=== PATIENT | female | born 1960 | race Caucasian/White ===

== ENCOUNTER 2017-01-16 19:38 | Inpatient (IN) ==
[2017-01-16] MEDS ORDERED: Ondansetron 4 MG/2 ML VIAL IV ONE (20:18)
[2017-01-16] MEDS ORDERED: 0.9 % Sodium Chloride 1,000 ML IV SCH ×2 (20:30→21:45)
[2017-01-16 21:01] LABS: Hematocrit 40.3 % (35.3-44.9); Hemoglobin 13.7 g/dL (11.5-15.4); Immature Granulocytes % 26.1 % (0-4); Lymphocytes % 4.2 %; Mean Corpuscular Hemoglobin 29.9 pg (28.0-33.3); Mean Platelet Volume 10.9 fL (9.4-12.4); Monocytes % 5.6 %; Platelet Count 245 K/mcL (140-400); Red Blood Count 4.58 M/mcL (3.82-4.97); Red Cell Distribution Width 13.6 % (11.5-14.5); Segmented Neutrophils % 63.9 %
[2017-01-16 21:02] LABS: Basophils % 0.2 %; Lymphocytes # 0.2 K/mcL (0.6-4.6); Monocytes # 0.3 K/mcL (0.0-1.3); Neutrophils # 3.6 K/mcL (1.6-8.9)
[2017-01-16 21:06] LABS: INR 1.6; Prothrombin Time 17.4 Seconds (9.4-12.1)
[2017-01-16 21:16] LABS: Alanine Aminotransferase 58 Units/L (0-55); Albumin 2.4 g/dL (3.5-5.0); Albumin/Globulin Ratio 0.6 (1.1-2.2); Alkaline Phosphatase 208 Units/L (38-126); Aspartate Amino Transferase 136 Units/L (5-34); BUN/Creatinine Ratio 19 (6-26); Bilirubin,Direct 1.5 mg/dL (0.0-0.5); Bilirubin,Indirect 0.5 mg/dL (0.0-1.2); Blood Urea Nitrogen 20 mg/dL (7-20); Calcium 8.8 mg/dL (8.6-10.8); Carbon Dioxide 17 mEq/L (19-29); Chloride 99 mEq/L (98-109); Globulin 4.2 g/dL (2.4-3.5); Glucose 235 mg/dL (70-99); Osmolality,Calculated 288 (280-300); Sodium 134 mEq/L (136-145); Total Protein 6.6 g/dL (6.0-8.3); eGFR For African Americans > 60 (> 60); eGFR For Non-African Americans 53 (> 60)
[2017-01-16 21:18] LABS: Potassium 2.5 mEq/L (3.5-4.5)
[2017-01-16] MEDS ORDERED: Piperacillin/Tazobactam 3.375 GM in D5% in Water (Mini-Bag+) 100 ML IVPB ONE (21:24)
--- NOTE | 2017-01-16 21:27 | Emergency Department Note ---
Disposition Clinical Impression: Diverticulitis of colon with perforation Disposition: Admitted As Inpatient Condition: Good Referrals: NO,PCP [Non-Partnered Physician] - Forms: Work/School Release, ED Satisfaction Letter Time of Disposition: 21:26 Abdominal Pain HPI - General Chief Complaint: ED Abdominal Pain Stated Complaint: ABD Cramps Time Seen by Provider: 01/16/17 19:48 Source: patient Mode of arrival: ambulatory Limitations: no limitations Nursing Notes Reviewed: Yes Vital Signs Reviewed: Yes - History of Present Illness HPI Narrative: Progressive abdominal found diarrhea for one week. Worse today so her mother at the bedside convinced her to come in. No such symptoms prior. No prior abdominal surgeries. No clear exacerbating or alleviating factors Pt Subjective Complaint: abdominal pain Onset (ago): day(s) Consistency: Worsening Location: diffuse Pain Severity: moderate Pain Scale: 4 Quality: cramping, aching Radiation: none Migration to: no migration Improves with: nothing Worsens with: nothing Associated symptoms: Reports: nausea, vomiting, diarrhea. Denies: fever, chills - Related Data Home Medications Medication Instructions Recorded Confirmed Diazepam [Valium] 5 mg PO TID PRN 04/28/16 04/28/16 FLUoxetine HCl [PROzac] 20 mg PO BID 04/28/16 04/28/16 Isosorbide DInitrate [Isosorbide 1 tab PO BID 04/28/16 04/28/16 Dinitrate] Lurasidone [Latuda] 1 tab PO DAILY 04/28/16 04/28/16 Meloxicam [Mobic] 1 tab PO DAILY PRN 04/28/16 04/28/16 Previous Rx's Medication Instructions Recorded Amoxicillin [Amoxil] 500 mg PO Q8HR 14 Days 04/28/16 Fluconazole [Diflucan] 150 mg PO DAILY #2 tab 04/28/16 Allergies Allergy/AdvReac Type Severity Reaction Status Date / Time No Known Allergies Allergy Verified 04/28/16 19:57 Constitutional: Denies: fever, chills, weakness, weight change Eyes: Denies: eye pain, eye discharge, vision change ENT ED: Denies: ear pain, throat pain, dental pain, hearing loss, epistaxis, congestion, dysphagia Cardiovascular: Denies: chest pain, palpitations, dyspnea on exertion, edema, syncope Respiratory: Denies: cough, dyspnea, wheezes, hemoptysis, stridor Gastrointestinal: Reports: abdominal pain, nausea, vomiting, diarrhea Genitourinary: Denies: dysuria, frequency, hematuria, discharge Musculoskeletal: Denies: back pain, neck pain, arthralgia, myalgia Integumentary: Denies: rash, abrasion, lesions Neurological: Denies: headache, weakness, numbness, paresthesias, confusion, abnormal gait, vertigo Psychiatric: Denies: anxiety, depression, suicidal thoughts, homicidal thoughts , auditory hallucinations, visual hallucinations Endocrine: Denies: fatigue Hematological/Lymphatic: Denies: easy bleeding, easy bruising Allergic/Immunologic: Denies: facial swelling, urticaria Abdominal Pain PMH - Past Medical History Medical history: Reports: hyperlipidemia, hypertension, other Female Surgical History: Reports: Tonsillectomy, other [employer] history: Reports: no [employer] history Psychiatric history: Reports: anxiety, depression - Social History Smoking status: Current every day smoker Alcohol use: Reports: none Drug use: Reports: none Physical Exam - General Limitations: no limitations General appearance: alert, in no apparent distress - Head Head exam: atraumatic, normocephalic, normal inspection - Eye Eye exam: Present: normal appearance, PERRL, EOMI - Expanded Eye Exam Pupils: Left: reactive - ENT ENT exam: normal exam, normal oropharynx, mucous membranes moist - Expanded ENT Exam External ear exam: Present: normal external inspection Mouth exam: Present: normal external inspection Teeth exam: Present: normal inspection Throat exam: Present: normal inspection - Neck Neck exam: Present: normal inspection, full ROM, trachea midline - Chest Chest inspection: Present: normal inspection, symmetric chest wall rise - Respiratory Respiratory exam: Present: normal lung sounds bilaterally - Cardiovascular Cardiovascular exam: Present: regular rate, normal rhythm, normal heart sounds - Abdominal Exam Abdominal exam: Present: tenderness, distention Abdominal tenderness: Present: diffuse, severe - Extremities Exam Extremities exam: Present: normal inspection, full ROM. Absent: tenderness, pedal edema - Expanded Upper Extremity Exam Shoulder exam: Present: normal inspection, full ROM Arm exam: Present: normal inspection, full ROM Elbow exam: Present: normal inspection, full ROM Forearm/Wrist exam: Present: normal inspection, full ROM Hand exam: Present: normal inspection, full ROM Vascular exam: Normal: capillary refill, radial pulse - Expanded Lower Extremity Exam Hip/Pelvis exam: Present: normal inspection, full ROM Upper leg exam: Present: normal inspection, full ROM Knee exam: Present: normal inspection, full ROM Lower leg exam: Present: normal inspection, full ROM Ankle exam: Present: normal inspection, full ROM Foot/toe exam: Present: normal inspection, full ROM Neurovascular/Tendon exam: Absent: motor deficit, sensory deficit, tendon deficit - Back Exam Back exam: Present: normal inspection, full ROM. Absent: tenderness - Neurological Exam Neurological exam: Present: alert, oriented X3 - Expanded Neurological Exam Patient oriented to: Present: person, place, time Coma Scale Eye Opening: Spontaneous Coma Scale Motor Response: Obeys Commands Coma Scale Verbal Response: Oriented Coma Scale Total: 15 - Psychiatric Psychiatric exam: Present: normal affect, normal mood - Skin Skin exam: Present: warm, dry, intact, normal color Course Course Narrative: Case was discussed with the surgeon Dr. Catherine at 9:50 PM. I also discussed the case with the admitting physician Dr. Burrows at 10 PM. All details were [address] Catherine also reviewed the CT scan himself and decided to admit the patient to medicine and he would request antibiotics and medical management and he would be to consult in position. With improved heart rate and stable vital signs. Antibiotics have been ordered. Vital Signs Temperature 99.4 F 01/16/17 19:39 Pulse Rate 143 01/16/17 19:39 Respiratory Rate 16 01/16/17 19:39 Blood Pressure 160/88 01/16/17 19:39 O2 Sat by Pulse Oximetry 93 L 01/16/17 19:39 Temperature 99.4 F 01/16/17 19:39 Pulse Rate 134 01/16/17 21:15 Respiratory Rate 18 01/16/17 21:15 Blood Pressure 112/66 01/16/17 21:15 O2 Sat by Pulse Oximetry 96 01/16/17 21:15 Oxygen Delivery Oxygen Delivery Room Air Abdominal Pain - Lab Data Result diagrams: 01/16/17 20:52 01/16/17 20:52 Lab Results 01/16/17 01/16/17 01/16/17 Range/Units 20:52 20:52 20:52 WBC 5.7 (4.3-11.1) K/mcL RBC 4.58 (3.82-4.97) M/mcL Hgb 13.7 (11.5-15.4) g/dL Hct 40.3 (35.3-44.9) % MCV 88.0 (83.0-100.0) fL MCH 29.9 (28.0-33.3) pg MCHC 34.0 (31.6-35.5) g/dL RDW 13.6 (11.5-14.5) % Plt Count 245 (140-400) K/mcL MPV 10.9 (9.4-12.4) fL Immature Gran % 26.1 H (0-4) % Seg Neutrophils % 63.9 % Lymphocytes % 4.2 % Monocytes % 5.6 % Eosinophils % 0.0 % Basophils % 0.2 % Neutrophils # 3.6 (1.6-8.9) K/mcL Lymphocytes # 0.2 L (0.6-4.6) K/mcL Monocytes # 0.3 (0.0-1.3) K/mcL Eosinophils # 0.0 (0.0-0.6) K/mcL Basophils # 0.0 (0.0-0.2) K/mcL PT 17.4 H (9.4-12.1) Seconds INR 1.6 Sodium 134 L (136-145) mEq/L Potassium 2.5 L* (3.5-4.5) mEq/L Chloride 99 (98-109) mEq/L Carbon Dioxide 17 L (19-29) mEq/L BUN 20 (7-20) mg/dL Creatinine 1.07 (0.57-1.11) mg/dL Est GFR ( Amer) > 60 (> 60) Est GFR (Non-Af Amer) 53 L (> 60) BUN/Creatinine Ratio 19 (6-26) Glucose 235 H (70-99) mg/dL Calculated Osmolality 288 (280-300) Calcium 8.8 (8.6-10.8) mg/dL Total Bilirubin 2.0 H (0.2-1.2) mg/dL Direct Bilirubin 1.5 H (0.0-0.5) mg/dL Indirect Bilirubin 0.5 (0.0-1.2) mg/dL AST 136 H (5-34) Units/L ALT 58 H (0-55) Units/L Alkaline Phosphatase 208 H (38-126) Units/L Troponin I (0-0.03) ng/mL Serum Total Protein 6.6 (6.0-8.3) g/dL Albumin 2.4 L (3.5-5.0) g/dL Globulin 4.2 H (2.4-3.5) g/dL Albumin/Globulin Ratio 0.6 L (1.1-2.2) 01/16/17 Range/Units 20:52 WBC (4.3-11.1) K/mcL RBC (3.82-4.97) M/mcL Hgb (11.5-15.4) g/dL Hct (35.3-44.9) % MCV (83.0-100.0) fL MCH (28.0-33.3) pg MCHC (31.6-35.5) g/dL RDW (11.5-14.5) % Plt Count (140-400) K/mcL MPV (9.4-12.4) fL Immature Gran % (0-4) % Seg Neutrophils % % Lymphocytes % % Monocytes % % Eosinophils % % Basophils % % Neutrophils # (1.6-8.9) K/mcL Lymphocytes # (0.6-4.6) K/mcL Monocytes # (0.0-1.3) K/mcL Eosinophils # (0.0-0.6) K/mcL Basophils # (0.0-0.2) K/mcL PT (9.4-12.1) Seconds INR Sodium (136-145) mEq/L Potassium (3.5-4.5) mEq/L Chloride (98-109) mEq/L Carbon Dioxide (19-29) mEq/L BUN (7-20) mg/dL Creatinine (0.57-1.11) mg/dL Est GFR ( Amer) (> 60) Est GFR (Non-Af Amer) (> 60) BUN/Creatinine Ratio (6-26) Glucose (70-99) mg/dL Calculated Osmolality (280-300) Calcium (8.6-10.8) mg/dL Total Bilirubin (0.2-1.2) mg/dL Direct Bilirubin (0.0-0.5) mg/dL Indirect Bilirubin (0.0-1.2) mg/dL AST (5-34) Units/L ALT (0-55) Units/L Alkaline Phosphatase (38-126) Units/L Troponin I 0.01 (0-0.03) ng/mL Serum Total Protein (6.0-8.3) g/dL Albumin (3.5-5.0) g/dL Globulin (2.4-3.5) g/dL Albumin/Globulin Ratio (1.1-2.2) - EKG Data EKG attestation: Yes I reviewed and interpreted this EKG. EKG results narrative: Sinus tachycardia. No acute injury pattern. Intervals unremarkable
[2017-01-16] MEDS ORDERED: MetroNIDAZOLE 500 MG/100 ML 500 MG/100 ML BAG IVPB ONE (21:45)
[2017-01-16] MEDS ORDERED: *HR* HYDROmorphone (PF) 1 MG/ML SYRINGE IV ONE (21:45)
[2017-01-16 22:58] LABS: Bilirubin,Urine Moderate (Negative); Blood,Urine Negative (Negative); Clarity,Urine Turbid (Clear); Color,Urine Orange (Yellow); Glucose,Urine (UA) Normal (Normal); Ketones,Urine 15 mg/dL (Negative); Leukocyte Esterase,Urine Moderate (Negative); Nitrite,Urine Positive (Negative); Protein,Urine 30 mg/dL (Neg-Trace); Specific Gravity,Urine 1.024 (1.010-1.025)
[2017-01-16 23:02] LABS: RBC,Urine 0-3 per hpf (0-3); Squamous Epithelial Cell,Urine Moderate per lpf (None-Few); WBC,Urine 50-100 per hpf (0-3)
[2017-01-16 23:03] LABS: Amphetamine Screen,Urine Negative ng/mL (Cutoff=1000); Barbiturate Screen,Urine Negative ng/mL (Cutoff=200); Benzodiazepines Screen,Urine Positive ng/mL (Cutoff=200); Cannabinoid Screen,Urine Negative ng/mL (Cutoff = 50); Cocaine Screen,Urine Negative ng/mL (Cutoff= 300); Opiate Screen,Urine Positive ng/mL (Cutoff=300); Phencyclidine Screen,Urine Negative ng/mL (Cutoff=25)
[2017-01-16 23:22] LABS: Bacteria,Urine Moderate per hpf (None-Few); Hyaline Casts,Urine None Seen per lpf (None-Few); Mucus,Urine Many (Few)
[2017-01-16] MEDS ORDERED: Ketorolac 30 MG/ML VIAL IVP PRN (23:38)
[2017-01-16] MEDS ORDERED: Naloxone 0.4 MG/ML INJ IVP PRN (23:38)
[2017-01-16] MEDS ORDERED: *HR* Morphine 2 MG/ML SYRINGE IVP PRN (23:38)
[2017-01-16] MEDS ORDERED: Ondansetron 4 MG/2 ML VIAL IVP PRN (23:38)
[2017-01-16] MEDS ORDERED: *HR* Dextrose 50 % in Water (Syg) 50 ML SYRINGE IVP PRN (23:50)
[2017-01-16] MEDS ORDERED: Dextrose Gel 15 GM PO PRN ×2 (23:50)
[2017-01-16] MEDS ORDERED: D5% in Water 1,000 ML IV PRN (23:50)
[2017-01-17] MEDS ORDERED: Insulin LISPRO 300 UNITS/3 ML VIAL SQ SCH
[2017-01-17] MEDS ORDERED: Potassium Chloride 40 MEQ, Lidocaine 1% 2 ML in D5% in Water 500 ML IVPB ONE (00:15)
[2017-01-17] MEDS ORDERED: *HR* HYDROmorphone (PF) 1 MG/ML SYRINGE IVP PRN ×2 (00:15→07:25)
--- NOTE | 2017-01-17 00:21 | Internal Med History&Physical ---
Date of Encounter: 01/17/17 Time of Encounter: 00:18 Assessment and Plan (1) Diverticulitis of colon with perforation Current visit: Yes Status: Acute Patient presented with abdominal pain. CT showed ignored diverticulitis with free air in the pelvis interest of a perforation. Patient taken to the OR by Dr. Catherine at this time. Majority of plan pending results of operation. Will continue IV antibiotics and supportive care. 1. IV metronidazole 500 mg Q8 hours 2. IV vancomycin dosed by pharmacy 3. IV meropenum 1g Q8 hours 4. Appreciate surgery consult and recommendations 5. NPO (2) Sepsis Current visit: Yes Status: Acute Patients with sepsis secondary to perforated diverticulitis. Will continue to with IV antibiotics. Will continue to provide IV fluids. Blood cultures and urine cultures pending. 1. Continue IV antibiotics 2. IV fluids 3. Follow blood cultures 4. Follow urine cultures. Qualifiers: Sepsis type: sepsis due to unspecified organism Qualified Code(s): A41.9 - Sepsis, unspecified organism (3) Hypokalemia Current visit: Yes Status: Acute Patient with potassium of 2.5. Given 30 mg IV potassium chloride prior to surgery. Will recheck potassium and replete as needed. Will also check magnesium and phosphorus. 1. Check potassium 2. Labs: magnesium and phosphorus (4) Sepsis associated hypotension Current visit: Yes Status: Acute Patient with hypotension in the 80s systolic secondary to sepsis. Blood pressures did not improve despite 4 L IV fluids. started on levophed. Will continue IV fluids and procedures as needed while treating underlying sepsis. (5) Diabetes Current visit: Yes Status: Acute Patient history of diabetes. She reports that she takes no medications at home. As patient as NPO, will check blood sugars every 6 hours and correct with low-dose sliding scale insulin 1. Accuchecks every 6 hours 2. Low intensity sliding scale Qualifiers: Diabetes mellitus type: type 2 Diabetes mellitus complication status: with unspecified complications Diabetes mellitus fast food shift lead insulin use: unspecified fast food shift lead insulin use status Qualified Code(s): E11.8 - Type 2 diabetes mellitus with unspecified complications (6) ERI (obstructive sleep apnea) Current visit: Yes Status: Acute Patient with history of obstructive sleep apnea. She reports that she uses CPAP regularly at home. When patient is successfully extubated, will restart CPAP at night. Internal Medicine - H&P: HPI Chief complaint: Abdominal pain Admitted From: Emergency Dept History of present illness: Ms. Pierce is a 56 year old female with past medical history including hypertension, type II diabetes not on insulin, COPD not on home oxygen, hyperlipidemia, GERD, depression, and obstructive sleep apnea on CPAP at night. Patient present to to the emergency department with her mother with chief complaint of abdominal pain. She describes the pain as a constant, cramping feeling in her lower abdomen for the last week. Pain is 9 out of 10 in severity on admission and improved with pain medication. She reports pain is worse with movement. Patient also reports 3 days of diarrhea within the pain started. She took some Imodium and the diarrhea decreased. Patient reports her last bowel movement was a loose stool earlier this evening. She denies any blood in her stool. Patient reports associated fever/chills, lightheadedness, dizziness, decreased PO intake, and abdominal distention. She denies headache, vision changes, dysphagia, chest pain or pressure, shortness of breath, change in urinary function. Mother reports that the reason they came to the ED today is because patient appeared glassy eyed and unable to function. She reports that she did fall in the shower earlier this evening. On arrival to the ED, patient had a temperature of 99.4. Blood pressure initially elevated at 160/88. Respiratory rate 16-18. Patient tachycardic with heart rate 130-140 bpm. Oxygenation saturation of 96% on room air. Labs initially showed a normal white blood cell count of 5.7 however increased percentage of immature granulocytes. Potassium of 2.5. Elevated bilirubin at 2.0 with elevated AST and ALT. UA positive for nitrates, bilirubin, euro billion, and leukocyte Estrace. CT scan showed sigmoid diverticulitis with inflammatory changes in free air and the pelvis suggested of a perforation. Dr. Catherine (general surgery) consulted it from the ED. He reviewed patient CT scan and with patient normal vital signs elected for medical management. In the ED, patient was given IV Flagyl, IV Zosyn and 2 L normal saline. On exam in emergency department, patient was awake alert and oriented, and no acute distress. At that time heart rate was in the 120s and blood pressure was in the 110s systolic. Patient reported that her pain had much improved after pain medication. She reported her pain was 0/10. Patient did appear dry on exam. Lungs were clear to auscultation bilaterally, no wheezes or crackles. Abdomen was soft, diffusely tender to palpation, with involuntary guarding. And this time patient had no rebound tenderness or rigidity. No pedal edema. Patient was initially transferred to the floor. On arrival to the floor, blood pressure had decrease into the 90s systolic. A Sexton was placed and patient was given a 3rd liter bolus. Patient was also started on IV vancomycin and IV meropenem. Potassium replacement initiated. Patient's blood pressure continued to decline into the 80s systolic with decreased urine output. Dr. Catherine was called to evaluate the patient again. Due to patients decreasing blood pressure, continued tachycardia, and increasing abdominal pain, Dr. Catherine elected to take the patient to the OR at this time. Patient transferred to the ICU due to patients continued low blood pressure. After a 4th bolus of fluids, patient's blood pressure continued to remain in the 80s systolic and patient was started levophed. Past Med Surg Social Fam HX - Past Medical History Medical history: hyperlipidemia, hypertension, other Psychiatric history: anxiety, depression - Social History Smoking Status: Current every day smoker Smokeless Tobacco Status: No Alcohol use: none Drug use: none - Family History Father Living Status: Hx Family Cardiac Disorders: Yes Internal Medicine - H&P: Meds Meloxicam [Mobic] 15 mg PO DAILY PRN 04/28/16 [History] Albuterol Sulfate [Albuterol Inhaler] 2 puff IH Q4H PRN 01/16/17 [History] Biotin 1 mg PO DAILY 01/16/17 [History] Cholecalciferol (D-3) [Vitamin D] 1,000 unit PO DAILY 01/16/17 [History] Diazepam [Valium] 5 mg PO TID PRN 01/16/17 [History] Esomeprazole Magnesium [Nexium] 40 mg PO DAILY 01/16/17 [History] FLUoxetine HCl [Fluoxetine HCl] 40 mg PO BID 01/16/17 [History] Isosorbide DInitrate [Isosorbide Dinitrate] 10 mg PO BID 01/16/17 [History] Lisinopril [Zestril] 10 mg PO DAILY 01/16/17 [History] Lovastatin [Lovastatin] 80 mg PO HS 01/16/17 [History] Lurasidone [Latuda] 40 mg PO HS 01/16/17 [History] Metoprolol XL (24 HR) Succ [Toprol XL] 50 mg PO DAILY 01/16/17 [History] Vitamin B Complex 1 each PO DAILY 01/16/17 [History] Allergies No Known Allergies Allergy (Verified 04/28/16 19:57) All Systems PM: A 10-system review of systems was performed and is negative for pertinent findings except as documented above in the HPI. - Constitutional Constitutional: chills, fatigue, fever(s), lethargy, weakness, weight loss - EENT Eyes: no blurry vision, no change in vision Nose, mouth and throat: dry mouth - Cardiovascular Cardiovascular ROS IM: no chest pain, no claudication, no diaphoresis, no dyspnea, no dyspnea on exertion, no edema, no irregular heart rhythm, no palpitations - Respiratory Respiratory: no cough, no dyspnea, no dyspnea on exertion, no wheezing - Gastrointestinal Gastrointestinal: abdominal pain, bloating, cramping, diarrhea, excessive flatus , loose stools, no constipation, no dysphagia, no hematemesis, no hematochezia, no melena, no nausea, no vomiting - Genitourinary Genitourinary: no change in urinary stream, no dysuria - Neurological Neurological ROS: dizziness, weakness, no confusion, no headache(s) - Constitutional Vitals: Temp Pulse Resp BP Pulse Ox 98.3 F 123 15 95/68 93 L 01/16/17 23:58 01/16/17 23:58 01/16/17 23:58 01/16/17 23:58 01/16/17 23:58 General appearance: Present: A&O X 3, pleasant, answers questions appropriately - Head Head exam: Present: atraumatic, normal inspection, normocephalic - Eye Eye exam: Present: EOMI, normal appearance, PERRL - ENT ENT exam: Present: mucous membranes dry - Respiratory Respiratory exam: Present: CTAB - Cardiovascular Cardiovascular exam: Present: tachycardia - GI/Abdominal GI/Abdominal exam: Present: distended, guarding, soft, tenderness. Absent: rebound, rigid - Extremities Exam Extremities exam: Present: normal inspection. Absent: pedal edema - Neurological Exam Neurological exam: Present: alert, CN II-XII intact, oriented X3, no focal deficits - Skin Skin exam: Present: dry Internal Med - H&P Results - Labs CBC & Chem 7: 01/17/17 01:29 01/17/17 01:29 - Impressions ITS Impressions Abdomen/Pelvis CT 01/16/17 20:18 IMPRESSION: Sigmoid diverticulitis with inflammatory change and small amount of free fluid in the pelvis. No defined fluid collection. Small amount of free air in the mid and upper abdomen likely related to perforation. 1.5 cm rounded structure within the gallbladder which may represent a noncalcified stone. This can be better evaluated with ultrasound Layering high attenuation also on the gallbladder. This may represent sludge or tiny calcified stones. No findings otherwise to suggest acute cholecystitis. Findings discussed with Dr. Sebastian at 01/16/2017 at 9:37 p.m. D/ / Ioana Shepard MD / Ioana Shepard MD Interpreting Provider: Ioana Shepard MD
[2017-01-17] MEDS ORDERED: 0.9 % Sodium Chloride 1,000 ML IVC ONE (00:42)
[2017-01-17] MEDS ORDERED: Vancomycin 1,250 MG in D5% in Water 250 ML IVPB SCH ×2 (01:00→13:00)
[2017-01-17] MEDS ORDERED: Potassium Chloride 30 MEQ, Lidocaine 1% 2 ML in D5% in Water 500 ML IVPB ONE (01:29)
[2017-01-17 01:38] LABS: Hematocrit 33.8 % (35.3-44.9); Mean Corpuscular HGB Conc 33.4 g/dL (31.6-35.5); Mean Corpuscular Volume 89.7 fL (83.0-100.0); Mean Platelet Volume 10.7 fL (9.4-12.4); Platelet Count 197 K/mcL (140-400); Red Blood Count 3.77 M/mcL (3.82-4.97); Red Cell Distribution Width 13.8 % (11.5-14.5)
[2017-01-17] MEDS ORDERED: 0.9 % Sodium Chloride 1,000 ML IVC SCH ×3 (01:45→12:57)
[2017-01-17 01:49] LABS: INR 1.6; Prothrombin Time 17.7 Seconds (9.4-12.1)
[2017-01-17 01:52] LABS: Activated Partial Thrombo Time 28.6 Seconds (26.0-36.0)
[2017-01-17 01:53] LABS: Alanine Aminotransferase 44 Units/L (0-55); Albumin/Globulin Ratio 0.6 (1.1-2.2); Alkaline Phosphatase 112 Units/L (38-126); Aspartate Amino Transferase 106 Units/L (5-34); BUN/Creatinine Ratio 21 (6-26); Bilirubin,Total 1.7 mg/dL (0.2-1.2); Blood Urea Nitrogen 22 mg/dL (7-20); Carbon Dioxide 18 mEq/L (19-29); Chloride 107 mEq/L (98-109); Chol/HDL Ratio 5.9 (0-4.9); Glucose 201 mg/dL (70-99); HDL Cholesterol 9 mg/dL (40-59); LDL Cholesterol,Calculated 26 mg/dL (0-99); Osmolality,Calculated 291 (280-300); Phosphorous 1.6 mg/dL (2.3-4.7); Sodium 136 mEq/L (136-145); Triglycerides 89 mg/dL (< 150); eGFR For African Americans > 60 (> 60); eGFR For Non-African Americans 54 (> 60)
[2017-01-17 01:55] LABS: Albumin 1.8 g/dL (3.5-5.0); Calcium 7.3 mg/dL (8.6-10.8); Cholesterol 53 mg/dL (< 200); Total Protein 4.8 g/dL (6.0-8.3)
[2017-01-17 01:59] LABS: Potassium 2.5 mEq/L (3.5-4.5)
--- NOTE | 2017-01-17 02:05 | General Surgery Consult Note ---
Date of Encounter: 01/17/17 Time of Encounter: 02:04 Assessment and Plan (1) Diverticulitis of colon with perforation Current Visit: Yes Status: Acute I explained the patient that I personally reviewed the CT scan images. Although her CT scan does not show drainable abscess collection and shows signs of perforation, her physical exam is consistent with peritonitis and she is exhibiting signs of sepsis. I am concerned that she will not be able to continue with this conservative management and we will need to perform an exploration and possible resection of the involved colon segment with a colostomy. Risks and benefits have been discussed at length with the patient and she agrees to the above plan. (2) Sepsis associated hypotension Current Visit: Yes Status: Acute Noted patient's hypotension and with tachycardia. She has had over 2 L ( approximately 3 L) of normal saline fluid. Transported to the ICU. Because of her decompensating nature with the abnormal CT scan findings will perform an exploration. (3) Hypokalemia Current Visit: Yes Status: Acute Noted hypokalemia. Will verify that she has had replacement and will need to repeat. Likely may require replacement of her potassium intraoperatively. History of Present Illness Consult date: 01/17/17 Reason for consult: abdominal pain Requesting physician: Joanie Cardenas History of present illness: The patient is a 56-year-old female with a past medical history significant for COPD, GERD, Asthma, HTN, and Bipolar Disorder presents to [facility] with a one-week history of lower abdominal pain symptoms. She states that she denies normally any diarrhea or constipation but she may have had smears earlier today and does not recall when she last had a bowel movement. She denies any history of rectal bleeding and states that her pain is been getting progressively worse over the past week. She denies any nausea or vomiting symptoms but because of her progressively worsening pain symptoms she presented to [facility] further evaluation. Past Med Surg Social Fam HX - Past Medical History Medical history: hyperlipidemia, hypertension, other Psychiatric history: anxiety, depression - Past Surgical History Surgical History: other (, T&A, Back surgery, EGD/colonoscopy) - Social History Smoking Status: Current every day smoker Smokeless Tobacco Status: No Alcohol use: none Drug use: none - Family History Father Living Status: Hx Family Cardiac Disorders: Yes Medications and Allergies Meloxicam [Mobic] 15 mg PO DAILY PRN 04/28/16 [History] Albuterol Sulfate [Albuterol Inhaler] 2 puff IH Q4H PRN 01/16/17 [History] Biotin 1 mg PO DAILY 01/16/17 [History] Cholecalciferol (D-3) [Vitamin D] 1,000 unit PO DAILY 01/16/17 [History] Diazepam [Valium] 5 mg PO TID PRN 01/16/17 [History] Esomeprazole Magnesium [Nexium] 40 mg PO DAILY 01/16/17 [History] FLUoxetine HCl [Fluoxetine HCl] 40 mg PO BID 01/16/17 [History] Isosorbide DInitrate [Isosorbide Dinitrate] 10 mg PO BID 01/16/17 [History] Lisinopril [Zestril] 10 mg PO DAILY 01/16/17 [History] Lovastatin [Lovastatin] 80 mg PO HS 01/16/17 [History] Lurasidone [Latuda] 40 mg PO HS 01/16/17 [History] Metoprolol XL (24 HR) Succ [Toprol XL] 50 mg PO DAILY 01/16/17 [History] Vitamin B Complex 1 each PO DAILY 01/16/17 [History] Allergies No Known Allergies Allergy (Verified 04/28/16 19:57) Review of Systems All systems PM: reviewed and no additional remarkable complaints except as stated All systems PM: A 10-system review of systems was performed and is negative for pertinent findings except as documented above in the HPI. General Surgery Exam Initial Vital Signs Temp Pulse Resp BP Pulse Ox 99.4 F 143 16 160/88 93 L 01/16/17 19:39 01/16/17 19:39 01/16/17 19:39 01/16/17 19:39 01/16/17 19:39 - General physical appearance well nourished, moderate distress, moderate pain - Eyes PERRL, normal ocular movement - Neck no masses, trachea midline, no lymphadectomy - Respiratory normal expansion, clear to auscultation, other (Patient takes slightly shallow breaths) - Cardiovascular Cardiovascular exam: Present: tachycardia, no murmurs/rubs/gallops - Abdomen Abdomen general surgery: Present: bowel sounds present (Obese), soft, tender, surgical scars (Positive pain to palpation in the lower abdomen and also in the right upper quadrant. No masses palpated.) - Integumentary Integumentary general surgery: Present: warm and dry - Neurologic Present: CN 2-12 grossly intact - Musculoskeletal Present: other (No clubbing, cyanosis, or edema) - Psychiatric Psychiatric general surgery: Present: A&Ox3 Exam Initial Vital Signs Temp Pulse Resp BP Pulse Ox 99.4 F 143 16 160/88 93 L 01/16/17 19:39 01/16/17 19:39 01/16/17 19:39 01/16/17 19:39 01/16/17 19:39 Results - Labs 01/17/17 01:29 01/17/17 01:29 Abnormal lab results Immature Gran % 26.1 % (0-4) H 01/16/17 20:52 Lymphocytes # 0.2 K/mcL (0.6-4.6) L 01/16/17 20:52 PT 17.7 Seconds (9.4-12.1) H 01/17/17 01:29 Potassium 2.5 mEq/L (3.5-4.5) L* 01/17/17 01:29 Carbon Dioxide 18 mEq/L (19-29) L 01/17/17 01:29 BUN 22 mg/dL (7-20) H 01/17/17 01:29 Est GFR (Non-Af Amer) 54 (> 60) L 01/17/17 01:29 Glucose 201 mg/dL (70-99) H 01/17/17 01:29 Lactic Acid 4.0 mmol/L (0.5-2.2) H* 01/17/17 01:29 Calcium 7.3 mg/dL (8.6-10.8) L D 01/17/17 01:29 Phosphorus 1.6 mg/dL (2.3-4.7) L 01/17/17 01:29 Magnesium 1.0 mg/dL (1.6-2.6) L 01/17/17 01:29 Total Bilirubin 1.7 mg/dL (0.2-1.2) H 01/17/17 01:29 Direct Bilirubin 1.5 mg/dL (0.0-0.5) H 01/16/17 20:52 AST 106 Units/L (5-34) H 01/17/17 01:29 C-Reactive Protein 149 mg/L (Less than 5) H 01/17/17 01:29 Serum Total Protein 4.8 g/dL (6.0-8.3) L D 01/17/17 01:29 Albumin 1.8 g/dL (3.5-5.0) L D 01/17/17 01:29 Albumin/Globulin Ratio 0.6 (1.1-2.2) L 01/17/17 01:29 HDL Cholesterol 9 mg/dL (40-59) L 01/17/17 01: Cholesterol/HDL Ratio 5.9 (0-4.9) H 01/17/17 01:29 Urine Color Crystal (Yellow) A 01/16/17 22:49 Urine Clarity Turbid (Clear) A 01/16/17 22:49 Urine Protein 30 mg/dL (Neg-Trace) H 01/16/17 22:49 Urine Ketones 15 mg/dL (Negative) H 01/16/17 22:49 Urine Nitrite Positive (Negative) A 01/16/17 22:49 Urine Bilirubin Moderate (Negative) H 01/16/17 22:49 Urine Urobilinogen 2.0 mg/dL (Normal) H 01/16/17 22:49 Ur Leukocyte Esterase Moderate (Negative) H 01/16/17 22:49 Urine Microscopic WBC 50-100 per hpf (0-3) H 01/16/17 22:49 Ur Squamous Epith Cells Moderate per lpf (None-Few) H 01/16/17 22:49 Urine Bacteria Moderate per hpf (None-Few) H 01/16/17 22:49 Urine Mucus Many (Few) H 01/16/17 22:49 Urine Opiates Screen Positive ng/mL (Dpzhbh=293) H 01/16/17 22:49 U Benzodiazepines Scrn Positive ng/mL (Rewbfz=080) H 01/16/17 22:49 Diabetes panel 01/17/17 Range/Units 01:29 Sodium 136 (136-145) mEq/L Potassium 2.5 L* (3.5-4.5) mEq/L Chloride 107 (98-109) mEq/L Carbon Dioxide 18 L (19-29) mEq/L BUN 22 H (7-20) mg/dL Creatinine 1.05 (0.57-1.11) mg/dL Glucose 201 H (70-99) mg/dL Calcium 7.3 L D (8.6-10.8) mg/dL AST 106 H (5-34) Units/L ALT 44 (0-55) Units/L Alkaline Phosphatase 112 (38-126) Units/L Albumin 1.8 L D (3.5-5.0) g/dL Triglycerides 89 (< 150) mg/dL HDL Cholesterol 9 L (40-59) mg/dL Calcium panel 01/17/17 Range/Units 01:29 Calcium 7.3 L D (8.6-10.8) mg/dL Phosphorus 1.6 L (2.3-4.7) mg/dL Albumin 1.8 L D (3.5-5.0) g/dL Pituitary panel 01/17/17 Range/Units 01:29 Sodium 136 (136-145) mEq/L Potassium 2.5 L* (3.5-4.5) mEq/L Chloride 107 (98-109) mEq/L Carbon Dioxide 18 L (19-29) mEq/L BUN 22 H (7-20) mg/dL Creatinine 1.05 (0.57-1.11) mg/dL Glucose 201 H (70-99) mg/dL Calcium 7.3 L D (8.6-10.8) mg/dL Adrenal panel 01/17/17 Range/Units 01:29 Sodium 136 (136-145) mEq/L Potassium 2.5 L* (3.5-4.5) mEq/L Chloride 107 (98-109) mEq/L Carbon Dioxide 18 L (19-29) mEq/L BUN 22 H (7-20) mg/dL Creatinine 1.05 (0.57-1.11) mg/dL Glucose 201 H (70-99) mg/dL Calcium 7.3 L D (8.6-10.8) mg/dL Total Bilirubin 1.7 H (0.2-1.2) mg/dL AST 106 H (5-34) Units/L ALT 44 (0-55) Units/L Alkaline Phosphatase 112 (38-126) Units/L Albumin 1.8 L D (3.5-5.0) g/dL All other labs normal. - Imaging CT scan - abdomen: report reviewed, image reviewed (Evidence of free air with some stranding in the sigmoid colon and some minimal fluid in the pelvis. Consistent with a possible colonic perforation.) Consult Discharge Plan - Plan Referrals: Afshin Salazar MD [Primary Care Provider] -
[2017-01-17 02:08] LABS: Hemoglobin 11.3 g/dL (11.5-15.4)
[2017-01-17 02:14] LABS: Lymphocytes # 0.2 K/mcL (0.6-4.6); Monocytes # 1.6 K/mcL (0.0-1.3); Neutrophils # 9.4 K/mcL (1.6-8.9)
[2017-01-17 02:15] LABS: Platelet Estimate Normal (Normal)
[2017-01-17] MEDS ORDERED: Albumin Human 5% 25.0 GM/500 ML VIAL ONE (02:26)
[2017-01-17] MEDS ORDERED: *HR* Vasopressin 20 UNIT/ML VIAL ONE (02:26)
[2017-01-17] MEDS ORDERED: Sodium Bicarbonate 50 MEQ/50 ML VIAL ONE (02:26)
[2017-01-17] MEDS ORDERED: Heparin 1,000 UNITS/500 mL NS 500 ML ONE (02:31)
[2017-01-17] MEDS ORDERED: Lidocaine -MPF 2% 2 ML VIAL ONE ×2 (02:31→03:24)
[2017-01-17] MEDS ORDERED: *HR* Succinylcholine 200 MG/10 ML VIAL IVP ONE (02:31)
[2017-01-17] MEDS ORDERED: *HR* Phenylephrine 10 MG/ML VIAL ONE ×2 (02:31→06:50)
[2017-01-17] MEDS ORDERED: *HR* Etomidate 40 MG/20 ML VIAL IVP ONE (02:31)
[2017-01-17] MEDS ORDERED: *HR* EPINEPHrine 1 MG/ML AMPUL ONE (02:39)
[2017-01-17] MEDS ORDERED: *HR* FentaNYL (PF) 100 MCG/2 ML VIAL ONE (02:41)
[2017-01-17] MEDS ORDERED: EPHEDrine 50 MG/ML VIAL ONE (02:42)
[2017-01-17] MEDS ORDERED: CefOXitin 1,000 MG VIAL ONE ×2 (02:59→05:38)
[2017-01-17] MEDS ORDERED: Magnesium Sulfate 2 GM in D5% in Water 100 ML IVPB ONE (03:05)
--- NOTE | 2017-01-17 03:11 | Event Note ---
Date of Encounter: 01/17/17 Time of Encounter: 03:07 Patient is a 56-year-old female with history of hypertension dyslipidemia a lifelong smoker in addition to history of typical anginal symptoms for which she was advised to have a coronary angiogram presented to the emergency room today with a week of abdominal pain. Patient was found to have perforated diverticulitis in addition to free air. I have discussed the case with ER physician and asked him to speak with the surgeon and to make sure that the images get pushed to the surgeon for further evaluation because of free air. Patient was immediately started on vancomycin and meropenem. She was resuscitated with IV fluids boluses. electrolyte abnormalities are being replaced. Throughout the night patient started becoming hypotensive. After further fluid resuscitation, she continued to become hypotensive. Patient was to transfer to the intensive care unit and started only levofed. I discussed the case immediately with assertion music rehabilitation therapist kindly presented to the hospital and will take the patient to the OR for surgery. I would like to note that the patient is having typical anginal pains with exertion. We do not have any recent coronary evaluation for the patient. Therefore the patient will be considered high risk for surgery. Electrocardiogram shows dan waves and leads 3 and AVF. Prognosis guarded
[2017-01-17] MEDS ORDERED: Norepinephrine 4 MG in D5% in Water 250 ML IVC SCH (03:15)
--- NOTE | 2017-01-17 03:16 | Anesthesia Evaluation PreOp ---
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: Denies Any Significant HX Other Medical History: Renal (poor urine output), Diabetes Type II Anesthesia History: No Prior Anesthetic Complications Alcohol Use: none Drug use: none Medications and Allergies Meloxicam [Mobic] 15 mg PO DAILY PRN 04/28/16 [History] Albuterol Sulfate [Albuterol Inhaler] 2 puff IH Q4H PRN 01/16/17 [History] Biotin 1 mg PO DAILY 01/16/17 [History] Cholecalciferol (D-3) [Vitamin D] 1,000 unit PO DAILY 01/16/17 [History] Diazepam [Valium] 5 mg PO TID PRN 01/16/17 [History] Esomeprazole Magnesium [Nexium] 40 mg PO DAILY 01/16/17 [History] FLUoxetine HCl [Fluoxetine HCl] 40 mg PO BID 01/16/17 [History] Isosorbide DInitrate [Isosorbide Dinitrate] 10 mg PO BID 01/16/17 [History] Lisinopril [Zestril] 10 mg PO DAILY 01/16/17 [History] Lovastatin [Lovastatin] 80 mg PO HS 01/16/17 [History] Lurasidone [Latuda] 40 mg PO HS 01/16/17 [History] Metoprolol XL (24 HR) Succ [Toprol XL] 50 mg PO DAILY 01/16/17 [History] Vitamin B Complex 1 each PO DAILY 01/16/17 [History] Allergies No Known Allergies Allergy (Verified 04/28/16 19:57) - Meds/Allergy Pre-op Review Medications Reviewed: Yes Allergies Reviewed: Yes Beta Blockers on Current Med List: Yes If Beta Blockers taken, Date/Time (Last Dose taken): hold today; patient hypotension/septic shock Anesthesia Results - Labs 01/17/17 01:29 01/17/17 01:29 - Imaging EKG: report reviewed, image reviewed (ST) Anesthesia Exam Last Vital Signs Temp 98.5 F 01/17/17 02:23 Pulse 105 01/17/17 03:00 Resp 26 01/17/17 03:00 BP 98/60 01/17/17 03:00 Pulse Ox 90 L 01/17/17 03:00 Weight: 92 kg NPO (# of Hours): >> 8 hrs - HEENT Pupil (Motor): Pupils equal, EOMI Mallampati: III Teeth: Normal Oral Opening: Greater than 3 - EXTRUDER OPERATOR HELPER LOC: Oriented - Cardiac Rhythm: Regular Murmur: None - Pulmonary Breath Sounds: bilateral Clear Respiratory Effort: Symmetrical Anesthesia Assess/Plan ASA Score: 4, E Modified [place] Scale for Level of Consciousness: Cooperative, oriented, and tranquil Anesthetic Plan: General Monitoring Plan: Standard Monitors, A-Line, CVC Recovery Plan: ICU
[2017-01-17] MEDS ORDERED: *HR* Magnesium Sulfate 1 GM/2 ML VIAL ONE (03:18)
[2017-01-17] MEDS ORDERED: *HR* Midazolam HCl 2 MG/2 ML VIAL ONE (03:24)
--- NOTE | 2017-01-17 04:39 | Anesthesia Procedures ---
Date of Encounter: 01/17/17 Time of Encounter: 03:40 Procedures: Anesthesia - Arterial Line Consent obtained: written consent Time out performed: Yes Sedation: Versed (mg): 2 Supplemental Oxygen via Nasal Cannula (L/min): 10 (ett) Size (Gauge): 20 Length (inches): 1 3/4 Technique Used: sterile prep, guide wire technique Post-Procedure: line taped into place, dry sterile dressing placed Patient tolerated procedure: well Complications: none Site: Radial R - Central Line Placement Right IJ Consent obtained: written consent Time out performed: Yes Patient placed on monitor/pulse ox: Yes Sedation: Versed (mg): 2 Supplemental Oxygen via Nasal Cannula (L/min): 10 (ett) MD prep: mask, gown, gloves Central line prep: Chlorhexidine scrub Ultrasound used for placement: Yes Technique: Seldinger Lumen Inserted: triple Post procedure: sutured in place, good blood return, all ports aspirated, flushed, capped, sterile dressing applied Patient tolerated procedure: well Complications: none
[2017-01-17] MEDS ORDERED: *HR* HYDROmorphone 2 MG/ML SYRINGE ONE (04:44)
[2017-01-17 05:15] LABS: ABG Base Excess -3.2 mEq/L (-2.0 to 3.0); ABG Glucose 237 mg/dL (60-95); ABG Hematocrit 33 % (35-51); ABG Ionized Calcium 1.34 mmol/L (1.15-1.35); ABG Oxygen Saturation 100 % (95-98); ABG PCO2 39 mmHg (35-45); ABG PH 7.36 pH Units (7.32-7.45); ABG PO2 193 mmHg (85-104); ABG TCO2 23.2 mEq/L (20-26)
[2017-01-17 05:22] LABS: Blood Gas FiO2 100 %
[2017-01-17] MEDS ORDERED: Vancomycin 1,000 MG in D5% in Water 250 ML IVPB SCH (06:00)
[2017-01-17] MEDS ORDERED: Ondansetron 4 MG/2 ML VIAL ONE (06:21)
[2017-01-17] MEDS ORDERED: Dexamethasone 4 MG/ML VIAL ONE (06:21)
[2017-01-17] MEDS ORDERED: Neostigmine Methylsulfate 3 MG/3 ML SYRINGE ONE (06:22)
[2017-01-17] MEDS ORDERED: MetroNIDAZOLE 500 MG/100 ML 500 MG/100 ML BAG IVPB SCH ×2 (07:00→15:00)
--- NOTE | 2017-01-17 07:08 | Operative Note ---
Date of procedure: 01/17/17 Pre-op diagnosis: Peritonitis, perforated sigmoid diverticulitis Post-op diagnosis: same Procedure: 1. Exploratory celiotomy. 2. Sigmoid resection, sigmoid colostomy. 3. Abdominal wash out. Complications: Kranthi drain 19FR x 1 Anesthesia: DARRIANA Surgeon: Christiano Catherine House Player: Ivonne Melo House Player Other: EVGENY OsborneII Specimen: sigmoid colon Condition: stable Disposition: PACU Procedure in Detail: Date of surgery: 01/17/17 After properly identifying the patient, the patient was brought to the operating room and placed in the supine position. After proper IV sedation was achieved followed by general endotracheal intubation, the patient's abdomen was prepped and draped in normal sterile fashion. A timeout was performed noting the patient's name and procedure to be performed. A 10 blade scalpel was used to make an incision from umbilicus extending inferiorly down to the pubic symphysis. Bovie cauterization was used to dissect through the subcutaneous tissue until the rectus fascia was encountered and incised on the course of the incision. DeLee succus material was noted which was cultured and suctioned from the abdomen. Visualization demonstrated that there was a firmness exudate noted along the serosal surface of the small bowel in this area consistent with walling off an abscess cavity. Because of the difficulty with visualization in the pelvis and the patient's body habitus the decision was made to extend the midline incision superiorly above the level of the umbilicus towards the epigastrium.. A Bookwalter was brought onto the surgical field and used to retract the abdominal wall fascia laterally. The bilateral lower and upper quadrants were irrigated and visualization demonstrated no evidence of an active perforation. Focus was then once again placed on the sigmoid colon due to the findings by CAT scan which suggested sigmoid diverticulitis and possible perforation. Although there are multiple diverticulum noted I could not locate the actual perforated diverticulum. The small bowel was run from the ligament of Treitz to the right colon which did not show any evidence of gross abnormality but did allow for suctioning of interloop fluid collections. The colon from the right colon to the transverse, descending, and sigmoid colon was then examined. Abnormal location are portion of the bowel was the sigmoid colon. After examining his stomach and wanted him for any evidence of perforation which was not present the decision was made to go ahead and perform a sigmoid colectomy by first dissecting the sigmoid colon away from the mesentery in this region with Bovie cauterization and utilization of a handheld LigaSure. The sigmoid colon was then transected at the level of the rectal sigmoid junction with a contour stapler. The proximal portion of the sigmoid colon near the descending colon was transected with a HYACINTH stapler. The left colonic sidewall attachments were dissected free with Bovie cauterization up towards the splenic flexure. The abdomen was copiously irrigated with normal saline solution containing Mefoxin. After re-irrigation and reexamination of the pelvis the decision was made to tag the colonic stump with a 2-0 Prolene suture. After revisualization of the left colonic stump and the rectal stump a decision was made to go ahead and concluded the surgical procedure. A right lower quadrant 19-Egyptian Kranthi drain was placed in the abdomen and secured in place with a 2-0 nylon suture. A left lower quadrant colostomy was created with extrusion of the left colonic stump through this area in the normal fashion. The abdominal wall fascia was reapproximated with 2 running #1 looped sutures after Sephrafilm was placed witin the abdomen. The subcutaneous tissue was reapproximated with interrupted 0 Vicryl sutures and a wound VAC was placed along the subcutaneous tissue/open incision. An ostomy appliance was placed over the left lower quadrant ostomy after the colonic stump was matured. Needle, sponge, and instrument counts were correct 2 and the patient was aroused from IV sedation, extubated in the operating room without complication, and transported to the ICU and guarded but stable condition.
--- NOTE | 2017-01-17 07:19 | Pulmonology Consult Note ---
<Fredy Slelers - Last Filed: 01/17/17 13:18> Date of Encounter: 01/17/17 Time of Encounter: 09:17 Assessment and Plan (1) Diverticulitis of colon with perforation Current Visit: Yes Status: Acute POD #0; s/p exploratory celiotomy, sigmoid resection was sigmoid colostomy, and abdominal washout by Dr. Catherine. 19French Kranthi drain and midline wound vac. Wound care/ostomy care. NPO diet Continue IV NS 100mls/hr Antibiotic [facility], appreciate their continued evaluation and recommendation. (2) Sepsis Current Visit: Yes Status: Acute WBC 5.7>11.2>21.8 Trending lactate: increased from 4>7 Currently hemodynamically stable. Originally on metroniazole, vancomycin, meropenem. De-escalated to Piperacillin/ Tazobactam. Qualifiers: Sepsis type: sepsis due to unspecified organism Qualified Code(s): A41.9 - Sepsis, unspecified organism (3) Sepsis associated hypotension Current Visit: Yes Status: Acute Hypotension overnight of 86/51. Status post surgical intervention patients more hemodynamically stable, with most recent blood pressure 112/71. Patient receiving 500 mL 5% albumin and normal saline at 100 mL per hour (4) Hypokalemia Current Visit: Yes Status: Acute Potassium at 2.5, improved reporting 3.7 after receiving 30 MEQ potassium chloride (5) Hypomagnesemia Current Visit: Yes Status: Acute Magnesium improved 1.0 >2.30, no record seen of Mg administered. (6) Diabetes Current Visit: Yes Status: Chronic Early reports state patient has a history of diabetes but that she reports no home medications for diabetes. Patient NPO Accuchecks every 6 hours Low intensity sliding scale Qualifiers: Diabetes mellitus type: type 2 Diabetes mellitus complication status: with unspecified complications Diabetes mellitus long term care administrator insulin use: unspecified alf insulin use status Qualified Code(s): E11.8 - Type 2 diabetes mellitus with unspecified complications (7) COPD (chronic obstructive pulmonary disease) Current Visit: Yes Status: Chronic Home medication albuterol. Patient currently oxygenating well on bilevel, plan to titrate supplement oxygen to maintain O2 saturation greater than 88% Qualifiers: COPD type: chronic bronchitis Chronic bronchitis type: unspecified Qualified Code(s): J42 - Unspecified chronic bronchitis (8) ERI (obstructive sleep apnea) Current Visit: Yes Status: Chronic Reported history of sleep apnea with regular use of CPAP at night. Patient currently on bilevel. History of Present Illness Consult date: 01/17/17 Requesting physician: Joanie Cardenas Reason for consult: other (Sepsis) Chief complaint: abdominal pain History of present illness: Stan is a 56-year-old female who presented to a [facility] with one-week history of lower normal pain. CT abdomen and pelvis showed sigmoid diverticulitis with small amount of free air in the abdomen. Upon admission patient was hemodynamically stable, with normal white count. Patient was admitted to the floor she became acutely hypotensive, with electrolyte abnormalities. Patient must taken to emergency surgery by Dr. Catherine; there he completed Mike exploratory's ileostomy, sigmoid resection with sigmoid colostomy, abdominal washout. Patient return to surgery with a right IJ, right arterial line, Kranthi drain 19 [place], and wound vac to midline incision. Past Med Surg Social Fam HX - Past Medical History Source: old records reviewed Medical history: hyperlipidemia, hypertension, other Psychiatric history: anxiety, depression - Past Surgical History Surgical History: other (, T&A, Back surgery, EGD/colonoscopy) - Social History Smoking Status: Current every day smoker Smokeless Tobacco Status: No Alcohol use: none Drug use: none - Family History Father Living Status: Hx Family Cardiac Disorders: Yes Medications and Allergies Meloxicam [Mobic] 15 mg PO DAILY PRN 04/28/16 [History] Albuterol Sulfate [Albuterol Inhaler] 2 puff IH Q4H PRN 01/16/17 [History] Biotin 1 mg PO DAILY 01/16/17 [History] Cholecalciferol (D-3) [Vitamin D] 1,000 unit PO DAILY 01/16/17 [History] Diazepam [Valium] 5 mg PO TID PRN 01/16/17 [History] Esomeprazole Magnesium [Nexium] 40 mg PO DAILY 01/16/17 [History] FLUoxetine HCl [Fluoxetine HCl] 40 mg PO BID 01/16/17 [History] Isosorbide DInitrate [Isosorbide Dinitrate] 10 mg PO BID 01/16/17 [History] Lisinopril [Zestril] 10 mg PO DAILY 01/16/17 [History] Lovastatin [Lovastatin] 80 mg PO HS 01/16/17 [History] Lurasidone [Latuda] 40 mg PO HS 01/16/17 [History] Metoprolol XL (24 HR) Succ [Toprol XL] 50 mg PO DAILY 01/16/17 [History] Vitamin B Complex 1 each PO DAILY 01/16/17 [History] Allergies No Known Allergies Allergy (Verified 04/28/16 19:57) ROS unobtainable: due to mental status (sedation) All Systems: A 10-system review of systems was performed and is negative for pertinent findings except as documented above in the HPI. Physical Examination General appearance: no acute distress, other (Opens eyes to voice and touch) Eyes: nonicteric ENT: oropharynx moist Neck: supple Effort: normal Inspection: normal Auscultation: bilateral: clear Cardiovascular: other (Tachycardia) Gastrointestinal: absent bowel sounds, soft, non-distended, other (Midline incision, maher foam packing in place with wound VAC) Integumentary: normal Extremities: no cyanosis, no edema, no clubbing, pink and warm, pulses normal Musculoskeletal: no deformities unable to assess due to mental status Results - Laboratory Findings CBC and BMP: 01/17/17 07:45 01/17/17 07:45 ABG ABG pH 7.36 pH Units (7.32-7.45) 01/17/17 05:02 ABG pCO2 39 mmHg (35-45) 01/17/17 05:02 ABG pO2 193 mmHg (85-104) H 01/17/17 05:02 ABG O2 Saturation 100 % (95-98) H 01/17/17 05:02 PT/INR, D-dimer PT 17.7 Seconds (9.4-12.1) H 01/17/17 01:29 Abnormal lab findings: Abnormal lab results WBC 11.2 K/mcL (4.3-11.1) H D 01/17/17 01:29 RBC 3.77 M/mcL (3.82-4.97) L 01/17/17 01:29 Hgb 11.3 g/dL (11.5-15.4) L D 01/17/17 01:29 Hct 33.8 % (35.3-44.9) L 01/17/17 01:29 Immature Gran % 26.1 % (0-4) H 01/16/17 20:52 Band Neutrophils % 10.0 % (0-4) H 01/17/17 01:29 Neutrophils # 9.4 K/mcL (1.6-8.9) H 01/17/17 01:29 Lymphocytes # 0.2 K/mcL (0.6-4.6) L 01/17/17 01:29 Monocytes # 1.6 K/mcL (0.0-1.3) H 01/17/17 01:29 PT 17.7 Seconds (9.4-12.1) H 01/17/17 01:29 ABG pO2 193 mmHg (85-104) H 01/17/17 05:02 ABG O2 Saturation 100 % (95-98) H 01/17/17 05:02 ABG Base Excess -3.2 mEq/L (-2.0 to 3.0) L 01/17/17 05:02 ABG Hematocrit 33 % (35-51) L 01/17/17 05:02 Potassium 2.9 mEq/L (3.5-5.3) L 01/17/17 05:02 Glucose 237 mg/dL (60-95) H 01/17/17 05:02 Potassium 2.5 mEq/L (3.5-4.5) L* 01/17/17 01:29 Carbon Dioxide 18 mEq/L (19-29) L 01/17/17 01:29 BUN 22 mg/dL (7-20) H 01/17/17 01:29 Est GFR (Non-Af Amer) 54 (> 60) L 01/17/17 01:29 Glucose 201 mg/dL (70-99) H 01/17/17 01:29 POC Glucose 214 (58-89) H 01/17/17 02:22 Lactic Acid 4.0 mmol/L (0.5-2.2) H* 01/17/17 01:29 Calcium 7.3 mg/dL (8.6-10.8) L D 01/17/17 01:29 Phosphorus 1.6 mg/dL (2.3-4.7) L 01/17/17 01:29 Magnesium 1.0 mg/dL (1.6-2.6) L 01/17/17 01:29 Total Bilirubin 1.7 mg/dL (0.2-1.2) H 01/17/17 01:29 Direct Bilirubin 1.5 mg/dL (0.0-0.5) H 01/16/17 20:52 AST 106 Units/L (5-34) H 01/17/17 01:29 C-Reactive Protein 149 mg/L (Less than 5) H 01/17/17 01:29 Serum Total Protein 4.8 g/dL (6.0-8.3) L D 01/17/17 01:29 Albumin 1.8 g/dL (3.5-5.0) L D 01/17/17 01:29 Albumin/Globulin Ratio 0.6 (1.1-2.2) L 01/17/17 01:29 HDL Cholesterol 9 mg/dL (40-59) L 01/17/17 01:29 Cholesterol/HDL Ratio 5.9 (0-4.9) H 01/17/17 01:29 Urine Color Bremer (Yellow) A 01/16/17 22:49 Urine Clarity Turbid (Clear) A 01/16/17 22:49 Urine Protein 30 mg/dL (Neg-Trace) H 01/16/17 22:49 Urine Ketones 15 mg/dL (Negative) H 01/16/17 22:49 Urine Nitrite Positive (Negative) A 01/16/17 22:49 Urine Bilirubin Moderate (Negative) H 01/16/17 22:49 Urine Urobilinogen 2.0 mg/dL (Normal) H 01/16/17 22:49 Ur Leukocyte Esterase Moderate (Negative) H 01/16/17 22:49 Urine Microscopic WBC 50-100 per hpf (0-3) H 01/16/17 22:49 Ur Squamous Epith Cells Moderate per lpf (None-Few) H 01/16/17 22:49 Urine Bacteria Moderate per hpf (None-Few) H 01/16/17 22:49 Urine Mucus Many (Few) H 01/16/17 22:49 Urine Opiates Screen Positive ng/mL (Dkycxc=351) H 01/16/17 22:49 U Benzodiazepines Scrn Positive ng/mL (Rhfddi=056) H 01/16/17 22:49 Consult Discharge Plan - Plan Referrals: Afshin Salazar MD [Primary Care Provider] - <Epi Haynes W - Last Filed: 01/17/17 15:12> All Systems: A 10-system review of systems was performed and is negative for pertinent findings except as documented above in the HPI. Physical Examination Vital Signs: Vital Signs, Last 4 Hours Temp Pulse Resp BP Pulse Ox 01/17/17 09:00 117 26 103/74 90 L 01/17/17 08:48 97.6 F 119 26 106/68 90 L 01/17/17 08:10 110 26 99/61 90 L 01/17/17 07:55 110 26 111/79 90 L 01/17/17 07:51 97.6 F 01/17/17 07:45 97.6 F 112 26 123/73 90 L Results - Laboratory Findings CBC and BMP: 01/17/17 07:45 01/17/17 07:45 ABG ABG pH 7.25 pH Units (7.32-7.45) L 01/17/17 09:09 ABG pCO2 42 mmHg (35-45) 01/17/17 09:09 ABG pO2 69 mmHg (85-104) L 01/17/17 09:09 ABG O2 Saturation 90 % (95-98) L 01/17/17 09:09 PT/INR, D-dimer PT 17.7 Seconds (9.4-12.1) H 01/17/17 01:29 Abnormal lab findings: Abnormal lab results WBC 21.8 K/mcL (4.3-11.1) H D 01/17/17 07:45 RBC 3.54 M/mcL (3.82-4.97) L 01/17/17 07:45 Hgb 10.8 g/dL (11.5-15.4) L 01/17/17 07:45 Hct 32.2 % (35.3-44.9) L 01/17/17 07:45 Band Neutrophils % 38.0 % (0-4) H 01/17/17 07:45 Myelocytes % 14.0 % (0) H 01/17/17 07:45 Neutrophils # 17.0 K/mcL (1.6-8.9) H 01/17/17 07:45 PT 17.7 Seconds (9.4-12.1) H 01/17/17 01:29 ABG pH 7.25 pH Units (7.32-7.45) L 01/17/17 09:09 ABG pO2 69 mmHg (85-104) L 01/17/17 09:09 ABG HCO3 18.4 mEQ/L (21-27) L 01/17/17 09:09 ABG Total CO2 19.7 mEq/L (20-26) L 01/17/17 09:09 ABG O2 Saturation 90 % (95-98) L 01/17/17 09:09 ABG Base Excess -8.4 mEq/L (-2.0 to 3.0) L 01/17/17 09:09 ABG Hematocrit 33 % (35-51) L 01/17/17 05:02 Potassium 2.9 mEq/L (3.5-5.3) L 01/17/17 05:02 Glucose 237 mg/dL (60-95) H 01/17/17 05:02 Carbon Dioxide 18 mEq/L (19-29) L 01/17/17 07:45 Est GFR (Non-Af Amer) 59 (> 60) L 01/17/17 07:45 Glucose 230 mg/dL (70-99) H 01/17/17 07:45 POC Glucose 213 (58-89) H 01/17/17 07:40 Lactic Acid 4.0 mmol/L (0.5-2.2) H* 01/17/17 01:29 Phosphorus 1.6 mg/dL (2.3-4.7) L 01/17/17 01:29 Total Bilirubin 1.9 mg/dL (0.2-1.2) H 01/17/17 07:45 Direct Bilirubin 1.5 mg/dL (0.0-0.5) H 01/16/17 20:52 AST 85 Units/L (5-34) H 01/17/17 07:45 C-Reactive Protein 149 mg/L (Less than 5) H 01/17/17 01:29 Serum Total Protein 4.2 g/dL (6.0-8.3) L 01/17/17 07:45 Albumin 1.8 g/dL (3.5-5.0) L 01/17/17 07:45 Albumin/Globulin Ratio 0.8 (1.1-2.2) L 01/17/17 07:45 HDL Cholesterol 9 mg/dL (40-59) L 01/17/17 01:29 Cholesterol/HDL Ratio 5.9 (0-4.9) H 01/17/17 01:29 Urine Color Bremer (Yellow) A 01/16/17 22:49 Urine Clarity Turbid (Clear) A 01/16/17 22:49 Urine Protein 30 mg/dL (Neg-Trace) H 01/16/17 22:49 Urine Ketones 15 mg/dL (Negative) H 01/16/17 22:49 Urine Nitrite Positive (Negative) A 01/16/17 22:49 Urine Bilirubin Moderate (Negative) H 01/16/17 22:49 Urine Urobilinogen 2.0 mg/dL (Normal) H 01/16/17 22:49 Ur Leukocyte Esterase Moderate (Negative) H 01/16/17 22:49 Urine Microscopic WBC 50-100 per hpf (0-3) H 01/16/17 22:49 Ur Squamous Epith Cells Moderate per lpf (None-Few) H 01/16/17 22:49 Urine Bacteria Moderate per hpf (None-Few) H 01/16/17 22:49 Urine Mucus Many (Few) H 01/16/17 22:49 Urine Opiates Screen Positive ng/mL (Auraln=228) H 01/16/17 22:49 U Benzodiazepines Scrn Positive ng/mL (Akeghf=096) H 01/16/17 22:49 - Clinical Findings Intake & Output: Intake & Output 01/16/17 01/17/17 01/17/17 23:59 07:59 15:59 Output Total 425 / 525 0 / 0 Balance -425 / 1325 0 / 0 - Attending Attestation I examined this patient and my medical decision-making was reviewed with the ELECTRONICS MAINTENANCE TECHNICIAN/PA/Advanced Practice Nurse/Resident Physician. I agree with the documented findings, disposition and treatment plan as described except to the extent set forth below. I spent 35min of Critical Care time with this patient. It involved decision making of high complexity to assess, manipulate, and support vital organ system failure and/or to prevent further life threatening deterioration of the patient' s condition. The time involved in the performance of separately reportable procedures was not counted toward critical care time. Patient seen and examined at bedside Labs, radiology, chart personally reviewed. All lines examined without evidence of infection. Neuropsych: Lethargic but following commands. Judicious use of narcs post op. Pulm: Acute hypoxic hypercapnic respiratory failure s/t sepsis with likely underlying cardiopulmonary (COPD/CAD) disease. Cont Bilevel support Cards Distributive shock s/t Sepsis. Fluid rescucitated intraoperatively. MAP Goal 60. Cont Levophed. (right IJ placed) trench UOP and Lactate FEN-GI: NPO for now. S/p Acute adominal from divertilulitis with rupertured viscous POD#0 s/p sigmoidectomy with colostomy placement with wound vac managed by surgery. 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 Endo: Glucose monitored Integ/MSK: skin care/ostomy care per DIRECTOR NON PROFIT protocol CODE: Full Code. Family updated at bedside
[2017-01-17] MEDS ORDERED: D5% in Water 1,000 ML IV PRN (07:25)
[2017-01-17] MEDS ORDERED: Dextrose Gel 15 GM PO PRN ×2 (07:25)
[2017-01-17] MEDS ORDERED: *HR* Dextrose 50 % in Water (Syg) 50 ML SYRINGE IVP PRN (07:25)
[2017-01-17] MEDS ORDERED: Naloxone 0.4 MG/ML INJ IVP PRN (07:25)
[2017-01-17] MEDS ORDERED: Ondansetron 4 MG/2 ML VIAL IVP PRN (07:25)
[2017-01-17] MEDS ORDERED: Meropenem 1,000 MG in 0.9 % Sodium Chloride Mini Bag 100 ML IVPB SCH ×2 (08:00)
[2017-01-17 08:19] LABS: Hematocrit 32.2 % (35.3-44.9); Hemoglobin 10.8 g/dL (11.5-15.4); Mean Corpuscular HGB Conc 33.5 g/dL (31.6-35.5); Mean Corpuscular Hemoglobin 30.5 pg (28.0-33.3); Mean Platelet Volume 10.7 fL (9.4-12.4); Platelet Count 253 K/mcL (140-400); Red Blood Count 3.54 M/mcL (3.82-4.97); Red Cell Distribution Width 14.1 % (11.5-14.5)
[2017-01-17 08:32] LABS: Alanine Aminotransferase 34 Units/L (0-55); Albumin/Globulin Ratio 0.8 (1.1-2.2); Alkaline Phosphatase 84 Units/L (38-126); Aspartate Amino Transferase 85 Units/L (5-34); BUN/Creatinine Ratio 21 (6-26); Bilirubin,Total 1.9 mg/dL (0.2-1.2); Blood Urea Nitrogen 20 mg/dL (7-20); Carbon Dioxide 18 mEq/L (19-29); Chloride 108 mEq/L (98-109); Glucose 230 mg/dL (70-99); Magnesium 2.3 mg/dL (1.6-2.6); Osmolality,Calculated 294 (280-300); Sodium 137 mEq/L (136-145); Total Protein 4.2 g/dL (6.0-8.3); eGFR For African Americans > 60 (> 60); eGFR For Non-African Americans 59 (> 60)
[2017-01-17 08:33] LABS: Albumin 1.8 g/dL (3.5-5.0); Calcium 8.6 mg/dL (8.6-10.8); Globulin 2.4 g/dL (2.4-3.5); Potassium 3.7 mEq/L (3.5-4.5)
[2017-01-17] MEDS ORDERED: Aminoglycoside Consult 1 EACH MC ONE (08:43)
[2017-01-17 09:04] LABS: Lymphocytes # 0.9 K/mcL (0.6-4.6); Monocytes # 0.9 K/mcL (0.0-1.3)
[2017-01-17 09:17] LABS: ABG Base Excess -8.4 mEq/L (-2.0 to 3.0); ABG HCO3 18.4 mEQ/L (21-27); ABG Oxygen Saturation 90 % (95-98); ABG PCO2 42 mmHg (35-45); ABG PH 7.25 pH Units (7.32-7.45); ABG PO2 69 mmHg (85-104); ABG TCO2 19.7 mEq/L (20-26)
[2017-01-17 09:19] LABS: Blood Gas FiO2 60 %
[2017-01-17] MEDS ORDERED: *HR* HYDROmorphone 20 MG/20 ML PCA IVC PRN (12:55)
[2017-01-17] MEDS: Piperacillin/Tazobactam 3.375 GM in D5% in Water (Mini-Bag+) 100 ML IVPB SCH ×2 (12:56→19:55)
[2017-01-17] MEDS: Pantoprazole 40 MG VIAL IVP SCH (12:57)
[2017-01-17] MEDS ORDERED: *HR* HYDROmorphone (PF) 1 MG/ML SYRINGE IV ONE (14:00)
[2017-01-17] MEDS: Insulin LISPRO 300 UNITS/3 ML VIAL SQ SCH ×2 (14:28→19:55)
[2017-01-17 15:14] LABS: Hemoglobin 10.7 g/dL (11.5-15.4); Mean Corpuscular HGB Conc 33.4 g/dL (31.6-35.5); Mean Corpuscular Volume 89.6 fL (83.0-100.0); Mean Platelet Volume 10.9 fL (9.4-12.4); Platelet Count 246 K/mcL (140-400); Red Blood Count 3.57 M/mcL (3.82-4.97); Red Cell Distribution Width 14.3 % (11.5-14.5)
[2017-01-17 15:29] LABS: Alanine Aminotransferase 37 Units/L (0-55); Albumin 2.1 g/dL (3.5-5.0); Albumin/Globulin Ratio 0.8 (1.1-2.2); Alkaline Phosphatase 75 Units/L (38-126); Aspartate Amino Transferase 84 Units/L (5-34); BUN/Creatinine Ratio 24 (6-26); Bilirubin,Total 1.5 mg/dL (0.2-1.2); Blood Urea Nitrogen 24 mg/dL (7-20); Calcium 8.5 mg/dL (8.6-10.8); Carbon Dioxide 20 mEq/L (19-29); Chloride 108 mEq/L (98-109); Globulin 2.6 g/dL (2.4-3.5); Glucose 237 mg/dL (70-99); Magnesium 2.2 mg/dL (1.6-2.6); Osmolality,Calculated 296 (280-300); Potassium 3.9 mEq/L (3.5-4.5); Sodium 137 mEq/L (136-145); Total Protein 4.7 g/dL (6.0-8.3); eGFR For African Americans > 60 (> 60); eGFR For Non-African Americans 58 (> 60)
[2017-01-17 15:30] LABS: Phosphorous 4.3 mg/dL (2.3-4.7)
[2017-01-17 16:08] LABS: ABG Base Excess -3.7 mEq/L (-2.0 to 3.0); ABG HCO3 22.2 mEQ/L (21-27); ABG Oxygen Saturation 93 % (95-98); ABG PCO2 43 mmHg (35-45); ABG PH 7.32 pH Units (7.32-7.45); ABG PO2 71 mmHg (85-104); ABG TCO2 23.5 mEq/L (20-26)
[2017-01-17 16:09] LABS: Blood Gas FiO2 60 %
[2017-01-17 16:56] LABS: Monocytes # 0.4 K/mcL (0.0-1.3); Platelet Estimate Normal (Normal)
--- NOTE | 2017-01-17 18:02 | Electrocardiograph Report ---
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
--- NOTE | 2017-01-17 18:05 | Electrocardiograph Report ---
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
[2017-01-17] MEDS: Norepinephrine 4 MG in D5% in Water 250 ML IVC SCH (19:34)
[2017-01-17] MEDS: *HR* Heparin 5,000 UNIT/ML VIAL SQ SCH (19:54)
[2017-01-18] MEDS: Insulin LISPRO 300 UNITS/3 ML VIAL SQ SCH ×5 (00:27→23:41)
[2017-01-18 01:15] LABS: ABG Base Excess -1.2 mEq/L (-2.0 to 3.0); ABG HCO3 25.2 mEQ/L (21-27); ABG Oxygen Saturation 86 % (95-98); ABG PCO2 50 mmHg (35-45); ABG PH 7.31 pH Units (7.32-7.45); ABG PO2 57 mmHg (85-104); ABG TCO2 26.7 mEq/L (20-26); Blood Gas FiO2 60 %
[2017-01-18] MEDS ORDERED: Furosemide 20 MG/2 ML VIAL IVP ONE (01:15)
[2017-01-18] MEDS: Piperacillin/Tazobactam 3.375 GM in D5% in Water (Mini-Bag+) 100 ML IVPB SCH ×3 (04:27→20:22)
[2017-01-18 04:43] LABS: Hematocrit 26.9 % (35.3-44.9); Immature Platelets 5.5 % (1.1-6.1); Lymphocytes # 0.8 K/mcL (0.6-4.6); Mean Corpuscular HGB Conc 32.7 g/dL (31.6-35.5); Mean Corpuscular Hemoglobin 29.4 pg (28.0-33.3); Platelet Count 237 K/mcL (140-400); Red Blood Count 2.99 M/mcL (3.82-4.97); Red Cell Distribution Width 14.4 % (11.5-14.5)
[2017-01-18 04:58] LABS: BUN/Creatinine Ratio 31 (6-26); Blood Urea Nitrogen 24 mg/dL (7-20); Carbon Dioxide 24 mEq/L (19-29); Chloride 108 mEq/L (98-109); Glucose 149 mg/dL (70-99); Magnesium 1.7 mg/dL (1.6-2.6); Osmolality,Calculated 297 (280-300); Phosphorous 2.2 mg/dL (2.3-4.7); Potassium 3.3 mEq/L (3.5-4.5); Sodium 140 mEq/L (136-145); eGFR For African Americans > 60 (> 60); eGFR For Non-African Americans > 60 (> 60)
[2017-01-18 05:06] LABS: Hemoglobin 8.8 g/dL (11.5-15.4)
[2017-01-18] MEDS ORDERED: 0.9 % Sodium Chloride 1,000 ML ONE (05:31)
[2017-01-18] MEDS: *HR* Heparin 5,000 UNIT/ML VIAL SQ SCH ×2 (05:43→17:17)
[2017-01-18 06:00] LABS: Monocytes # 0.8 K/mcL (0.0-1.3); Neutrophils # 14.3 K/mcL (1.6-8.9)
[2017-01-18 06:01] LABS: Platelet Estimate Normal (Normal)
[2017-01-18 06:04] LABS: Hypochromasia Present (Not Present); Large Platelets Present (Not Present); Macrocytosis Present (Not Present); Polychromasia 1+ (Not Present); Toxic Granulation Present (Not Present)
--- NOTE | 2017-01-18 07:21 | Pulmonology Progress Note ---
<Epi Haynes W - Last Filed: 01/18/17 10:35> Objective PUL Vital signs: Last Vital Signs Temp 99.6 F 01/18/17 08:10 Pulse 108 01/18/17 07:30 Resp 25 01/18/17 08:10 BP 102/57 01/18/17 06:00 Pulse Ox 96 01/18/17 08:10 Results - Laboratory Findings CBC and BMP: 01/18/17 04:30 01/18/17 04:30 ABG ABG pH 7.31 pH Units (7.32-7.45) L 01/18/17 01:05 ABG pCO2 50 mmHg (35-45) H 01/18/17 01:05 ABG pO2 57 mmHg (85-104) L 01/18/17 01:05 ABG O2 Saturation 86 % (95-98) L 01/18/17 01:05 PT/INR, D-dimer PT 17.7 Seconds (9.4-12.1) H 01/17/17 01:29 Abnormal lab findings: Abnormal lab results WBC 15.9 K/mcL (4.3-11.1) H 01/18/17 04:30 RBC 2.99 M/mcL (3.82-4.97) L 01/18/17 04:30 Hgb 8.8 g/dL (11.5-15.4) L D 01/18/17 04:30 Hct 26.9 % (35.3-44.9) L 01/18/17 04:30 Band Neutrophils % 14.0 % (0-4) H 01/18/17 04:30 Metamyelocytes % 5.0 % (0) H 01/17/17 15:00 Myelocytes % 14.0 % (0) H 01/17/17 07:45 Neutrophils # 14.3 K/mcL (1.6-8.9) H 01/18/17 04:30 Toxic Granulation Present (Not Present) A 01/18/17 04:30 Large Platelets Present (Not Present) A 01/18/17 04:30 Polychromasia 1+ (Not Present) A 01/18/17 04:30 Hypochromasia Present (Not Present) A 01/18/17 04:30 Macrocytosis Present (Not Present) A 01/18/17 04:30 PT 17.7 Seconds (9.4-12.1) H 01/17/17 01:29 ABG pH 7.31 pH Units (7.32-7.45) L 01/18/17 01:05 ABG pCO2 50 mmHg (35-45) H 01/18/17 01:05 ABG pO2 57 mmHg (85-104) L 01/18/17 01:05 ABG Total CO2 26.7 mEq/L (20-26) H 01/18/17 01:05 ABG O2 Saturation 86 % (95-98) L 01/18/17 01:05 ABG Hematocrit 33 % (35-51) L 01/17/17 05:02 Potassium 2.9 mEq/L (3.5-5.3) L 01/17/17 05:02 Glucose 237 mg/dL (60-95) H 01/17/17 05:02 Potassium 3.3 mEq/L (3.5-4.5) L 01/18/17 04:30 BUN 24 mg/dL (7-20) H 01/18/17 04:30 BUN/Creatinine Ratio 31 (6-26) H 01/18/17 04:30 Glucose 149 mg/dL (70-99) H 01/18/17 04:30 POC Glucose 182 (58-89) H 01/17/17 23:36 Calcium 8.0 mg/dL (8.6-10.8) L 01/18/17 04:30 Phosphorus 2.2 mg/dL (2.3-4.7) L 01/18/17 04:30 Total Bilirubin 1.5 mg/dL (0.2-1.2) H 01/17/17 15:05 Direct Bilirubin 1.5 mg/dL (0.0-0.5) H 01/16/17 20:52 AST 84 Units/L (5-34) H 01/17/17 15:05 C-Reactive Protein 149 mg/L (Less than 5) H 01/17/17 01:29 Serum Total Protein 4.7 g/dL (6.0-8.3) L 01/17/17 15:05 Albumin 2.1 g/dL (3.5-5.0) L 01/17/17 15:05 Albumin/Globulin Ratio 0.8 (1.1-2.2) L 01/17/17 15:05 HDL Cholesterol 9 mg/dL (40-59) L 01/17/17 01:29 Cholesterol/HDL Ratio 5.9 (0-4.9) H 01/17/17 01:29 Urine Color Heth (Yellow) A 01/16/17 22:49 Urine Clarity Turbid (Clear) A 01/16/17 22:49 Urine Protein 30 mg/dL (Neg-Trace) H 01/16/17 22:49 Urine Ketones 15 mg/dL (Negative) H 01/16/17 22:49 Urine Nitrite Positive (Negative) A 01/16/17 22:49 Urine Bilirubin Moderate (Negative) H 01/16/17 22:49 Urine Urobilinogen 2.0 mg/dL (Normal) H 01/16/17 22:49 Ur Leukocyte Esterase Moderate (Negative) H 01/16/17 22:49 Urine Microscopic WBC 50-100 per hpf (0-3) H 01/16/17 22:49 Ur Squamous Epith Cells Moderate per lpf (None-Few) H 01/16/17 22:49 Urine Bacteria Moderate per hpf (None-Few) H 01/16/17 22:49 Urine Mucus Many (Few) H 01/16/17 22:49 Urine Opiates Screen Positive ng/mL (Zbmibf=685) H 01/16/17 22:49 U Benzodiazepines Scrn Positive ng/mL (Gxctew=569) H 01/16/17 22:49 - Clinical Findings Intake & Output: Intake & Output 01/17/17 01/18/17 01/18/17 23:59 07:59 15:59 Intake Total 850 / 850 190 / 190 100 / 100 Output Total 280 / 280 1370 / 1370 250 / 250 Balance 570 / 570 -1180 / -1180 -150 / -150 Weight 95.118 kg Consult Discharge Plan - Plan Referrals: Afshin Salazar MD [Primary Care Provider] - - Attending Attestation I examined this patient and my medical decision-making was reviewed with the BLOOD DONOR UNIT ASSISTANT/PA/Advanced Practice Nurse/Resident Physician. I agree with the documented findings, disposition and treatment plan as described except to the extent set forth below. Patient seen and examined at bedside Labs, radiology, chart personally reviewed. All lines examined without evidence of infection. Neuropsych: Lethargic but following commands. Judicious use of narcs post op. Pulm: Acute hypoxic hypercapnic respiratory failure s/t sepsis with likely underlying cardiopulmonary (COPD/CAD) disease. Cont Bilevel support. Increased IPAP/EPAP to 18/6 with acceptable O2 sat%. Start diuresis when off pressors Cards Distributive shock s/t Sepsis improving off Vasopressors now. MAP Goal 60. Cont Levophed. (right IJ placed) Lactate has normalized FEN-GI: NPO for now. S/p Acute adominal from divertilulitis with rupertured viscous POD#1 s/p sigmoidectomy with colostomy placement with wound vac managed by surgery. Renal:: Stable renal function trend lytes BID replace per protocol. Acidosis is improving ID: Sepsis s/t intraabdominal source Cont Pip Tazo Heme/Onc: Cont DVT prophylaxis Endo: Glucose monitored Integ/MSK: skin care/ostomy care per STEAM DRIER TENDER protocol CODE: Full Code. <Emanuel Christensen - Last Filed: 01/18/17 11:42> Date of Encounter: 01/18/17 Time of Encounter: 07:20 Assessment and Plan (1) Diverticulitis of colon with perforation Current Visit: Yes Status: Acute POD #1; s/p exploratory celiotomy, sigmoid resection was sigmoid colostomy, and abdominal washout by Dr. Catherine. 19French Kranthi drain and midline wound vac. Wound care/ostomy care. NPO diet D/C IVF Antibiotic coverage de-escalated to Zosyn (day 2) CAUSE ANALYST hydromorphone for pain control General surgery following, appreciate their continued evaluation and recommendation. (2) Sepsis Current Visit: Yes Status: Acute WBC 5.7-->11.2-->21.8-->15.9 today Initial lactate of 4.0 with high of 7.0, down to 1.8 this am. Currently hemodynamically stable. Originally on metroniazole, vancomycin, meropenem. De-escalated to Piperacillin/Tazobactam. Qualifiers: Sepsis type: sepsis due to unspecified organism Qualified Code(s): A41.9 - Sepsis, unspecified organism (3) Sepsis associated hypotension Current Visit: Yes Status: Acute Status post surgical intervention patients more hemodynamically stable, with most recent blood pressure 112/71. She has received 5% albumin, NS fluid resuscitation, and briefly required vasopressor support with levaphed. She is currently 102/57 without vasopressor support. (4) Hypokalemia Current Visit: Yes Status: Acute Electrolyte protocol instituted (5) Hypomagnesemia Current Visit: Yes Status: Acute electrolye protocol instituted (6) COPD (chronic obstructive pulmonary disease) Current Visit: Yes Status: Chronic Home medication albuterol. Patient currently oxygenating well on bilevel, plan to titrate supplement oxygen to maintain O2 saturation greater than 88% Qualifiers: COPD type: chronic bronchitis Chronic bronchitis type: unspecified Qualified Code(s): J42 - Unspecified chronic bronchitis (7) ERI (obstructive sleep apnea) Current Visit: Yes Status: Chronic Reported history of sleep apnea with regular use of CPAP at night. Patient currently on bilevel. (8) Diabetes Current Visit: Yes Status: Chronic Early reports state patient has a history of diabetes but that she reports no home medications for diabetes. Patient NPO Accuchecks every 6 hours Low intensity sliding scale Qualifiers: Diabetes mellitus type: type 2 Diabetes mellitus complication status: with unspecified complications Diabetes mellitus materials supervisor insulin use: unspecified residential insulin use status Qualified Code(s): E11.8 - Type 2 diabetes mellitus with unspecified complications (9) DVT prophylaxis Current Visit: Yes Status: Acute sub q heparin 5000 BID EPCD Subjective Principal diagnosis: Colon perforation Interval history: Patient seen and examined at bedside. Currently satting in the mid 90's on bilevel with FIO2 of 60%. Denies any pain/sob/nausea at this time. Objective PUL Vital signs: Last Vital Signs Temp 98.8 F 01/18/17 04:44 Pulse 108 01/18/17 06:00 Resp 26 01/18/17 06:00 BP 102/57 01/18/17 06:00 Pulse Ox 91 L 01/18/17 06:00 General appearance: no acute distress, other (Opens eyes to voice and touch) Eyes: nonicteric ENT: oropharynx moist Neck: supple Effort: normal Inspection: normal Auscultation: bilateral: clear Cardiovascular: other (Tachycardia) Gastrointestinal: absent bowel sounds, soft, non-distended, other (Midline incision, maher foam packing in place with wound VAC) Integumentary: normal Extremities: no cyanosis, no edema, no clubbing, pink and warm, pulses normal Musculoskeletal: no deformities Results - Laboratory Findings CBC and BMP: 01/18/17 04:30 01/18/17 04:30 ABG ABG pH 7.31 pH Units (7.32-7.45) L 01/18/17 01:05 ABG pCO2 50 mmHg (35-45) H 01/18/17 01:05 ABG pO2 57 mmHg (85-104) L 01/18/17 01:05 ABG O2 Saturation 86 % (95-98) L 01/18/17 01:05 PT/INR, D-dimer PT 17.7 Seconds (9.4-12.1) H 01/17/17 01:29 Abnormal lab findings: Abnormal lab results WBC 15.9 K/mcL (4.3-11.1) H 01/18/17 04:30 RBC 2.99 M/mcL (3.82-4.97) L 01/18/17 04:30 Hgb 8.8 g/dL (11.5-15.4) L D 01/18/17 04:30 Hct 26.9 % (35.3-44.9) L 01/18/17 04:30 Band Neutrophils % 14.0 % (0-4) H 01/18/17 04:30 Metamyelocytes % 5.0 % (0) H 01/17/17 15:00 Myelocytes % 14.0 % (0) H 01/17/17 07:45 Neutrophils # 14.3 K/mcL (1.6-8.9) H 01/18/17 04:30 Toxic Granulation Present (Not Present) A 01/18/17 04:30 Large Platelets Present (Not Present) A 01/18/17 04:30 Polychromasia 1+ (Not Present) A 01/18/17 04:30 Hypochromasia Present (Not Present) A 01/18/17 04:30 Macrocytosis Present (Not Present) A 01/18/17 04:30 PT 17.7 Seconds (9.4-12.1) H 01/17/17 01:29 ABG pH 7.31 pH Units (7.32-7.45) L 01/18/17 01:05 ABG pCO2 50 mmHg (35-45) H 01/18/17 01:05 ABG pO2 57 mmHg (85-104) L 01/18/17 01:05 ABG Total CO2 26.7 mEq/L (20-26) H 01/18/17 01:05 ABG O2 Saturation 86 % (95-98) L 01/18/17 01:05 ABG Hematocrit 33 % (35-51) L 01/17/17 05:02 Potassium 2.9 mEq/L (3.5-5.3) L 01/17/17 05:02 Glucose 237 mg/dL (60-95) H 01/17/17 05:02 Potassium 3.3 mEq/L (3.5-4.5) L 01/18/17 04:30 BUN 24 mg/dL (7-20) H 01/18/17 04:30 BUN/Creatinine Ratio 31 (6-26) H 01/18/17 04:30 Glucose 149 mg/dL (70-99) H 01/18/17 04:30 POC Glucose 182 (58-89) H 01/17/17 23:36 Calcium 8.0 mg/dL (8.6-10.8) L 01/18/17 04:30 Phosphorus 2.2 mg/dL (2.3-4.7) L 01/18/17 04:30 Total Bilirubin 1.5 mg/dL (0.2-1.2) H 01/17/17 15:05 Direct Bilirubin 1.5 mg/dL (0.0-0.5) H 01/16/17 20:52 AST 84 Units/L (5-34) H 01/17/17 15:05 C-Reactive Protein 149 mg/L (Less than 5) H 01/17/17 01:29 Serum Total Protein 4.7 g/dL (6.0-8.3) L 01/17/17 15:05 Albumin 2.1 g/dL (3.5-5.0) L 01/17/17 15:05 Albumin/Globulin Ratio 0.8 (1.1-2.2) L 01/17/17 15:05 HDL Cholesterol 9 mg/dL (40-59) L 01/17/17 01:29 Cholesterol/HDL Ratio 5.9 (0-4.9) H 01/17/17 01:29 Urine Color Heth (Yellow) A 01/16/17 22:49 Urine Clarity Turbid (Clear) A 03/09/17 22:49 Urine Protein 30 mg/dL (Neg-Trace) H 01/16/17 22:49 Urine Ketones 15 mg/dL (Negative) H 01/16/17 22:49 Urine Nitrite Positive (Negative) A 01/16/17 22:49 Urine Bilirubin Moderate (Negative) H 01/16/17 22:49 Urine Urobilinogen 2.0 mg/dL (Normal) H 01/16/17 22:49 Ur Leukocyte Esterase Moderate (Negative) H 01/16/17 22:49 Urine Microscopic WBC 50-100 per hpf (0-3) H 01/16/17 22:49 Ur Squamous Epith Cells Moderate per lpf (None-Few) H 01/16/17 22:49 Urine Bacteria Moderate per hpf (None-Few) H 01/16/17 22:49 Urine Mucus Many (Few) H 01/16/17 22:49 Urine Opiates Screen Positive ng/mL (Iywddf=934) H 01/16/17 22:49 U Benzodiazepines Scrn Positive ng/mL (Hexojp=727) H 01/16/17 22:49 - Clinical Findings Intake & Output: Intake & Output 01/17/17 01/17/17 01/18/17 15:59 23:59 07:59 Intake Total 500 / 500 850 / 850 190 / 190 Output Total 330 / 330 280 / 280 1270 / 1270 Balance 170 / 170 570 / 570 -1080 / -1080 Weight 95.118 kg
[2017-01-18] MEDS ORDERED: Ipratropium/Albuterol Neb 3 ML ONE (08:07)
[2017-01-18] MEDS: Ipratropium/Albuterol Neb 3 ML IH SCH ×4 (08:10→19:59)
[2017-01-18] MEDS: Pantoprazole 40 MG VIAL IVP SCH (09:14)
[2017-01-18] MEDS ORDERED: Magnesium Sulfate 2 GM in D5% in Water 100 ML IVPB ONE (10:59)
--- NOTE | 2017-01-18 15:49 | General Surgery Progress Note ---
Date of Encounter: 01/18/17 Time of Encounter: 09:00 - Assessment and Plan (1) Diverticulitis of colon with perforation Current Visit: Yes Status: Acute POD #1 status post exploratory celiotomy, sigmoid resection with sigmoid colostomy, and abdominal washout by Dr. Catherine. Drain in place with serosanguinous drainage. Wound vac in place. NPO with ice chips. Continue NG tube. Continue wound care. Patient is on Zosyn IV Day #2. Continue pain control. (2) Hypokalemia Current Visit: Yes Status: Acute 3.3 today. Continue to monitor and replace as needed. Management per the medicine team. (3) Sepsis Current Visit: Yes Status: Acute WBCs beginning to trend down. 15.9 today. Lactate 1.8 today. On IV Zosyn. Continues to be tachycardic from 106-113 today. BPs stable with systolic greater than 100 today. Qualifiers: Sepsis type: sepsis due to unspecified organism Qualified Code(s): A41.9 - Sepsis, unspecified organism (4) Diabetes Current Visit: Yes Status: Chronic Low dose SSI Q6hr Patient is NPO Management per medicine team. Qualifiers: Diabetes mellitus type: type 2 Diabetes mellitus complication status: with unspecified complications Diabetes mellitus intermodal customer service insulin use: unspecified intermodal customer service insulin use status Qualified Code(s): E11.8 - Type 2 diabetes mellitus with unspecified complications (5) DVT prophylaxis Current Visit: Yes Status: Acute Heparin 5000 units SQ q12hr Subjective Patient reports: still having pain, flatus, no bowel movement, afebrile Narrative: The patient reports that she feels she has had some gas pass into her colostomy bag. She complains of some soreness and states that her mouth is dry. She currently remains on BiPAP. Objective Vital Signs - Last 8 Hours Temp Pulse Resp Pulse Ox 01/18/17 15:24 106 01/18/17 11:53 16 95 01/18/17 11:50 113 01/18/17 08:10 99.6 F 25 96 Intake and Output 01/17/17 01/18/17 01/18/17 23:59 07:59 15:59 Intake Total 850 / 850 190 / 190 304 / 304 Output Total 280 / 280 1370 / 1370 710 / 710 Balance 570 / 570 -1180 / -1180 -406 / -406 Intake: IV Fluids 850 / 850 190 / 190 304 / 304 ALBURX 5% 12.5 gm In 250 750 / 750 ml @ 60 mls/hr IVC . Q4H10M [facility] Rx#:[id number] Levophed 4 MG In Dextrose 90 / 90 0 / 0 5% 250 ML @ 5 MCG/MIN 19 .05 mls/hr IVC CONT [facility] Rx#:[id number] Magnesium Sulfate 2 GM In 104 / 104 Dextrose 5% 100 ML @ 100 mls/hr IVPB ONCE ONE Rx# :[id number] Zosyn 3.375 GM In 100 / 100 100 / 100 100 / 100 Dextrose 5% (Minibag+) 100 ML 100 ML @ 25 mls/hr IVPB Q8H [facility] Rx#: [id number] Potassium Chloride 20 mEq 100 / 100 /100 mL 20 meq In 100 ml @ 100 mls/hr IVPB ONCE ONE Rx#:[id number] Oral 0 / 0 Output: Catheter 150 / 150 1200 / 1200 550 / 550 Gastric Drainage 100 / 100 100 / 100 Wound Drainage 130 / 130 70 / 70 60 / 60 Abdomen 0 / 0 0 / 0 0 / 0 Right Lower Abdomen 130 / 130 70 / 70 60 / 60 Other: Weight 95.118 kg Blood Glucose* 203 152 Patient Weight 01/18/17 23:59 Weight 95.118 kg - General physical appearance well developed, well nourished, no distress - Eyes normal ocular movement - ENT dry mucosa, atraumatic, normocephalic - Neck Neck exam: trachea midline - Respiratory clear to auscultation, other (on BiPAP) - Cardiovascular Cardiovascular exam: Present: RRR, tachycardia - Abdomen Abdomen: Present: soft (bowel sounds absent), tender (tenderness to midline wound), wound (wound vac in place with adjacent colostomy) - Musculoskeletal normal posture - Labs 01/19/17 10:19 01/19/17 10:45 Diabetes panel 01/18/17 Range/Units 04:30 Sodium 140 (136-145) mEq/L Potassium 3.3 L (3.5-4.5) mEq/L Chloride 108 (98-109) mEq/L Carbon Dioxide 24 (19-29) mEq/L BUN 24 H (7-20) mg/dL Creatinine 0.77 (0.57-1.11) mg/dL Glucose 149 H (70-99) mg/dL Calcium 8.0 L (8.6-10.8) mg/dL Calcium panel 01/18/17 Range/Units 04:30 Calcium 8.0 L (8.6-10.8) mg/dL Phosphorus 2.2 L (2.3-4.7) mg/dL Pituitary panel 01/18/17 Range/Units 04:30 Sodium 140 (136-145) mEq/L Potassium 3.3 L (3.5-4.5) mEq/L Chloride 108 (98-109) mEq/L Carbon Dioxide 24 (19-29) mEq/L BUN 24 H (7-20) mg/dL Creatinine 0.77 (0.57-1.11) mg/dL Glucose 149 H (70-99) mg/dL Calcium 8.0 L (8.6-10.8) mg/dL Adrenal panel 01/18/17 Range/Units 04:30 Sodium 140 (136-145) mEq/L Potassium 3.3 L (3.5-4.5) mEq/L Chloride 108 (98-109) mEq/L Carbon Dioxide 24 (19-29) mEq/L BUN 24 H (7-20) mg/dL Creatinine 0.77 (0.57-1.11) mg/dL Glucose 149 H (70-99) mg/dL Calcium 8.0 L (8.6-10.8) mg/dL - VTE Documentation of Mechanical Device: Intermittent pneumatic compression device Consult Discharge Plan - Plan Referrals: Afshin Salazar MD [Primary Care Provider] - - Attending Attestation I examined this patient and my medical decision-making was reviewed with the CRANE ASSEMBLER/PA/Advanced Practice Nurse/Resident Physician. I agree with the documented findings, disposition and treatment plan as described except to the extent set forth below.
[2017-01-18 17:03] LABS: Hematocrit 25.8 % (35.3-44.9); Hemoglobin 8.6 g/dL (11.5-15.4); Mean Corpuscular HGB Conc 33.3 g/dL (31.6-35.5); Mean Corpuscular Hemoglobin 29.8 pg (28.0-33.3); Mean Corpuscular Volume 89.3 fL (83.0-100.0); Mean Platelet Volume 10.2 fL (9.4-12.4); Monocytes # 0.6 K/mcL (0.0-1.3); Nucleated Red Blood Cells 0.1 /100 WBC (0); Platelet Count 229 K/mcL (140-400); Red Blood Count 2.89 M/mcL (3.82-4.97); Red Cell Distribution Width 14.5 % (11.5-14.5)
[2017-01-18 17:19] LABS: Alanine Aminotransferase 31 Units/L (0-55); Albumin 2.3 g/dL (3.5-5.0); Albumin/Globulin Ratio 0.9 (1.1-2.2); Alkaline Phosphatase 83 Units/L (38-126); Aspartate Amino Transferase 101 Units/L (5-34); BUN/Creatinine Ratio 36 (6-26); Bilirubin,Total 1.1 mg/dL (0.2-1.2); Blood Urea Nitrogen 27 mg/dL (7-20); Calcium 8.4 mg/dL (8.6-10.8); Carbon Dioxide 26 mEq/L (19-29); Chloride 108 mEq/L (98-109); Globulin 2.6 g/dL (2.4-3.5); Glucose 154 mg/dL (70-99); Osmolality,Calculated 300 (280-300); Potassium 3.6 mEq/L (3.5-4.5); Sodium 141 mEq/L (136-145); Total Protein 4.9 g/dL (6.0-8.3); eGFR For African Americans > 60 (> 60); eGFR For Non-African Americans > 60 (> 60)
[2017-01-18] MEDS: *HR* Metoprolol 5 MG/5 ML VIAL IVP PRN (18:06)
[2017-01-18 18:19] LABS: Anisocytosis 1+ (Not Present); Neutrophils # 14.3 K/mcL (1.6-8.9); Platelet Estimate Normal (Normal)
[2017-01-18] MEDS: Norepinephrine 4 MG in D5% in Water 250 ML IVC SCH (20:22)
[2017-01-18 20:45] LABS: Magnesium 1.9 mg/dL (1.6-2.6); Potassium 3.5 mEq/L (3.5-4.5)
[2017-01-19] MEDS: Ipratropium/Albuterol Neb 3 ML IH SCH ×6 (00:15→20:18)
[2017-01-19] MEDS: Piperacillin/Tazobactam 3.375 GM in D5% in Water (Mini-Bag+) 100 ML IVPB SCH ×3 (04:17→19:34)
[2017-01-19 04:52] LABS: BUN/Creatinine Ratio 44 (6-26); Blood Urea Nitrogen 29 mg/dL (7-20); Carbon Dioxide 26 mEq/L (19-29); Chloride 109 mEq/L (98-109); Glucose 138 mg/dL (70-99); Osmolality,Calculated 304 (280-300); Potassium 3.6 mEq/L (3.5-4.5); Sodium 143 mEq/L (136-145); eGFR For African Americans > 60 (> 60); eGFR For Non-African Americans > 60 (> 60)
[2017-01-19] MEDS: *HR* Heparin 5,000 UNIT/ML VIAL SQ SCH ×2 (05:08→19:33)
[2017-01-19] MEDS: Insulin LISPRO 300 UNITS/3 ML VIAL SQ SCH ×4 (05:09→23:21)
--- NOTE | 2017-01-19 05:57 | Pulmonology Progress Note ---
<Fredy Sellers - Last Filed: 01/19/17 10:08> Date of Encounter: 01/19/17 Time of Encounter: 09:45 Assessment and Plan (1) Diverticulitis of colon with perforation Current Visit: Yes Status: Acute POD #2; s/p exploratory celiotomy, sigmoid resection was sigmoid colostomy, and abdominal washout by Dr. Catherine. 19French Kranthi drain and midline wound vac. Wound care/ostomy care. NPO diet Antibiotic coverage de-escalated to Zosyn (day 3) USER SUPPORT ANALYST SUPERVISOR hydromorphone for pain control General surgery following, appreciate their continued evaluation and recommendation. (2) Sepsis Current Visit: Yes Status: Acute WBC 5.7-->11.2-->21.8-->15.9-->14.9 yesterday evening. Trended lactate of 4.0-->7.0-->4.1-->1.8. Currently hemodynamically stable. Originally on metroniazole, vancomycin, meropenem. De-escalated to Piperacillin/Tazobactam. Qualifiers: Sepsis type: sepsis due to unspecified organism Qualified Code(s): A41.9 - Sepsis, unspecified organism (3) Sepsis associated hypotension Current Visit: Yes Status: Acute Status post surgical intervention patients more hemodynamically stable, with most recent blood pressure 112/71. She has received 5% albumin, NS fluid resuscitation, and briefly required vasopressor support with levaphed. She is currently 117/58 without vasopressor support. (4) Acute respiratory failure Current Visit: Yes Status: Acute ARF in the setting of sepsis. CXR concerning for pulmonary edema vs ARDS Echo pending. Continue on IV antibiotic. Oxygenation maintained with Bilevel support. Continue to monitor. Qualifiers: Respiratory failure complication: hypercapnia Qualified Code(s): J96.02 - Acute respiratory failure with hypercapnia (5) Hypokalemia Current Visit: Yes Status: Acute Corrections per Electrolyte protocol. (6) Hypomagnesemia Current Visit: Yes Status: Acute Corrections per Electrolyte protocol. (7) COPD (chronic obstructive pulmonary disease) Current Visit: Yes Status: Chronic Home medication albuterol. Patient currently oxygenating well on bilevel, plan to titrate supplement oxygen to maintain O2 saturation greater than 88% Qualifiers: COPD type: chronic bronchitis Chronic bronchitis type: unspecified Qualified Code(s): J42 - Unspecified chronic bronchitis (8) ERI (obstructive sleep apnea) Current Visit: Yes Status: Chronic Reported history of sleep apnea with regular use of CPAP at night. Patient currently on bilevel. (9) Diabetes Current Visit: Yes Status: Chronic Early reports state patient has a history of diabetes but that she reports no home medications for diabetes. Patient NPO except ice chips Accuchecks every 6 hours Low intensity sliding scale Qualifiers: Diabetes mellitus type: type 2 Diabetes mellitus complication status: with unspecified complications Diabetes mellitus ad terminal makeup operator insulin use: unspecified penitentiary insulin use status Qualified Code(s): E11.8 - Type 2 diabetes mellitus with unspecified complications (10) DVT prophylaxis Current Visit: Yes Status: Acute sub q heparin 5000 BID EPCD Subjective Principal diagnosis: Colon perforation Interval history: Patient seen and examined at bedside. Currently undergoing echocardiogram. Patient on Bilevel support. She is awake and responsive, but lethargic. Objective PUL Vital signs: Last Vital Signs Temp 100.4 F H 01/19/17 04:00 Pulse 100 01/19/17 05:06 Resp 23 01/19/17 05:06 BP 104/68 01/19/17 05:06 Pulse Ox 94 L 01/19/17 05:06 General appearance: no acute distress, lethargic (but easily arousable to sound or touch.) Eyes: nonicteric ENT: oropharynx dry Neck: supple Effort: mildly labored Auscultation: bilateral: diminished breath sounds (bibasilar) Cardiovascular: regular rate and rhythm Gastrointestinal: absent bowel sounds, soft, tender (expected post operative tenderness.), non-distended, other (RLQ drain with serosangious small amount of fluid present in bulb, Midline incision with maher packing and wound vac.) Integumentary: normal Extremities: no cyanosis, no edema, no clubbing, pink and warm, pulses normal Musculoskeletal: no deformities non-focal exam, unable to assess due to mental status Results - Laboratory Findings CBC and BMP: 01/18/17 16:55 01/19/17 03:20 ABG ABG pH 7.31 pH Units (7.32-7.45) L 01/18/17 01:05 ABG pCO2 50 mmHg (35-45) H 01/18/17 01:05 ABG pO2 57 mmHg (85-104) L 01/18/17 01:05 ABG O2 Saturation 86 % (95-98) L 01/18/17 01:05 PT/INR, D-dimer PT 17.7 Seconds (9.4-12.1) H 01/17/17 01:29 Abnormal lab findings: Abnormal lab results WBC 14.9 K/mcL (4.3-11.1) H 01/18/17 16:55 RBC 2.89 M/mcL (3.82-4.97) L 01/18/17 16:55 Hgb 8.6 g/dL (11.5-15.4) L 01/18/17 16:55 Hct 25.8 % (35.3-44.9) L 01/18/17 16:55 Band Neutrophils % 14.0 % (0-4) H 01/18/17 04:30 Metamyelocytes % 5.0 % (0) H 01/17/17 15:00 Myelocytes % 14.0 % (0) H 01/17/17 07:45 Neutrophils # 14.3 K/mcL (1.6-8.9) H 01/18/17 16:55 Nucleated RBCs/100 WBC 0.1 /100 WBC (0) H 01/18/17 16:55 Toxic Granulation Present (Not Present) A 01/18/17 04:30 Large Platelets Present (Not Present) A 01/18/17 04:30 Polychromasia 1+ (Not Present) A 01/18/17 04:30 Hypochromasia Present (Not Present) A 01/18/17 04:30 Anisocytosis 1+ (Not Present) A 01/18/17 16:55 Macrocytosis Present (Not Present) A 01/18/17 04:30 PT 17.7 Seconds (9.4-12.1) H 01/17/17 01:29 ABG pH 7.31 pH Units (7.32-7.45) L 01/18/17 01:05 ABG pCO2 50 mmHg (35-45) H 01/18/17 01:05 ABG pO2 57 mmHg (85-104) L 01/18/17 01:05 ABG Total CO2 26.7 mEq/L (20-26) H 01/18/17 01:05 ABG O2 Saturation 86 % (95-98) L 01/18/17 01:05 ABG Hematocrit 33 % (35-51) L 01/17/17 05:02 Potassium 2.9 mEq/L (3.5-5.3) L 01/17/17 05:02 Glucose 237 mg/dL (60-95) H 01/17/17 05:02 BUN 29 mg/dL (7-20) H 01/19/17 03:20 BUN/Creatinine Ratio 44 (6-26) H 01/19/17 03:20 Glucose 138 mg/dL (70-99) H 01/19/17 03:20 POC Glucose 156 (58-89) H 01/18/17 23:40 Calculated Osmolality 304 (280-300) H 01/19/17 03:20 Calcium 8.0 mg/dL (8.6-10.8) L 01/19/17 03:20 Phosphorus 2.2 mg/dL (2.3-4.7) L 01/18/17 04:30 Direct Bilirubin 1.5 mg/dL (0.0-0.5) H 01/16/17 20:52 AST 101 Units/L (5-34) H 01/18/17 16:55 C-Reactive Protein 149 mg/L (Less than 5) H 01/17/17 01:29 Serum Total Protein 4.9 g/dL (6.0-8.3) L 01/18/17 16:55 Albumin 2.3 g/dL (3.5-5.0) L 01/18/17 16:55 Albumin/Globulin Ratio 0.9 (1.1-2.2) L 01/18/17 16:55 HDL Cholesterol 9 mg/dL (40-59) L 01/17/17 01:29 Cholesterol/HDL Ratio 5.9 (0-4.9) H 01/17/17 01:29 Urine Color [place] (Yellow) A 01/16/17 22:49 Urine Clarity Turbid (Clear) A 01/16/17 22:49 Urine Protein 30 mg/dL (Neg-Trace) H 01/16/17 22:49 Urine Ketones 15 mg/dL (Negative) H 01/16/17 22:49 Urine Nitrite Positive (Negative) A 01/16/17 22:49 Urine Bilirubin Moderate (Negative) H 01/16/17 22:49 Urine Urobilinogen 2.0 mg/dL (Normal) H 01/16/17 22:49 Ur Leukocyte Esterase Moderate (Negative) H 01/16/17 22:49 Urine Microscopic WBC 50-100 per hpf (0-3) H 01/16/17 22:49 Ur Squamous Epith Cells Moderate per lpf (None-Few) H 01/16/17 22:49 Urine Bacteria Moderate per hpf (None-Few) H 01/16/17 22:49 Urine Mucus Many (Few) H 01/16/17 22:49 Urine Opiates Screen Positive ng/mL (Xryxjs=547) H 01/16/17 22:49 U Benzodiazepines Scrn Positive ng/mL (Gbzltr=401) H 01/16/17 22:49 - Microbiology Findings Microbiology Findings: Microbiology, Last 48 Hours 01/17/17 10:34 Wound Culture - Preliminary Abdomen Gram Negative Omkar - Clinical Findings Intake & Output: Intake & Output 01/18/17 01/18/17 01/19/17 15:59 23:59 08:59 Intake Total 304 / 304 300 / 300 100 / 100 Output Total 710 / 710 515 / 515 115 / 115 Balance -406 / -406 -215 / -215 -15 / -15 Weight 95 kg - VTE Documentation of Mechanical Device: Intermittent pneumatic compression device Consult Discharge Plan - Plan Referrals: Afshin Salazar MD [Primary Care Provider] - <Epi Haynes - Last Filed: 01/19/17 11:00> Objective PUL Vital signs: Last Vital Signs Temp 99.7 F H 01/19/17 07:51 Pulse 97 01/19/17 10:00 Resp 20 01/19/17 10:00 BP 104/63 01/19/17 10:00 Pulse Ox 97 01/19/17 10:00 Results - Laboratory Findings CBC and BMP: 01/19/17 10:19 01/19/17 03:20 ABG ABG pH 7.31 pH Units (7.32-7.45) L 01/18/17 01:05 ABG pCO2 50 mmHg (35-45) H 01/18/17 01:05 ABG pO2 57 mmHg (85-104) L 01/18/17 01:05 ABG O2 Saturation 86 % (95-98) L 01/18/17 01:05 PT/INR, D-dimer PT 17.7 Seconds (9.4-12.1) H 01/17/17 01:29 Abnormal lab findings: Abnormal lab results WBC 15.4 K/mcL (4.3-11.1) H 01/19/17 10:19 RBC 2.70 M/mcL (3.82-4.97) L 01/19/17 10:19 Hgb 8.2 g/dL (11.5-15.4) L 01/19/17 10:19 Hct 24.3 % (35.3-44.9) L 01/19/17 10:19 RDW 14.6 % (11.5-14.5) H 01/19/17 10:19 Band Neutrophils % 14.0 % (0-4) H 01/18/17 04:30 Metamyelocytes % 5.0 % (0) H 01/17/17 15:00 Myelocytes % 14.0 % (0) H 01/17/17 07:45 Neutrophils # 14.3 K/mcL (1.6-8.9) H 01/18/17 16:55 Nucleated RBCs/100 WBC 0.1 /100 WBC (0) H 01/18/17 16:55 Toxic Granulation Present (Not Present) A 01/18/17 04:30 Large Platelets Present (Not Present) A 01/18/17 04:30 Polychromasia 1+ (Not Present) A 01/18/17 04:30 Hypochromasia Present (Not Present) A 01/18/17 04:30 Anisocytosis 1+ (Not Present) A 01/18/17 16:55 Macrocytosis Present (Not Present) A 01/18/17 04:30 PT 17.7 Seconds (9.4-12.1) H 01/17/17 01:29 ABG pH 7.31 pH Units (7.32-7.45) L 01/18/17 01:05 ABG pCO2 50 mmHg (35-45) H 01/18/17 01:05 ABG pO2 57 mmHg (85-104) L 01/18/17 01:05 ABG Total CO2 26.7 mEq/L (20-26) H 01/18/17 01:05 ABG O2 Saturation 86 % (95-98) L 01/18/17 01:05 ABG Hematocrit 33 % (35-51) L 01/17/17 05:02 Potassium 2.9 mEq/L (3.5-5.3) L 01/17/17 05:02 Glucose 237 mg/dL (60-95) H 01/17/17 05:02 BUN 29 mg/dL (7-20) H 01/19/17 03:20 BUN/Creatinine Ratio 44 (6-26) H 01/19/17 03:20 Glucose 138 mg/dL (70-99) H 01/19/17 03:20 POC Glucose 156 (58-89) H 01/18/17 23:40 Calculated Osmolality 304 (280-300) H 01/19/17 03:20 Calcium 8.0 mg/dL (8.6-10.8) L 01/19/17 03:20 Phosphorus 2.2 mg/dL (2.3-4.7) L 01/18/17 04:30 Direct Bilirubin 1.5 mg/dL (0.0-0.5) H 01/16/17 20:52 AST 101 Units/L (5-34) H 01/18/17 16:55 C-Reactive Protein 149 mg/L (Less than 5) H 01/17/17 01:29 Serum Total Protein 4.9 g/dL (6.0-8.3) L 01/18/17 16:55 Albumin 2.3 g/dL (3.5-5.0) L 01/18/17 16:55 Albumin/Globulin Ratio 0.9 (1.1-2.2) L 01/18/17 16:55 HDL Cholesterol 9 mg/dL (40-59) L 01/17/17 01:29 Cholesterol/HDL Ratio 5.9 (0-4.9) H 01/17/17 01:29 Urine Color [place] (Yellow) A 01/16/17 22:49 Urine Clarity Turbid (Clear) A 01/16/17 22:49 Urine Protein 30 mg/dL (Neg-Trace) H 01/16/17 22:49 Urine Ketones 15 mg/dL (Negative) H 01/16/17 22:49 Urine Nitrite Positive (Negative) A 01/16/17 22:49 Urine Bilirubin Moderate (Negative) H 01/16/17 22:49 Urine Urobilinogen 2.0 mg/dL (Normal) H 01/16/17 22:49 Ur Leukocyte Esterase Moderate (Negative) H 01/16/17 22:49 Urine Microscopic WBC 50-100 per hpf (0-3) H 01/16/17 22:49 Ur Squamous Epith Cells Moderate per lpf (None-Few) H 01/16/17 22:49 Urine Bacteria Moderate per hpf (None-Few) H 01/16/17 22:49 Urine Mucus Many (Few) H 01/16/17 22:49 Urine Opiates Screen Positive ng/mL (Nezcar=639) H 01/16/17 22:49 U Benzodiazepines Scrn Positive ng/mL (Ysjkqa=207) H 01/16/17 22:49 - Microbiology Findings Microbiology Findings: Microbiology, Last 48 Hours 01/17/17 10:34 Wound Culture - Final Abdomen Escherichia coli - Clinical Findings Intake & Output: Intake & Output 01/18/17 01/19/17 01/19/17 22:59 07:59 15:59 Intake Total Output Total 900 / 900 Balance -900 / -900 Weight - Attending Attestation I examined this patient and my medical decision-making was reviewed with the HIGH DENSITY PRESS OPERATOR/PA/Advanced Practice Nurse/Resident Physician. I agree with the documented findings, disposition and treatment plan as described except to the extent set forth below. Patient seen and examined at bedside Labs, radiology, chart personally reviewed. All lines examined without evidence of infection. Neuropsych: Awake and alert. Pain control via USER SUPPORT ANALYST SUPERVISOR. Pulm: Acute hypoxic hypercapnic respiratory failure s/t sepsis with likely underlying cardiopulmonary (COPD/CAD) disease. Suspect development of ARDS. Acceptable O2 sat on BPAP. Cards BP stable. Sinus tach ?BB withdrawal vs resolving sepsis. Restart BB. ECHO today for evaluation of HF. Cont diuresis FEN-GI: S/p Acute abdominal from diverticulitis with rupertured viscous POD2 s/ p sigmoidectomy with colostomy placement with wound vac managed by surgery. Start bowel use via NG once cleared by surgery. Renal:: Stable renal function trend lytes BID replace per protocol. ID: Sepsis s/t intraabdominal source Cont Pip Tazo Heme/Onc: Cont DVT prophylaxis Endo: Glucose monitored Integ/MSK: skin care/ostomy care per AUTO CLAIM REPRESENTATIVE protocol CODE: Full Code.
[2017-01-19] MEDS ORDERED: Furosemide 20 MG/2 ML VIAL IVP ONE (07:07)
[2017-01-19 10:29] LABS: Hematocrit 24.3 % (35.3-44.9); Hemoglobin 8.2 g/dL (11.5-15.4); Mean Corpuscular HGB Conc 33.7 g/dL (31.6-35.5); Mean Corpuscular Hemoglobin 30.4 pg (28.0-33.3); Platelet Count 228 K/mcL (140-400); Red Cell Distribution Width 14.6 % (11.5-14.5)
[2017-01-19 10:52] LABS: Lymphocytes # 1.9 K/mcL (0.6-4.6); Monocytes # 0.9 K/mcL (0.0-1.3); Neutrophils # 12.6 K/mcL (1.6-8.9); Platelet Estimate Normal (Normal)
[2017-01-19] MEDS ORDERED: diazePAM 5 MG TABLET PO PRN (13:34)
[2017-01-19] MEDS: Pantoprazole 40 MG VIAL IVP SCH (13:41)
[2017-01-19] MEDS ORDERED: Potassium Chloride Elixir 20 MEQ/15 ML UDC PO ONE (13:48)
--- NOTE | 2017-01-19 14:23 | ECHO - Doppler Report ---
Echocardiogram Name: Layla Pierce Date of Study: 01/19/2017 Date: 1960 Ht: 67.0 in Medical Record#: [id number] Age: 56 Wt: 209.0 lb Gender: Female BSA: 2.06 Order #: [id number] Location: [facility] Room #: IC01 Reading Physician: Robert Lehman DO, ROSALINDA, SANDEE LEON Cnc Lathe Programmer: BARON MartinezT Ordering Physician: Fredy Sellers DO Primary Physician: Afshin Salazar MD Indications: Concern for heart failure Impressions: LVEF 70%. Normal LV chamber size, wall thickness and function. Mild left ventricular diastolic dysfunction. Normal right ventricular structure and function. Moderately dilated left atrium. Mildly thickened mitral valve leaflets with prolapse of the posterior leaflet. Mild mitral regurgitation, which is eccentric and not well evaluated. No evidence of pulmonary hypertension. Consider JESSICA to further evaluate artemio valve and severity of mitral regurgitation if clinically indicated. Left Ventricular Wall Motion: Rest Echo Findings All wall segments showed normal motion. Findings: Study Quality * Technically adequate exam. ECG Findings * Normal sinus rhythm. Left Ventricle * LVEF 70%. * Normal LV chamber size, wall thickness and function. * Mild left ventricular diastolic dysfunction. Right Ventricle * Normal right ventricular structure and function. Left Atrium * Moderately dilated left atrium. Right Atrium * Mildly dilated right atrium. Interatrial Septum * Interatrial septum not well evaluated. Aortic Valve * Trileaflet aortic valve. * Mildly sclerotic aortic valve leaflets. * No aortic regurgitation. * No aortic stenosis. Mitral Valve * Mildly thickened mitral valve leaflets with prolapse of the posterior leaflet. * Mild mitral regurgitation, which is eccentric and not well evaluated. * No mitral stenosis. Tricuspid Valve * Normal tricuspid valve structure and function. * Trace tricuspid regurgitation. * No evidence of pulmonary hypertension. Pulmonic Valve * Normal pulmonic valve structure and function. * No pulmonic regurgitation. Aorta * Normally sized aortic root. Pericardium * The pericardium appears normal. IVC * Normal IVC dimensions and inspiratory collapse. Pulmonary Artery * Normal visualized portions of the main pulmonary artery. History Hypertension Hypercholesteremia Family History of CAD Measurements: BP: 133/ 71 2D Normal Values RVIDd: 3.80 cm <2.7 cm IVSd: 1.00 cm 0.6 - 1.0 cm LVIDd: 5.70 cm 3.7 - 5.6 cm LVPWd: .90 cm 0.6 - 1.1 cm LVIDs: 3.70 cm 1.5 - 3.6 cm AO: 2.70 cm < 4.0 cm LA: 3.80 cm 2.0 - 4.0cm %FS: 35.10 cm >25 % LA volume: 66 Mitral Valve Peak E:.95 m/sec Peak A:1.01 m/sec E/A Ratio:0.9 Peak E' Lat Néstor:9.46 cm/s Peak E' Med Néstor:8.02 cm/s E/E' Lat Ratio:10.1 E/E' Med Ratio:11.9 Tricuspid Valve TV Regurg Peak Grad: 29.00mmHg TV Regurg Peak Néstor: 2.67m/sec Updated by Robert Lehman DO, FACPopeye, SANDEE LEON on 01/19/2017 2:17:11 PM electronically signed on 01/19/2017 2:17:38 PM with status of Final Wall Motion Schilling: 1=Normal, 2=Hypokinesis, 3=Akinesis, 4=Dyskinesis, 5=Aneurysmal, 6=Hyperkinetic, X=Not Visualized (Blank)=Missing
--- NOTE | 2017-01-19 15:22 | General Surgery Progress Note ---
Date of Encounter: 01/19/17 Time of Encounter: 07:56 - Assessment and Plan (1) Diverticulitis of colon with perforation Current Visit: Yes Status: Acute POD #2 status post exploratory celiotomy, sigmoid resection with sigmoid colostomy, and abdominal washout by Dr. Catherine. Drain in place with serosanguinous drainage. Wound vac in place. NPO with ice chips. Continue NG tube. Continue wound care. Patient is on Zosyn IV Day #3. Continue pain control. Awaiting return of bowel function. Serial abdominal exams. (2) Acute respiratory failure Current Visit: Yes Status: Acute Management per medicine team. Patient was not able to be weaned off of BiPAP today. Chest XR demonstrates pulmonary edema vs. ARDS. Qualifiers: Respiratory failure complication: hypercapnia Qualified Code(s): J96.02 - Acute respiratory failure with hypercapnia (3) Hypokalemia Current Visit: Yes Status: Acute 3.6 today. Continue to monitor and replace as needed. Management per the medicine team. (4) Sepsis Current Visit: Yes Status: Acute Management per medicine team. WBCs 15.4 today. On IV Zosyn. Tmax 100.4 Qualifiers: Sepsis type: sepsis due to unspecified organism Qualified Code(s): A41.9 - Sepsis, unspecified organism (5) Diabetes Current Visit: Yes Status: Chronic Low dose SSI Q6hr Patient is NPO Management per medicine team. Qualifiers: Diabetes mellitus type: type 2 Diabetes mellitus complication status: with unspecified complications Diabetes mellitus jail insulin use: unspecified ethanol operator insulin use status Qualified Code(s): E11.8 - Type 2 diabetes mellitus with unspecified complications (6) DVT prophylaxis Current Visit: Yes Status: Acute Heparin 5000 units SQ q12hr Subjective Patient reports: no new complaints, feels better, no flatus, no bowel movement, fever Narrative: The patient states she feels a little better than yesterday. She denies having an appetite at this time. No new complaints. Objective Vital Signs - Last 8 Hours Temp Pulse Resp BP Pulse Ox 01/19/17 14:00 98 20 114/59 98 01/19/17 13:00 98 20 117/61 97 01/19/17 12:00 100 20 98/57 97 01/19/17 11:40 23 110/62 97 01/19/17 11:00 98.1 F 97 20 107/60 96 01/19/17 10:00 97 20 104/63 97 01/19/17 09:57 25 104/63 98 01/19/17 09:00 105 20 133/71 97 01/19/17 08:00 100 18 115/63 97 01/19/17 07:55 20 104/77 100 01/19/17 07:51 99.7 F H Intake and Output 01/18/17 01/19/17 01/19/17 22:59 07:59 15:59 Intake Total 100 / 100 Output Total 1220 / 1220 Balance -1120 / -1120 Intake: IV Fluids 100 / 100 Zosyn 3.375 GM In 100 / 100 Dextrose 5% (Minibag+) 100 ML 100 ML @ 25 mls/hr IVPB Q8H JACE Rx#: [id number] Potassium Chloride 20 mEq /100 mL 20 meq In 100 ml @ 100 mls/hr IVPB Q1H PRN Rx#:[id number] Oral Output: Stool Catheter 1200 / 1200 Gastric Drainage Wound Drainage Abdomen Right Lower Abdomen Other: Weight Blood Glucose* 153 Patient Weight 01/20/17 00:59 Weight 95 kg - General physical appearance well developed, well nourished, no distress - Eyes normal ocular movement - ENT atraumatic, normocephalic, Other (NG tube and BiPAP in place) - Neck Neck exam: trachea midline - Respiratory clear to auscultation, other (On BiPAP) - Cardiovascular Cardiovascular exam: Present: tachycardia - Abdomen Abdomen: Present: bowel sounds present, soft (No active bowel sounds), tender ( at surgical wound), wound (wound vac in place. colostomy present without any output, scant bloody fluid present) - Incision Incision: Present: open (wound vac in place) - Integumentary no rash - Neurologic CN 2-12 grossly intact - Musculoskeletal normal posture - Psychiatric oriented to person - Labs 01/19/17 10:19 01/19/17 10:45 Diabetes panel 01/18/17 01/18/17 01/19/17 Range/Units 16:55 20:00 03:20 Sodium 141 143 (136-145) mEq/L Potassium 3.6 3.5 3.6 (3.5-4.5) mEq/L Chloride 108 109 (98-109) mEq/L Carbon Dioxide 26 26 (19-29) mEq/L BUN 27 H 29 H (7-20) mg/dL Creatinine 0.76 0.66 (0.57-1.11) mg/dL Glucose 154 H 138 H (70-99) mg/dL Calcium 8.4 L 8.0 L (8.6-10.8) mg/dL AST 101 H (5-34) Units/L ALT 31 (0-55) Units/L Alkaline Phosphatase 83 (38-126) Units/L Albumin 2.3 L (3.5-5.0) g/dL 01/19/17 Range/Units 10:45 Sodium (136-145) mEq/L Potassium 3.4 L (3.5-4.5) mEq/L Chloride (98-109) mEq/L Carbon Dioxide (19-29) mEq/L BUN (7-20) mg/dL Creatinine (0.57-1.11) mg/dL Glucose (70-99) mg/dL Calcium (8.6-10.8) mg/dL AST (5-34) Units/L ALT (0-55) Units/L Alkaline Phosphatase (38-126) Units/L Albumin (3.5-5.0) g/dL Calcium panel 01/18/17 01/19/17 Range/Units 16:55 03:20 Calcium 8.4 L 8.0 L (8.6-10.8) mg/dL Albumin 2.3 L (3.5-5.0) g/dL Pituitary panel 01/18/17 01/18/17 01/19/17 Range/Units 16:55 20:00 03:20 Sodium 141 143 (136-145) mEq/L Potassium 3.6 3.5 3.6 (3.5-4.5) mEq/L Chloride 108 109 (98-109) mEq/L Carbon Dioxide 26 26 (19-29) mEq/L BUN 27 H 29 H (7-20) mg/dL Creatinine 0.76 0.66 (0.57-1.11) mg/dL Glucose 154 H 138 H (70-99) mg/dL Calcium 8.4 L 8.0 L (8.6-10.8) mg/dL 01/19/17 Range/Units 10:45 Sodium (136-145) mEq/L Potassium 3.4 L (3.5-4.5) mEq/L Chloride (98-109) mEq/L Carbon Dioxide (19-29) mEq/L BUN (7-20) mg/dL Creatinine (0.57-1.11) mg/dL Glucose (70-99) mg/dL Calcium (8.6-10.8) mg/dL Adrenal panel 01/18/17 01/18/17 01/19/17 Range/Units 16:55 20:00 03:20 Sodium 141 143 (136-145) mEq/L Potassium 3.6 3.5 3.6 (3.5-4.5) mEq/L Chloride 108 109 (98-109) mEq/L Carbon Dioxide 26 26 (19-29) mEq/L BUN 27 H 29 H (7-20) mg/dL Creatinine 0.76 0.66 (0.57-1.11) mg/dL Glucose 154 H 138 H (70-99) mg/dL Calcium 8.4 L 8.0 L (8.6-10.8) mg/dL Total Bilirubin 1.1 (0.2-1.2) mg/dL AST 101 H (5-34) Units/L ALT 31 (0-55) Units/L Alkaline Phosphatase 83 (38-126) Units/L Albumin 2.3 L (3.5-5.0) g/dL 01/19/17 Range/Units 10:45 Sodium (136-145) mEq/L Potassium 3.4 L (3.5-4.5) mEq/L Chloride (98-109) mEq/L Carbon Dioxide (19-29) mEq/L BUN (7-20) mg/dL Creatinine (0.57-1.11) mg/dL Glucose (70-99) mg/dL Calcium (8.6-10.8) mg/dL Total Bilirubin (0.2-1.2) mg/dL AST (5-34) Units/L ALT (0-55) Units/L Alkaline Phosphatase (38-126) Units/L Albumin (3.5-5.0) g/dL - VTE Documentation of Mechanical Device: Intermittent pneumatic compression device Consult Discharge Plan - Plan Referrals: Afshin Salazar MD [Primary Care Provider] - - Attending Attestation I examined this patient and my medical decision-making was reviewed with the HOSTING ENGINEER/PA/Advanced Practice Nurse/Resident Physician. I agree with the documented findings, disposition and treatment plan as described except to the extent set forth below.
[2017-01-19] MEDS ORDERED: Albuterol 2.5 MG/3 ML NEBULIZER IH SCH (16:00)
[2017-01-19] MEDS: Norepinephrine 4 MG in D5% in Water 250 ML IVC SCH (19:29)
[2017-01-19] MEDS: FLUoxetine 20 MG CAPSULE PO SCH (20:07)
[2017-01-20] MEDS: Ipratropium/Albuterol Neb 3 ML IH SCH ×6 (00:04→19:24)
[2017-01-20] MEDS: *HR* Metoprolol 5 MG/5 ML VIAL IVP PRN ×2 (00:24→20:19)
[2017-01-20] MEDS: Piperacillin/Tazobactam 3.375 GM in D5% in Water (Mini-Bag+) 100 ML IVPB SCH ×3 (03:04→19:01)
[2017-01-20 03:12] LABS: Hematocrit 23.6 % (35.3-44.9); Hemoglobin 7.8 g/dL (11.5-15.4); Mean Corpuscular HGB Conc 33.1 g/dL (31.6-35.5); Mean Corpuscular Hemoglobin 30.1 pg (28.0-33.3); Mean Corpuscular Volume 91.1 fL (83.0-100.0); Mean Platelet Volume 9.8 fL (9.4-12.4); Platelet Count 265 K/mcL (140-400); Red Blood Count 2.59 M/mcL (3.82-4.97); Red Cell Distribution Width 14.6 % (11.5-14.5)
[2017-01-20 03:44] LABS: Lymphocytes # 1.1 K/mcL (0.6-4.6); Monocytes # 0.9 K/mcL (0.0-1.3); Neutrophils # 12.1 K/mcL (1.6-8.9)
[2017-01-20 03:45] LABS: Hypersegmented Neutrophils Present (Not Present); Polychromasia 1+ (Not Present)
[2017-01-20 03:46] LABS: BUN/Creatinine Ratio 44 (6-26); Blood Urea Nitrogen 27 mg/dL (7-20); Calcium 8.3 mg/dL (8.6-10.8); Carbon Dioxide 28 mEq/L (19-29); Chloride 110 mEq/L (98-109); Glucose 143 mg/dL (70-99); Osmolality,Calculated 310 (280-300); Phosphorous 2.7 mg/dL (2.3-4.7); Potassium 3.8 mEq/L (3.5-4.5); Sodium 146 mEq/L (136-145); eGFR For African Americans > 60 (> 60); eGFR For Non-African Americans > 60 (> 60)
[2017-01-20 03:49] LABS: Anisocytosis 1+ (Not Present); Platelet Estimate Normal (Normal)
[2017-01-20] MEDS: *HR* Heparin 5,000 UNIT/ML VIAL SQ SCH ×2 (04:56→17:11)
[2017-01-20] MEDS: Insulin LISPRO 300 UNITS/3 ML VIAL SQ SCH ×4 (04:57→23:31)
--- NOTE | 2017-01-20 08:51 | General Surgery Progress Note ---
Date of Encounter: 01/20/17 Time of Encounter: 08:50 - Assessment and Plan (1) Diverticulitis of colon with perforation Current Visit: Yes Status: Acute POD #3 s/p exploratory celiotomy, sigmoid resection was sigmoid colostomy, and abdominal washout by Dr. Catherine. 19 [place] Kranthi drain and midline wound vac. Wound care/ostomy care. NPO diet D/C IVF Antibiotic coverage de-escalated to Zosyn (day 4) [employer] hydromorphone for pain control Awaiting return of bowel function. Will get abdominal xr to check for small bowel gas pattern in the morning. Serial abdominal exams Pt. is on BiPAP (2) Acute respiratory failure Current Visit: Yes Status: Acute Management per medicine team. Patient was not able to be weaned off of BiPAP yet. Chest XR demonstrates pulmonary edema vs. ARDS. Qualifiers: Respiratory failure complication: hypercapnia Qualified Code(s): J96.02 - Acute respiratory failure with hypercapnia (3) Sepsis Current Visit: Yes Status: Acute WBC 5.7-->11.2-->21.8-->15.9-->14.1 today Initial lactate of 4.0 with high of 7.0, down to 1.8 this am. Currently hemodynamically stable. Originally on metroniazole, vancomycin, meropenem. De-escalated to Piperacillin/Tazobactam. Qualifiers: Sepsis type: sepsis due to unspecified organism Qualified Code(s): A41.9 - Sepsis, unspecified organism (4) Hypokalemia Current Visit: Yes Status: Acute Electrolyte protocol instituted per primary ICU team (5) Hypomagnesemia Current Visit: Yes Status: Acute electrolye protocol instituted (6) ERI (obstructive sleep apnea) Current Visit: Yes Status: Chronic Reported history of sleep apnea with regular use of CPAP at night. Patient currently on bilevel. (7) Diabetes Current Visit: Yes Status: Chronic Early reports state patient has a history of diabetes but that she reports no home medications for diabetes. 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 Denies any pain, flatus, bowel , nausea, appetite at this time. Objective Vital Signs - Last 8 Hours Temp Pulse Resp BP Pulse Ox 01/20/17 07:40 23 125/65 98 01/20/17 07:30 94 23 125/65 97 01/20/17 06:00 94 23 109/56 97 01/20/17 05:00 101 28 119/59 97 01/20/17 04:00 93 30 113/50 87 L 01/20/17 03:55 28 113/60 96 01/20/17 03:00 100.9 F H 94 23 103/62 96 01/20/17 02:56 94 01/20/17 02:00 94 23 111/60 98 01/20/17 01:00 106 26 113/60 98 Intake and Output 01/19/17 01/20/17 01/20/17 23:59 07:59 15:59 Intake Total 200 / 200 Output Total 630 / 630 230 / 230 Balance -430 / -430 -230 / -230 Intake: IV Fluids 200 / 200 Zosyn 3.375 GM In 200 / 200 Dextrose 5% (Minibag+) 100 ML 100 ML @ 25 mls/hr IVPB Q8H [facility] Rx#: [id number] Oral 0 / 0 Output: Stool 0 / 0 Catheter 600 / 600 200 / 200 Gastric Drainage 25 / 25 Wound Drainage 30 / 30 5 / 5 Right Lower Abdomen 30 / 30 5 / 5 Other: Weight 94 kg Blood Glucose* 250 117 Patient Weight 01/20/17 23:59 Weight 94 kg - Additional Exam - General physical appearance well developed, well nourished, mild distress - Eyes normal ocular movement - ENT atraumatic, normocephalic, Other (NG tube and BiPAP in place) - Neck Neck exam: trachea midline - Respiratory clear to auscultation, other (On BiPAP) - Cardiovascular Cardiovascular exam: Present: tachycardia - Abdomen Abdomen: Present: soft (No active bowel sounds), tender (at surgical wound), wound (wound vac in place. colostomy present without any output, scant bloody fluid present) - Incision Incision: Present: open (wound vac in place) - Integumentary no rash - Neurologic CN 2-12 grossly intact - Labs 01/20/17 03:05 01/20/17 03:05 Diabetes panel 01/19/17 01/19/17 01/20/17 Range/Units 10:45 18:09 03:05 Sodium 146 H (136-145) mEq/L Potassium 3.4 L 3.9 3.8 (3.5-4.5) mEq/L Chloride 110 H (98-109) mEq/L Carbon Dioxide 28 (19-29) mEq/L BUN 27 H (7-20) mg/dL Creatinine 0.61 (0.57-1.11) mg/dL Glucose 143 H (70-99) mg/dL Calcium 8.3 L (8.6-10.8) mg/dL Calcium panel 01/20/17 Range/Units 03:05 Calcium 8.3 L (8.6-10.8) mg/dL Phosphorus 2.7 (2.3-4.7) mg/dL Pituitary panel 01/19/17 01/19/17 01/20/17 Range/Units 10:45 18:09 03:05 Sodium 146 H (136-145) mEq/L Potassium 3.4 L 3.9 3.8 (3.5-4.5) mEq/L Chloride 110 H (98-109) mEq/L Carbon Dioxide 28 (19-29) mEq/L BUN 27 H (7-20) mg/dL Creatinine 0.61 (0.57-1.11) mg/dL Glucose 143 H (70-99) mg/dL Calcium 8.3 L (8.6-10.8) mg/dL Adrenal panel 01/19/17 01/19/17 01/20/17 Range/Units 10:45 18:09 03:05 Sodium 146 H (136-145) mEq/L Potassium 3.4 L 3.9 3.8 (3.5-4.5) mEq/L Chloride 110 H (98-109) mEq/L Carbon Dioxide 28 (19-29) mEq/L BUN 27 H (7-20) mg/dL Creatinine 0.61 (0.57-1.11) mg/dL Glucose 143 H (70-99) mg/dL Calcium 8.3 L (8.6-10.8) mg/dL - VTE Documentation of Mechanical Device: Intermittent pneumatic compression device Consult Discharge Plan - Plan Referrals: Afshin Salazar MD [Primary Care Provider] -
[2017-01-20 09:13] LABS: ABG Base Excess 8.4 mEq/L (-2.0 to 3.0); ABG HCO3 32.8 mEQ/L (21-27); ABG Oxygen Saturation 96 % (95-98); ABG PCO2 44 mmHg (35-45); ABG PH 7.48 pH Units (7.32-7.45); ABG PO2 78 mmHg (85-104); ABG TCO2 34.2 mEq/L (20-26)
[2017-01-20 09:15] LABS: Blood Gas FiO2 45 %
[2017-01-20] MEDS: FLUoxetine 20 MG CAPSULE PO SCH ×2 (09:33→19:59)
[2017-01-20] MEDS: Pantoprazole 40 MG VIAL IVP SCH (09:33)
--- NOTE | 2017-01-20 09:42 | Pulmonology Progress Note ---
Date of Encounter: 01/20/17 Time of Encounter: 09:38 Assessment and Plan (1) ARDS (adult respiratory distress syndrome) Current Visit: Yes Status: Acute Chest x-ray from yesterday showed worsening interstitial infiltrates compared to day before, clinically her breathing is not getting better with use of bipap for few days, acute onset w/in a week, echo LVEF 70%, likely 2/2 severe sepsis, ABG obtained today, PaO2/FiO2 ratio is 173, moderate ARDS, she is satting 98% on FiO2 45%, good tidal volume but slightly in respiratory distress, will aggressively diurese her with IV lasix today, closely monitor I and O's, if clinically worsened then possible intubation today. (2) Sepsis associated hypotension Current Visit: Yes Status: Acute Spiked fever of 100.9 F overnight, leukocytosis coming down but still 14.1, tachycardic and tachypneic, now off of levophed, BP stable, abd wound culture showed pansensitive e.coli, currently on zosyn IV, initial UA showed UTI picture but no urine culture was done, will obtain urine culture today, bld culture x2 from 01/17 negative so far, unlikely pneumonia, clinically not having productive cough, worsening chest x-ray likely 2/2 developing ARDS, con't to closely monitor her VS/clinical status/labs, if con't to have fever and in sepsis, she might need repeated abd ct to r/o abscess, will discuss with surgery team first. (3) Diverticulitis of colon with perforation Current Visit: Yes Status: Acute POD #3 for s/p ex celiotomy, sigmoid resection and sigmoid colostomy, surgery following, con't post-op care, still no colostomy output, 19 cymro magda drain and midline wound vac in place, con't wound/ostomy care, NPO diet, currently on zosyn IV, pain/antiemetic IV prn, will follow surgery's recommendations, low albumin noted, nutrition on board, possibility of starting TPN or trickle feeding. (4) DM (diabetes mellitus), type 2 Current Visit: Yes Status: Acute Blood glucose stable, currently NPO, con't accucheck q6hrs with SSI. Qualifiers: Qualified Code(s): E11.9 - Type 2 diabetes mellitus without complications (5) COPD (chronic obstructive pulmonary disease) Current Visit: Yes Status: Acute Currently on bipap, not on exacerbation of COPD, con't duoneb and oxygen support. Qualifiers: Qualified Code(s): J44.9 - Chronic obstructive pulmonary disease, unspecified (6) ERI (obstructive sleep apnea) Current Visit: Yes Status: Acute Hx of ERI with regular use of CPAP at night, currently on BIPAP. (7) Hypokalemia Current Visit: Yes Status: Acute Supplemented yesterday, today normal, magnesium level normal, con't to monitor. (8) DVT prophylaxis Current Visit: Yes Status: Acute Heparin SQ daily. Subjective Principal diagnosis: Colon perforation Interval history: Pt initially came to the hospital for abd pain, CT abd showed perforated diverticulitis, taken to the OR for ex celiotomy, sigmoid resection and sigmoid colostomy, currently in ICU for post-op care and development of ARDS. Pt seen and examined today, still on bipap, now off the levophed, pt states that her breathing is not getting better, slightly worse than yesterday, no productive cough, slight abd pain around surgical site, still no colostomy output. Objective PUL Vital signs: Last Vital Signs Temp 100.2 F H 01/20/17 08:15 Pulse 96 01/20/17 07:30 Resp 23 01/20/17 07:40 BP 125/65 01/20/17 07:40 Pulse Ox 98 01/20/17 07:40 General appearance: alert, other (slightly in respiratory distress on bipap) Eyes: nonicteric ENT: oropharynx moist Neck: supple, no lymphadenopathy, no JVD Effort: mildly labored Auscultation: bilateral: rales (diffusely) Cardiovascular: other (regular rhythm but tachycardic) Gastrointestinal: normoactive bowel sounds, other (colostomy bag in place, RLQ abd drain in place) Integumentary: normal Extremities: no cyanosis, no edema, no clubbing Musculoskeletal: no deformities normal mental status, non-focal exam mood appropriate, affect normal Results - Laboratory Findings CBC and BMP: 01/20/17 03:05 01/20/17 03:05 ABG ABG pH 7.48 pH Units (7.32-7.45) H 01/20/17 09:08 ABG pCO2 44 mmHg (35-45) 01/20/17 09:08 ABG pO2 78 mmHg (85-104) L 01/20/17 09:08 ABG O2 Saturation 96 % (95-98) 01/20/17 09:08 PT/INR, D-dimer PT 17.7 Seconds (9.4-12.1) H 01/17/17 01:29 Abnormal lab findings: Abnormal lab results WBC 14.1 K/mcL (4.3-11.1) H 01/20/17 03:05 RBC 2.59 M/mcL (3.82-4.97) L 01/20/17 03:05 Hgb 7.8 g/dL (11.5-15.4) L 01/20/17 03:05 Hct 23.6 % (35.3-44.9) L 01/20/17 03:05 RDW 14.6 % (11.5-14.5) H 01/20/17 03:05 Metamyelocytes % 5.0 % (0) H 01/17/17 15:00 Myelocytes % 14.0 % (0) H 01/17/17 07:45 Neutrophils # 12.1 K/mcL (1.6-8.9) H 01/20/17 03:05 Nucleated RBCs/100 WBC 0.1 /100 WBC (0) H 01/18/17 16:55 Hypersegmented Neuts Present (Not Present) A 01/20/17 03:05 Toxic Granulation Present (Not Present) A 01/18/17 04:30 Large Platelets Present (Not Present) A 01/18/17 04:30 Polychromasia 1+ (Not Present) A 01/20/17 03:05 Hypochromasia Present (Not Present) A 01/18/17 04:30 Anisocytosis 1+ (Not Present) A 01/20/17 03:05 Macrocytosis Present (Not Present) A 01/18/17 04:30 PT 17.7 Seconds (9.4-12.1) H 01/17/17 01:29 ABG pH 7.48 pH Units (7.32-7.45) H 01/20/17 09:08 ABG pO2 78 mmHg (85-104) L 01/20/17 09:08 ABG HCO3 32.8 mEQ/L (21-27) H 01/20/17 09:08 ABG Total CO2 34.2 mEq/L (20-26) H 01/20/17 09:08 ABG Base Excess 8.4 mEq/L (-2.0 to 3.0) H 01/20/17 09:08 ABG Hematocrit 33 % (35-51) L 01/17/17 05:02 Potassium 2.9 mEq/L (3.5-5.3) L 01/17/17 05:02 Glucose 237 mg/dL (60-95) H 01/17/17 05:02 Sodium 146 mEq/L (136-145) H 01/20/17 03:05 Chloride 110 mEq/L (98-109) H 01/20/17 03:05 BUN 27 mg/dL (7-20) H 01/20/17 03:05 BUN/Creatinine Ratio 44 (6-26) H 01/20/17 03:05 Glucose 143 mg/dL (70-99) H 01/20/17 03:05 POC Glucose 117 (58-89) H 01/19/17 21:50 Calculated Osmolality 310 (280-300) H 01/20/17 03:05 Calcium 8.3 mg/dL (8.6-10.8) L 01/20/17 03:05 Direct Bilirubin 1.5 mg/dL (0.0-0.5) H 01/16/17 20:52 AST 101 Units/L (5-34) H 01/18/17 16:55 C-Reactive Protein 149 mg/L (Less than 5) H 01/17/17 01:29 Serum Total Protein 4.9 g/dL (6.0-8.3) L 01/18/17 16:55 Albumin 2.3 g/dL (3.5-5.0) L 01/18/17 16:55 Albumin/Globulin Ratio 0.9 (1.1-2.2) L 01/18/17 16:55 Prealbumin 4.0 mg/dL (16.0-38.0) L 01/20/17 03:05 HDL Cholesterol 9 mg/dL (40-59) L 01/17/17 01:29 Cholesterol/HDL Ratio 5.9 (0-4.9) H 01/17/17 01:29 Urine Color Kay (Yellow) A 01/16/17 22:49 Urine Clarity Turbid (Clear) A 01/16/17 22:49 Urine Protein 30 mg/dL (Neg-Trace) H 01/16/17 22:49 Urine Ketones 15 mg/dL (Negative) H 01/16/17 22:49 Urine Nitrite Positive (Negative) A 01/16/17 22:49 Urine Bilirubin Moderate (Negative) H 01/16/17 22:49 Urine Urobilinogen 2.0 mg/dL (Normal) H 01/16/17 22:49 Ur Leukocyte Esterase Moderate (Negative) H 01/16/17 22:49 Urine Microscopic WBC 50-100 per hpf (0-3) H 01/16/17 22:49 Ur Squamous Epith Cells Moderate per lpf (None-Few) H 01/16/17 22:49 Urine Bacteria Moderate per hpf (None-Few) H 01/16/17 22:49 Urine Mucus Many (Few) H 01/16/17 22:49 Urine Opiates Screen Positive ng/mL (Rdfszj=280) H 01/16/17 22:49 U Benzodiazepines Scrn Positive ng/mL (Tzzaze=354) H 01/16/17 22:49 - Microbiology Findings Microbiology Findings: Microbiology, Last 48 Hours 01/17/17 10:34 Anaerobic Culture - Preliminary Abdomen At this time, no anaerobic growth is present. The culture will be finalized after 5 days of incubation. 01/17/17 10:34 Wound Culture - Final Abdomen Escherichia coli - Clinical Findings Intake & Output: Intake & Output 01/19/17 01/20/17 01/20/17 23:59 07:59 15:59 Intake Total 200 / 200 Output Total 630 / 630 230 / 230 340 / 340 Balance -430 / -430 -230 / -230 -340 / -340 Weight 94 kg - VTE Documentation of Mechanical Device: Intermittent pneumatic compression device Consult Discharge Plan - Plan Referrals: Afhsin Salazar MD [Primary Care Provider] -
[2017-01-20] MEDS ORDERED: Chloraseptic Spray 177 ML BOTTLE MM PRN (14:03)
[2017-01-20] MEDS: Furosemide 40 MG/4 ML VIAL IVP SCH ×2 (14:42→17:09)
[2017-01-20] MEDS ORDERED: Potassium Phosphate 44 MEQ in 0.9 % Sodium Chloride 250 ML IVPB PRN (14:51)
[2017-01-20] MEDS ORDERED: Calcium Gluconate 1,000 MG in D5% in Water 100 ML IVPB PRN (14:51)
[2017-01-20] MEDS: Potassium Chloride 40 MEQ/200 ML BAG IVPB PRN ×2 (15:45→17:09)
[2017-01-20] MEDS: Magnesium Sulfate 2 GM in D5% in Water 100 ML IVPB PRN (15:45)
[2017-01-20] MEDS ORDERED: 0.9 % Sodium Chloride 500 ML ONE (18:40)
[2017-01-21] MEDS: Ipratropium/Albuterol Neb 3 ML IH SCH ×7 (00:33→23:16)
[2017-01-21] MEDS: Piperacillin/Tazobactam 3.375 GM in D5% in Water (Mini-Bag+) 100 ML IVPB SCH ×3 (03:09→20:16)
[2017-01-21 03:33] LABS: Basophils % 0.2 %; Eosinophils % 0.1 %; Hematocrit 25.4 % (35.3-44.9); Hemoglobin 8.6 g/dL (11.5-15.4); Immature Granulocytes % 3.5 % (0-4); Lymphocytes # 1.2 K/mcL (0.6-4.6); Lymphocytes % 6.5 %; Mean Corpuscular HGB Conc 33.9 g/dL (31.6-35.5); Mean Corpuscular Hemoglobin 30.5 pg (28.0-33.3); Mean Corpuscular Volume 90.1 fL (83.0-100.0); Mean Platelet Volume 10.2 fL (9.4-12.4); Monocytes # 0.6 K/mcL (0.0-1.3); Monocytes % 3.3 %; Neutrophils # 15.4 K/mcL (1.6-8.9); Nucleated Red Blood Cells 0.1 /100 WBC (0); Platelet Count 283 K/mcL (140-400); Red Blood Count 2.82 M/mcL (3.82-4.97); Red Cell Distribution Width 14.4 % (11.5-14.5); Segmented Neutrophils % 86.4 %
[2017-01-21 03:46] LABS: BUN/Creatinine Ratio 41 (6-26); Blood Urea Nitrogen 26 mg/dL (7-20); Carbon Dioxide 31 mEq/L (19-29); Chloride 104 mEq/L (98-109); Glucose 153 mg/dL (70-99); Osmolality,Calculated 312 (280-300); Potassium 3.7 mEq/L (3.5-4.5); Sodium 147 mEq/L (136-145); eGFR For African Americans > 60 (> 60); eGFR For Non-African Americans > 60 (> 60)
[2017-01-21] MEDS: Potassium Chloride 40 MEQ/200 ML BAG IVPB PRN (04:18)
[2017-01-21] MEDS: Insulin LISPRO 300 UNITS/3 ML VIAL SQ SCH ×5 (04:40→23:30)
[2017-01-21] MEDS: *HR* Heparin 5,000 UNIT/ML VIAL SQ SCH ×2 (04:40→18:06)
--- NOTE | 2017-01-21 08:13 | Pulmonology Progress Note ---
<Jose De Jesus Suggs - Last Filed: 01/21/17 09:50> Date of Encounter: 01/21/17 Time of Encounter: 08:13 Assessment and Plan (1) ARDS (adult respiratory distress syndrome) Current Visit: Yes Status: Acute Chest x-ray today showed stable ground-glass opacities, clinically her breathing is about the same from yesterday but currently using high flow oxygen nasal cannula, satting 92%, bipap as-needed basis and at bedtime, acute onset w/ in a week, echo LVEF 70%, likely 2/2 severe sepsis, ABG showed PaO2/FiO2 ratio of 173, moderate ARDS, will con't IV lasix, negative 4L fluid volume in last 24 hrs, con't to closely monitor her respiratory status. (2) Sepsis associated hypotension Current Visit: Yes Status: Acute Spiked fever of 100.9 F overnight, leukocytosis coming down but still 14.1, tachycardic and tachypneic, now off of levophed, BP stable, abd wound culture showed pansensitive e.coli, currently on zosyn IV, initial UA showed UTI picture but no urine culture was done, will obtain urine culture today, bld culture x2 from 01/17 negative so far, unlikely pneumonia, clinically not having productive cough, worsening chest x-ray likely 2/2 developing ARDS, con't to closely monitor her VS/clinical status/labs, if con't to have fever and in sepsis, she might need repeated abd ct to r/o abscess, will discuss with surgery team first. (3) Diverticulitis of colon with perforation Current Visit: Yes Status: Acute POD #3 for s/p ex celiotomy, sigmoid resection and sigmoid colostomy, surgery following, con't post-op care, still no colostomy output, 19 swiss magda drain and midline wound vac in place, con't wound/ostomy care, NPO diet, currently on zosyn IV, pain/antiemetic IV prn, will follow surgery's recommendations, low albumin noted, nutrition on board, possibility of starting TPN or trickle feeding. (4) DM (diabetes mellitus), type 2 Current Visit: Yes Status: Acute Blood glucose stable, currently NPO, con't accucheck q6hrs with SSI. (5) COPD (chronic obstructive pulmonary disease) Current Visit: Yes Status: Acute Currently on bipap, not on exacerbation of COPD, con't duoneb and oxygen support. (6) ERI (obstructive sleep apnea) Current Visit: Yes Status: Acute Hx of ERI with regular use of CPAP at night, currently on BIPAP. (7) Hypokalemia Current Visit: Yes Status: Acute Supplemented yesterday, today normal, magnesium level normal, con't to monitor. (8) DVT prophylaxis Current Visit: Yes Status: Acute Heparin SQ daily. Subjective Principal diagnosis: sigmoid diverticulitis with perforation Interval history: Pt initially came to the hospital for abd pain, CT abd showed perforated diverticulitis, taken to the OR for ex celiotomy, sigmoid resection and sigmoid colostomy, currently in ICU for post-op care and development of ARDS. Pt seen and examined today, spiked fever from 100 to 101.2F overnight, decreased mentation compared to yesterday, her breathing is about the same from yesterday, also has slight mid abd pain, denies productive cough or chest pain. Objective PUL Vital signs: Last Vital Signs Temp 100.7 F H 01/21/17 04:44 Pulse 90 01/21/17 05:57 Resp 19 01/21/17 07:51 BP 110/66 01/21/17 05:57 Pulse Ox 97 01/21/17 07:51 General appearance: no acute distress Eyes: nonicteric ENT: oropharynx moist Neck: supple, no lymphadenopathy Effort: normal Auscultation: bilateral: rales (diffusely) Cardiovascular: other (regular rhythm but tachycardic) Gastrointestinal: normoactive bowel sounds, non-distended, other (colostomy bag in place, RLQ abd drain in place) Integumentary: normal Extremities: no cyanosis, no edema, no clubbing Musculoskeletal: no deformities non-focal exam, other (decreased mentation compared to yesterday) mood appropriate, affect normal Results - Laboratory Findings CBC and BMP: 01/21/17 03:11 01/21/17 03:11 ABG ABG pH 7.48 pH Units (7.32-7.45) H 01/20/17 09:08 ABG pCO2 44 mmHg (35-45) 01/20/17 09:08 ABG pO2 78 mmHg (85-104) L 01/20/17 09:08 ABG O2 Saturation 96 % (95-98) 01/20/17 09:08 PT/INR, D-dimer PT 17.7 Seconds (9.4-12.1) H 01/17/17 01:29 Abnormal lab findings: Abnormal lab results WBC 17.8 K/mcL (4.3-11.1) H 01/21/17 03:11 RBC 2.82 M/mcL (3.82-4.97) L 01/21/17 03:11 Hgb 8.6 g/dL (11.5-15.4) L 01/21/17 03:11 Hct 25.4 % (35.3-44.9) L 01/21/17 03:11 Metamyelocytes % 5.0 % (0) H 01/17/17 15:00 Myelocytes % 14.0 % (0) H 01/17/17 07:45 Neutrophils # 15.4 K/mcL (1.6-8.9) H 01/21/17 03:11 Nucleated RBCs/100 WBC 0.1 /100 WBC (0) H 01/21/17 03:11 Hypersegmented Neuts Present (Not Present) A 01/20/17 03:05 Toxic Granulation Present (Not Present) A 01/18/17 04:30 Large Platelets Present (Not Present) A 01/18/17 04:30 Polychromasia 1+ (Not Present) A 01/20/17 03:05 Hypochromasia Present (Not Present) A 01/18/17 04:30 Anisocytosis 1+ (Not Present) A 01/20/17 03:05 Macrocytosis Present (Not Present) A 01/18/17 04:30 PT 17.7 Seconds (9.4-12.1) H 01/17/17 01:29 ABG pH 7.48 pH Units (7.32-7.45) H 01/20/17 09:08 ABG pO2 78 mmHg (85-104) L 01/20/17 09:08 ABG HCO3 32.8 mEQ/L (21-27) H 01/20/17 09:08 ABG Total CO2 34.2 mEq/L (20-26) H 01/20/17 09:08 ABG Base Excess 8.4 mEq/L (-2.0 to 3.0) H 01/20/17 09:08 ABG Hematocrit 33 % (35-51) L 01/17/17 05:02 Potassium 2.9 mEq/L (3.5-5.3) L 01/17/17 05:02 Glucose 237 mg/dL (60-95) H 01/17/17 05:02 Sodium 147 mEq/L (136-145) H 01/21/17 03:11 Carbon Dioxide 31 mEq/L (19-29) H 01/21/17 03:11 BUN 26 mg/dL (7-20) H 01/21/17 03:11 BUN/Creatinine Ratio 41 (6-26) H 01/21/17 03:11 Glucose 153 mg/dL (70-99) H 01/21/17 03:11 POC Glucose 148 (58-89) H 01/20/17 23:25 Calculated Osmolality 312 (280-300) H 01/21/17 03:11 Calcium 8.0 mg/dL (8.6-10.8) L 01/21/17 03:11 Direct Bilirubin 1.5 mg/dL (0.0-0.5) H 01/16/17 20:52 AST 101 Units/L (5-34) H 01/18/17 16:55 C-Reactive Protein 149 mg/L (Less than 5) H 01/17/17 01:29 Serum Total Protein 4.9 g/dL (6.0-8.3) L 01/18/17 16:55 Albumin 2.3 g/dL (3.5-5.0) L 01/18/17 16:55 Albumin/Globulin Ratio 0.9 (1.1-2.2) L 01/18/17 16:55 Prealbumin 4.0 mg/dL (16.0-38.0) L 01/20/17 03:05 HDL Cholesterol 9 mg/dL (40-59) L 01/17/17 01:29 Cholesterol/HDL Ratio 5.9 (0-4.9) H 01/17/17 01:29 Urine Color [place] (Yellow) A 01/16/17 22:49 Urine Clarity Turbid (Clear) A 01/16/17 22:49 Urine Protein 30 mg/dL (Neg-Trace) H 01/16/17 22:49 Urine Ketones 15 mg/dL (Negative) H 01/16/17 22:49 Urine Nitrite Positive (Negative) A 01/16/17 22:49 Urine Bilirubin Moderate (Negative) H 01/16/17 22:49 Urine Urobilinogen 2.0 mg/dL (Normal) H 01/16/17 22:49 Ur Leukocyte Esterase Moderate (Negative) H 01/16/17 22:49 Urine Microscopic WBC 50-100 per hpf (0-3) H 01/16/17 22:49 Ur Squamous Epith Cells Moderate per lpf (None-Few) H 01/16/17 22:49 Urine Bacteria Moderate per hpf (None-Few) H 01/16/17 22:49 Urine Mucus Many (Few) H 01/16/17 22:49 Urine Opiates Screen Positive ng/mL (Kfxikf=267) H 01/16/17 22:49 U Benzodiazepines Scrn Positive ng/mL (Quvakg=808) H 01/16/17 22:49 - Microbiology Findings Microbiology Findings: Microbiology, Last 48 Hours 01/17/17 10:34 Anaerobic Culture - Preliminary Abdomen At this time, no anaerobic growth is present. The culture will be finalized after 5 days of incubation. 01/17/17 10:34 Wound Culture - Final Abdomen Escherichia coli - Clinical Findings Intake & Output: Intake & Output 01/20/17 01/21/17 01/21/17 23:59 07:59 15:59 Intake Total 964 / 964 200 / 200 Output Total 3250 / 3250 210 / 210 Balance -2286 / -2286 -10 / -10 Weight 88.853 kg - VTE Documentation of Mechanical Device: Intermittent pneumatic compression device Consult Discharge Plan - Plan Referrals: Afshin Salazar MD [Primary Care Provider] - <Tano Espinoza - Last Filed: 01/21/17 11:37> Objective PUL Vital signs: Last Vital Signs Temp 98.2 F 01/21/17 07:00 Pulse 101 01/21/17 10:00 Resp 24 01/21/17 11:31 BP 127/66 01/21/17 10:00 Pulse Ox 92 L 01/21/17 11:31 Results - Laboratory Findings CBC and BMP: 01/21/17 03:11 01/21/17 03:11 ABG ABG pH 7.48 pH Units (7.32-7.45) H 01/20/17 09:08 ABG pCO2 44 mmHg (35-45) 01/20/17 09:08 ABG pO2 78 mmHg (85-104) L 01/20/17 09:08 ABG O2 Saturation 96 % (95-98) 01/20/17 09:08 PT/INR, D-dimer PT 17.7 Seconds (9.4-12.1) H 01/17/17 01:29 Abnormal lab findings: Abnormal lab results WBC 17.8 K/mcL (4.3-11.1) H 01/21/17 03:11 RBC 2.82 M/mcL (3.82-4.97) L 01/21/17 03:11 Hgb 8.6 g/dL (11.5-15.4) L 01/21/17 03:11 Hct 25.4 % (35.3-44.9) L 01/21/17 03:11 Metamyelocytes % 5.0 % (0) H 01/17/17 15:00 Myelocytes % 14.0 % (0) H 01/17/17 07:45 Neutrophils # 15.4 K/mcL (1.6-8.9) H 01/21/17 03:11 Nucleated RBCs/100 WBC 0.1 /100 WBC (0) H 01/21/17 03:11 Hypersegmented Neuts Present (Not Present) A 01/20/17 03:05 Toxic Granulation Present (Not Present) A 01/18/17 04:30 Large Platelets Present (Not Present) A 01/18/17 04:30 Polychromasia 1+ (Not Present) A 01/20/17 03:05 Hypochromasia Present (Not Present) A 01/18/17 04:30 Anisocytosis 1+ (Not Present) A 01/20/17 03:05 Macrocytosis Present (Not Present) A 01/18/17 04:30 PT 17.7 Seconds (9.4-12.1) H 01/17/17 01:29 ABG pH 7.48 pH Units (7.32-7.45) H 01/20/17 09:08 ABG pO2 78 mmHg (85-104) L 01/20/17 09:08 ABG HCO3 32.8 mEQ/L (21-27) H 01/20/17 09:08 ABG Total CO2 34.2 mEq/L (20-26) H 01/20/17 09:08 ABG Base Excess 8.4 mEq/L (-2.0 to 3.0) H 01/20/17 09:08 ABG Hematocrit 33 % (35-51) L 01/17/17 05:02 Potassium 2.9 mEq/L (3.5-5.3) L 01/17/17 05:02 Glucose 237 mg/dL (60-95) H 01/17/17 05:02 Sodium 147 mEq/L (136-145) H 01/21/17 03:11 Carbon Dioxide 31 mEq/L (19-29) H 01/21/17 03:11 BUN 26 mg/dL (7-20) H 01/21/17 03:11 BUN/Creatinine Ratio 41 (6-26) H 01/21/17 03:11 Glucose 153 mg/dL (70-99) H 01/21/17 03:11 POC Glucose 148 (58-89) H 01/20/17 23:25 Calculated Osmolality 312 (280-300) H 01/21/17 03:11 Calcium 8.0 mg/dL (8.6-10.8) L 01/21/17 03:11 Direct Bilirubin 1.5 mg/dL (0.0-0.5) H 01/16/17 20:52 AST 101 Units/L (5-34) H 01/18/17 16:55 C-Reactive Protein 149 mg/L (Less than 5) H 01/17/17 01:29 Serum Total Protein 4.9 g/dL (6.0-8.3) L 01/18/17 16:55 Albumin 2.3 g/dL (3.5-5.0) L 01/18/17 16:55 Albumin/Globulin Ratio 0.9 (1.1-2.2) L 01/18/17 16:55 Prealbumin 4.0 mg/dL (16.0-38.0) L 01/20/17 03:05 HDL Cholesterol 9 mg/dL (40-59) L 01/17/17 01:29 Cholesterol/HDL Ratio 5.9 (0-4.9) H 01/17/17 01:29 Urine Color [place] (Yellow) A 01/16/17 22:49 Urine Clarity Turbid (Clear) A 01/16/17 22:49 Urine Protein 30 mg/dL (Neg-Trace) H 01/16/17 22:49 Urine Ketones 15 mg/dL (Negative) H 01/16/17 22:49 Urine Nitrite Positive (Negative) A 01/16/17 22:49 Urine Bilirubin Moderate (Negative) H 01/16/17 22:49 Urine Urobilinogen 2.0 mg/dL (Normal) H 01/16/17 22:49 Ur Leukocyte Esterase Moderate (Negative) H 01/16/17 22:49 Urine Microscopic WBC 50-100 per hpf (0-3) H 01/16/17 22:49 Ur Squamous Epith Cells Moderate per lpf (None-Few) H 01/16/17 22:49 Urine Bacteria Moderate per hpf (None-Few) H 01/16/17 22:49 Urine Mucus Many (Few) H 01/16/17 22:49 Urine Opiates Screen Positive ng/mL (Udddoe=970) H 01/16/17 22:49 U Benzodiazepines Scrn Positive ng/mL (Gnqcml=186) H 01/16/17 22:49 - Microbiology Findings Microbiology Findings: Microbiology, Last 48 Hours 01/20/17 15:24 Urine Culture - Final Urine,[place] No growth. 01/17/17 10:34 Anaerobic Culture - Preliminary Abdomen At this time, no anaerobic growth is present. The culture will be finalized after 5 days of incubation. 01/17/17 10:34 Wound Culture - Final Abdomen Escherichia coli - Clinical Findings Intake & Output: Intake & Output 01/20/17 01/21/17 01/21/17 23:59 07:59 15:59 Intake Total 964 / 964 300 / 300 Output Total 3250 / 3250 360 / 360 200 / 200 Balance -2286 / -2286 -60 / -60 -200 / -200 Weight 88.853 kg
--- NOTE | 2017-01-21 09:59 | General Surgery Progress Note ---
Date of Encounter: 01/21/17 Time of Encounter: 09:30 - Assessment and Plan (1) Diverticulitis of colon with perforation Current Visit: Yes Status: Acute POD #4 Exploratory celiotomy, Sigmoid resection, sigmoid colostomy, Abdominal wash out. Continue NPO while awaiting return of bowel function NG tube to LIWS IV at [facility] Supportive care/pain control- continue WOODWORKER and added toradol Add TPN today- consultation to manufacturing project manager IV antibiotics- Zosyn WBC 14.1>17.8 (bands resolved) Out of bed to chair today Continue elise catheter to SD for strict I&Os Incentive Spirometer every 1 hour while awake (2) Ileus, postoperative Current Visit: Yes Status: Acute Continue NPO while awaiting return of bowel function Continue NG tube to LIWS Start TPN- manufacturing project manager consulted (3) Acute respiratory failure Current Visit: Yes Status: Acute Management per pulmonary/critical care Qualifiers: Respiratory failure complication: hypercapnia Qualified Code(s): J96.02 - Acute respiratory failure with hypercapnia (4) DM (diabetes mellitus), type 2 Current Visit: Yes Status: Chronic Change insulin coverage to every 4 hours with start of TPN Will continue to monitor and adjust as necessary Qualifiers: Diabetes mellitus complication status: with hyperglycemia Diabetes mellitus residential insulin use: without middle or intermediate school principal use Qualified Code(s): E11.65 - Type 2 diabetes mellitus with hyperglycemia (5) DVT prophylaxis Current Visit: Yes Status: Acute Continue heparin 5,000 units SQ twice daily for DVT prophylaxis (6) Sepsis Current Visit: Yes Status: Acute Qualifiers: Sepsis type: sepsis due to unspecified organism Qualified Code(s): A41.9 - Sepsis, unspecified organism Subjective Patient reports: still having pain (Patient did not use her WOODWORKER last night and is not comfortable this morning), no flatus, no bowel movement, shortness of breath (slight improvement), fever (Tmax 101.2 Tcurrent 98.2) Objective Vital Signs - Last 8 Hours Temp Pulse Resp BP Pulse Ox 01/21/17 09:00 103 20 120/66 92 L 01/21/17 08:00 100 20 122/98 94 L 01/21/17 07:51 19 97 01/21/17 07:00 98.2 F 90 16 122/63 97 01/21/17 05:57 90 19 110/66 97 01/21/17 05:05 96 15 118/62 95 01/21/17 04:44 100.7 F H 01/21/17 04:00 92 17 112/59 95 01/21/17 03:41 14 112/59 98 01/21/17 03:00 97 14 114/68 96 Intake and Output 01/20/17 01/21/17 01/21/17 23:59 07:59 15:59 Intake Total 964 / 964 200 / 200 Output Total 3250 / 3250 360 / 360 0 / 0 Balance -2286 / -2286 -160 / -160 0 / 0 Intake: IV Fluids 964 / 964 200 / 200 Magnesium Sulfate 2 GM In 104 / 104 Dextrose 5% 100 ML @ 50 mls/hr IVPB Q6H PRN Rx#: [id number] Zosyn 3.375 GM In 200 / 200 Dextrose 5% (Minibag+) 100 ML 100 ML @ 25 mls/hr IVPB Q8H JACE Rx#: [id number] Potassium Chloride 20 mEq 400 / 400 200 / 200 /100 mL 40 meq In 200 ml @ 100 mls/hr IVPB Q1H PRN Rx#:[id number] Potassium Phosphate 44 260 / 260 MEQ In 0.9 % Sodium Chloride 250 ML @ 40 mls/ hr IVPB Q10H PRN Rx#: [id number] Oral 0 / 0 0 / 0 Output: Stool 0 / 0 Catheter 3200 / 3200 350 / 350 Wound Drainage 50 / 50 10 / 10 0 / 0 Right Lower Abdomen 50 / 50 10 / 10 0 / 0 Other: Weight 88.853 kg Blood Glucose* 148 - General physical appearance well developed, moderate pain - Eyes PERRL, normal ocular movement - ENT dry mucosa, atraumatic, normocephalic - Neck Neck exam: trachea midline - Respiratory clear to auscultation, other (Diminished breath sounds bilaterally; IS- 500ml) - Cardiovascular Cardiovascular exam: Present: tachycardia - Abdomen Abdomen: Present: soft, tender (expected post-operative tenderness), wound ( Colostomy pink and moist- no drainage noted, no flatus noted; NG tube to LIWS ( no drainage noted); AURELIO drain to bulb suction with serous drainage noted (10ml since midnight); Wound vac with scant amount of serous drainage noted.) - Incision Incision: Present: open (Wound vac intact with scant amount of serous drainage noted; change every MWF) - Integumentary no rash - Neurologic CN 2-12 grossly intact - Psychiatric oriented to person, oriented to place - Labs 01/21/17 03:11 01/21/17 03:11 Diabetes panel 01/21/17 Range/Units 03:11 Sodium 147 H (136-145) mEq/L Potassium 3.7 (3.5-4.5) mEq/L Chloride 104 (98-109) mEq/L Carbon Dioxide 31 H (19-29) mEq/L BUN 26 H (7-20) mg/dL Creatinine 0.63 (0.57-1.11) mg/dL Glucose 153 H (70-99) mg/dL Calcium 8.0 L (8.6-10.8) mg/dL Calcium panel 01/21/17 Range/Units 03:11 Calcium 8.0 L (8.6-10.8) mg/dL Pituitary panel 01/21/17 Range/Units 03:11 Sodium 147 H (136-145) mEq/L Potassium 3.7 (3.5-4.5) mEq/L Chloride 104 (98-109) mEq/L Carbon Dioxide 31 H (19-29) mEq/L BUN 26 H (7-20) mg/dL Creatinine 0.63 (0.57-1.11) mg/dL Glucose 153 H (70-99) mg/dL Calcium 8.0 L (8.6-10.8) mg/dL Adrenal panel 01/21/17 Range/Units 03:11 Sodium 147 H (136-145) mEq/L Potassium 3.7 (3.5-4.5) mEq/L Chloride 104 (98-109) mEq/L Carbon Dioxide 31 H (19-29) mEq/L BUN 26 H (7-20) mg/dL Creatinine 0.63 (0.57-1.11) mg/dL Glucose 153 H (70-99) mg/dL Calcium 8.0 L (8.6-10.8) mg/dL - VTE Documentation of Mechanical Device: Intermittent pneumatic compression device Consult Discharge Plan - Plan Referrals: Afshin Salazar MD [Primary Care Provider] - - Attending Attestation I examined this patient and my medical decision-making was reviewed with the NAIL TECHNICIAN TEACHER/PA/Advanced Practice Nurse/Resident Physician. I agree with the documented findings, disposition and treatment plan as described except to the extent set forth below.
[2017-01-21] MEDS ORDERED: *HR* Metoprolol 5 MG/5 ML VIAL IVP PRN (10:04)
[2017-01-21] MEDS: Pantoprazole 40 MG VIAL IVP SCH (10:48)
[2017-01-21] MEDS: FLUoxetine 20 MG CAPSULE PO SCH ×2 (10:48→20:16)
[2017-01-21] MEDS: Furosemide 40 MG/4 ML VIAL IVP SCH ×2 (10:48→16:51)
[2017-01-21] MEDS: Ketorolac 15 MG/ML VIAL IVP SCH ×3 (10:49→20:25)
[2017-01-21] MEDS ORDERED: D10% in Water 500 ML IV PRN (11:37)
[2017-01-21] MEDS: *HR* HYDROmorphone (PF) 1 MG/ML SYRINGE IVP PRN (16:52)
[2017-01-21] MEDS ORDERED: Clinimix E 5%-15% SOLUTION 2,000 ML with MVI, adult with vitamin K 10 ML IV SCH (17:00)
[2017-01-21 21:46] LABS: Magnesium 1.8 mg/dL (1.6-2.6); Phosphorous 3.4 mg/dL (2.3-4.7)
[2017-01-22] MEDS: Ketorolac 15 MG/ML VIAL IVP SCH ×4 (03:08→20:41)
[2017-01-22] MEDS: Piperacillin/Tazobactam 3.375 GM in D5% in Water (Mini-Bag+) 100 ML IVPB SCH ×3 (03:08→20:47)
[2017-01-22 03:34] LABS: Basophils % 0.2 %; Eosinophils # 0.2 K/mcL (0.0-0.6); Hematocrit 26.5 % (35.3-44.9); Hemoglobin 8.4 g/dL (11.5-15.4); Immature Granulocytes % 4.2 % (0-4); Lymphocytes # 1.7 K/mcL (0.6-4.6); Lymphocytes % 7.5 %; Mean Corpuscular HGB Conc 31.7 g/dL (31.6-35.5); Mean Corpuscular Hemoglobin 29.3 pg (28.0-33.3); Mean Corpuscular Volume 92.3 fL (83.0-100.0); Mean Platelet Volume 10.5 fL (9.4-12.4); Monocytes # 0.5 K/mcL (0.0-1.3); Monocytes % 2.2 %; Neutrophils # 19.5 K/mcL (1.6-8.9); Nucleated Red Blood Cells 0.2 /100 WBC (0); Platelet Count 299 K/mcL (140-400); Red Blood Count 2.87 M/mcL (3.82-4.97); Segmented Neutrophils % 84.9 %
[2017-01-22] MEDS: Ipratropium/Albuterol Neb 3 ML IH SCH ×6 (03:39→23:06)
[2017-01-22 03:48] LABS: Magnesium 1.8 mg/dL (1.6-2.6); Phosphorous 3.2 mg/dL (2.3-4.7)
[2017-01-22 03:49] LABS: Alanine Aminotransferase 20 Units/L (0-55); Albumin/Globulin Ratio 0.5 (1.1-2.2); Alkaline Phosphatase 114 Units/L (38-126); Aspartate Amino Transferase 76 Units/L (5-34); BUN/Creatinine Ratio 48 (6-26); Calcium 7.9 mg/dL (8.6-10.8); Carbon Dioxide 30 mEq/L (19-29); Chloride 108 mEq/L (98-109); Globulin 3.8 g/dL (2.4-3.5); Glucose 200 mg/dL (70-99); Osmolality,Calculated 323 (280-300); Potassium 3.3 mEq/L (3.5-4.5); Sodium 149 mEq/L (136-145); Total Protein 5.7 g/dL (6.0-8.3); eGFR For African Americans > 60 (> 60); eGFR For Non-African Americans > 60 (> 60)
[2017-01-22 03:53] LABS: Albumin 1.9 g/dL (3.5-5.0); Blood Urea Nitrogen 40 mg/dL (7-20)
[2017-01-22] MEDS: Potassium Chloride 40 MEQ/200 ML BAG IVPB PRN (04:02)
[2017-01-22] MEDS: Insulin LISPRO 300 UNITS/3 ML VIAL SQ SCH ×6 (04:04→23:25)
[2017-01-22] MEDS: *HR* Heparin 5,000 UNIT/ML VIAL SQ SCH ×2 (05:09→17:12)
[2017-01-22] MEDS: Magnesium Sulfate 2 GM in D5% in Water 100 ML IVPB PRN (05:51)
[2017-01-22] MEDS: Pantoprazole 40 MG VIAL IVP SCH (08:05)
[2017-01-22] MEDS: Furosemide 40 MG/4 ML VIAL IVP SCH (08:05)
--- NOTE | 2017-01-22 08:23 | Pulmonology Progress Note ---
Date of Encounter: 01/22/17 Time of Encounter: 08:23 Assessment and Plan (1) ARDS (adult respiratory distress syndrome) Current Visit: Yes Status: Acute Clinically her breathing is better than yesterday, still requiring 6 L of high flow oxygen nasal cannula, satting 94 %, bipap as-needed basis and at bedtime, patient continued to have a good urine output with -1.3 L fluid balance for the last 24 hours, patient started to have hypernatremia along with elevated bicarbs and BUN levels, will decrease current IV Lasix dosage, and con't to closely monitor her respiratory status. (2) Sepsis associated hypotension Current Visit: Yes Status: Acute Still having fever but decreased to 100-100.6 Fahrenheit, lekocytosis increased to 22.9, abd wound culture showed pansensitive e.coli, currently on zosyn IV, urine and blood cultures are negative, MRSA screening is still pending, continue to use incentive spirometry as much as possible, con't to closely monitor her VS/clinical status/labs, if clinically worsen, she might need repeated abd ct to r/o abscess. (3) Diverticulitis of colon with perforation Current Visit: Yes Status: Acute POD #3 for s/p ex celiotomy, sigmoid resection and sigmoid colostomy, surgery following, con't post-op care, still no colostomy output, 19 korean magda drain and midline wound vac in place, con't wound/ostomy care, currently on zosyn IV, pain/antiemetic IV prn, will follow surgery's recommendations, she was started on TPN yesterday. (4) DM (diabetes mellitus), type 2 Current Visit: Yes Status: Chronic Blood glucose stable, currently on TPN, con't accucheck with SSI. Qualifiers: Diabetes mellitus complication status: with hyperglycemia Diabetes mellitus lobsterman insulin use: without lobsterman use Qualified Code(s): E11.65 - Type 2 diabetes mellitus with hyperglycemia (5) COPD (chronic obstructive pulmonary disease) Current Visit: Yes Status: Acute Currently on bipap prn, not on exacerbation of COPD, con't duoneb and oxygen support. Qualifiers: Qualified Code(s): J44.9 - Chronic obstructive pulmonary disease, unspecified (6) ERI (obstructive sleep apnea) Current Visit: Yes Status: Acute Hx of ERI with regular use of CPAP at night, currently on BIPAP at bedtime. (7) Hypokalemia Current Visit: Yes Status: Acute Will replace it today, magnesium level normal, con't to monitor. (8) DVT prophylaxis Current Visit: Yes Status: Acute Heparin SQ daily. Subjective Principal diagnosis: sigmoid diverticulitis with perforation Interval history: Pt initially came to the hospital for abd pain, CT abd showed perforated diverticulitis, taken to the OR for ex celiotomy, sigmoid resection and sigmoid colostomy, currently in ICU for post-op care and treatment of ARDS. Pt seen and examined today, her fever has decreased to 100 to 100.6 Fahrenheit, she states that her breathing is better than yesterday, denies productive cough , chest and abdominal pain. Objective PUL Vital signs: Last Vital Signs Temp 98.4 F 01/22/17 07:38 Pulse 101 01/22/17 06:02 Resp 20 01/22/17 07:54 BP 116/64 01/22/17 06:02 Pulse Ox 94 L 01/22/17 07:54 General appearance: no acute distress, alert Eyes: nonicteric ENT: oropharynx moist Neck: supple Effort: normal Auscultation: bilateral: rales (Bibasilar crackles) Cardiovascular: other (Regular rhythm but tachycardic) Gastrointestinal: normoactive bowel sounds, non-distended, other (colostomy bag in place, RLQ abd drain in place) Integumentary: normal Extremities: no cyanosis, no edema, no clubbing Musculoskeletal: no deformities normal mental status, non-focal exam mood appropriate, affect normal Results - Laboratory Findings CBC and BMP: 01/22/17 03:12 01/22/17 03:12 ABG ABG pH 7.48 pH Units (7.32-7.45) H 01/20/17 09:08 ABG pCO2 44 mmHg (35-45) 01/20/17 09:08 ABG pO2 78 mmHg (85-104) L 01/20/17 09:08 ABG O2 Saturation 96 % (95-98) 01/20/17 09:08 PT/INR, D-dimer PT 17.7 Seconds (9.4-12.1) H 01/17/17 01:29 Abnormal lab findings: Abnormal lab results WBC 22.9 K/mcL (4.3-11.1) H 01/22/17 03:12 RBC 2.87 M/mcL (3.82-4.97) L 01/22/17 03:12 Hgb 8.4 g/dL (11.5-15.4) L 01/22/17 03:12 Hct 26.5 % (35.3-44.9) L 01/22/17 03:12 RDW 15.0 % (11.5-14.5) H 01/22/17 03:12 Immature Gran % 4.2 % (0-4) H 01/22/17 03:12 Metamyelocytes % 5.0 % (0) H 01/17/17 15:00 Myelocytes % 14.0 % (0) H 01/17/17 07:45 Neutrophils # 19.5 K/mcL (1.6-8.9) H 01/22/17 03:12 Nucleated RBCs/100 WBC 0.2 /100 WBC (0) H 01/22/17 03:12 Hypersegmented Neuts Present (Not Present) A 01/20/17 03:05 Toxic Granulation Present (Not Present) A 01/18/17 04:30 Large Platelets Present (Not Present) A 01/18/17 04:30 Polychromasia 1+ (Not Present) A 01/20/17 03:05 Hypochromasia Present (Not Present) A 01/18/17 04:30 Anisocytosis 1+ (Not Present) A 01/20/17 03:05 Macrocytosis Present (Not Present) A 01/18/17 04:30 PT 17.7 Seconds (9.4-12.1) H 01/17/17 01:29 ABG pH 7.48 pH Units (7.32-7.45) H 01/20/17 09:08 ABG pO2 78 mmHg (85-104) L 01/20/17 09:08 ABG HCO3 32.8 mEQ/L (21-27) H 01/20/17 09:08 ABG Total CO2 34.2 mEq/L (20-26) H 01/20/17 09:08 ABG Base Excess 8.4 mEq/L (-2.0 to 3.0) H 01/20/17 09:08 ABG Hematocrit 33 % (35-51) L 01/17/17 05:02 Potassium 2.9 mEq/L (3.5-5.3) L 01/17/17 05:02 Glucose 237 mg/dL (60-95) H 01/17/17 05:02 Sodium 149 mEq/L (136-145) H 01/22/17 03:12 Potassium 3.3 mEq/L (3.5-4.5) L 01/22/17 03:12 Carbon Dioxide 30 mEq/L (19-29) H 01/22/17 03:12 BUN 40 mg/dL (7-20) H D 01/22/17 03:12 BUN/Creatinine Ratio 48 (6-26) H 01/22/17 03:12 Glucose 200 mg/dL (70-99) H 01/22/17 03:12 POC Glucose 193 (58-89) H 01/21/17 23:24 Calculated Osmolality 323 (280-300) H 01/22/17 03:12 Calcium 7.9 mg/dL (8.6-10.8) L 01/22/17 03:12 Direct Bilirubin 1.5 mg/dL (0.0-0.5) H 01/16/17 20:52 AST 76 Units/L (5-34) H 01/22/17 03:12 C-Reactive Protein 149 mg/L (Less than 5) H 01/17/17 01:29 Serum Total Protein 5.7 g/dL (6.0-8.3) L 01/22/17 03:12 Albumin 1.9 g/dL (3.5-5.0) L 01/22/17 03:12 Globulin 3.8 g/dL (2.4-3.5) H 01/22/17 03:12 Albumin/Globulin Ratio 0.5 (1.1-2.2) L 01/22/17 03:12 Prealbumin 4.0 mg/dL (16.0-38.0) L 01/20/17 03:05 HDL Cholesterol 9 mg/dL (40-59) L 01/17/17 01:29 Cholesterol/HDL Ratio 5.9 (0-4.9) H 01/17/17 01:29 Urine Color [place] (Yellow) A 01/16/17 22:49 Urine Clarity Turbid (Clear) A 01/16/17 22:49 Urine Protein 30 mg/dL (Neg-Trace) H 01/16/17 22:49 Urine Ketones 15 mg/dL (Negative) H 01/16/17 22:49 Urine Nitrite Positive (Negative) A 01/16/17 22:49 Urine Bilirubin Moderate (Negative) H 01/16/17 22:49 Urine Urobilinogen 2.0 mg/dL (Normal) H 01/16/17 22:49 Ur Leukocyte Esterase Moderate (Negative) H 01/16/17 22:49 Urine Microscopic WBC 50-100 per hpf (0-3) H 01/16/17 22:49 Ur Squamous Epith Cells Moderate per lpf (None-Few) H 01/16/17 22:49 Urine Bacteria Moderate per hpf (None-Few) H 01/16/17 22:49 Urine Mucus Many (Few) H 01/16/17 22:49 Urine Opiates Screen Positive ng/mL (Igvxdq=205) H 01/16/17 22:49 U Benzodiazepines Scrn Positive ng/mL (Wthjvu=957) H 01/16/17 22:49 - Microbiology Findings Microbiology Findings: Microbiology, Last 48 Hours 01/17/17 10:34 Anaerobic Culture - Final Abdomen No anaerobes were recovered. 01/20/17 15:24 Urine Culture - Final Urine,[place] No growth. - Clinical Findings Intake & Output: Intake & Output 01/21/17 01/22/17 01/22/17 23:59 07:59 15:59 Intake Total 0 / 0 550 / 550 Output Total 265 / 265 810 / 810 Balance -265 / -265 -260 / -260 Weight 86.954 kg - VTE Documentation of Mechanical Device: Intermittent pneumatic compression device Consult Discharge Plan - Plan Referrals: Afshin Salazar MD [Primary Care Provider] -
--- NOTE | 2017-01-22 10:18 | General Surgery Progress Note ---
Date of Encounter: 01/22/17 Time of Encounter: 09:00 - Assessment and Plan (1) Diverticulitis of colon with perforation Current Visit: Yes Status: Acute POD #5 Exploratory celiotomy, Sigmoid resection, sigmoid colostomy, Abdominal wash out. Continue NPO while awaiting return of bowel function NG tube to LIWS IV at KVO Supportive care/pain control- continue [place] and added toradol Continue TPN IV antibiotics- Zosyn WBC 14.1>17.8>22.9 Out of bed to chair today Continue elise catheter to SD for strict I&Os Incentive Spirometer every 1 hour while awake Wound vac change every MWF (2) Ileus, postoperative Current Visit: Yes Status: Acute Continue NPO while awaiting return of bowel function Continue NG tube to LIWS Continue TPN (3) Acute respiratory failure Current Visit: Yes Status: Acute Management per pulmonary/critical care Qualifiers: Respiratory failure complication: hypercapnia Qualified Code(s): J96.02 - Acute respiratory failure with hypercapnia (4) DM (diabetes mellitus), type 2 Current Visit: Yes Status: Chronic Increase sliding scale insulin coverage to every 4 hours Will continue to monitor and adjust as necessary Qualifiers: Diabetes mellitus complication status: with hyperglycemia Diabetes mellitus exterminator helper insulin use: without exterminator helper use Qualified Code(s): E11.65 - Type 2 diabetes mellitus with hyperglycemia (5) DVT prophylaxis Current Visit: Yes Status: Acute Continue heparin 5,000 units SQ twice daily for DVT prophylaxis (6) Sepsis Current Visit: Yes Status: Acute Qualifiers: Sepsis type: sepsis due to unspecified organism Qualified Code(s): A41.9 - Sepsis, unspecified organism Subjective Patient reports: still having pain, pain is less, no flatus, no bowel movement, fever (Tmax 100.6; Tcurrent 98.6), other (Patient confused this morning and unable to engage in simple conversation; answer all questions by nodding head yes.) Objective Vital Signs - Last 8 Hours Temp Pulse Resp BP Pulse Ox 01/22/17 09:00 105 24 131/71 94 L 01/22/17 08:00 99 24 127/66 95 01/22/17 07:54 20 94 L 01/22/17 07:38 98.4 F 01/22/17 06:02 101 20 116/64 94 L 01/22/17 04:53 103 20 119/66 90 L 01/22/17 04:00 99.8 F H 98 16 126/68 93 L 01/22/17 03:40 14 95 01/22/17 03:00 101 16 123/69 91 L Intake and Output 01/21/17 01/22/17 01/22/17 23:59 07:59 15:59 Intake Total 0 / 0 550 / 550 Output Total 265 / 265 810 / 810 Balance -265 / -265 -260 / -260 Intake: IV Fluids 550 / 550 Intralipid 20% 250 ML @ 250 / 250 21 mls/hr IVPB DAILY@1700 [facility] Rx#:[id number] Zosyn 3.375 GM In 100 / 100 Dextrose 5% (Minibag+) 100 ML 100 ML @ 25 mls/hr IVPB Q8H [facility] Rx#: [id number] Potassium Chloride 20 mEq 200 / 200 /100 mL 40 meq In 200 ml @ 100 mls/hr IVPB Q1H [facility] Rx#:[id number] Oral 0 / 0 0 / 0 Output: Stool 0 / 0 Catheter 250 / 250 700 / 700 Gastric Drainage 100 / 100 Wound Drainage Right Lower Abdomen Other: Weight 86.954 kg Blood Glucose* 150 239 Patient Weight 01/22/17 23:59 Weight 86.954 kg - General physical appearance well developed, no distress, other (resting comfortably; confused) - Eyes PERRL, normal ocular movement - ENT dry mucosa, atraumatic, normocephalic - Neck Neck exam: trachea midline - Respiratory normal respiratory effort, clear to auscultation, other (diminished bibasilar bases) - Cardiovascular Cardiovascular exam: Present: tachycardia - Abdomen Abdomen: Present: soft, tender (expected post-operative tenderness), wound ( Ostomy pink and moist without flatus or stool; NG tube with bilious drainage ( 100ml since midnight); AURELIO drain to bulb suction with serous drainage noted ( 10ml since midnight); Wound vac with scant amount of serous drainage noted) - Incision Incision: Present: open (Wound vac to midline with scant amount of serous drainage noted) - Genitourinary other (elise catheter to SD with clear, yellow urine (700ml since midnight)) - Integumentary other (necrosis noted to bridge of nose ) - Neurologic CN 2-12 grossly intact - Psychiatric other (Unable to assess; patient answers all questions by nodding head yes) - Labs 01/22/17 03:12 01/22/17 03:12 Diabetes panel 01/22/17 Range/Units 03:12 Sodium 149 H (136-145) mEq/L Potassium 3.3 L (3.5-4.5) mEq/L Chloride 108 (98-109) mEq/L Carbon Dioxide 30 H (19-29) mEq/L BUN 40 H D (7-20) mg/dL Creatinine 0.83 (0.57-1.11) mg/dL Glucose 200 H (70-99) mg/dL Calcium 7.9 L (8.6-10.8) mg/dL AST 76 H (5-34) Units/L ALT 20 (0-55) Units/L Alkaline Phosphatase 114 (38-126) Units/L Albumin 1.9 L (3.5-5.0) g/dL Calcium panel 01/21/17 01/22/17 01/22/17 Range/Units 03:11 03:12 03:12 Calcium 7.9 L (8.6-10.8) mg/dL Phosphorus 3.4 3.2 (2.3-4.7) mg/dL Albumin 1.9 L (3.5-5.0) g/dL Pituitary panel 01/22/17 Range/Units 03:12 Sodium 149 H (136-145) mEq/L Potassium 3.3 L (3.5-4.5) mEq/L Chloride 108 (98-109) mEq/L Carbon Dioxide 30 H (19-29) mEq/L BUN 40 H D (7-20) mg/dL Creatinine 0.83 (0.57-1.11) mg/dL Glucose 200 H (70-99) mg/dL Calcium 7.9 L (8.6-10.8) mg/dL Adrenal panel 01/22/17 Range/Units 03:12 Sodium 149 H (136-145) mEq/L Potassium 3.3 L (3.5-4.5) mEq/L Chloride 108 (98-109) mEq/L Carbon Dioxide 30 H (19-29) mEq/L BUN 40 H D (7-20) mg/dL Creatinine 0.83 (0.57-1.11) mg/dL Glucose 200 H (70-99) mg/dL Calcium 7.9 L (8.6-10.8) mg/dL Total Bilirubin 1.0 (0.2-1.2) mg/dL AST 76 H (5-34) Units/L ALT 20 (0-55) Units/L Alkaline Phosphatase 114 (38-126) Units/L Albumin 1.9 L (3.5-5.0) g/dL - VTE Documentation of Mechanical Device: Intermittent pneumatic compression device Consult Discharge Plan - Plan Referrals: Afshin Salazar MD [Primary Care Provider] - - Attending Attestation I examined this patient and my medical decision-making was reviewed with the COMBUSTION ANALYST/PA/Advanced Practice Nurse/Resident Physician. I agree with the documented findings, disposition and treatment plan as described except to the extent set forth below.
[2017-01-22] MEDS ORDERED: *HR* Dextrose 50 % in Water (Syg) 50 ML SYRINGE IVP PRN (10:26)
[2017-01-22] MEDS ORDERED: D5% in Water 1,000 ML IV PRN (10:26)
[2017-01-22] MEDS ORDERED: Dextrose Gel 15 GM PO PRN ×2 (10:26)
[2017-01-22] MEDS: FLUoxetine 20 MG CAPSULE PO SCH ×2 (10:55→20:41)
[2017-01-22] MEDS ORDERED: Fluconazole 200 MG/100 ML 200 MG/100 ML BAG IVPB ONE (14:00)
[2017-01-22 15:17] LABS: Magnesium 2.1 mg/dL (1.6-2.6); Potassium 3.8 mEq/L (3.5-4.5)
[2017-01-22] MEDS: Acetaminophen IV 1,000 MG/100 ML INFUS..BTL IVPB PRN (16:23)
[2017-01-22] MEDS ORDERED: Clinimix E 5%-15% SOLUTION 2,000 ML with MVI, adult with vitamin K 10 ML IV SCH (17:00)
[2017-01-23] MEDS: Acetaminophen IV 1,000 MG/100 ML INFUS..BTL IVPB PRN ×3 (00:10→23:15)
[2017-01-23] MEDS: Piperacillin/Tazobactam 3.375 GM in D5% in Water (Mini-Bag+) 100 ML IVPB SCH ×3 (04:15→20:58)
[2017-01-23] MEDS: Ketorolac 15 MG/ML VIAL IVP SCH ×2 (04:15→09:18)
[2017-01-23] MEDS: Insulin LISPRO 300 UNITS/3 ML VIAL SQ SCH ×5 (04:15→21:01)
[2017-01-23] MEDS: Ipratropium/Albuterol Neb 3 ML IH SCH ×6 (04:45→23:10)
[2017-01-23 05:54] LABS: Basophils % 0.2 %; Eosinophils # 0.3 K/mcL (0.0-0.6); Eosinophils % 1.9 %; Hematocrit 26.5 % (35.3-44.9); Hemoglobin 8.6 g/dL (11.5-15.4); Immature Granulocytes % 2.3 % (0-4); Lymphocytes # 1.7 K/mcL (0.6-4.6); Mean Corpuscular HGB Conc 32.5 g/dL (31.6-35.5); Mean Corpuscular Hemoglobin 30.7 pg (28.0-33.3); Mean Corpuscular Volume 94.6 fL (83.0-100.0); Mean Platelet Volume 10.9 fL (9.4-12.4); Monocytes # 0.4 K/mcL (0.0-1.3); Monocytes % 2.1 %; Neutrophils # 14.1 K/mcL (1.6-8.9); Platelet Count 278 K/mcL (140-400); Red Cell Distribution Width 15.3 % (11.5-14.5); Segmented Neutrophils % 83.5 %
[2017-01-23 06:11] LABS: Magnesium 1.9 mg/dL (1.6-2.6); Phosphorous 3.1 mg/dL (2.3-4.7)
[2017-01-23] MEDS: *HR* Heparin 5,000 UNIT/ML VIAL SQ SCH ×2 (06:14→17:30)
[2017-01-23 06:15] LABS: BUN/Creatinine Ratio 54 (6-26); Blood Urea Nitrogen 40 mg/dL (7-20); Calcium 7.7 mg/dL (8.6-10.8); Carbon Dioxide 29 mEq/L (19-29); Chloride 108 mEq/L (98-109); Glucose 250 mg/dL (70-99); Osmolality,Calculated 318 (280-300); Potassium 3.3 mEq/L (3.5-4.5); Sodium 145 mEq/L (136-145); eGFR For African Americans > 60 (> 60); eGFR For Non-African Americans > 60 (> 60)
[2017-01-23] MEDS: Magnesium Sulfate 2 GM in D5% in Water 100 ML IVPB PRN (06:42)
[2017-01-23] MEDS: Potassium Chloride 40 MEQ/200 ML BAG IVPB PRN ×2 (06:43→07:53)
[2017-01-23] MEDS: Pantoprazole 40 MG VIAL IVP SCH (07:59)
[2017-01-23] MEDS: FLUoxetine 20 MG CAPSULE PO SCH ×2 (07:59→20:59)
[2017-01-23] MEDS: Furosemide 40 MG/4 ML VIAL IVP SCH (08:00)
--- NOTE | 2017-01-23 08:02 | Pulmonology Progress Note ---
Date of Encounter: 01/23/17 Time of Encounter: 08:02 Assessment and Plan (1) ARDS (adult respiratory distress syndrome) Current Visit: Yes Status: Acute Her lungs sound better than yesterday, but still requiring 6 L of high flow oxygen nasal cannula, satting 94 %, bipap as-needed basis and at bedtime, patient continued to have a good urine output with -1.5 L fluid balance for the last 24 hours, continue current IV Lasix dosage, and con't to closely monitor her respiratory status. ARDS has improved, we will talk to the surgery team for possible transfer her out of ICU to medical floor. (2) Sepsis associated hypotension Current Visit: Yes Status: Acute Still having fever between 100-102 Fahrenheit, lekocytosis decreased to 16.8, abd wound culture showed pansensitive e.coli, currently on zosyn IV, urine and blood cultures are negative, MRSA screening negative, continue to use incentive spirometry as much as possible, decreased mentation compared to yesterday, hemodynamically stable, con't to closely monitor her VS/clinical status/labs, if clinically worsen, she might need repeated abd ct to r/o abscess, but we will defer this to surgery team. (3) Diverticulitis of colon with perforation Current Visit: Yes Status: Acute S/p ex celiotomy, sigmoid resection and sigmoid colostomy, surgery following, con't post-op care, 19 kenyan magda drain and midline wound vac in place, con't wound/ostomy care, currently on zosyn IV, pain/antiemetic IV prn, will follow surgery's recommendations, she was started on TPN 2 days ago. (4) DM (diabetes mellitus), type 2 Current Visit: Yes Status: Chronic Currently on TPN, still hyperglycemic, will start her on basal, con't accucheck with high SSI. Qualifiers: Diabetes mellitus complication status: with hyperglycemia Diabetes mellitus electronic integrated systems mechanic insulin use: without electronic integrated systems mechanic use Qualified Code(s): E11.65 - Type 2 diabetes mellitus with hyperglycemia (5) COPD (chronic obstructive pulmonary disease) Current Visit: Yes Status: Acute Currently on bipap prn, not on exacerbation of COPD, con't duoneb and oxygen support. Qualifiers: Qualified Code(s): J44.9 - Chronic obstructive pulmonary disease, unspecified (6) ERI (obstructive sleep apnea) Current Visit: Yes Status: Acute Hx of ERI with regular use of CPAP at night, currently on BIPAP at bedtime. (7) Hypokalemia Current Visit: Yes Status: Acute Will replace it today, magnesium level normal, con't to monitor. (8) DVT prophylaxis Current Visit: Yes Status: Acute Heparin SQ daily. Subjective Principal diagnosis: sigmoid diverticulitis with perforation Interval history: Pt initially came to the hospital for abd pain, CT abd showed perforated diverticulitis, taken to the OR for ex celiotomy, sigmoid resection and sigmoid colostomy, currently in ICU for post-op care and treatment of ARDS. Pt seen and examined today, she still has fever between 100.2 to 102.3 Fahrenheit, patient's mental status has decreased compared to yesterday, A and O x0, does not answer questions, does not follow simple commands, still requiring 6 L of high flow oxygen nasal cannula. Objective PUL Vital signs: Last Vital Signs Temp 99.7 F H 01/23/17 07:44 Pulse 97 01/23/17 07:00 Resp 18 01/23/17 07:50 BP 135/73 01/23/17 07:00 Pulse Ox 97 01/23/17 07:50 General appearance: no acute distress, other (Decreased mentation) Eyes: nonicteric ENT: oropharynx moist Neck: supple, no lymphadenopathy Effort: normal Auscultation: bilateral: rales (Mild bibasilar crackles) Cardiovascular: other (Regular rhythm but tachycardic) Gastrointestinal: normoactive bowel sounds, non-distended, other (colostomy bag in place, RLQ abd drain in place) Integumentary: normal Extremities: no cyanosis, no edema, no clubbing Musculoskeletal: no deformities other (Unable to do complete neuro exam due to her current mental status) Results - Laboratory Findings CBC and BMP: 01/23/17 05:00 01/23/17 04:30 ABG ABG pH 7.48 pH Units (7.32-7.45) H 01/20/17 09:08 ABG pCO2 44 mmHg (35-45) 01/20/17 09:08 ABG pO2 78 mmHg (85-104) L 01/20/17 09:08 ABG O2 Saturation 96 % (95-98) 01/20/17 09:08 PT/INR, D-dimer PT 17.7 Seconds (9.4-12.1) H 01/17/17 01:29 Abnormal lab findings: Abnormal lab results WBC 16.8 K/mcL (4.3-11.1) H 01/23/17 05:00 RBC 2.80 M/mcL (3.82-4.97) L 01/23/17 05:00 Hgb 8.6 g/dL (11.5-15.4) L 01/23/17 05:00 Hct 26.5 % (35.3-44.9) L 01/23/17 05:00 RDW 15.3 % (11.5-14.5) H 01/23/17 05:00 Metamyelocytes % 5.0 % (0) H 01/17/17 15:00 Myelocytes % 14.0 % (0) H 01/17/17 07:45 Neutrophils # 14.1 K/mcL (1.6-8.9) H 01/23/17 05:00 Nucleated RBCs/100 WBC 0.2 /100 WBC (0) H 01/22/17 03:12 Hypersegmented Neuts Present (Not Present) A 01/20/17 03:05 Toxic Granulation Present (Not Present) A 01/18/17 04:30 Large Platelets Present (Not Present) A 01/18/17 04:30 Polychromasia 1+ (Not Present) A 01/20/17 03:05 Hypochromasia Present (Not Present) A 01/18/17 04:30 Anisocytosis 1+ (Not Present) A 01/20/17 03:05 Macrocytosis Present (Not Present) A 01/18/17 04:30 PT 17.7 Seconds (9.4-12.1) H 01/17/17 01:29 ABG pH 7.48 pH Units (7.32-7.45) H 01/20/17 09:08 ABG pO2 78 mmHg (85-104) L 01/20/17 09:08 ABG HCO3 32.8 mEQ/L (21-27) H 01/20/17 09:08 ABG Total CO2 34.2 mEq/L (20-26) H 01/20/17 09:08 ABG Base Excess 8.4 mEq/L (-2.0 to 3.0) H 01/20/17 09:08 ABG Hematocrit 33 % (35-51) L 01/17/17 05:02 Potassium 2.9 mEq/L (3.5-5.3) L 01/17/17 05:02 Glucose 237 mg/dL (60-95) H 01/17/17 05:02 Potassium 3.3 mEq/L (3.5-4.5) L 01/23/17 04:30 BUN 40 mg/dL (7-20) H 01/23/17 04:30 BUN/Creatinine Ratio 54 (6-26) H 01/23/17 04:30 Glucose 250 mg/dL (70-99) H 01/23/17 04:30 POC Glucose 180 (58-89) H 01/22/17 23:18 Calculated Osmolality 318 (280-300) H 01/23/17 04:30 Calcium 7.7 mg/dL (8.6-10.8) L 01/23/17 04:30 Direct Bilirubin 1.5 mg/dL (0.0-0.5) H 01/16/17 20:52 AST 76 Units/L (5-34) H 01/22/17 03:12 C-Reactive Protein 149 mg/L (Less than 5) H 01/17/17 01:29 Serum Total Protein 5.7 g/dL (6.0-8.3) L 01/22/17 03:12 Albumin 1.9 g/dL (3.5-5.0) L 01/22/17 03:12 Globulin 3.8 g/dL (2.4-3.5) H 01/22/17 03:12 Albumin/Globulin Ratio 0.5 (1.1-2.2) L 01/22/17 03:12 Prealbumin 4.0 mg/dL (16.0-38.0) L 01/20/17 03:05 HDL Cholesterol 9 mg/dL (40-59) L 01/17/17 01:29 Cholesterol/HDL Ratio 5.9 (0-4.9) H 01/17/17 01:29 Urine Color [place] (Yellow) A 01/16/17 22:49 Urine Clarity Turbid (Clear) A 01/16/17 22:49 Urine Protein 30 mg/dL (Neg-Trace) H 01/16/17 22:49 Urine Ketones 15 mg/dL (Negative) H 01/16/17 22:49 Urine Nitrite Positive (Negative) A 01/16/17 22:49 Urine Bilirubin Moderate (Negative) H 01/16/17 22:49 Urine Urobilinogen 2.0 mg/dL (Normal) H 01/16/17 22:49 Ur Leukocyte Esterase Moderate (Negative) H 01/16/17 22:49 Urine Microscopic WBC 50-100 per hpf (0-3) H 01/16/17 22:49 Ur Squamous Epith Cells Moderate per lpf (None-Few) H 01/16/17 22:49 Urine Bacteria Moderate per hpf (None-Few) H 01/16/17 22:49 Urine Mucus Many (Few) H 01/16/17 22:49 Urine Opiates Screen Positive ng/mL (Vsfpfq=989) H 01/16/17 22:49 U Benzodiazepines Scrn Positive ng/mL (Bqtrkq=864) H 01/16/17 22:49 - Microbiology Findings Microbiology Findings: Microbiology, Last 48 Hours 01/17/17 10:34 Anaerobic Culture - Final Abdomen No anaerobes were recovered. 01/20/17 15:24 Urine Culture - Final Urine,[place] No growth. - Clinical Findings Intake & Output: Intake & Output 01/22/17 01/23/17 01/23/17 23:59 07:59 15:59 Intake Total 200 / 200 550 / 550 Output Total 505 / 505 465 / 465 Balance -305 / -305 85 / 85 - VTE Documentation of Mechanical Device: Intermittent pneumatic compression device Consult Discharge Plan - Plan Referrals: Afshin Salazar MD [Primary Care Provider] -
[2017-01-23] MEDS: *HR* HYDROmorphone (PF) 1 MG/ML SYRINGE IVP PRN ×2 (10:48→15:10)
[2017-01-23] MEDS ORDERED: Ketorolac 15 MG/ML VIAL IVP PRN (13:00)
--- NOTE | 2017-01-23 13:06 | General Surgery Progress Note ---
Date of Encounter: 01/23/17 Time of Encounter: 12:30 - Assessment and Plan (1) Diverticulitis of colon with perforation Current Visit: Yes Status: Acute POD #6 Exploratory celiotomy, Sigmoid resection, sigmoid colostomy, Abdominal wash out. Continue NPO while awaiting return of bowel function NG tube to LIWS IV at KVO Supportive care/pain control- dilaudid and toradol prn Continue TPN IV antibiotics- Zosyn WBC 14.1>17.8>22.9>16.8 Out of bed to chair today Continue elise catheter to SD for strict I&Os Incentive Spirometer every 1 hour while awake Wound vac change every MWF (2) Ileus, postoperative Current Visit: Yes Status: Acute Continue NPO while awaiting return of bowel function Continue NG tube to LIWS Continue TPN (3) Acute respiratory failure Current Visit: Yes Status: Acute Management per pulmonary/critical care Qualifiers: Respiratory failure complication: hypercapnia Qualified Code(s): J96.02 - Acute respiratory failure with hypercapnia (4) DM (diabetes mellitus), type 2 Current Visit: Yes Status: Chronic Hyperglycemia noted Increase sliding scale insulin coverage to every 4 hours Will continue to monitor and adjust as necessary Qualifiers: Diabetes mellitus complication status: with hyperglycemia Diabetes mellitus ferry terminal agent insulin use: without penitentiary use Qualified Code(s): E11.65 - Type 2 diabetes mellitus with hyperglycemia (5) Sepsis Current Visit: Yes Status: Acute secondary to perforated diverticulitis and fecal contamination Continue IV antibiotics- Zosyn Qualifiers: Sepsis type: sepsis due to unspecified organism Qualified Code(s): A41.9 - Sepsis, unspecified organism (6) Severe protein-calorie malnutrition Current Visit: Yes Status: Acute Continue TPN while awaiting return of bowel function (7) DVT prophylaxis Current Visit: Yes Status: Acute Continue heparin 5,000 units SQ twice daily for DVT prophylaxis Subjective Patient reports: no new complaints, still having pain (surgical), no flatus, no bowel movement, fever (Tmax 102.3 Tcurrrent 99.7), other (Patient more alert today. Verbalizing more today.) Objective Vital Signs - Last 8 Hours Temp Pulse Resp BP Pulse Ox 01/23/17 11:40 24 96 01/23/17 11:00 103 24 136/70 94 L 01/23/17 10:59 103 01/23/17 10:00 109 30 134/72 92 L 01/23/17 09:00 104 27 135/67 95 01/23/17 08:00 103 27 128/79 94 L 01/23/17 07:50 18 97 01/23/17 07:44 99.7 F H 01/23/17 07:00 97 27 135/73 94 L 01/23/17 06:00 96 28 121/65 94 L Intake and Output 01/22/17 01/23/17 01/23/17 23:59 07:59 15:59 Intake Total 200 / 200 450 / 450 404 / 404 Output Total 505 / 505 465 / 465 910 / 910 Balance -305 / -305 -15 / -15 -506 / -506 Intake: IV Fluids 200 / 200 450 / 450 404 / 404 Ofirmev 1,000 mg In 100 100 / 100 100 / 100 ml @ 400 mls/hr IVPB Q6H PRN Rx#:[id number] Intralipid 20% 250 ML @ 250 / 250 21 mls/hr IVPB DAILY@1700 [facility] Rx#:[id number] Magnesium Sulfate 2 GM In 104 / 104 Dextrose 5% 100 ML @ 50 mls/hr IVPB Q6H PRN Rx#: [id number] Zosyn 3.375 GM In 100 / 100 100 / 100 100 / 100 Dextrose 5% (Minibag+) 100 ML 100 ML @ 25 mls/hr IVPB Q8H [facility] Rx#: [id number] Potassium Chloride 20 mEq 200 / 200 /100 mL 40 meq In 200 ml @ 100 mls/hr IVPB Q1H PRN Rx#:[id number] Output: Stool 0 / 0 Catheter 400 / 400 300 / 300 900 / 900 Gastric Drainage 100 / 100 150 / 150 Wound Drainage / 5 15 10 10 Right Lower Abdomen Other: Blood Glucose* 180 201 201 - General physical appearance well developed, no distress, moderate pain - Eyes PERRL, normal ocular movement - ENT dry mucosa, atraumatic, normocephalic - Neck Neck exam: trachea midline - Respiratory normal respiratory effort, clear to auscultation, other (diminished bibasilar bases) - Cardiovascular Cardiovascular exam: Present: tachycardia - Abdomen Abdomen: Present: bowel sounds present (hypoactive), soft, tender (expected post -operative tenderness), wound (Midline with wound vac intact with scant amount of serous drainage noted; NG tube to LIWS with 150ml of bilious drainge; AURELIO drain to bulb suction with serous drainage noted; Colostomy pink and moist without stool, small amount of condensation noted within bag.) - Incision Incision: Present: open (Wound vac to midline with scant amount of serous drainage noted; change every MWF) - Genitourinary other (elise catheter to SD with clear, yellow urine noted) - Integumentary no rash - Neurologic CN 2-12 grossly intact - Musculoskeletal other (severe deconditioning) - Psychiatric oriented to person, other (Patient confused today; improved from yesterday and is attempting to verbalize more) - Labs 01/23/17 05:00 01/23/17 04:30 Diabetes panel 01/22/17 01/23/17 Range/Units 14:58 04:30 Sodium 145 (136-145) mEq/L Potassium 3.8 3.3 L (3.5-4.5) mEq/L Chloride 108 (98-109) mEq/L Carbon Dioxide 29 (19-29) mEq/L BUN 40 H (7-20) mg/dL Creatinine 0.74 (0.57-1.11) mg/dL Glucose 250 H (70-99) mg/dL Calcium 7.7 L (8.6-10.8) mg/dL Calcium panel 01/23/17 01/23/17 Range/Units 04:30 04:30 Calcium 7.7 L (8.6-10.8) mg/dL Phosphorus 3.1 (2.3-4.7) mg/dL Pituitary panel 01/22/17 01/23/17 Range/Units 14:58 04:30 Sodium 145 (136-145) mEq/L Potassium 3.8 3.3 L (3.5-4.5) mEq/L Chloride 108 (98-109) mEq/L Carbon Dioxide 29 (19-29) mEq/L BUN 40 H (7-20) mg/dL Creatinine 0.74 (0.57-1.11) mg/dL Glucose 250 H (70-99) mg/dL Calcium 7.7 L (8.6-10.8) mg/dL Adrenal panel 01/22/17 01/23/17 Range/Units 14:58 04:30 Sodium 145 (136-145) mEq/L Potassium 3.8 3.3 L (3.5-4.5) mEq/L Chloride 108 (98-109) mEq/L Carbon Dioxide 29 (19-29) mEq/L BUN 40 H (7-20) mg/dL Creatinine 0.74 (0.57-1.11) mg/dL Glucose 250 H (70-99) mg/dL Calcium 7.7 L (8.6-10.8) mg/dL - VTE Documentation of Mechanical Device: Intermittent pneumatic compression device Consult Discharge Plan - Plan Referrals: Afshin Salazar MD [Primary Care Provider] -
[2017-01-23] MEDS ORDERED: *HR* Metoprolol 5 MG/5 ML VIAL IVP ONE (13:28)
[2017-01-23] MEDS: *HR* Metoprolol 5 MG/5 ML VIAL IVP SCH ×3 (13:39→23:18)
[2017-01-23] MEDS ORDERED: Fluconazole 100 MG/50 ML 100 MG/50 ML BAG IVPB SCH (14:00)
[2017-01-23 14:03] LABS: Potassium 3.9 mEq/L (3.5-4.5)
[2017-01-23] MEDS ORDERED: Clinimix E 5%-15% SOLUTION 2,000 ML with MVI, adult with vitamin K 10 ML IV SCH (17:00)
[2017-01-23] MEDS: Insulin DETEMIR 100 UNIT/ML X5UNITS SQ SCH (20:59)
[2017-01-24] MEDS: Insulin LISPRO 300 UNITS/3 ML VIAL SQ SCH ×6 (01:01→21:02)
[2017-01-24] MEDS: Ipratropium/Albuterol Neb 3 ML IH SCH ×6 (03:37→20:43)
[2017-01-24] MEDS: *HR* HYDROmorphone (PF) 1 MG/ML SYRINGE IVP PRN ×2 (04:27→14:29)
[2017-01-24 04:32] LABS: Basophils % 0.2 %; Eosinophils # 0.4 K/mcL (0.0-0.6); Eosinophils % 2.2 %; Hematocrit 28.4 % (35.3-44.9); Hemoglobin 8.7 g/dL (11.5-15.4); Immature Granulocytes % 1.5 % (0-4); Lymphocytes # 1.4 K/mcL (0.6-4.6); Lymphocytes % 8.5 %; Mean Corpuscular HGB Conc 30.6 g/dL (31.6-35.5); Mean Corpuscular Hemoglobin 29.1 pg (28.0-33.3); Mean Platelet Volume 10.7 fL (9.4-12.4); Monocytes # 0.5 K/mcL (0.0-1.3); Monocytes % 2.8 %; Neutrophils # 13.9 K/mcL (1.6-8.9); Platelet Count 273 K/mcL (140-400); Red Blood Count 2.99 M/mcL (3.82-4.97); Red Cell Distribution Width 15.7 % (11.5-14.5); Segmented Neutrophils % 84.8 %
[2017-01-24 04:47] LABS: BUN/Creatinine Ratio 60 (6-26); Blood Urea Nitrogen 42 mg/dL (7-20); Carbon Dioxide 30 mEq/L (19-29); Chloride 110 mEq/L (98-109); Glucose 176 mg/dL (70-99); Potassium 3.7 mEq/L (3.5-4.5); Sodium 146 mEq/L (136-145); eGFR For African Americans > 60 (> 60); eGFR For Non-African Americans > 60 (> 60)
[2017-01-24 04:48] LABS: Calcium 7.8 mg/dL (8.6-10.8); Magnesium 1.9 mg/dL (1.6-2.6); Osmolality,Calculated 317 (280-300); Phosphorous 3.2 mg/dL (2.3-4.7)
[2017-01-24] MEDS: *HR* Heparin 5,000 UNIT/ML VIAL SQ SCH ×2 (05:17→17:07)
[2017-01-24] MEDS: *HR* Metoprolol 5 MG/5 ML VIAL IVP SCH ×4 (05:17→17:07)
[2017-01-24] MEDS: Piperacillin/Tazobactam 3.375 GM in D5% in Water (Mini-Bag+) 100 ML IVPB SCH ×4 (05:17→21:03)
[2017-01-24] MEDS: Magnesium Sulfate 2 GM in D5% in Water 100 ML IVPB PRN ×2 (05:17→16:52)
[2017-01-24] MEDS: Potassium Chloride 40 MEQ/200 ML BAG IVPB PRN (05:41)
--- NOTE | 2017-01-24 08:11 | Pulmonology Progress Note ---
Date of Encounter: 01/24/17 Time of Encounter: 08:11 Assessment and Plan (1) ARDS (adult respiratory distress syndrome) Current Visit: Yes Status: Acute Her lungs sound better than few days ago, but still requiring 6 L of high flow oxygen nasal cannula, satting 94 %, bipap as-needed basis and at bedtime, patient continued to have a good urine output but positive 1 L fluid balance over last 24 hours, continue current IV Lasix dosage, and con't to closely monitor her respiratory status. ARDS has improved, from critical care standpoint, patient can be transferred from ICU to medical floor. (2) Septic shock Current Visit: Yes Status: Acute Now off levophed, BP stable, no fever overnight, tachycardia improved, lekocytosis coming down, abd wound culture showed pansensitive e.coli, currently on zosyn and fluconazole IV, urine and blood cultures are negative, MRSA screening negative, continue to use incentive spirometry as much as possible, patient is more alert today, con't to closely monitor her VS/clinical status/labs. (3) Diverticulitis of colon with perforation Current Visit: Yes Status: Acute S/p ex celiotomy, sigmoid resection and sigmoid colostomy, surgery following, con't post-op care, 19 ir[place]i magda drain and midline wound vac in place, con't wound/ostomy care, currently on zosyn and fluconazole IV for surgery's recommendation, pain/antiemetic IV prn, she was started on TPN few days ago. (4) DM (diabetes mellitus), type 2 Current Visit: Yes Status: Chronic Currently on TPN, stable glucose, continue basal and accucheck with high SSI. Qualifiers: Diabetes mellitus complication status: with hyperglycemia Diabetes mellitus skilled nursing insulin use: without intermodal truck driver use Qualified Code(s): E11.65 - Type 2 diabetes mellitus with hyperglycemia (5) COPD (chronic obstructive pulmonary disease) Current Visit: Yes Status: Acute Currently on bipap prn, not on exacerbation of COPD, con't duoneb and oxygen support. Qualifiers: Qualified Code(s): J44.9 - Chronic obstructive pulmonary disease, unspecified (6) ERI (obstructive sleep apnea) Current Visit: Yes Status: Acute Hx of ERI with regular use of CPAP at night, currently on BIPAP at bedtime. (7) Hypokalemia Current Visit: Yes Status: Acute Resolved, replace as needed, magnesium level normal, con't to monitor. (8) DVT prophylaxis Current Visit: Yes Status: Acute Heparin SQ daily. Subjective Principal diagnosis: sigmoid diverticulitis with perforation Interval history: Pt initially came to the hospital for abd pain, CT abd showed perforated diverticulitis, taken to the OR for ex celiotomy, sigmoid resection and sigmoid colostomy, currently in ICU for post-op care and treatment of ARDS. Pt seen and examined today, no fever overnight, patient is more alert today compared to yesterday, still requiring 6 L of high flow oxygen nasal cannula, denies any pains or shortness of breath. Objective PUL Vital signs: Last Vital Signs Temp 98.8 F 01/24/17 07:38 Pulse 88 01/24/17 06:00 Resp 23 01/24/17 06:00 BP 130/66 01/24/17 06:00 Pulse Ox 97 01/24/17 06:00 General appearance: no acute distress, alert Eyes: nonicteric ENT: oropharynx moist Neck: supple Effort: normal Auscultation: bilateral: rales (Mild bibasilar) Cardiovascular: regular rate and rhythm Gastrointestinal: normoactive bowel sounds, non-distended, other (colostomy bag in place, RLQ abd drain in place) Integumentary: normal Extremities: no cyanosis, no edema, no clubbing non-focal exam, pupils equal and round, CN II-XII normal mood appropriate, affect normal Results - Laboratory Findings CBC and BMP: 01/24/17 04:06 01/24/17 04:06 ABG ABG pH 7.48 pH Units (7.32-7.45) H 01/20/17 09:08 ABG pCO2 44 mmHg (35-45) 01/20/17 09:08 ABG pO2 78 mmHg (85-104) L 01/20/17 09:08 ABG O2 Saturation 96 % (95-98) 01/20/17 09:08 PT/INR, D-dimer PT 17.7 Seconds (9.4-12.1) H 01/17/17 01:29 Abnormal lab findings: Abnormal lab results WBC 16.3 K/mcL (4.3-11.1) H 01/24/17 04:06 RBC 2.99 M/mcL (3.82-4.97) L 01/24/17 04:06 Hgb 8.7 g/dL (11.5-15.4) L 01/24/17 04:06 Hct 28.4 % (35.3-44.9) L 01/24/17 04:06 MCHC 30.6 g/dL (31.6-35.5) L 01/24/17 04:06 RDW 15.7 % (11.5-14.5) H 01/24/17 04:06 Metamyelocytes % 5.0 % (0) H 01/17/17 15:00 Myelocytes % 14.0 % (0) H 01/17/17 07:45 Neutrophils # 13.9 K/mcL (1.6-8.9) H 01/24/17 04:06 Nucleated RBCs/100 WBC 0.2 /100 WBC (0) H 01/22/17 03:12 Hypersegmented Neuts Present (Not Present) A 01/20/17 03:05 Toxic Granulation Present (Not Present) A 01/18/17 04:30 Large Platelets Present (Not Present) A 01/18/17 04:30 Polychromasia 1+ (Not Present) A 01/20/17 03:05 Hypochromasia Present (Not Present) A 01/18/17 04:30 Anisocytosis 1+ (Not Present) A 01/20/17 03:05 Macrocytosis Present (Not Present) A 01/18/17 04:30 PT 17.7 Seconds (9.4-12.1) H 01/17/17 01:29 ABG pH 7.48 pH Units (7.32-7.45) H 01/20/17 09:08 ABG pO2 78 mmHg (85-104) L 01/20/17 09:08 ABG HCO3 32.8 mEQ/L (21-27) H 01/20/17 09:08 ABG Total CO2 34.2 mEq/L (20-26) H 01/20/17 09:08 ABG Base Excess 8.4 mEq/L (-2.0 to 3.0) H 01/20/17 09:08 ABG Hematocrit 33 % (35-51) L 01/17/17 05:02 Potassium 2.9 mEq/L (3.5-5.3) L 01/17/17 05:02 Glucose 237 mg/dL (60-95) H 01/17/17 05:02 Sodium 146 mEq/L (136-145) H 01/24/17 04:06 Chloride 110 mEq/L (98-109) H 01/24/17 04:06 Carbon Dioxide 30 mEq/L (19-29) H 01/24/17 04:06 BUN 42 mg/dL (7-20) H 01/24/17 04:06 BUN/Creatinine Ratio 60 (6-26) H 01/24/17 04:06 Glucose 176 mg/dL (70-99) H 01/24/17 04:06 POC Glucose 183 (58-89) H 01/23/17 23:25 Calculated Osmolality 317 (280-300) H 01/24/17 04:06 Calcium 7.8 mg/dL (8.6-10.8) L 01/24/17 04:06 Direct Bilirubin 1.5 mg/dL (0.0-0.5) H 01/16/17 20:52 AST 76 Units/L (5-34) H 01/22/17 03:12 C-Reactive Protein 149 mg/L (Less than 5) H 01/17/17 01:29 Serum Total Protein 5.7 g/dL (6.0-8.3) L 01/22/17 03:12 Albumin 1.9 g/dL (3.5-5.0) L 01/22/17 03:12 Globulin 3.8 g/dL (2.4-3.5) H 01/22/17 03:12 Albumin/Globulin Ratio 0.5 (1.1-2.2) L 01/22/17 03:12 Prealbumin 4.0 mg/dL (16.0-38.0) L 01/20/17 03:05 HDL Cholesterol 9 mg/dL (40-59) L 01/17/17 01:29 Cholesterol/HDL Ratio 5.9 (0-4.9) H 01/17/17 01:29 Urine Color [place] (Yellow) A 01/16/17 22:49 Urine Clarity Turbid (Clear) A 01/16/17 22:49 Urine Protein 30 mg/dL (Neg-Trace) H 01/16/17 22:49 Urine Ketones 15 mg/dL (Negative) H 01/16/17 22:49 Urine Nitrite Positive (Negative) A 01/16/17 22:49 Urine Bilirubin Moderate (Negative) H 01/16/17 22:49 Urine Urobilinogen 2.0 mg/dL (Normal) H 01/16/17 22:49 Ur Leukocyte Esterase Moderate (Negative) H 01/16/17 22:49 Urine Microscopic WBC 50-100 per hpf (0-3) H 01/16/17 22:49 Ur Squamous Epith Cells Moderate per lpf (None-Few) H 01/16/17 22:49 Urine Bacteria Moderate per hpf (None-Few) H 01/16/17 22:49 Urine Mucus Many (Few) H 01/16/17 22:49 Urine Opiates Screen Positive ng/mL (Dfgkud=083) H 01/16/17 22:49 U Benzodiazepines Scrn Positive ng/mL (Dnollx=414) H 01/16/17 22:49 - Microbiology Findings Microbiology Findings: Microbiology, Last 48 Hours 01/17/17 10:34 Anaerobic Culture - Final Abdomen No anaerobes were recovered. - Clinical Findings Intake & Output: Intake & Output 01/23/17 01/24/17 01/24/17 23:59 07:59 15:59 Intake Total 1990 450 / 450 Output Total 155 / 155 715 / 715 Balance 1836 / 1836 -265 / -265 Weight 87.4 kg - VTE Documentation of Mechanical Device: Intermittent pneumatic compression device Consult Discharge Plan - Plan Referrals: Afshin Salazar MD [Primary Care Provider] -
[2017-01-24] MEDS: Furosemide 40 MG/4 ML VIAL IVP SCH (08:21)
[2017-01-24] MEDS: FLUoxetine 20 MG CAPSULE PO SCH ×2 (08:21→21:02)
[2017-01-24] MEDS: Pantoprazole 40 MG VIAL IVP SCH (08:21)
[2017-01-24] MEDS: Insulin DETEMIR 100 UNIT/ML X5UNITS SQ SCH ×2 (08:23→21:08)
--- NOTE | 2017-01-24 09:23 | General Surgery Progress Note ---
Date of Encounter: 01/24/17 Time of Encounter: 09:00 - Assessment and Plan (1) Diverticulitis of colon with perforation Current Visit: Yes Status: Acute POD #7 Exploratory celiotomy, Sigmoid resection, sigmoid colostomy, Abdominal wash out. Continue NPO while awaiting return of bowel function NG tube to LIWS IV at KVO Supportive care/pain control- dilaudid and toradol prn Continue TPN IV antibiotics- Zosyn WBC 14.1>17.8>22.9>16.8>16.3 Out of bed to chair today Continue elise catheter to SD for strict I&Os Incentive Spirometer every 1 hour while awake Wound vac change every MWF PT/OT consult Repeat am labs Transfer to (2) Ileus, postoperative Current Visit: Yes Status: Acute Continue NPO while awaiting return of bowel function Continue NG tube to LIWS Continue TPN (3) Acute respiratory failure Current Visit: Yes Status: Acute Improving Management per pulmonary/critical care Qualifiers: Respiratory failure complication: hypercapnia Qualified Code(s): J96.02 - Acute respiratory failure with hypercapnia (4) DM (diabetes mellitus), type 2 Current Visit: Yes Status: Chronic Hyperglycemia noted Continue sliding scale insulin coverage to every 4 hours Will continue to monitor and adjust as necessary Qualifiers: Diabetes mellitus complication status: with hyperglycemia Diabetes mellitus chcf insulin use: without long term care social worker use Qualified Code(s): E11.65 - Type 2 diabetes mellitus with hyperglycemia (5) Sepsis Current Visit: Yes Status: Acute secondary to perforated diverticulitis and fecal contamination Continue IV antibiotics- Zosyn Qualifiers: Sepsis type: sepsis due to unspecified organism Qualified Code(s): A41.9 - Sepsis, unspecified organism (6) Severe protein-calorie malnutrition Current Visit: Yes Status: Acute Continue TPN while awaiting return of bowel function (7) DVT prophylaxis Current Visit: Yes Status: Acute Continue heparin 5,000 units SQ twice daily for DVT prophylaxis Subjective Patient reports: no new complaints, feels better, still having pain, pain is less, no flatus, no bowel movement, fever (Tmax 99.9), other (Patient more alert and verbalizing this morning) Objective Vital Signs - Last 8 Hours Temp Pulse Resp BP Pulse Ox 01/24/17 08:52 97 24 95 01/24/17 08:00 97 24 134/75 95 01/24/17 07:38 98.8 F 01/24/17 07:00 88 24 131/80 95 01/24/17 06:00 88 23 130/66 97 01/24/17 05:00 90 21 130/66 96 01/24/17 04:00 98.5 F 88 130 130/67 96 01/24/17 03:37 24 131/68 98 01/24/17 03:00 89 23 131/68 97 01/24/17 02:00 83 20 120/65 99 Intake and Output 01/23/17 01/24/17 01/24/17 23:59 07:59 15:59 Intake Total 1990 754 / 754 Output Total 155 / 155 715 / 715 Balance 183 / 1836 39 / 39 Intake: IV Fluids 1990 754 / 754 Clinimix E 5%-15% 1890 / 1890 SOLUTION 2,000 ML @ 83.3 mls/hr IV .Q24H JACE with M.v.i. Adult 10 ml Rx#: [id number] Ofirmev 1,000 mg In 100 100 / 100 100 / 100 ml @ 400 mls/hr IVPB Q6H PRN Rx#:[id number] Intralipid 20% 250 ML @ 250 / 250 21 mls/hr IVPB DAILY@1700 [facility] Rx#:[id number] Magnesium Sulfate 2 GM In 104 / 104 Dextrose 5% 100 ML @ 50 mls/hr IVPB Q6H PRN Rx#: [id number] Zosyn 3.375 GM In 100 / 100 Dextrose 5% (Minibag+) 100 ML 100 ML @ 25 mls/hr IVPB Q8H [facility] Rx#: [id number] Potassium Chloride 20 mEq 200 / 200 /100 mL 40 meq In 200 ml @ 100 mls/hr IVPB Q1H PRN Rx#:[id number] Output: Estimated Blood Loss Catheter 150 / 150 575 / 575 Gastric Drainage 125 / 125 Wound Drainage 5 / 5 Right Lower Abdomen 5 / 5 Other: Weight 87.4 kg Blood Glucose* Patient Weight 01/24/17 23:59 Weight 87.4 kg - General physical appearance well developed, no distress - Eyes PERRL, normal ocular movement - ENT dry mucosa, atraumatic, normocephalic - Neck Neck exam: trachea midline - Respiratory normal respiratory effort, clear to auscultation, other (diminished bibasilar bases; moist, nonproductive cough noted) - Cardiovascular Cardiovascular exam: Present: RRR - Abdomen Abdomen: Present: bowel sounds present, soft, tender (expected post-operative tenderness), wound (Midline with wound vac intact with small amount of serous drainage noted; AURELIO drain to bulb suction with serous drainage noted; NG tube to LIWS (125ml of bilious drainage noted); Colostomy pink and moist without flatus or stool.) - Genitourinary other (elise to SD with clear, yellow urine noted) - Neurologic CN 2-12 grossly intact - Psychiatric oriented to person, oriented to place - Labs 01/24/17 04:06 01/24/17 04:06 Diabetes panel 01/23/17 01/24/17 Range/Units 13:48 04:06 Sodium 146 H (136-145) mEq/L Potassium 3.9 3.7 (3.5-4.5) mEq/L Chloride 110 H (98-109) mEq/L Carbon Dioxide 30 H (19-29) mEq/L BUN 42 H (7-20) mg/dL Creatinine 0.70 (0.57-1.11) mg/dL Glucose 176 H (70-99) mg/dL Calcium 7.8 L (8.6-10.8) mg/dL Calcium panel 01/24/17 Range/Units 04:06 Calcium 7.8 L (8.6-10.8) mg/dL Phosphorus 3.2 (2.3-4.7) mg/dL Pituitary panel 01/23/17 01/24/17 Range/Units 13:48 04:06 Sodium 146 H (136-145) mEq/L Potassium 3.9 3.7 (3.5-4.5) mEq/L Chloride 110 H (98-109) mEq/L Carbon Dioxide 30 H (19-29) mEq/L BUN 42 H (7-20) mg/dL Creatinine 0.70 (0.57-1.11) mg/dL Glucose 176 H (70-99) mg/dL Calcium 7.8 L (8.6-10.8) mg/dL Adrenal panel 01/23/17 01/24/17 Range/Units 13:48 04:06 Sodium 146 H (136-145) mEq/L Potassium 3.9 3.7 (3.5-4.5) mEq/L Chloride 110 H (98-109) mEq/L Carbon Dioxide 30 H (19-29) mEq/L BUN 42 H (7-20) mg/dL Creatinine 0.70 (0.57-1.11) mg/dL Glucose 176 H (70-99) mg/dL Calcium 7.8 L (8.6-10.8) mg/dL - VTE Documentation of Mechanical Device: Intermittent pneumatic compression device Consult Discharge Plan - Plan Referrals: Afshin Salazar MD [Primary Care Provider] -
[2017-01-24] MEDS ORDERED: *HR* HYDROmorphone (PF) 1 MG/ML SYRINGE IVP PRN (10:25)
[2017-01-24] MEDS ORDERED: D10% in Water 500 ML IV PRN ×2 (11:41→11:52)
[2017-01-24] MEDS ORDERED: Acetaminophen IV 1,000 MG/100 ML INFUS..BTL IVPB PRN (11:52)
[2017-01-24] MEDS ORDERED: diazePAM 5 MG TABLET PO PRN (11:52)
[2017-01-24] MEDS ORDERED: Naloxone 0.4 MG/ML INJ IVP PRN (11:52)
[2017-01-24] MEDS ORDERED: Dextrose Gel 15 GM PO PRN ×2 (11:52)
[2017-01-24] MEDS ORDERED: Chloraseptic Spray 177 ML BOTTLE MM PRN (11:52)
[2017-01-24] MEDS ORDERED: Clinimix E 5%-15% SOLUTION 2,000 ML with MVI, adult with vitamin K 10 ML IV SCH ×2 (11:52→17:00)
[2017-01-24] MEDS ORDERED: D5% in Water 1,000 ML IV PRN (11:52)
[2017-01-24] MEDS ORDERED: Calcium Gluconate 1,000 MG in D5% in Water 100 ML IVPB PRN (11:52)
[2017-01-24] MEDS ORDERED: *HR* Dextrose 50 % in Water (Syg) 50 ML SYRINGE IVP PRN (11:52)
[2017-01-24] MEDS ORDERED: Potassium Chloride 40 MEQ/200 ML BAG IVPB PRN (11:52)
[2017-01-24] MEDS: Fluconazole 100 MG/50 ML 100 MG/50 ML BAG IVPB SCH (12:54)
[2017-01-24 13:19] LABS: Magnesium 1.8 mg/dL (1.6-2.6); Potassium 4.3 mEq/L (3.5-4.5)
[2017-01-24] MEDS: Ketorolac 15 MG/ML VIAL IVP PRN (15:00)
[2017-01-24] MEDS ORDERED: Clinimix E 5%-15% SOLUTION 2,000 ML, Amino Acids 10% 0 ML with MVI, adult with vitami... IV SCH (17:00)
[2017-01-25] MEDS: Ipratropium/Albuterol Neb 3 ML IH SCH ×7 (00:09→23:11)
[2017-01-25] MEDS: *HR* HYDROmorphone (PF) 1 MG/ML SYRINGE IVP PRN ×2 (00:52→13:24)
[2017-01-25] MEDS: *HR* Metoprolol 5 MG/5 ML VIAL IVP SCH ×5 (00:52→23:32)
[2017-01-25] MEDS: Insulin LISPRO 300 UNITS/3 ML VIAL SQ SCH ×7 (00:53→23:35)
[2017-01-25] MEDS: Ondansetron 4 MG/2 ML VIAL IVP PRN ×2 (01:05→13:15)
[2017-01-25] MEDS: Piperacillin/Tazobactam 3.375 GM in D5% in Water (Mini-Bag+) 100 ML IVPB SCH ×3 (04:22→20:21)
[2017-01-25] MEDS: *HR* Heparin 5,000 UNIT/ML VIAL SQ SCH ×2 (04:24→17:06)
[2017-01-25 04:43] LABS: Basophils % 0.2 %; Eosinophils # 0.3 K/mcL (0.0-0.6); Eosinophils % 1.7 %; Hematocrit 28.9 % (35.3-44.9); Hemoglobin 8.8 g/dL (11.5-15.4); Lymphocytes # 1.5 K/mcL (0.6-4.6); Lymphocytes % 8.8 %; Mean Corpuscular HGB Conc 30.4 g/dL (31.6-35.5); Mean Corpuscular Hemoglobin 29.6 pg (28.0-33.3); Mean Corpuscular Volume 97.3 fL (83.0-100.0); Monocytes # 0.6 K/mcL (0.0-1.3); Monocytes % 3.1 %; Platelet Count 299 K/mcL (140-400); Red Blood Count 2.97 M/mcL (3.82-4.97); Red Cell Distribution Width 15.9 % (11.5-14.5); Segmented Neutrophils % 85.2 %
[2017-01-25 04:49] LABS: Ionized Calcium 1.2 mmol/L (1.15-1.35)
[2017-01-25 04:54] LABS: BUN/Creatinine Ratio 64 (6-26); Blood Urea Nitrogen 44 mg/dL (7-20); Calcium 8.2 mg/dL (8.6-10.8); Carbon Dioxide 30 mEq/L (19-29); Chloride 106 mEq/L (98-109); Glucose 176 mg/dL (70-99); Magnesium 2.1 mg/dL (1.6-2.6); Osmolality,Calculated 309 (280-300); Potassium 3.9 mEq/L (3.5-4.5); Sodium 142 mEq/L (136-145); eGFR For African Americans > 60 (> 60); eGFR For Non-African Americans > 60 (> 60)
[2017-01-25 04:59] LABS: Magnesium 2.1 mg/dL (1.6-2.6)
[2017-01-25] MEDS: Pantoprazole 40 MG VIAL IVP SCH (07:55)
[2017-01-25] MEDS: Furosemide 40 MG/4 ML VIAL IVP SCH (07:55)
[2017-01-25] MEDS: FLUoxetine 20 MG CAPSULE PO SCH ×2 (07:56→20:21)
[2017-01-25] MEDS: Insulin DETEMIR 100 UNIT/ML X5UNITS SQ SCH ×3 (07:56→20:23)
[2017-01-25] MEDS: Ketorolac 15 MG/ML VIAL IVP PRN ×2 (08:12→20:21)
--- NOTE | 2017-01-25 08:20 | Internal Med Progress Note ---
Date of Encounter: 01/25/17 Time of Encounter: 08:17 - Assessment and plan (1) Diverticulitis of colon with perforation Current Visit: Yes Status: Acute Assessment and plan: Status post surgical repair postoperative day 8. Underwent exploratory celiotomy, sigmoid resection and sigmoid colostomy. Postoperative care according to surgery team, follow-up appreciated. Leukocytosis stable at around 17 and hemoglobin stable around 8.5. Wound culture grows pansensitive Escherichia coli. Continue IV Zosyn and fluconazole per surgery team. Monitor and replace electrolytes as needed. Continue TPN and tube feeds via NG tube at a minimal rate with goal to resume oral diet and discontinuation of TPN. Pain control currently with when necessary IV Dilaudid and IV Toradol, will add oral Percocet. Physical therapy evaluation noted, recommend inpatient rehabilitation when stable. (2) Acute respiratory failure Current Visit: Yes Status: Acute Assessment and plan: Related to ARDS, sepsis, postoperative status along with underlying COPD and obstructive sleep apnea. Continue supplemental oxygen along with nocturnal BiPAP as needed. Continues to improve. Qualifiers: Respiratory failure complication: hypoxia and hypercapnia Qualified Code(s) : J96.01 - Acute respiratory failure with hypoxia; J96.02 - Acute respiratory failure with hypercapnia (3) Septic shock Current Visit: Yes Status: Resolved Assessment and plan: Related to intra-abdominal infection due to perforated sigmoid diverticulitis. Currently resolved. (4) ARDS (adult respiratory distress syndrome) Current Visit: Yes Status: Resolved Assessment and plan: Related to surgical complications, currently improved. (5) DM (diabetes mellitus), type 2 Current Visit: Yes Status: Chronic Assessment and plan: Continue Accu-Chek blood glucose monitoring. Blood sugars noted to be in low 200s. We will increase basal insulin. Qualifiers: Diabetes mellitus complication status: with hyperglycemia Diabetes mellitus buttermaker continuous churn insulin use: without jail use Qualified Code(s): E11.65 - Type 2 diabetes mellitus with hyperglycemia (6) COPD (chronic obstructive pulmonary disease) Current Visit: Yes Status: Chronic Qualifiers: COPD type: unspecified COPD Qualified Code(s): J44.9 - Chronic obstructive pulmonary disease, unspecified (7) ERI (obstructive sleep apnea) Current Visit: Yes Status: Chronic - Subjective Interval history: Patient reports having had a rough night due to significant abdominal pain. Slightly uncomfortable due to abdominal pain, that has been ongoing since her surgery. No chest pain, cough or shortness of breath. Noted to be on tube feeds through NG tube along with TPN. - Constitutional Vitals: Temp Pulse Resp BP Pulse Ox 97.4 F L 88 16 121/73 95 01/25/17 07:12 01/25/17 07:12 01/25/17 07:54 01/25/17 07:12 01/25/17 07:54 General appearance: Present: mild distress, A&O X 3, answers questions appropriately - Respiratory Respiratory exam: Present: CTAB. Absent: accessory muscle use, rales, rhonchi, wheezes - Cardiovascular Cardiovascular exam: Present: RRR, +S1, +S2. Absent: diastolic murmur, gallop, rubs, systolic murmur - GI/Abdominal GI/Abdominal exam: Present: diminished bowel sounds, normal bowel sounds, soft ( Tenderness in lower abdomen, on the right side adjacent to midline surgical incision. Wound VAC in place. Left lower colostomy bag in place, with dark semisolid stool output.), no peritoneal signs. Absent: distended, tenderness - Extremities Exam Extremities exam: Present: full ROM, warm, radial pulses palpable and symetrical. Absent: calf tenderness, cyanotic, pedal edema Internal Medicine: Result - Labs CBC & Chem 7: 01/25/17 04:32 01/25/17 04:32 Labs: Short CBC 01/25/17 Range/Units 04:32 WBC 17.6 H (4.3-11.1) K/mcL Hgb 8.8 L (11.5-15.4) g/dL Hct 28.9 L (35.3-44.9) % Plt Count 299 (140-400) K/mcL Neutrophils # 15.0 H (1.6-8.9) K/mcL BMP 01/24/17 01/25/17 13:05 04:32 Sodium 142 Potassium 4.3 3.9 Chloride 106 Carbon Dioxide 30 H BUN 44 H Creatinine 0.69 Glucose 176 H Calcium 8.2 L - ABG Interpretation ABG results: ABG ABG pH 7.48 pH Units (7.32-7.45) H 01/20/17 09:08 ABG pCO2 44 mmHg (35-45) 01/20/17 09:08 ABG pO2 78 mmHg (85-104) L 01/20/17 09:08 ABG O2 Saturation 96 % (95-98) 01/20/17 09:08 PT/INR, D-dimer PT 17.7 Seconds (9.4-12.1) H 01/17/17 01:29 - VTE Documentation of Mechanical Device: Intermittent pneumatic compression device Consult Discharge Plan - Plan Referrals: Afshin Salazar MD [Primary Care Provider] -
[2017-01-25] MEDS ORDERED: *HR* OxyCODONE/APAP 5/325 TABLET PO PRN (08:25)
--- NOTE | 2017-01-25 09:44 | General Surgery Progress Note ---
Date of Encounter: 01/25/17 Time of Encounter: 09:42 - Assessment and Plan (1) Diverticulitis of colon with perforation Current Visit: Yes Status: Acute POD # 8 Exploratory celiotomy, Sigmoid resection, sigmoid colostomy, Abdominal wash out. Bowel function has returned. She has stool output and colostomy NG tube to Elise, if tolerates for 6 hours will remove NG tube, advance to clear feeds, and discontinue TPN. IV at KVO Supportive care/pain control- dilaudid and toradol prn Continue TPN IV antibiotics- Zosyn WBC 14.1>17.8>22.9>16.8>16.3>17.6 Out of bed to chair today Continue elise catheter to SD for strict I&Os Incentive Spirometer every 1 hour while awake Wound vac change every MWF PT/OT consult Repeat am labs (2) Acute respiratory failure Current Visit: Yes Status: Acute Management per medicine team. Qualifiers: Respiratory failure complication: hypoxia and hypercapnia Qualified Code(s) : J96.01 - Acute respiratory failure with hypoxia; J96.02 - Acute respiratory failure with hypercapnia (3) Sepsis Current Visit: Yes Status: Acute secondary to perforated diverticulitis and fecal contamination Continue IV antibiotics- Zosyn Qualifiers: Sepsis type: sepsis due to unspecified organism Qualified Code(s): A41.9 - Sepsis, unspecified organism (4) Diabetes Current Visit: Yes Status: Chronic Hyperglycemia noted Levemir increased to 15 units from 10 units. Continue high corrective dose subcutaneous insulin sliding scale. Qualifiers: Diabetes mellitus type: type 2 Diabetes mellitus complication status: with unspecified complications Diabetes mellitus halfway insulin use: unspecified terminal press operator insulin use status Qualified Code(s): E11.8 - Type 2 diabetes mellitus with unspecified complications (5) DVT prophylaxis Current Visit: Yes Status: Acute sub q heparin 5000 BID (6) Ileus, postoperative Current Visit: Yes Status: Acute Continue NPO while awaiting return of bowel function (7) Severe protein-calorie malnutrition Current Visit: Yes Status: Acute Continue TPN while awaiting return of bowel function Subjective Patient reports: feels better, pain is less, flatus, bowel movement Narrative: Patient seen and examined at bedside with Dr. Castaneda. She is more awake and alert that she has been in previous days. She had good output her colostomy bag. No other complaints at this time Objective Vital Signs - Last 8 Hours Temp Pulse Resp BP Pulse Ox 01/25/17 07:54 16 95 01/25/17 07:12 97.4 F L 88 22 121/73 96 01/25/17 07:00 89 01/25/17 04:04 97.9 F 95 22 102/58 94 L 01/25/17 03:48 16 92 L Intake and Output 01/24/17 01/25/17 01/25/17 23:59 07:59 15:59 Intake Total 205 / 205 100 / 100 185 / 185 Output Total 255 / 255 10 / 10 Balance -50 / -50 90 / 90 185 / 185 Intake: IV Fluids 104 / 104 100 / 100 185 / 185 Magnesium Sulfate 2 GM In 104 / 104 Dextrose 5% 100 ML @ 50 mls/hr IVPB Q6H PRN Rx#: [id number] Zosyn 3.375 GM In 100 / 100 Dextrose 5% (Minibag+) 100 ML 100 ML @ 25 mls/hr IVPB Q8H [facility] Rx#: [id number] Potassium Chloride 20 mEq 185 / 185 /100 mL 40 meq In 200 ml @ 100 mls/hr IVPB Q1H PRN Rx#:[id number] Oral 50 / 50 0 / 0 Tube Feeding 51 / 51 Free Water Intake Amount 0 / 0 0 / 0 Output: Catheter 250 / 250 Wound Drainage 5 / 5 10 10 Abdomen 0 / 0 Right Lower Abdomen 5 / 5 Other: Meal Breakfast Percent of Meal Consumed 0% Weight 88 kg Blood Glucose* 220 200 Patient Weight 01/25/17 23:59 Weight 88 kg - Additional Exam - General physical appearance well developed, no distress - Eyes PERRL, normal ocular movement - ENT dry mucosa, atraumatic, normocephalic - Neck Neck exam: trachea midline - Respiratory normal respiratory effort, clear to auscultation, other (diminished bibasilar bases; moist, nonproductive cough noted) - Cardiovascular Cardiovascular exam: Present: RRR - Abdomen Abdomen: Present: bowel sounds present, soft, tender (expected post-operative tenderness), wound (Midline with wound vac intact with small amount of serous drainage noted; AURELIO drain to bulb suction with serous drainage noted; NG tube to LIWS ; Colostomy pink and moist without flatus or stool.) - Genitourinary other (elise to SD with clear, yellow urine noted) - Neurologic CN 2-12 grossly intact - Psychiatric oriented to person, oriented to place - Labs 01/26/17 04:03 01/26/17 04:03 Diabetes panel 01/24/17 01/25/17 Range/Units 13:05 04:32 Sodium 142 (136-145) mEq/L Potassium 4.3 3.9 (3.5-4.5) mEq/L Chloride 106 (98-109) mEq/L Carbon Dioxide 30 H (19-29) mEq/L BUN 44 H (7-20) mg/dL Creatinine 0.69 (0.57-1.11) mg/dL Glucose 176 H (70-99) mg/dL Calcium 8.2 L (8.6-10.8) mg/dL Calcium panel 01/25/17 01/25/17 Range/Units 04:32 04:32 Calcium 8.2 L (8.6-10.8) mg/dL Phosphorus 3.0 (2.3-4.7) mg/dL Pituitary panel 01/24/17 01/25/17 Range/Units 13:05 04:32 Sodium 142 (136-145) mEq/L Potassium 4.3 3.9 (3.5-4.5) mEq/L Chloride 106 (98-109) mEq/L Carbon Dioxide 30 H (19-29) mEq/L BUN 44 H (7-20) mg/dL Creatinine 0.69 (0.57-1.11) mg/dL Glucose 176 H (70-99) mg/dL Calcium 8.2 L (8.6-10.8) mg/dL Adrenal panel 01/24/17 01/25/17 Range/Units 13:05 04:32 Sodium 142 (136-145) mEq/L Potassium 4.3 3.9 (3.5-4.5) mEq/L Chloride 106 (98-109) mEq/L Carbon Dioxide 30 H (19-29) mEq/L BUN 44 H (7-20) mg/dL Creatinine 0.69 (0.57-1.11) mg/dL Glucose 176 H (70-99) mg/dL Calcium 8.2 L (8.6-10.8) mg/dL - VTE Documentation of Mechanical Device: Intermittent pneumatic compression device Consult Discharge Plan - Plan Referrals: Afshin Salazar MD [Primary Care Provider] - - Attending Attestation I examined this patient and my medical decision-making was reviewed with the BOOM BOSS/PA/Advanced Practice Nurse/Resident Physician. I agree with the documented findings, disposition and treatment plan as described except to the extent set forth below. The patient is seen and evaluated on morning rounds with the resident. She is complaining of abdominal pain. However this is the baseline. She does have stool in her ostomy. We will work on getting the nasogastric tube out later today. She is regaining bowel activity. Tera Castaneda MD FACS
[2017-01-25] MEDS: Fluconazole 100 MG/50 ML 100 MG/50 ML BAG IVPB SCH (15:07)
[2017-01-25] MEDS ORDERED: Clinimix E 5%-15% SOLUTION 2,000 ML, Amino Acids 10% 0 ML with MVI, adult with vitami... IV SCH (17:00)
[2017-01-25] MEDS ORDERED: Clinimix E 5%-15% SOLUTION 2,000 ML with MVI, adult with vitamin K 10 ML IV SCH (17:00)
[2017-01-26] MEDS: Ipratropium/Albuterol Neb 3 ML IH SCH ×6 (03:36→23:44)
[2017-01-26] MEDS: Piperacillin/Tazobactam 3.375 GM in D5% in Water (Mini-Bag+) 100 ML IVPB SCH ×3 (04:03→20:25)
[2017-01-26] MEDS: *HR* Metoprolol 5 MG/5 ML VIAL IVP SCH ×3 (04:04→17:15)
[2017-01-26] MEDS: Insulin LISPRO 300 UNITS/3 ML VIAL SQ SCH ×5 (04:05→20:27)
[2017-01-26] MEDS: *HR* Heparin 5,000 UNIT/ML VIAL SQ SCH ×2 (04:05→17:15)
[2017-01-26 04:45] LABS: Basophils % 0.2 %; Eosinophils # 0.1 K/mcL (0.0-0.6); Eosinophils % 0.3 %; Hematocrit 25.7 % (35.3-44.9); Hemoglobin 8.1 g/dL (11.5-15.4); Immature Granulocytes % 1.5 % (0-4); Lymphocytes # 1.3 K/mcL (0.6-4.6); Lymphocytes % 5.6 %; Mean Corpuscular HGB Conc 31.5 g/dL (31.6-35.5); Mean Corpuscular Hemoglobin 30.5 pg (28.0-33.3); Mean Corpuscular Volume 96.6 fL (83.0-100.0); Mean Platelet Volume 10.9 fL (9.4-12.4); Monocytes # 0.7 K/mcL (0.0-1.3); Monocytes % 3.1 %; Platelet Count 293 K/mcL (140-400); Red Blood Count 2.66 M/mcL (3.82-4.97); Red Cell Distribution Width 16.2 % (11.5-14.5); Segmented Neutrophils % 89.3 %
[2017-01-26 04:59] LABS: Basophils # 0.1 K/mcL (0.0-0.2)
[2017-01-26 05:04] LABS: BUN/Creatinine Ratio 59 (6-26); Blood Urea Nitrogen 40 mg/dL (7-20); Calcium 8.2 mg/dL (8.6-10.8); Carbon Dioxide 28 mEq/L (19-29); Chloride 107 mEq/L (98-109); Glucose 169 mg/dL (70-99); Magnesium 1.7 mg/dL (1.6-2.6); Osmolality,Calculated 306 (280-300); Phosphorous 2.9 mg/dL (2.3-4.7); Sodium 141 mEq/L (136-145); eGFR For African Americans > 60 (> 60); eGFR For Non-African Americans > 60 (> 60)
[2017-01-26 05:21] LABS: Platelet Estimate Normal (Normal); Polychromasia 1+ (Not Present)
[2017-01-26 05:22] LABS: Anisocytosis 1+ (Not Present)
[2017-01-26] MEDS: Magnesium Sulfate 2 GM in D5% in Water 100 ML IVPB PRN (06:13)
[2017-01-26] MEDS: Potassium Phosphate 44 MEQ in 0.9 % Sodium Chloride 250 ML IVPB PRN (06:14)
[2017-01-26] MEDS: Pantoprazole 40 MG VIAL IVP SCH (08:15)
[2017-01-26] MEDS: Furosemide 40 MG/4 ML VIAL IVP SCH (08:15)
[2017-01-26] MEDS: FLUoxetine 20 MG CAPSULE PO SCH ×2 (08:15→20:25)
[2017-01-26] MEDS: Insulin DETEMIR 100 UNIT/ML X5UNITS SQ SCH ×2 (08:16→20:26)
--- NOTE | 2017-01-26 11:37 | Internal Med Progress Note ---
Date of Encounter: 01/26/17 Time of Encounter: 11:35 - Assessment and plan (1) Diverticulitis of colon with perforation Current Visit: Yes Status: Acute Assessment and plan: Status post surgical repair postoperative day 9. Underwent exploratory celiotomy, sigmoid resection and sigmoid colostomy. Postoperative care according to surgery team. Patient noted to have persistent severe abdominal pain, some abdominal distention along with worsening leukocytosis and is also mildly tachycardic today. Noted slightly elevated BUN. Will start IV hydration with normal saline. Will discuss with surgery about concerning intra- abdominal process. Off NG tube now. Will likely be started on clear liquids as tolerated. Continue TPN for now, plan to wean off as she starts tolerating diet better. Pain control with when necessary IV Dilaudid and oral Percocet. Wound culture grows pansensitive Escherichia coli. Continue IV Zosyn and fluconazole per surgery team. Monitor and replace electrolytes as needed. High risk for complications. Physical therapy evaluation noted, recommend inpatient rehabilitation when stable. (2) Acute respiratory failure Current Visit: Yes Status: Acute Assessment and plan: Related to ARDS, sepsis, postoperative status along with underlying COPD and obstructive sleep apnea. Continue supplemental oxygen along with nocturnal BiPAP as needed. Patient does use CPAP at home. Continues to improve. Qualifiers: Respiratory failure complication: hypoxia and hypercapnia Qualified Code(s) : J96.01 - Acute respiratory failure with hypoxia; J96.02 - Acute respiratory failure with hypercapnia (3) Septic shock Current Visit: Yes Status: Resolved (4) ARDS (adult respiratory distress syndrome) Current Visit: Yes Status: Resolved (5) DM (diabetes mellitus), type 2 Current Visit: Yes Status: Chronic Assessment and plan: Continue Accu-Chek blood glucose monitoring. Blood sugars noted to be in low 200s. We will increase basal insulin. Qualifiers: Diabetes mellitus complication status: with hyperglycemia Diabetes mellitus retirement insulin use: without retirement use Qualified Code(s): E11.65 - Type 2 diabetes mellitus with hyperglycemia (6) COPD (chronic obstructive pulmonary disease) Current Visit: Yes Status: Chronic Qualifiers: COPD type: unspecified COPD Qualified Code(s): J44.9 - Chronic obstructive pulmonary disease, unspecified (7) ERI (obstructive sleep apnea) Current Visit: Yes Status: Chronic - Subjective Interval history: Continues to report severe right-sided abdominal pain, also reports that her colostomy bag smells different. Occasional nausea but no vomiting. NG TUBE now. Tolerates ice chips. - Constitutional Vitals: Temp Pulse Resp BP Pulse Ox 98.0 F 95 24 123/63 93 L 01/26/17 07:24 01/26/17 07:24 01/26/17 08:47 01/26/17 07:24 01/26/17 08:47 General appearance: Present: mild distress, A&O X 3, answers questions appropriately - Respiratory Respiratory exam: Present: CTAB. Absent: accessory muscle use, rales, rhonchi, wheezes - Cardiovascular Cardiovascular exam: Present: RRR, +S1, +S2, tachycardia. Absent: diastolic murmur, gallop, rubs, systolic murmur - GI/Abdominal GI/Abdominal exam: Present: distended, normal bowel sounds, soft (Tenderness and right lower abdomen.), no peritoneal signs. Absent: tenderness Additional comments: Midline vertical surgical incision with wound VAC along with right lower quadrant drain. Mild erythema along the surgical dressing with no significant edema or discharge. - Neurological Exam Neurological exam: Present: CN II-XII intact, oriented X3, no focal deficits. Absent: pronater drift, facial droop, speech deficit Internal Medicine: Result - Labs CBC & Chem 7: 01/26/17 04:03 01/26/17 04:03 Labs: Short CBC 01/26/17 Range/Units 04:03 WBC 23.5 H (4.3-11.1) K/mcL Hgb 8.1 L (11.5-15.4) g/dL Hct 25.7 L (35.3-44.9) % Plt Count 293 (140-400) K/mcL Neutrophils # 21.0 H (1.6-8.9) K/mcL BMP 01/25/17 01/26/17 16:05 04:03 Sodium 141 Potassium 4.4 4.0 Chloride 107 Carbon Dioxide 28 BUN 40 H Creatinine 0.68 Glucose 169 H Calcium 8.2 L - ABG Interpretation ABG results: ABG ABG pH 7.48 pH Units (7.32-7.45) H 01/20/17 09:08 ABG pCO2 44 mmHg (35-45) 01/20/17 09:08 ABG pO2 78 mmHg (85-104) L 01/20/17 09:08 ABG O2 Saturation 96 % (95-98) 01/20/17 09:08 PT/INR, D-dimer PT 17.7 Seconds (9.4-12.1) H 01/17/17 01:29 - VTE Documentation of Mechanical Device: Intermittent pneumatic compression device Consult Discharge Plan - Plan Referrals: Afshin Salazar MD [Primary Care Provider] -
[2017-01-26] MEDS: 0.9 % Sodium Chloride 1,000 ML IVC SCH (11:50)
[2017-01-26] MEDS: Ondansetron 4 MG/2 ML VIAL IVP PRN (12:21)
[2017-01-26] MEDS: *HR* HYDROmorphone (PF) 1 MG/ML SYRINGE IVP PRN ×2 (12:29→20:26)
--- NOTE | 2017-01-26 13:11 | General Surgery Progress Note ---
Date of Encounter: 01/26/17 Time of Encounter: 13:08 - Assessment and Plan (1) Diverticulitis of colon with perforation Current Visit: Yes Status: Acute POD # 9 Exploratory celiotomy, Sigmoid resection, sigmoid colostomy, Abdominal wash out. Bowel function has returned. She has stool output into colostomy NG tube has been removed. Start clear liquids 300 cc per shift IV at O Supportive care/pain control- dilaudid and toradol prn Continue TPN IV antibiotics- Zosyn (day 3) WBC 14.1>17.8>22.9>16.8>16.3>17.6>23.5 Out of bed to chair today Continue elise catheter to SD for strict I&Os Incentive Spirometer every 1 hour while awake Wound vac change every MWF PT/OT consult Repeat am labs (2) Acute respiratory failure Current Visit: Yes Status: Acute Management per medicine team. Qualifiers: Respiratory failure complication: hypoxia and hypercapnia Qualified Code(s) : J96.01 - Acute respiratory failure with hypoxia; J96.02 - Acute respiratory failure with hypercapnia (3) Sepsis Current Visit: Yes Status: Acute secondary to perforated diverticulitis and fecal contamination Continue IV antibiotics- Zosyn Qualifiers: Sepsis type: sepsis due to unspecified organism Qualified Code(s): A41.9 - Sepsis, unspecified organism (4) Diabetes Current Visit: Yes Status: Chronic Hyperglycemia noted Levemir increased to 20 units from 15 units. Continue high corrective dose subcutaneous insulin sliding scale. Qualifiers: Diabetes mellitus type: type 2 Diabetes mellitus complication status: with unspecified complications Diabetes mellitus nursing home insulin use: unspecified buttermaker continuous churn insulin use status Qualified Code(s): E11.8 - Type 2 diabetes mellitus with unspecified complications (5) DVT prophylaxis Current Visit: Yes Status: Acute sub q heparin 5000 BID (6) Ileus, postoperative Current Visit: Yes Status: Resolved Bowel function has returned clear liquids 300 cc/shift (7) Severe protein-calorie malnutrition Current Visit: Yes Status: Acute Continue TPN Subjective Patient reports: feels better, still having pain, flatus, bowel movement, afebrile Narrative: Patient seen and examined at bedside. She continues to feel better. She is more awake and alert today. NG tube was removed yesterday. She is complaining of mild nausea. She is having bowel sounds with flatus and stooling into her colostomy. Objective Vital Signs - Last 8 Hours Temp Pulse Resp BP Pulse Ox 01/26/17 12:31 98.7 F 01/26/17 11:51 18 95 01/26/17 11:43 97.3 F L 106 20 134/74 95 01/26/17 11:00 104 01/26/17 08:47 24 93 L 01/26/17 07:24 98.0 F 95 24 123/63 90 L 01/26/17 07:00 94 Intake and Output 01/25/17 01/26/17 01/26/17 23:59 07:59 15:59 Intake Total 100 / 100 100 / 100 508 / 508 Output Total 1145 / 1145 10 10 175 / 175 Balance -1045 / -1045 90 / 90 333 / 333 Intake: IV Fluids 100 / 100 100 / 100 508 / 508 Diflucan 100 MG/50 ML 100 50 / 50 mg In 50 ml @ 50 mls/hr IVPB DAILY@1400 [facility] Rx#: [id number] Magnesium Sulfate 2 GM In 98 / 98 Dextrose 5% 100 ML @ 50 mls/hr IVPB Q6H PRN Rx#: [id number] Zosyn 3.375 GM In 100 / 100 100 / 100 100 / 100 Dextrose 5% (Minibag+) 100 ML 100 ML @ 25 mls/hr IVPB Q8H [facility] Rx#: [id number] Potassium Phosphate 44 260 / 260 MEQ In 0.9 % Sodium Chloride 250 ML @ 40 mls/ hr IVPB Q10H PRN Rx#: [id number] Oral 0 / 0 0 / 0 Output: Stool 75 / 75 / 175 / 175 Catheter 1025 / 1025 Wound Drainage 45 / 45 0 / 0 Abdomen 25 / 25 0 / 0 Right Lower Abdomen 20 / 20 0 / 0 Other: Meal Dinner Breakfast Percent of Meal Consumed 0% 0% Weight 88.1 kg Blood Glucose* 204 241 252 Patient Weight 01/26/17 23:59 Weight 88.1 kg - Additional Exam - General physical appearance well developed, no distress - Eyes PERRL, normal ocular movement - ENT dry mucosa, atraumatic, normocephalic - Neck Neck exam: trachea midline - Respiratory normal respiratory effort, clear to auscultation, - Cardiovascular Cardiovascular exam: Present: RRR - Abdomen Abdomen: Present: bowel sounds present, soft, tender (expected post-operative tenderness), wound (Midline with wound vac intact ; AURELIO drain to bulb suction with serous drainage noted;Colostomy with flatus and stool.) - Genitourinary other (elise to SD with clear, yellow urine noted) - Neurologic CN 2-12 grossly intact - Psychiatric A&Ox3 - Labs 01/27/17 04:33 01/27/17 04:33 Diabetes panel 01/25/17 01/26/17 Range/Units 16:05 04:03 Sodium 141 (136-145) mEq/L Potassium 4.4 4.0 (3.5-4.5) mEq/L Chloride 107 (98-109) mEq/L Carbon Dioxide 28 (19-29) mEq/L BUN 40 H (7-20) mg/dL Creatinine 0.68 (0.57-1.11) mg/dL Glucose 169 H (70-99) mg/dL Calcium 8.2 L (8.6-10.8) mg/dL Calcium panel 01/26/17 Range/Units 04:03 Calcium 8.2 L (8.6-10.8) mg/dL Phosphorus 2.9 (2.3-4.7) mg/dL Pituitary panel 01/25/17 01/26/17 Range/Units 16:05 04:03 Sodium 141 (136-145) mEq/L Potassium 4.4 4.0 (3.5-4.5) mEq/L Chloride 107 (98-109) mEq/L Carbon Dioxide 28 (19-29) mEq/L BUN 40 H (7-20) mg/dL Creatinine 0.68 (0.57-1.11) mg/dL Glucose 169 H (70-99) mg/dL Calcium 8.2 L (8.6-10.8) mg/dL Adrenal panel 01/25/17 01/26/17 Range/Units 16:05 04:03 Sodium 141 (136-145) mEq/L Potassium 4.4 4.0 (3.5-4.5) mEq/L Chloride 107 (98-109) mEq/L Carbon Dioxide 28 (19-29) mEq/L BUN 40 H (7-20) mg/dL Creatinine 0.68 (0.57-1.11) mg/dL Glucose 169 H (70-99) mg/dL Calcium 8.2 L (8.6-10.8) mg/dL - VTE Documentation of Mechanical Device: Intermittent pneumatic compression device Consult Discharge Plan - Plan Referrals: Afshin Salazar MD [Primary Care Provider] - - Attending Attestation I examined this patient and my medical decision-making was reviewed with the DISPLAY AND BANNER DESIGNER/PA/Advanced Practice Nurse/Resident Physician. I agree with the documented findings, disposition and treatment plan as described except to the extent set forth below. The patient is seen and evaluated on morning rounds with rest. She has an increasing white blood cell count. Her abdominal discomfort is stable. It is reasonable to obtain a CAT scan with oral contrast tomorrow morning. We will continue supportive care as well as total parenteral nutrition. Tera Castaneda MD FACS
[2017-01-26] MEDS: Fluconazole 100 MG/50 ML 100 MG/50 ML BAG IVPB SCH (13:52)
[2017-01-26] MEDS ORDERED: Clinimix E 5%-15% SOLUTION 2,000 ML with MVI, adult with vitamin K 10 ML IV SCH (17:00)
[2017-01-26] MEDS ORDERED: Clinimix E 5%-15% SOLUTION 2,000 ML, Amino Acids 10% 0 ML with MVI, adult with vitami... IV SCH (17:00)
[2017-01-27] MEDS: Insulin LISPRO 300 UNITS/3 ML VIAL SQ SCH ×5 (00:31→14:57)
[2017-01-27] MEDS: *HR* Metoprolol 5 MG/5 ML VIAL IVP SCH ×4 (00:31→16:35)
[2017-01-27] MEDS: 0.9 % Sodium Chloride 1,000 ML IVC SCH ×2 (00:31→16:33)
[2017-01-27] MEDS: Ipratropium/Albuterol Neb 3 ML IH SCH ×6 (04:14→23:41)
[2017-01-27] MEDS: *HR* Heparin 5,000 UNIT/ML VIAL SQ SCH ×2 (04:42→16:33)
[2017-01-27] MEDS: Piperacillin/Tazobactam 3.375 GM in D5% in Water (Mini-Bag+) 100 ML IVPB SCH ×3 (04:43→21:51)
[2017-01-27 05:07] LABS: Hematocrit 24.6 % (35.3-44.9); Hemoglobin 7.6 g/dL (11.5-15.4); Ionized Calcium 1.18 mmol/L (1.15-1.35); Mean Corpuscular HGB Conc 30.9 g/dL (31.6-35.5); Mean Corpuscular Volume 97.2 fL (83.0-100.0); Mean Platelet Volume 11.1 fL (9.4-12.4); Platelet Count 316 K/mcL (140-400); Red Blood Count 2.53 M/mcL (3.82-4.97); Red Cell Distribution Width 16.9 % (11.5-14.5)
[2017-01-27 05:12] LABS: Magnesium 1.6 mg/dL (1.6-2.6); Phosphorous 2.4 mg/dL (2.3-4.7)
[2017-01-27 05:13] LABS: BUN/Creatinine Ratio 50 (6-26); Blood Urea Nitrogen 29 mg/dL (7-20); Calcium 7.6 mg/dL (8.6-10.8); Carbon Dioxide 26 mEq/L (19-29); Chloride 106 mEq/L (98-109); Glucose 160 mg/dL (70-99); Osmolality,Calculated 293 (280-300); Potassium 4.1 mEq/L (3.5-4.5); Sodium 137 mEq/L (136-145); eGFR For African Americans > 60 (> 60); eGFR For Non-African Americans > 60 (> 60)
[2017-01-27 05:49] LABS: Basophils # 0.2 K/mcL (0.0-0.2); Eosinophils # 0.2 K/mcL (0.0-0.6); Lymphocytes # 0.7 K/mcL (0.6-4.6); Monocytes # 0.2 K/mcL (0.0-1.3); Neutrophils # 22.7 K/mcL (1.6-8.9); Platelet Estimate Normal (Normal)
[2017-01-27] MEDS: Potassium Phosphate 44 MEQ in 0.9 % Sodium Chloride 250 ML IVPB PRN (06:55)
[2017-01-27] MEDS: Magnesium Sulfate 2 GM in D5% in Water 100 ML IVPB PRN (06:56)
[2017-01-27] MEDS: Insulin DETEMIR 100 UNIT/ML X5UNITS SQ SCH (08:39)
[2017-01-27] MEDS: Furosemide 40 MG/4 ML VIAL IVP SCH (08:39)
[2017-01-27] MEDS: Pantoprazole 40 MG VIAL IVP SCH (08:39)
[2017-01-27] MEDS: FLUoxetine 20 MG CAPSULE PO SCH (08:40)
--- NOTE | 2017-01-27 10:48 | Internal Med Progress Note ---
Date of Encounter: 01/27/17 Time of Encounter: 10:37 - Assessment and plan (1) Diverticulitis of colon with perforation Current Visit: Yes Status: Acute Assessment and plan: Status post surgical repair postoperative day 10. Underwent exploratory celiotomy, sigmoid resection and sigmoid colostomy. Postoperative care according to surgery team. Patient noted to have persistent severe abdominal pain, some abdominal distention along with worsening leukocytosis; discussed with surgery yesterday, recommended no intervention. Patient did receive CT abdomen/pelvis today, which shows possible developing abscess at the surgical site around colostomy. Will discuss with surgery again. Tachycardia and BUN seems to be improving today, will continue IV hydration. Tolerates clear liquids. Continue TPN for now, plan to wean off as she starts tolerating diet better. Pain control with when necessary IV Dilaudid and oral Percocet. Wound culture grows pansensitive Escherichia coli. Continue IV Zosyn and fluconazole per surgery team- day 11 today; antibiotics can be adjusted based on new wound culture results if abscess drainage is considered. However given long-term use of antibiotics, they may not grow anything significant. Monitor and replace electrolytes as needed. High risk for complications. Physical therapy evaluation noted, recommend inpatient rehabilitation when stable. (2) Acute respiratory failure Current Visit: Yes Status: Acute Assessment and plan: Related to ARDS, sepsis, postoperative status along with underlying COPD and obstructive sleep apnea. Continue supplemental oxygen along with nocturnal BiPAP as needed. Patient does use CPAP at home. Continues to improve. Qualifiers: Respiratory failure complication: hypoxia and hypercapnia Qualified Code(s) : J96.01 - Acute respiratory failure with hypoxia; J96.02 - Acute respiratory failure with hypercapnia (3) Septic shock Current Visit: Yes Status: Resolved (4) ARDS (adult respiratory distress syndrome) Current Visit: Yes Status: Resolved (5) DM (diabetes mellitus), type 2 Current Visit: Yes Status: Chronic Assessment and plan: Continue Accu-Chek blood glucose monitoring. Blood sugars continue to be in 200s. TPN was likely need to be adjusted, will discuss with dietitian. We will increase basal insulin. Qualifiers: Diabetes mellitus complication status: with hyperglycemia Diabetes mellitus woven paper hat mender insulin use: without woven paper hat mender use Qualified Code(s): E11.65 - Type 2 diabetes mellitus with hyperglycemia (6) COPD (chronic obstructive pulmonary disease) Current Visit: Yes Status: Chronic Qualifiers: COPD type: unspecified COPD Qualified Code(s): J44.9 - Chronic obstructive pulmonary disease, unspecified (7) ERI (obstructive sleep apnea) Current Visit: Yes Status: Chronic - Subjective Interval history: Patient appears slightly better, sitting up in chair today. However continues to complain of severe abdominal pain. No nausea or vomiting, tolerates clear liquid diet. Noted to have stool output in colostomy. - Constitutional Vitals: Temp Pulse Resp BP Pulse Ox 98.3 F 88 16 118/58 95 01/27/17 07:35 01/27/17 08:30 01/27/17 08:18 01/27/17 08:18 01/27/17 08:18 General appearance: Present: A&O X 3, answers questions appropriately - Respiratory Respiratory exam: Present: decreased breath sounds (Bilateral bases). Absent: accessory muscle use, rales, rhonchi, wheezes - Cardiovascular Cardiovascular exam: Present: RRR, +S1, +S2. Absent: diastolic murmur, gallop, rubs, systolic murmur - GI/Abdominal GI/Abdominal exam: Present: diminished bowel sounds, soft (Slightly distended, tenderness in right lower quadrant and at the surgical site), no peritoneal signs. Absent: distended, tenderness - Extremities Exam Extremities exam: Present: full ROM, warm, radial pulses palpable and symetrical. Absent: calf tenderness, cyanotic, pedal edema Internal Medicine: Result - Labs CBC & Chem 7: 01/27/17 04:33 01/27/17 04:33 Labs: Short CBC 01/27/17 Range/Units 04:33 WBC 24.1 H (4.3-11.1) K/mcL Hgb 7.6 L (11.5-15.4) g/dL Hct 24.6 L (35.3-44.9) % Plt Count 316 (140-400) K/mcL Neutrophils # 22.7 H (1.6-8.9) K/mcL BMP 01/27/17 04:33 Sodium 137 Potassium 4.1 Chloride 106 Carbon Dioxide 26 BUN 29 H D Creatinine 0.58 Glucose 160 H Calcium 7.6 L - ABG Interpretation ABG results: ABG ABG pH 7.48 pH Units (7.32-7.45) H 01/20/17 09:08 ABG pCO2 44 mmHg (35-45) 01/20/17 09:08 ABG pO2 78 mmHg (85-104) L 01/20/17 09:08 ABG O2 Saturation 96 % (95-98) 01/20/17 09:08 PT/INR, D-dimer PT 17.7 Seconds (9.4-12.1) H 01/17/17 01:29 - Impressions Impressions Abdomen/Pelvis CT 01/27/17 08:30 IMPRESSION: 1. Status post distal colectomy. There is a collection of gas, fluid, and oral contrast along the left aspect of the left lower quadrant colostomy concerning for developing abscess. This appears to extend to the superficial lateral aspect of the colostomy. 2. Small free fluid, but no organized collection within the peritoneal cavity. 3. New perihilar ground-glass opacities could represent pulmonary edema. 4. Cholelithiasis. D/ / Harrison Jones MD / Harrison Jones MD Interpreting Provider: Harrison Jones MD - VTE Documentation of Mechanical Device: Intermittent pneumatic compression device Consult Discharge Plan - Plan Referrals: Afshin Salazar MD [Primary Care Provider] -
[2017-01-27] MEDS: *HR* HYDROmorphone (PF) 1 MG/ML SYRINGE IVP PRN ×2 (11:01→22:57)
--- NOTE | 2017-01-27 12:41 | Event Note ---
Date of Encounter: 01/27/17 Time of Encounter: 12:30 I was contacted to see the patient after CAT scan report. The patient has a peristomal abscess. There appears to be contrast leaking into the space outside the fascia and in the subcutaneous tissue. There is also air in the subcutaneous tissue. Her white blood cell count is elevated and she is having pain around the stoma. I have recommended local exploration and drainage of the abscess. She may require revision or moving her stoma. I discussed this at length with her and she would like to proceed later this afternoon.
[2017-01-27] MEDS ORDERED: *HR* LORazepam 2 MG/ML VIAL IVP PRN ×2 (12:55→22:13)
[2017-01-27] MEDS: Fluconazole 100 MG/50 ML 100 MG/50 ML BAG IVPB SCH (16:33)
[2017-01-27] MEDS ORDERED: Clinimix E 5%-15% SOLUTION 2,000 ML with MVI, adult with vitamin K 10 ML IV SCH ×2 (17:00→22:13)
[2017-01-27 18:47] LABS: Magnesium 1.5 mg/dL (1.6-2.6); Phosphorous 2.7 mg/dL (2.3-4.7); Potassium 4.2 mEq/L (3.5-4.5)
--- NOTE | 2017-01-27 19:29 | Anesthesia Evaluation PreOp ---
Date of Encounter: 01/27/17 Time of Encounter: 19:27 - Past History Planned Operation: Exploratory Laparotomy Cardiac History: HTN, Hyperlipidemia Pulmonary History: Smoker, COPD, ERI Dx (uses CPAP), Other (ARDS) BAG SEALER History: Denies Any Significant HX Other Medical History: Diabetes Type II Anesthesia History: No Prior Anesthetic Complications, Past Anesthesia Alcohol Use: none Drug use: none Medications and Allergies Meloxicam [Mobic] 15 mg PO DAILY PRN 04/28/16 [History] Albuterol Sulfate [Albuterol Inhaler] 2 puff IH Q4H PRN 01/16/17 [History] Biotin 1 mg PO DAILY 01/16/17 [History] Cholecalciferol (D-3) [Vitamin D] 1,000 unit PO DAILY 01/16/17 [History] Diazepam [Valium] 5 mg PO TID PRN 01/16/17 [History] Esomeprazole Magnesium [Nexium] 40 mg PO DAILY 01/16/17 [History] FLUoxetine HCl [Fluoxetine HCl] 40 mg PO BID 01/16/17 [History] Isosorbide DInitrate [Isosorbide Dinitrate] 10 mg PO BID 01/16/17 [History] Lisinopril [Zestril] 10 mg PO DAILY 01/16/17 [History] Lovastatin [Lovastatin] 80 mg PO HS 01/16/17 [History] Lurasidone [Latuda] 40 mg PO HS 01/16/17 [History] Metoprolol XL (24 HR) Succ [Toprol XL] 50 mg PO DAILY 01/16/17 [History] Vitamin B Complex 1 each PO DAILY 01/16/17 [History] Allergies No Known Allergies Allergy (Verified 04/28/16 19:57) - Meds/Allergy Pre-op Review Medications Reviewed: Yes Allergies Reviewed: Yes Beta Blockers on Current Med List: Yes If Beta Blockers taken, Date/Time (Last Dose taken): 01/27/2017 at 1635 Anesthesia Results - Labs 01/27/17 04:33 01/27/17 18:00 - Imaging EKG: report reviewed (01/17/2017 ST) Additional studies: 01/19/2017 Echo mild LV diastolic dysfunction moderately dilated LA mild MR Anesthesia Exam Vital Signs/O2 Sat/Glucose, Most Recent Temp Pulse Resp BP Pulse Ox 99.6 F 99 16 111/51 98 01/27/17 15:00 01/27/17 15:00 01/27/17 15:08 01/27/17 15:08 01/27/17 15:08 Blood Glucose* 150 Height: 5'7''/1.7 m Weight: 194 lbs/88.3 kg NPO (# of Hours): 8 Pain Scale: 0 Pain Scale Used: Numeric (1 - 10) - HEENT Pupil (Motor): EOMI Mallampati: III Teeth: Normal Oral Opening: Greater than 3 - BAG SEALER LOC: Oriented BAG SEALER Motor: Normal RUE, Normal LUE, Normal RLE, Normal LLE, Normal Face BAG SEALER Sensory: Normal: RUE, LUE, RLE, LLE, Face - Cardiac Rhythm: Regular Murmur: None - Pulmonary Breath Sounds: bilateral Clear (end expiratory wheezing) Respiratory Effort: Symmetrical Anesthesia Assess/Plan ASA Score: 4 Modified Greenwood Scale for Level of Consciousness: Cooperative, oriented, and tranquil Anesthetic Plan: General, Precautions (Patient understands that she is at increased risk for perioperative complications including myocardial infarct, arrhythmias, CVA, post op vent support/ICU stay, and . Patient wishes to proceed.) Monitoring Plan: Standard Monitors Recovery Plan: PACU
[2017-01-27] MEDS ORDERED: *HR* FentaNYL (PF) 100 MCG/2 ML VIAL ONE (19:44)
[2017-01-27] MEDS ORDERED: *HR* Midazolam HCl 2 MG/2 ML VIAL ONE (19:45)
[2017-01-27] MEDS ORDERED: *HR* Rocuronium Bromide 50 MG/5 ML VIAL ONE (19:45)
[2017-01-27] MEDS ORDERED: Lidocaine -MPF 2% 2 ML VIAL ONE (19:45)
[2017-01-27] MEDS ORDERED: *HR* Propofol 200 MG/20 ML VIAL IVP ONE (19:45)
--- NOTE | 2017-01-27 19:45 | Event Note ---
Date of Encounter: 01/27/17 Time of Encounter: 19:15 I was asked to see the patient by Dr Castaneda, he was called earlier in the day for a new diagnosis of peristomal abscess. I have personally reviewed her labs, vitals, and CT scan was personally reviewed by myself. Her midline wound vac was apparently previously draining serosanginous material but today has started to drain what appears to be pus. CT scan shows peristomal abscess and air surrounding colostomy in subcutaneous tissue only. Discussed with patient that I think she likely spontaneously decompressed abscess at her midline incision given the vac output not puting out purulent drainage. Additionally there is a large abscess collection lateral to the colostomy site. Evaluated patients colostomy and it is very pink, no ischemia and draining stool. Discussed a more extensive vac at midline to incorporate into near colostomy where has likely decompressed into midline, I do not think this will be enough to control the collection to the lateral aspect of the colostomy and will likely Incision and drain the abdominal wall in that area and do daily packing dressing changes. She may need more extensive surgery including exploratory laparotomy and colostomy revision today or in future. Risks and benefits of surgery were discussed with the patient and she wishes to proceed.
[2017-01-27] MEDS ORDERED: Dexamethasone 4 MG/ML VIAL ONE (20:38)
[2017-01-27] MEDS ORDERED: Ondansetron 4 MG/2 ML VIAL ONE (20:38)
[2017-01-27] MEDS ORDERED: Neostigmine Methylsulfate 3 MG/3 ML SYRINGE ONE (20:40)
[2017-01-27] MEDS ORDERED: Insulin DETEMIR 100 UNIT/ML X5UNITS SQ SCH (21:00)
[2017-01-27] MEDS ORDERED: *HR* Morphine 10 MG/ML VIAL ONE (21:08)
--- NOTE | 2017-01-27 21:09 | Operative Note ---
Date of procedure: 01/27/17 Pre-op diagnosis: Parastomal abscess Post-op diagnosis: same (infected midline abdominal wound, fascia dehiscence, colostomy dehiscence) Procedure: Incision and drainage midline abdominal wound, incision and drainage parastomal abscess, wound vac placement, colostomy revision, rigid sigmoidoscope of colostomy (rigid stomoscopy) Complications: none immediate Anesthesia: CHARLEY Surgeon: Callie Contreras Fish Machine Feeder: Ivonne Melo Estimated blood loss (cc): 4 Condition: stable Disposition: PACU Procedure in Detail: She was brought to the operating suite and placed supine on the operating table. Sign in was performed and everyone was in agreement. Anesthesia was induced and patient was endotracheally intubated by anesthesia without incident. The ostomy appliance was taken down and stool was draining from between the colon of the colostomy and skin. Metzenbaum scissors were used to take down the colostomy Vicryl stitches to the subcuticular skin. Saline moistened 4 x 4 gauze placed into the subcutaneous tissue Of the colostomy was used to absorb and control the stool drainage. The midline VAC dressing was removed. The abdomen was prepped and draped in the usual sterile fashion with Betadine. Timeout was performed again everyone was in agreement. The peristomal abscess cavity was irrigated with sterile saline. The colostomy bowel was evaluated circumferentially and there did not appear to be any tears or defects in the colon wall. The fascia. At the abdominal wall fascia where the colon came through the abdominal wall felt to be intact without any defects. Digital exam of the colostomy revealed no abnormalities. A rigid sigmoidoscope was placed within the colostomy evaluating the mucosa past the fascia (rigid stomoscopy) and the mucosa was pink, viable, and appeared to be intact. The midline wound subcutaneous tissue was opened to evaluate for a potential connection to the peristomal abscess as the wound VAC was draining purulent drainage. In several areas of the midline fascia there was dehiscence without evisceration. There was no obvious fistulous connection between the midline subcutaneous tissue and the peristomal abscess that could be palpated from the midline or from the peristomal abscess cavity. An opening in the left abdominal wall lateral enough that the colostomy faceplate can still be applied , was made with a 15 blade in an elliptical fashion. Using the Bovie we dissected down to the peristomal abscess cavity. The peristomal abscess cavity was packed with quarter percent Dakin's moistened Kerlix and 2 pieces were used 1 packing the abscess cavity inferiorly and the other packing superiorly. The colostomy was revised at the skin level with multiple 3-0 Vicryl interrupted stitches ensuring full thickness bites of the colon and the subcuticular tissue of the skin. The midline abdominal wound was irrigated with sterile saline. Adaptic was placed along the fascia. Wound VAC using black foam was placed to the midline at 125 mmHg continuous suction. The wound VAC measured 30 cm long by 6 cm wide by 6 cm deep. A colostomy appliance was placed. 4 x 4 gauze and Medipore tape were placed over the left lateral I&D site with a Dakin's moistened Kerlix. All lap and instrument counts were correct at the end the case. The patient tolerated the procedure well. Patient was awoken in the operating suite and was taken to PACU in stable condition.
[2017-01-27] MEDS ORDERED: *HR* HYDROmorphone (PF) 1 MG/ML SYRINGE IVP PRN (21:15)
[2017-01-27] MEDS ORDERED: Ringers Solution, Lactated 1,000 ML ONE (22:00)
--- NOTE | 2017-01-27 22:09 | Anesthesia Evaluation Post Op ---
Date of Encounter: 01/27/17 Time of Encounter: 22:09 - Vital Signs Vital Signs: Vital Signs/O2 Sat, Most Current Temp Pulse Resp BP Pulse Ox 98.6 F 91 24 100/51 96 01/27/17 21:50 01/27/17 22:00 01/27/17 22:00 01/27/17 22:00 01/27/17 22:00 - Lungs Lungs: Clear Ascult./Percussion - Airway Airway: Non-obstructed - Cardiovascular Regular Rate - Mental Status Mental Status: Alert & Oriented, Answers Appropriately - Pain Pain Scale: 4 Pain Scale used: Numeric (1 - 10) - Nausea Vomiting Nausea Vomiting: Not Present - Hydration Hydration: NPO, Sexton catheter - Discharge PostOp Status: Transfer Patient to floor
[2017-01-27] MEDS ORDERED: D5% in Water 1,000 ML IV PRN (22:13)
[2017-01-27] MEDS ORDERED: *HR* Dextrose 50 % in Water (Syg) 50 ML SYRINGE IVP PRN (22:13)
[2017-01-27] MEDS ORDERED: Potassium Phosphate 44 MEQ in 0.9 % Sodium Chloride 250 ML IVPB PRN (22:13)
[2017-01-27] MEDS ORDERED: Acetaminophen IV 1,000 MG/100 ML INFUS..BTL IVPB PRN (22:13)
[2017-01-27] MEDS ORDERED: Potassium Chloride 40 MEQ/200 ML BAG IVPB PRN (22:13)
[2017-01-27] MEDS ORDERED: D10% in Water 500 ML IV PRN (22:13)
[2017-01-27] MEDS ORDERED: Calcium Gluconate 1,000 MG in D5% in Water 100 ML IVPB PRN (22:13)
[2017-01-27] MEDS ORDERED: Ondansetron 4 MG/2 ML VIAL IVP PRN (22:13)
[2017-01-27] MEDS ORDERED: Magnesium Sulfate 2 GM in D5% in Water 100 ML IVPB PRN (22:13)
[2017-01-27] MEDS ORDERED: Dextrose Gel 15 GM PO PRN ×2 (22:13)
[2017-01-27] MEDS ORDERED: Naloxone 0.4 MG/ML INJ IVP PRN (22:13)
[2017-01-28] MEDS: *HR* Metoprolol 5 MG/5 ML VIAL IVP SCH ×4 (00:15→16:22)
[2017-01-28] MEDS: Insulin LISPRO 300 UNITS/3 ML VIAL SQ SCH ×6 (00:15→20:42)
[2017-01-28] MEDS: Ipratropium/Albuterol Neb 3 ML IH SCH ×6 (04:31→23:22)
[2017-01-28] MEDS: Piperacillin/Tazobactam 3.375 GM in D5% in Water (Mini-Bag+) 100 ML IVPB SCH ×3 (04:38→20:41)
[2017-01-28] MEDS: *HR* Heparin 5,000 UNIT/ML VIAL SQ SCH ×2 (04:39→16:28)
[2017-01-28 04:59] LABS: Basophils % 0.2 %; Hematocrit 24.7 % (35.3-44.9); Hemoglobin 7.5 g/dL (11.5-15.4); Immature Granulocytes % 1.1 % (0-4); Lymphocytes # 0.5 K/mcL (0.6-4.6); Lymphocytes % 2.5 %; Mean Corpuscular HGB Conc 30.4 g/dL (31.6-35.5); Mean Corpuscular Hemoglobin 29.5 pg (28.0-33.3); Mean Corpuscular Volume 97.2 fL (83.0-100.0); Mean Platelet Volume 11.1 fL (9.4-12.4); Monocytes # 0.6 K/mcL (0.0-1.3); Monocytes % 3.4 %; Neutrophils # 17.1 K/mcL (1.6-8.9); Platelet Count 288 K/mcL (140-400); Red Blood Count 2.54 M/mcL (3.82-4.97); Red Cell Distribution Width 16.4 % (11.5-14.5); Segmented Neutrophils % 92.8 %
[2017-01-28 05:35] LABS: BUN/Creatinine Ratio 34 (6-26); Blood Urea Nitrogen 23 mg/dL (7-20); Calcium 7.5 mg/dL (8.6-10.8); Carbon Dioxide 23 mEq/L (19-29); Chloride 102 mEq/L (98-109); Glucose 355 mg/dL (70-99); Magnesium 1.7 mg/dL (1.6-2.6); Osmolality,Calculated 288 (280-300); Phosphorous 2.8 mg/dL (2.3-4.7); eGFR For African Americans > 60 (> 60); eGFR For Non-African Americans > 60 (> 60)
[2017-01-28 05:43] LABS: Sodium 130 mEq/L (136-145)
[2017-01-28 05:44] LABS: Potassium 5.6 mEq/L (3.5-4.5)
[2017-01-28] MEDS: FLUoxetine 20 MG CAPSULE PO SCH ×2 (08:20→20:39)
[2017-01-28] MEDS: Pantoprazole 40 MG VIAL IVP SCH (08:20)
[2017-01-28] MEDS: Furosemide 20 MG TABLET PO SCH (08:21)
[2017-01-28] MEDS ORDERED: Insulin DETEMIR 100 UNIT/ML X5UNITS SQ SCH (09:00)
[2017-01-28] MEDS ORDERED: Furosemide 20 MG TABLET PO SCH (09:00)
--- NOTE | 2017-01-28 09:37 | Internal Med Progress Note ---
Date of Encounter: 01/28/17 Time of Encounter: 17:09 - Assessment and plan (1) Diverticulitis of colon with perforation Current Visit: Yes Status: Acute (2) Sepsis associated hypotension Current Visit: Yes Status: Acute (3) Hypomagnesemia Current Visit: Yes Status: Acute (4) Acute respiratory failure Current Visit: Yes Status: Acute Qualifiers: Respiratory failure complication: hypoxia and hypercapnia Qualified Code(s) : J96.01 - Acute respiratory failure with hypoxia; J96.02 - Acute respiratory failure with hypercapnia (5) DM (diabetes mellitus), type 2 Current Visit: Yes Status: Chronic Qualifiers: Diabetes mellitus complication status: with hyperglycemia Diabetes mellitus ferry terminal supervisor insulin use: without ferry terminal supervisor use Qualified Code(s): E11.65 - Type 2 diabetes mellitus with hyperglycemia (6) COPD (chronic obstructive pulmonary disease) Current Visit: Yes Status: Chronic Qualifiers: COPD type: unspecified COPD Qualified Code(s): J44.9 - Chronic obstructive pulmonary disease, unspecified (7) DVT prophylaxis Current Visit: Yes Status: Acute (8) Ileus, postoperative Current Visit: Yes Status: Resolved (9) Abdominal wall abscess at site of surgical wound Current Visit: Yes Status: Acute Assessment and plan: 56-year-old female with past medical history of hypertension, diabetes, COPD, admitted to the hospital of diverticulitis with perforation, compensated by septic shock and acute respiratory failure in setting of sepsis. Patient underwent exploratory celiotomy, sigmoid resection and sigmoid colostomy on 08/2017. She was noticed to have severe abdominal pain with continued abdominal distention, worsening leukocytosis. Patient was diagnosed to have peristomal abscess, for which she underwent incision and drainage of the midline abdominal wound, I&D of parastomal abscess, wound vac placement, colostomy revision and rigid stomoscopy on 01/27/2017. # Diverticulitis of Colon with perforation: status post exploratory surgery on with revision on 01/27/2017. Started on clear liquids per surgery team. WBC trending down On antibiotic coverage with Zosyn and fluconazole. Pain control with IV Dilaudid and Percocet with high risk of complications. # Abdominal wall abscess surgical site: I&D of parastomal abscess, wound vac placement, colostomy revision and rigid stomoscopy on 01/27/2017. Improving clinically, WBC trending down, continuing antibiotics. # Postoperative ileus: improving, started on clear liquid diet today per surgery. Patient remains on TPN. # Hyperkalemia: potassium not to be limited this morning. Discussed with nutrition to just with TPN. Change potassium to sodium phosphate. # Diabetes mellitus type II with complications: blood glucose remains elevated. 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 We increase the dose of Levemir to 30 units BID, continue high-dose sliding scale insulin. # Acute respiratory failure: in setting of sepsis, which is currently improved, imaging negative for any evidence of pneumonia. Continued incentive spirometry. Out of bed to chair as tolerated. On Lasix 20 mg PO daily # Depression: continue Prozac # DVT prophylaxis: On Sub Q heparin - Time Spent With Patient 25 - 35 minutes - Subjective Interval history: Patient seen and examined at bedside. She is sitting up in chair this morning. Reports some abdominal pain. Denies any nausea, vomiting. Reports feeling tired and weak, however better than yesterday. Labs from this morning reviewed, the BBC elevated at 18.4, trending down compared to yesterday. Hemoglobin 7.5, sodium of 132, potassium of 4.8, creatinine of 0.62, glucose 312 magnesium 2.1 and phosphorus of 2.8. - Constitutional Vitals: Temp Pulse Resp BP Pulse Ox 98.0 F 91 16 114/59 99 01/28/17 07:17 01/28/17 07:17 01/28/17 07:17 01/28/17 07:17 01/28/17 07:17 General appearance: Present: A&O X 3, answers questions appropriately - Head Head exam: Present: atraumatic, normocephalic - Eye Eye exam: Present: PERRL, conjuntiva pink, sclera anicteric Pupils: Present: PERRL - Neck Neck exam general surgery: Present: supple, trachea midline. Absent: lymphadenopathy - Respiratory Respiratory exam: Present: decreased breath sounds, rales. Absent: accessory muscle use, CTAB, rhonchi, wheezes - Cardiovascular Cardiovascular exam: Present: RRR, +S1, +S2. Absent: diastolic murmur, gallop, rubs, systolic murmur - GI/Abdominal GI/Abdominal exam: Present: hypoactive bowel sounds, normal bowel sounds, soft, tenderness, no peritoneal signs. Absent: distended - Extremities Exam Extremities exam: Present: warm, radial pulses palpable and symetrical. Absent : calf tenderness, cyanotic, pedal edema - Neurological Exam Neurological exam: Present: CN II-XII intact, oriented X3, no focal deficits. Absent: pronater drift, facial droop, speech deficit Internal Medicine: Result - Labs CBC & Chem 7: 01/28/17 04:40 01/28/17 10:25 Labs: Short CBC 01/28/17 Range/Units 04:40 WBC 18.4 H (4.3-11.1) K/mcL Hgb 7.5 L (11.5-15.4) g/dL Hct 24.7 L (35.3-44.9) % Plt Count 288 (140-400) K/mcL Neutrophils # 17.1 H (1.6-8.9) K/mcL BMP 01/27/17 01/28/17 18:00 04:40 Sodium 130 L D Potassium 4.2 5.6 H D Chloride 102 Carbon Dioxide 23 BUN 23 H Creatinine 0.67 Glucose 355 H Calcium 7.5 L - ABG Interpretation ABG results: ABG ABG pH 7.48 pH Units (7.32-7.45) H 01/20/17 09:08 ABG pCO2 44 mmHg (35-45) 01/20/17 09:08 ABG pO2 78 mmHg (85-104) L 01/20/17 09:08 ABG O2 Saturation 96 % (95-98) 01/20/17 09:08 PT/INR, D-dimer PT 17.7 Seconds (9.4-12.1) H 01/17/17 01:29 - Impressions Impressions Abdomen/Pelvis CT 01/27/17 08:30 IMPRESSION: 1. Status post distal colectomy. There is a collection of gas, fluid, and oral contrast along the left aspect of the left lower quadrant colostomy concerning for developing abscess. This appears to extend to the superficial lateral aspect of the colostomy. 2. Small free fluid, but no organized collection within the peritoneal cavity. 3. New perihilar ground-glass opacities could represent pulmonary edema. 4. Cholelithiasis. D/ / Harrison Jones MD / Harrison Jones MD Interpreting Provider: Harrison Jones MD - VTE Documentation of Mechanical Device: Intermittent pneumatic compression device Consult Discharge Plan - Plan Referrals: Afshin Salazar MD [Primary Care Provider] - Aashish Salazar MD [Partnered Physician] - 02/04/17 11:30 am ()
[2017-01-28 10:51] LABS: BUN/Creatinine Ratio 37 (6-26); Blood Urea Nitrogen 23 mg/dL (7-20); Calcium 7.5 mg/dL (8.6-10.8); Carbon Dioxide 23 mEq/L (19-29); Chloride 103 mEq/L (98-109); Glucose 312 mg/dL (70-99); Osmolality,Calculated 290 (280-300); Potassium 4.8 mEq/L (3.5-4.5); Sodium 132 mEq/L (136-145); eGFR For African Americans > 60 (> 60); eGFR For Non-African Americans > 60 (> 60)
[2017-01-28] MEDS ORDERED: Sodium Phosphate 30 MMOL in D5% in Water 100 ML IVPB ONE (11:14)
[2017-01-28 11:30] LABS: Magnesium 2.1 mg/dL (1.6-2.6)
[2017-01-28] MEDS: Fluconazole 100 MG/50 ML 100 MG/50 ML BAG IVPB SCH (13:43)
[2017-01-28] MEDS: *HR* HYDROmorphone (PF) 1 MG/ML SYRINGE IVP PRN ×2 (15:55→20:52)
--- NOTE | 2017-01-28 16:18 | General Surgery Progress Note ---
Date of Encounter: 01/28/17 Time of Encounter: 16:00 - Assessment and Plan (1) Diverticulitis of colon with perforation Current Visit: Yes Status: Acute POD #11 Exploratory celiotomy, Sigmoid resection, sigmoid colostomy, Abdominal wash out. Advance to clear liquids Supportive care/pain control- dilaudid and percocet prn Continue TPN IV antibiotics- Zosyn WBC 24.1>18.4 Out of bed to chair today Continue elise catheter to SD for strict I&Os Incentive Spirometer every 1 hour while awake Wound vac change every MWF PT/OT Repeat am labs (2) Abdominal wall abscess at site of surgical wound Current Visit: Yes Status: Acute POD #1 Incision and drainage midline abdominal wound, incision and drainage parastomal abscess, wound vac placement, colostomy revision, rigid sigmoidoscope of colostomy (rigid stomoscopy) Daily dressing changes per surgery team ONLY IV antibiotics- Zosyn Supportive care/pain control (3) Ileus, postoperative Current Visit: Yes Status: Resolved Clear liquid diet today Continue TPN (4) Acute respiratory failure Current Visit: Yes Status: Acute Improving Continue IS every 1 hour while awake Qualifiers: Respiratory failure complication: hypoxia and hypercapnia Qualified Code(s) : J96.01 - Acute respiratory failure with hypoxia; J96.02 - Acute respiratory failure with hypercapnia (5) DM (diabetes mellitus), type 2 Current Visit: Yes Status: Chronic Hyperglycemia noted Continue sliding scale insulin coverage to every 4 hours and levemir BID Will continue to monitor and adjust as necessary Qualifiers: Diabetes mellitus complication status: with hyperglycemia Diabetes mellitus longterm insulin use: without longterm use Qualified Code(s): E11.65 - Type 2 diabetes mellitus with hyperglycemia (6) Sepsis Current Visit: Yes Status: Acute secondary to perforated diverticulitis and fecal contamination Continue IV antibiotics- Zosyn Qualifiers: Sepsis type: sepsis due to unspecified organism Qualified Code(s): A41.9 - Sepsis, unspecified organism (7) Severe protein-calorie malnutrition Current Visit: Yes Status: Acute Continue TPN Advance to clear liquids today (8) DVT prophylaxis Current Visit: Yes Status: Acute Continue heparin 5,000 units SQ twice daily for DVT prophylaxis Subjective Patient reports: feels better, still having pain, pain is less, flatus, bowel movement (via colostomy), afebrile, other (Patient out of bed to chair this morning) Objective Vital Signs - Last 8 Hours Temp Pulse Resp BP Pulse Ox 01/28/17 15:53 97.6 F 82 18 103/62 99 01/28/17 11:31 18 98 01/28/17 11:25 86 Intake and Output 01/28/17 01/28/17 01/28/17 07:59 15:59 23:59 Intake Total 40 / 40 100 / 100 Output Total 530 / 530 460 / 460 Balance -490 / -490 -360 / -360 Intake: IV Fluids 40 / 40 100 / 100 Zosyn 3.375 GM In 100 / 100 Dextrose 5% (Minibag+) 100 ML 100 ML @ 25 mls/hr IVPB Q8H JACE Rx#: [id number] Potassium Phosphate 44 40 / 40 MEQ In 0.9 % Sodium Chloride 250 ML @ 40 mls/ hr IVPB Q10H PRN Rx#: [id number] Output: Stool 20 / 20 Catheter 475 / 475 450 / 450 Wound Drainage 35 / 35 10 / 10 Abdomen 25 / 25 Right Lower Abdomen Other: Stool Size Moderate Stool Consistency formed Stool Color Brown Brown # Bowel Movements 1 Weight 90.7 kg Blood Glucose* 321 178 Patient Weight 01/28/17 23:59 Weight 90.7 kg - General physical appearance well developed, no distress, moderate pain - Eyes normal ocular movement - ENT dry mucosa, atraumatic, normocephalic - Neck Neck exam: trachea midline - Respiratory normal respiratory effort, clear to auscultation, other (diminished bibasilar bases) absent breath sounds: left - Cardiovascular Cardiovascular exam: Present: RRR - Abdomen Abdomen: Present: bowel sounds present, soft, tender (expected post-operative tenderness), wound (Midline with wound vac in place with 75ml of serous drainage noted; AURELIO drain to bulb suction with serousang. drainage noted (20ml noted since midnight); Colostomy with flatus and liquid stool noted.) - Incision Incision: Present: open (Midline with wound vac intact (75ml of serous drainage noted); LLQ wound with packing with moderate amount of serous drainage noted without odor.) - Genitourinary other (elise catheter to SD with clear, yellow urine noted) - Neurologic CN 2-12 grossly intact - Psychiatric oriented to time, oriented to person, oriented to place, speech is normal, memory intact - Labs 01/28/17 04:40 01/28/17 10:25 Diabetes panel 01/27/17 01/28/17 01/28/17 Range/Units 18:00 04:40 10:25 Sodium 130 L D 132 L (136-145) mEq/L Potassium 4.2 5.6 H D 4.8 H (3.5-4.5) mEq/L Chloride 102 103 (98-109) mEq/L Carbon Dioxide 23 23 (19-29) mEq/L BUN 23 H 23 H (7-20) mg/dL Creatinine 0.67 0.62 (0.57-1.11) mg/dL Glucose 355 H 312 H (70-99) mg/dL Calcium 7.5 L 7.5 L (8.6-10.8) mg/dL Calcium panel 01/27/17 01/28/17 01/28/17 Range/Units 18:00 04:40 10:25 Calcium 7.5 L 7.5 L (8.6-10.8) mg/dL Phosphorus 2.7 2.8 (2.3-4.7) mg/dL Pituitary panel 01/27/17 01/28/17 01/28/17 Range/Units 18:00 04:40 10:25 Sodium 130 L D 132 L (136-145) mEq/L Potassium 4.2 5.6 H D 4.8 H (3.5-4.5) mEq/L Chloride 102 103 (98-109) mEq/L Carbon Dioxide 23 23 (19-29) mEq/L BUN 23 H 23 H (7-20) mg/dL Creatinine 0.67 0.62 (0.57-1.11) mg/dL Glucose 355 H 312 H (70-99) mg/dL Calcium 7.5 L 7.5 L (8.6-10.8) mg/dL Adrenal panel 01/27/17 01/28/17 01/28/17 Range/Units 18:00 04:40 10:25 Sodium 130 L D 132 L (136-145) mEq/L Potassium 4.2 5.6 H D 4.8 H (3.5-4.5) mEq/L Chloride 102 103 (98-109) mEq/L Carbon Dioxide 23 23 (19-29) mEq/L BUN 23 H 23 H (7-20) mg/dL Creatinine 0.67 0.62 (0.57-1.11) mg/dL Glucose 355 H 312 H (70-99) mg/dL Calcium 7.5 L 7.5 L (8.6-10.8) mg/dL - VTE Documentation of Mechanical Device: Intermittent pneumatic compression device Consult Discharge Plan - Plan Referrals: Afshin Salazar MD [Primary Care Provider] - Aashish Salazar MD [Partnered Physician] - 02/04/17 11:30 am () - Attending Attestation I examined this patient and my medical decision-making was reviewed with the NUT CULLER/PA/Advanced Practice Nurse/Resident Physician. I agree with the documented findings, disposition and treatment plan as described except to the extent set forth below.
[2017-01-28] MEDS ORDERED: Clinimix E 5%-15% SOLUTION 2,000 ML with MVI, adult with vitamin K 10 ML IVC SCH (17:00)
[2017-01-28] MEDS: Insulin DETEMIR 100 UNIT/ML X5UNITS SQ SCH (20:40)
[2017-01-29] MEDS: *HR* Metoprolol 5 MG/5 ML VIAL IVP SCH ×4 (00:30→16:26)
[2017-01-29] MEDS: *HR* HYDROmorphone (PF) 1 MG/ML SYRINGE IVP PRN ×4 (00:30→15:18)
[2017-01-29] MEDS: Insulin LISPRO 300 UNITS/3 ML VIAL SQ SCH ×7 (00:31→20:38)
[2017-01-29] MEDS: Ipratropium/Albuterol Neb 3 ML IH SCH ×6 (04:00→23:39)
[2017-01-29] MEDS: *HR* Heparin 5,000 UNIT/ML VIAL SQ SCH ×2 (04:59→16:26)
[2017-01-29] MEDS: Piperacillin/Tazobactam 3.375 GM in D5% in Water (Mini-Bag+) 100 ML IVPB SCH ×3 (05:00→21:14)
[2017-01-29] MEDS: *HR* OxyCODONE/APAP 5/325 TABLET PO PRN (05:00)
[2017-01-29 05:21] LABS: Basophils % 0.2 %; Eosinophils # 0.1 K/mcL (0.0-0.6); Eosinophils % 0.6 %; Hematocrit 22.8 % (35.3-44.9); Immature Granulocytes % 0.6 % (0-4); Lymphocytes # 1.3 K/mcL (0.6-4.6); Lymphocytes % 13.5 %; Mean Corpuscular HGB Conc 30.7 g/dL (31.6-35.5); Mean Corpuscular Hemoglobin 29.4 pg (28.0-33.3); Mean Corpuscular Volume 95.8 fL (83.0-100.0); Mean Platelet Volume 10.8 fL (9.4-12.4); Monocytes # 0.9 K/mcL (0.0-1.3); Monocytes % 9.3 %; Neutrophils # 7.1 K/mcL (1.6-8.9); Platelet Count 309 K/mcL (140-400); Red Blood Count 2.38 M/mcL (3.82-4.97); Red Cell Distribution Width 16.7 % (11.5-14.5); Segmented Neutrophils % 75.8 %
[2017-01-29 05:40] LABS: BUN/Creatinine Ratio 34 (6-26); Blood Urea Nitrogen 19 mg/dL (7-20); Carbon Dioxide 28 mEq/L (19-29); Chloride 104 mEq/L (98-109); Glucose 126 mg/dL (70-99); Osmolality,Calculated 286 (280-300); Potassium 4.4 mEq/L (3.5-4.5); Sodium 136 mEq/L (136-145); eGFR For African Americans > 60 (> 60); eGFR For Non-African Americans > 60 (> 60)
[2017-01-29] MEDS: FLUoxetine 20 MG CAPSULE PO SCH ×2 (08:06→21:13)
[2017-01-29] MEDS: Pantoprazole 40 MG VIAL IVP SCH (08:06)
[2017-01-29] MEDS: Furosemide 20 MG TABLET PO SCH (08:06)
[2017-01-29] MEDS: Insulin DETEMIR 100 UNIT/ML X5UNITS SQ SCH ×2 (08:06→21:14)
--- NOTE | 2017-01-29 10:00 | Internal Med Progress Note ---
Date of Encounter: 01/29/17 Time of Encounter: 09:57 - Assessment and plan (1) Diverticulitis of colon with perforation Current Visit: Yes Status: Acute (2) Sepsis associated hypotension Current Visit: Yes Status: Acute (3) Hypomagnesemia Current Visit: Yes Status: Acute (4) Acute respiratory failure Current Visit: Yes Status: Acute Qualifiers: Respiratory failure complication: hypoxia and hypercapnia Qualified Code(s) : J96.01 - Acute respiratory failure with hypoxia; J96.02 - Acute respiratory failure with hypercapnia (5) DM (diabetes mellitus), type 2 Current Visit: Yes Status: Chronic Qualifiers: Diabetes mellitus complication status: with hyperglycemia Diabetes mellitus terminologist insulin use: without terminologist use Qualified Code(s): E11.65 - Type 2 diabetes mellitus with hyperglycemia (6) COPD (chronic obstructive pulmonary disease) Current Visit: Yes Status: Chronic Qualifiers: COPD type: unspecified COPD Qualified Code(s): J44.9 - Chronic obstructive pulmonary disease, unspecified (7) DVT prophylaxis Current Visit: Yes Status: Acute (8) Ileus, postoperative Current Visit: Yes Status: Resolved (9) Abdominal wall abscess at site of surgical wound Current Visit: Yes Status: Acute Assessment and plan: 56-year-old female with past medical history of hypertension, diabetes, COPD, admitted to the hospital of diverticulitis with perforation, compensated by septic shock and acute respiratory failure in setting of sepsis. Patient underwent exploratory celiotomy, sigmoid resection and sigmoid colostomy on 08/2017. She was noticed to have severe abdominal pain with continued abdominal distention, worsening leukocytosis. Patient was diagnosed to have peristomal abscess, for which she underwent incision and drainage of the midline abdominal wound, I&D of parastomal abscess, wound vac placement, colostomy revision and rigid stomoscopy on 01/27/2017. # Diverticulitis of Colon with perforation: status post exploratory surgery on with revision on 01/27/2017. Started on clear liquids per surgery team. WBC trending down On antibiotic coverage with Zosyn and fluconazole( pt on TPN) . If remains afebrile and clinically better, will deescalate abx tomorrow. Pain control with IV Dilaudid and Percocet with high risk of complications including requiring lose monitoring. # Abdominal wall abscess surgical site: I&D of parastomal abscess, wound vac placement, colostomy revision and rigid stomoscopy on 01/27/2017. Improving clinically, WBC trending down, continuing antibiotics. # Postoperative ileus: improving, started on clear liquid diet 01/28, tolerating well. Patient remains on TPN. # Hyperkalemia: Better. Discussed with nutrition to just with TPN. Change potassium to sodium phosphate. # Diabetes mellitus type II with complications: blood glucose remains elevated. Increase the dose of Levemir to 30 units BID, continue high-dose sliding scale insulin. # Acute respiratory failure: in setting of sepsis, which is currently improved, imaging negative for any evidence of pneumonia. Continued incentive spirometry. Out of bed to chair as tolerated. On Lasix 20 mg PO daily # Depression: continue Prozac # DVT prophylaxis: On Sub Q heparin - Time Spent With Patient 25 - 35 minutes - Subjective Interval history: Pt seen and examined at bedside. She sitting up in share this morning, reports that abdominal pain is better. No abdominal distention. Labs review, WBC trending down its 14.1 today, platelet count of 464, Naof 136, potassium of 4.4 , Cr of 0.56. Vitals review that should fairly controlled, saturating well on room air. - Constitutional Vitals: Temp Pulse Resp BP Pulse Ox 98.1 F 78 12 107/71 96 01/29/17 08:36 01/29/17 08:42 01/29/17 08:36 01/29/17 08:36 01/29/17 08:36 General appearance: Present: A&O X 3, answers questions appropriately - Head Head exam: Present: atraumatic, normocephalic - Eye Eye exam: Present: PERRL, conjuntiva pink, sclera anicteric Pupils: Present: PERRL - Neck Neck exam general surgery: Present: supple, trachea midline. Absent: lymphadenopathy - Respiratory Respiratory exam: Present: CTAB. Absent: accessory muscle use, rales, rhonchi, wheezes - Cardiovascular Cardiovascular exam: Present: RRR, +S1, +S2. Absent: diastolic murmur, gallop, rubs, systolic murmur - GI/Abdominal GI/Abdominal exam: Present: normal bowel sounds, soft (surgical site clean), no peritoneal signs. Absent: distended, tenderness - Extremities Exam Extremities exam: Present: warm, radial pulses palpable and symetrical. Absent : calf tenderness, cyanotic, pedal edema - Neurological Exam Neurological exam: Present: CN II-XII intact, oriented X3, no focal deficits. Absent: pronater drift, facial droop, speech deficit - Skin Skin exam: Present: dry, intact Internal Medicine: Result - Labs CBC & Chem 7: 01/29/17 15:29 01/29/17 04:55 Labs: Short CBC 01/29/17 Range/Units 04:55 WBC 9.3 (4.3-11.1) K/mcL Hgb 7.0 L (11.5-15.4) g/dL Hct 22.8 L (35.3-44.9) % Plt Count 309 (140-400) K/mcL Neutrophils # 7.1 (1.6-8.9) K/mcL BMP 01/28/17 01/29/17 10:25 04:55 Sodium 132 L 136 Potassium 4.8 H 4.4 Chloride 103 104 Carbon Dioxide 23 28 BUN 23 H 19 Creatinine 0.62 0.56 L Glucose 312 H 126 H Calcium 7.5 L 8.0 L - ABG Interpretation ABG results: ABG ABG pH 7.48 pH Units (7.32-7.45) H 01/20/17 09:08 ABG pCO2 44 mmHg (35-45) 01/20/17 09:08 ABG pO2 78 mmHg (85-104) L 01/20/17 09:08 ABG O2 Saturation 96 % (95-98) 01/20/17 09:08 PT/INR, D-dimer PT 17.7 Seconds (9.4-12.1) H 01/17/17 01:29 - VTE Documentation of Mechanical Device: Intermittent pneumatic compression device Consult Discharge Plan - Plan Referrals: Afshin Salazar MD [Primary Care Provider] - Aashish Salazar MD [Partnered Physician] - 02/04/17 11:30 am ()
--- NOTE | 2017-01-29 11:05 | General Surgery Progress Note ---
Date of Encounter: 01/29/17 Time of Encounter: 10:35 - Assessment and Plan (1) Diverticulitis of colon with perforation Current Visit: Yes Status: Acute POD #12 Exploratory celiotomy, Sigmoid resection, sigmoid colostomy, Abdominal wash out. Advance to full liquids with protein supplements Supportive care/pain control- dilaudid and percocet prn Continue TPN- decrease to 50ml/hour IV antibiotics- Zosyn WBC 24.1>18.4>9.3 Out of bed to chair today Discontinue elise catheter Incentive Spirometer every 1 hour while awake Wound vac change every MWF PT/OT Repeat am labs May transfer to telemetry (2) Abdominal wall abscess at site of surgical wound Current Visit: Yes Status: Acute POD #2 Incision and drainage midline abdominal wound, incision and drainage parastomal abscess, wound vac placement, colostomy revision, rigid sigmoidoscope of colostomy (rigid stomoscopy) Daily dressing changes per surgery team ONLY IV antibiotics- Zosyn Supportive care/pain control (3) Ileus, postoperative Current Visit: Yes Status: Resolved Advance to full liquids today Continue TPN- decrease to 50ml/hour (4) Acute respiratory failure Current Visit: Yes Status: Acute Improving Continue IS every 1 hour while awake Qualifiers: Respiratory failure complication: hypoxia and hypercapnia Qualified Code(s) : J96.01 - Acute respiratory failure with hypoxia; J96.02 - Acute respiratory failure with hypercapnia (5) DM (diabetes mellitus), type 2 Current Visit: Yes Status: Chronic Hyperglycemia noted- improving Continue sliding scale insulin coverage to every 4 hours and levemir BID Will continue to monitor and adjust as necessary per medicine team Qualifiers: Diabetes mellitus complication status: with hyperglycemia Diabetes mellitus intermediate insulin use: without lobsterman use Qualified Code(s): E11.65 - Type 2 diabetes mellitus with hyperglycemia (6) Sepsis Current Visit: Yes Status: Acute secondary to perforated diverticulitis and fecal contamination Continue IV antibiotics- Zosyn Qualifiers: Sepsis type: sepsis due to unspecified organism Qualified Code(s): A41.9 - Sepsis, unspecified organism (7) Severe protein-calorie malnutrition Current Visit: Yes Status: Acute Continue TPN- decrease to 50ml/hour today Advance to full liquids with protein supplements today (8) DVT prophylaxis Current Visit: Yes Status: Acute Continue heparin 5,000 units SQ twice daily for DVT prophylaxis Subjective Patient reports: no new complaints, feels better, still having pain, pain is less, tolerating liquids well, flatus, bowel movement (via colostomy), afebrile Objective Vital Signs - Last 8 Hours Temp Pulse Resp BP Pulse Ox 01/29/17 08:42 78 01/29/17 08:36 98.1 F 84 12 107/71 96 01/29/17 08:25 14 94 L 01/29/17 08:21 97.8 F 80 12 109/60 92 L 01/29/17 07:55 98.0 F 84 17 110/69 95 01/29/17 04:58 97.8 F 94 16 103/62 94 L 01/29/17 04:02 16 97 Intake and Output 01/28/17 01/29/17 01/29/17 23:59 07:59 15:59 Intake Total 940 / 940 100 / 100 0 / 0 Output Total 900 / 900 1330 / 1330 850 / 850 Balance 40 / 40 -1230 / -1230 -850 / -850 Intake: IV Fluids 100 / 100 100 / 100 Zosyn 3.375 GM In 100 / 100 100 / 100 Dextrose 5% (Minibag+) 100 ML 100 ML @ 25 mls/hr IVPB Q8H [facility] Rx#: [id number] Oral 840 / 840 Blood Product 0 / 0 Rbcs Leuko Poor As-1 0 / 0 Unit [id number] Output: Urine 900 / 900 425 / 425 Urethral (Elise) 425 / 425 Stool 10 / 10 Catheter 1300 / 1300 425 / 425 Wound Drainage 0 / 0 20 / 20 Abdomen 0 / 0 0 / 0 Right Lower Abdomen 0 / 0 20 / 20 Other: Meal Dinner Percent of Meal Consumed 45% Stool Color Brown Blood Glucose* 235 179 - General physical appearance well developed, no distress - Eyes normal ocular movement - ENT normal mucosa, atraumatic, normocephalic - Neck Neck exam: trachea midline - Respiratory normal respiratory effort, clear to auscultation - Cardiovascular Cardiovascular exam: Present: RRR - Abdomen Abdomen: Present: bowel sounds present, soft, tender (expected post-operative tenderness), wound (Wound vac to midline with serous drainage noted; colostomy pink and moist with flatus and liquid stool) - Incision Incision: Present: open (Midline with wound vac intact with serous drainage noted; LLQ with packing with moderate amount of serous drainage noted.) - Genitourinary other (elise catheter to SD with clear, yellow urine noted) - Integumentary no rash - Neurologic CN 2-12 grossly intact - Musculoskeletal other (moderate deconditioning) - Psychiatric oriented to time, oriented to person, oriented to place, speech is normal, memory intact - Labs 01/30/17 04:00 01/30/17 04:00 Diabetes panel 01/29/17 Range/Units 04:55 Sodium 136 (136-145) mEq/L Potassium 4.4 (3.5-4.5) mEq/L Chloride 104 (98-109) mEq/L Carbon Dioxide 28 (19-29) mEq/L BUN 19 (7-20) mg/dL Creatinine 0.56 L (0.57-1.11) mg/dL Glucose 126 H (70-99) mg/dL Calcium 8.0 L (8.6-10.8) mg/dL Calcium panel 01/29/17 Range/Units 04:55 Calcium 8.0 L (8.6-10.8) mg/dL Pituitary panel 01/29/17 Range/Units 04:55 Sodium 136 (136-145) mEq/L Potassium 4.4 (3.5-4.5) mEq/L Chloride 104 (98-109) mEq/L Carbon Dioxide 28 (19-29) mEq/L BUN 19 (7-20) mg/dL Creatinine 0.56 L (0.57-1.11) mg/dL Glucose 126 H (70-99) mg/dL Calcium 8.0 L (8.6-10.8) mg/dL Adrenal panel 01/29/17 Range/Units 04:55 Sodium 136 (136-145) mEq/L Potassium 4.4 (3.5-4.5) mEq/L Chloride 104 (98-109) mEq/L Carbon Dioxide 28 (19-29) mEq/L BUN 19 (7-20) mg/dL Creatinine 0.56 L (0.57-1.11) mg/dL Glucose 126 H (70-99) mg/dL Calcium 8.0 L (8.6-10.8) mg/dL - VTE Documentation of Mechanical Device: Intermittent pneumatic compression device Consult Discharge Plan - Plan Referrals: Afshin Salazar MD [Primary Care Provider] - Aashihs Salazar MD [Partnered Physician] - 02/04/17 11:30 am () - Attending Attestation I examined this patient and my medical decision-making was reviewed with the CONTENT PUBLISHER/PA/Advanced Practice Nurse/Resident Physician. I agree with the documented findings, disposition and treatment plan as described except to the extent set forth below. I reviewed the assessment and physical examination as mentioned above. Wound VAC changed at the bedside with granulation tissue noted throughout the midline incision. The packing for the colostomy was changed as well with some mild green staining noted. Both wounds were repacked with the appropriate dressing. Ostomy output started to increase. Continue to follow and continue to encourage up and out of bed and increased activity.
[2017-01-29] MEDS: Fluconazole 100 MG/50 ML 100 MG/50 ML BAG IVPB SCH (15:21)
[2017-01-29 15:37] LABS: Basophils # 0.1 K/mcL (0.0-0.2); Basophils % 0.4 %; Eosinophils # 0.2 K/mcL (0.0-0.6); Eosinophils % 1.1 %; Hematocrit 28.8 % (35.3-44.9); Immature Granulocytes % 0.6 % (0-4); Lymphocytes # 1.8 K/mcL (0.6-4.6); Lymphocytes % 12.8 %; Mean Corpuscular HGB Conc 31.6 g/dL (31.6-35.5); Mean Corpuscular Hemoglobin 29.8 pg (28.0-33.3); Mean Corpuscular Volume 94.4 fL (83.0-100.0); Mean Platelet Volume 10.5 fL (9.4-12.4); Monocytes # 1.5 K/mcL (0.0-1.3); Monocytes % 10.6 %; Neutrophils # 10.5 K/mcL (1.6-8.9); Platelet Count 464 K/mcL (140-400); Red Blood Count 3.05 M/mcL (3.82-4.97); Red Cell Distribution Width 16.8 % (11.5-14.5); Segmented Neutrophils % 74.5 %
[2017-01-29 15:39] LABS: Hemoglobin 9.1 g/dL (11.5-15.4)
[2017-01-29] MEDS ORDERED: Clinimix E 5%-15% SOLUTION 2,000 ML with MVI, adult with vitamin K 10 ML IVC SCH (17:00)
[2017-01-29 17:13] LABS: Polychromasia 1+ (Not Present)
[2017-01-30] MEDS: *HR* Metoprolol 5 MG/5 ML VIAL IVP SCH (00:08)
[2017-01-30] MEDS: Insulin LISPRO 300 UNITS/3 ML VIAL SQ SCH ×6 (00:24→20:50)
[2017-01-30] MEDS: Piperacillin/Tazobactam 3.375 GM in D5% in Water (Mini-Bag+) 100 ML IVPB SCH (04:08)
[2017-01-30] MEDS: Ipratropium/Albuterol Neb 3 ML IH SCH ×6 (04:22→23:10)
[2017-01-30 04:50] LABS: Basophils % 0.4 %; Eosinophils # 0.1 K/mcL (0.0-0.6); Eosinophils % 1.2 %; Hemoglobin 8.7 g/dL (11.5-15.4); Immature Granulocytes % 0.4 % (0-4); Lymphocytes # 1.1 K/mcL (0.6-4.6); Lymphocytes % 11.6 %; Mean Corpuscular HGB Conc 31.1 g/dL (31.6-35.5); Mean Corpuscular Hemoglobin 29.1 pg (28.0-33.3); Mean Corpuscular Volume 93.6 fL (83.0-100.0); Mean Platelet Volume 10.9 fL (9.4-12.4); Monocytes % 10.4 %; Neutrophils # 7.2 K/mcL (1.6-8.9); Platelet Count 343 K/mcL (140-400); Red Blood Count 2.99 M/mcL (3.82-4.97); Red Cell Distribution Width 16.7 % (11.5-14.5)
[2017-01-30 05:01] LABS: BUN/Creatinine Ratio 26 (6-26); Blood Urea Nitrogen 15 mg/dL (7-20); Carbon Dioxide 26 mEq/L (19-29); Chloride 100 mEq/L (98-109); Glucose 110 mg/dL (70-99); Osmolality,Calculated 279 (280-300); Potassium 4.1 mEq/L (3.5-4.5); Sodium 134 mEq/L (136-145); eGFR For African Americans > 60 (> 60); eGFR For Non-African Americans > 60 (> 60)
[2017-01-30] MEDS: *HR* Heparin 5,000 UNIT/ML VIAL SQ SCH ×2 (06:01→17:13)
[2017-01-30] MEDS: Metoprolol XL (24 HR) Succ 50 MG TAB.ER.24H PO SCH (08:53)
[2017-01-30] MEDS: FLUoxetine 20 MG CAPSULE PO SCH ×2 (08:53→20:41)
[2017-01-30] MEDS: *HR* OxyCODONE/APAP 5/325 TABLET PO PRN ×3 (08:54→18:50)
[2017-01-30] MEDS: Furosemide 20 MG TABLET PO SCH (08:54)
[2017-01-30] MEDS: Insulin DETEMIR 100 UNIT/ML X5UNITS SQ SCH ×2 (08:54→20:41)
[2017-01-30] MEDS: Ampicillin/Sulbactam 3,000 MG in 0.9 % Sodium Chloride Mini Bag 100 ML IVPB SCH ×2 (12:00→17:13)
[2017-01-30] MEDS: Fluconazole 100 MG/50 ML 100 MG/50 ML BAG IVPB SCH (13:22)
[2017-01-30] MEDS: *HR* HYDROmorphone (PF) 1 MG/ML SYRINGE IVP PRN (14:25)
--- NOTE | 2017-01-30 14:45 | General Surgery Progress Note ---
Date of Encounter: 01/30/17 Time of Encounter: 14:30 - Assessment and Plan (1) Diverticulitis of colon with perforation Current Visit: Yes Status: Acute POD #13 Exploratory celiotomy, Sigmoid resection, sigmoid colostomy, Abdominal wash out. Advance to full liquids with protein supplements Supportive care/pain control- dilaudid and percocet prn Continue TPN- decrease to 50ml/hour IV antibiotics- Zosyn WBC 24.1>18.4>9.3>9.5 Out of bed to chair today Incentive Spirometer every 1 hour while awake Wound vac change every MWF PT/OT Repeat am labs May transfer to telemetry (2) Abdominal wall abscess at site of surgical wound Current Visit: Yes Status: Acute POD #3 Incision and drainage midline abdominal wound, incision and drainage parastomal abscess, wound vac placement, colostomy revision, rigid sigmoidoscope of colostomy (rigid stomoscopy) Daily dressing changes per surgery team ONLY IV antibiotics- Zosyn Supportive care/pain control (3) Ileus, postoperative Current Visit: Yes Status: Resolved Continue Continue TPN- 50ml/hour (4) Acute respiratory failure Current Visit: Yes Status: Resolved Improving Continue IS every 1 hour while awake Qualifiers: Respiratory failure complication: hypoxia and hypercapnia Qualified Code(s) : J96.01 - Acute respiratory failure with hypoxia; J96.02 - Acute respiratory failure with hypercapnia (5) DM (diabetes mellitus), type 2 Current Visit: Yes Status: Chronic Hyperglycemia noted- improving Continue sliding scale insulin coverage to every 4 hours and levemir BID Will continue to monitor and adjust as necessary per medicine team Qualifiers: Diabetes mellitus complication status: with hyperglycemia Diabetes mellitus nursing home insulin use: without nursing home use Qualified Code(s): E11.65 - Type 2 diabetes mellitus with hyperglycemia (6) Sepsis Current Visit: Yes Status: Resolved secondary to perforated diverticulitis and fecal contamination Continue IV antibiotics- Zosyn Qualifiers: Sepsis type: sepsis due to unspecified organism Qualified Code(s): A41.9 - Sepsis, unspecified organism (7) Severe protein-calorie malnutrition Current Visit: Yes Status: Acute Continue TPN- 50ml/hour today Advance to full liquids with protein supplements today (8) DVT prophylaxis Current Visit: Yes Status: Acute Continue heparin 5,000 units SQ twice daily for DVT prophylaxis Subjective Patient reports: no new complaints, feels better, still having pain, tolerating liquids well (full liquids), voiding w/o difficulty, flatus, bowel movement ( via colostomy), afebrile Objective Vital Signs - Last 8 Hours Temp Pulse Resp BP Pulse Ox 01/30/17 11:55 83 01/30/17 11:44 18 99 01/30/17 10:55 97.4 F L 84 18 106/65 99 01/30/17 09:00 88 01/30/17 07:51 20 94 L 01/30/17 07:01 98.3 F 89 20 115/64 94 L Intake and Output 01/29/17 01/30/17 01/30/17 23:59 07:59 15:59 Intake Total 2109 400 / 400 300 / 300 Output Total 1015 / 1015 1575 / 1575 Balance 2109 -615 / -615 -1275 / -1275 Intake: IV Fluids 2109 400 / 400 200 / 200 Clinimix E 5%-15% 2009 SOLUTION 2,000 ML @ 83.3 mls/hr IVC .Q24H J[facility] with M.v.i. Adult 10 ml Rx#: [id number] Unasyn 3,000 MG In 0.9 % 100 / 100 Sodium Chloride (Mini-Bag +) 100 ML @ 200 mls/hr IVPB Q6HR [facility] Rx#: [id number] Intralipid 20% 250 ML @ 250 / 250 21 mls/hr IVPB MoWeFr@ 1700 [facility] Rx#:[id number] Diflucan 100 MG/50 ML 100 50 / 50 mg In 50 ml @ 50 mls/hr IVPB DAILY@1400 [facility] Rx#: [id number] Zosyn 3.375 GM In 100 / 100 100 / 100 100 / 100 Dextrose 5% (Minibag+) 100 ML 100 ML @ 25 mls/hr IVPB Q8H [facility] Rx#: [id number] Oral 0 / 0 100 / 100 Output: Urine 900 / 900 1550 / 1550 Wound Drainage 115 / 115 25 / 25 Abdomen 100 / 100 25 / 25 Right Lower Abdomen 15 / 15 0 / 0 Other: Meal Dinner Lunch Percent of Meal Consumed 0% 10% Weight 87.5 kg Blood Glucose* 137 171 168 Patient Weight 01/30/17 23:59 Weight 87.5 kg - General physical appearance well developed, no distress, moderate pain - Eyes normal ocular movement - ENT normal mucosa, atraumatic, normocephalic - Neck Neck exam: trachea midline - Respiratory normal respiratory effort, clear to auscultation - Cardiovascular Cardiovascular exam: Present: RRR - Abdomen Abdomen: Present: bowel sounds present, soft, tender, wound (Midline with wound vac intact; AURELIO drain to bulb suction (serous); colostomy with flatus and stool noted) Abdominal Tenderness: LLQ - Incision Incision: Present: open (Midline with wound vac intact; LLQ with packing noted ( small amount of stool staining noted on packing), Left flank erythema noted) - Neurologic CN 2-12 grossly intact - Psychiatric oriented to time, oriented to person, oriented to place, speech is normal, memory intact - Labs 01/31/17 04:38 01/31/17 04:38 Diabetes panel 01/30/17 Range/Units 04:00 Sodium 134 L (136-145) mEq/L Potassium 4.1 (3.5-4.5) mEq/L Chloride 100 (98-109) mEq/L Carbon Dioxide 26 (19-29) mEq/L BUN 15 (7-20) mg/dL Creatinine 0.58 (0.57-1.11) mg/dL Glucose 110 H (70-99) mg/dL Calcium 8.0 L (8.6-10.8) mg/dL Calcium panel 01/30/17 Range/Units 04:00 Calcium 8.0 L (8.6-10.8) mg/dL Pituitary panel 01/30/17 Range/Units 04:00 Sodium 134 L (136-145) mEq/L Potassium 4.1 (3.5-4.5) mEq/L Chloride 100 (98-109) mEq/L Carbon Dioxide 26 (19-29) mEq/L BUN 15 (7-20) mg/dL Creatinine 0.58 (0.57-1.11) mg/dL Glucose 110 H (70-99) mg/dL Calcium 8.0 L (8.6-10.8) mg/dL Adrenal panel 01/30/17 Range/Units 04:00 Sodium 134 L (136-145) mEq/L Potassium 4.1 (3.5-4.5) mEq/L Chloride 100 (98-109) mEq/L Carbon Dioxide 26 (19-29) mEq/L BUN 15 (7-20) mg/dL Creatinine 0.58 (0.57-1.11) mg/dL Glucose 110 H (70-99) mg/dL Calcium 8.0 L (8.6-10.8) mg/dL - VTE Documentation of Mechanical Device: Intermittent pneumatic compression device Consult Discharge Plan - Plan Referrals: Afshin Salazar MD [Primary Care Provider] - Aashish Salazar MD [Partnered Physician] - 02/04/17 11:30 am () - Attending Attestation I examined this patient and my medical decision-making was reviewed with the PIPED POCKET MACHINE OPERATOR/PA/Advanced Practice Nurse/Resident Physician. I agree with the documented findings, disposition and treatment plan as described except to the extent set forth below. I reviewed the physical exam and assessment. Noted redness on the left lateral flank. Tenderness to palpation. Ostomy functioning. CT scan ordered and performed which shows no extravasation of contrast in the subcutanous tissue surrounding the ostomy. The lateral portion of the abdomen was "cut off" on the image. Will continue to follow. Follow CBC. To consider ultrasound of the left flank area for additional information.
--- NOTE | 2017-01-30 18:22 | Internal Med Progress Note ---
Date of Encounter: 01/30/17 Time of Encounter: 08:42 - Assessment and plan (1) Diverticulitis of colon with perforation Current Visit: Yes Status: Acute (2) Sepsis associated hypotension Current Visit: Yes Status: Acute (3) Hypomagnesemia Current Visit: Yes Status: Acute (4) Acute respiratory failure Current Visit: Yes Status: Acute Qualifiers: Respiratory failure complication: hypoxia and hypercapnia Qualified Code(s) : J96.01 - Acute respiratory failure with hypoxia; J96.02 - Acute respiratory failure with hypercapnia (5) DM (diabetes mellitus), type 2 Current Visit: Yes Status: Chronic Qualifiers: Diabetes mellitus complication status: with hyperglycemia Diabetes mellitus terminal computer operator insulin use: without terminal computer operator use Qualified Code(s): E11.65 - Type 2 diabetes mellitus with hyperglycemia (6) COPD (chronic obstructive pulmonary disease) Current Visit: Yes Status: Chronic Qualifiers: COPD type: unspecified COPD Qualified Code(s): J44.9 - Chronic obstructive pulmonary disease, unspecified (7) DVT prophylaxis Current Visit: Yes Status: Acute (8) Ileus, postoperative Current Visit: Yes Status: Resolved (9) Abdominal wall abscess at site of surgical wound Current Visit: Yes Status: Acute Assessment and plan: 56-year-old female with past medical history of hypertension, diabetes, COPD, admitted to the hospital of diverticulitis with perforation, compensated by septic shock and acute respiratory failure in setting of sepsis. Patient underwent exploratory celiotomy, sigmoid resection and sigmoid colostomy on 08/2017. She was noticed to have severe abdominal pain with continued abdominal distention, worsening leukocytosis. Patient was diagnosed to have peristomal abscess, for which she underwent incision and drainage of the midline abdominal wound, I&D of parastomal abscess, wound vac placement, colostomy revision and rigid stomoscopy on 01/27/2017. # Diverticulitis of Colon with perforation: status post exploratory surgery on with revision on 01/27/2017. Started on clear liquids per surgery team. WBC trending down On antibiotic coverage with Zosyn and fluconazole( pt on TPN) . If remains afebrile and clinically better, will deescalate abx tomorrow. Pain control with IV Dilaudid and Percocet with high risk of complications including requiring lose monitoring. # Abdominal wall abscess surgical site: I&D of parastomal abscess, wound vac placement, colostomy revision and rigid stomoscopy on 01/27/2017. Improving clinically, WBC trending down, continuing antibiotics. # Postoperative ileus: improving, started on clear liquid diet 01/28, tolerating well. Patient remains on TPN. # Hyperkalemia: Better. Discussed with nutrition to just with TPN. Change potassium to sodium phosphate. # Diabetes mellitus type II with complications: blood glucose remains elevated. Increase the dose of Levemir to 30 units BID, continue high-dose sliding scale insulin. # Acute respiratory failure: in setting of sepsis, which is currently improved, imaging negative for any evidence of pneumonia. Continued incentive spirometry. Out of bed to chair as tolerated. On Lasix 20 mg PO daily # Depression: continue Prozac # DVT prophylaxis: On Sub Q heparin - Time Spent With Patient 25 - 35 minutes - Subjective Interval history: Pt seen and examined at bedside. She sitting up in share this morning, reports that abdominal pain is better. No abdominal distention. Labs review, WBC trending down its 14.1 today, platelet count of 464, Naof 136, potassium of 4.4 , Cr of 0.56. Vitals review that should fairly controlled, saturating well on room air. - Constitutional Vitals: Temp Pulse Resp BP Pulse Ox 98.0 F 80 16 93/58 94 L 01/30/17 16:16 01/30/17 16:20 01/30/17 16:16 01/30/17 16:16 01/30/17 16:16 General appearance: Present: A&O X 3, answers questions appropriately Internal Medicine: Result - Labs CBC & Chem 7: 01/31/17 04:38 01/31/17 04:38 Labs: Short CBC 01/30/17 Range/Units 04:00 WBC 9.5 (4.3-11.1) K/mcL Hgb 8.7 L (11.5-15.4) g/dL Hct 28.0 L (35.3-44.9) % Plt Count 343 (140-400) K/mcL Neutrophils # 7.2 (1.6-8.9) K/mcL BMP 01/30/17 04:00 Sodium 134 L Potassium 4.1 Chloride 100 Carbon Dioxide 26 BUN 15 Creatinine 0.58 Glucose 110 H Calcium 8.0 L - ABG Interpretation ABG results: ABG ABG pH 7.48 pH Units (7.32-7.45) H 01/20/17 09:08 ABG pCO2 44 mmHg (35-45) 01/20/17 09:08 ABG pO2 78 mmHg (85-104) L 01/20/17 09:08 ABG O2 Saturation 96 % (95-98) 01/20/17 09:08 PT/INR, D-dimer PT 17.7 Seconds (9.4-12.1) H 01/17/17 01:29 - VTE Documentation of Mechanical Device: Intermittent pneumatic compression device Consult Discharge Plan - Plan Referrals: Afshin Salazar MD [Primary Care Provider] - Aashish Salazar MD [Partnered Physician] - 02/04/17 11:30 am ()
[2017-01-30] MEDS: Chloraseptic Spray 177 ML BOTTLE MM PRN (20:48)
[2017-01-31] MEDS: Ampicillin/Sulbactam 3,000 MG in 0.9 % Sodium Chloride Mini Bag 100 ML IVPB SCH ×5 (01:23→23:36)
[2017-01-31] MEDS: Insulin LISPRO 300 UNITS/3 ML VIAL SQ SCH ×6 (02:48→20:50)
[2017-01-31] MEDS: Ipratropium/Albuterol Neb 3 ML IH SCH ×5 (03:50→20:18)
[2017-01-31 04:43] LABS: Basophils % 0.3 %; Eosinophils # 0.1 K/mcL (0.0-0.6); Eosinophils % 1.2 %; Hematocrit 27.1 % (35.3-44.9); Hemoglobin 8.7 g/dL (11.5-15.4); Immature Granulocytes % 0.6 % (0-4); Lymphocytes # 1.6 K/mcL (0.6-4.6); Lymphocytes % 16.4 %; Mean Corpuscular HGB Conc 32.1 g/dL (31.6-35.5); Mean Corpuscular Hemoglobin 30.1 pg (28.0-33.3); Mean Corpuscular Volume 93.8 fL (83.0-100.0); Mean Platelet Volume 10.5 fL (9.4-12.4); Monocytes # 0.9 K/mcL (0.0-1.3); Monocytes % 9.6 %; Neutrophils # 6.9 K/mcL (1.6-8.9); Platelet Count 339 K/mcL (140-400); Red Blood Count 2.89 M/mcL (3.82-4.97); Red Cell Distribution Width 16.7 % (11.5-14.5); Segmented Neutrophils % 71.9 %
[2017-01-31 05:13] LABS: BUN/Creatinine Ratio 23 (6-26); Blood Urea Nitrogen 14 mg/dL (7-20); Calcium 8.4 mg/dL (8.6-10.8); Carbon Dioxide 27 mEq/L (19-29); Chloride 104 mEq/L (98-109); Glucose 84 mg/dL (70-99); Osmolality,Calculated 286 (280-300); Potassium 4.1 mEq/L (3.5-4.5); Sodium 138 mEq/L (136-145); eGFR For African Americans > 60 (> 60); eGFR For Non-African Americans > 60 (> 60)
[2017-01-31] MEDS: *HR* Heparin 5,000 UNIT/ML VIAL SQ SCH ×2 (05:57→17:28)
--- NOTE | 2017-01-31 08:45 | Internal Med Progress Note ---
Date of Encounter: 01/31/17 Time of Encounter: 08:44 - Assessment and plan (1) Diverticulitis of colon with perforation Current Visit: Yes Status: Acute (2) Sepsis associated hypotension Current Visit: Yes Status: Acute (3) Hypomagnesemia Current Visit: Yes Status: Acute (4) Acute respiratory failure Current Visit: Yes Status: Acute Qualifiers: Respiratory failure complication: hypoxia and hypercapnia Qualified Code(s) : J96.01 - Acute respiratory failure with hypoxia; J96.02 - Acute respiratory failure with hypercapnia (5) DM (diabetes mellitus), type 2 Current Visit: Yes Status: Chronic Qualifiers: Diabetes mellitus complication status: with hyperglycemia Diabetes mellitus manufacturing quality inspector insulin use: without manufacturing quality inspector use Qualified Code(s): E11.65 - Type 2 diabetes mellitus with hyperglycemia (6) COPD (chronic obstructive pulmonary disease) Current Visit: Yes Status: Chronic Qualifiers: COPD type: unspecified COPD Qualified Code(s): J44.9 - Chronic obstructive pulmonary disease, unspecified (7) DVT prophylaxis Current Visit: Yes Status: Acute (8) Ileus, postoperative Current Visit: Yes Status: Resolved (9) Abdominal wall abscess at site of surgical wound Current Visit: Yes Status: Acute Assessment and plan: 56-year-old female with past medical history of hypertension, diabetes, COPD, admitted to the hospital of diverticulitis with perforation, compensated by septic shock and acute respiratory failure in setting of sepsis. Patient underwent exploratory celiotomy, sigmoid resection and sigmoid colostomy on 08/2017. She was noticed to have severe abdominal pain with continued abdominal distention, worsening leukocytosis. Patient was diagnosed to have peristomal abscess, for which she underwent incision and drainage of the midline abdominal wound, I&D of parastomal abscess, wound vac placement, colostomy revision and rigid stomoscopy on 01/27/2017. # Diverticulitis of Colon with perforation: status post exploratory surgery on with revision on 01/27/2017. Started on clear liquids per surgery team. WBC trending down On antibiotic coverage with Zosyn and fluconazole( pt on TPN) . Changed antibiotics to IV Unasyn. Pain control with IV Dilaudid and Percocet with high risk of complications including requiring lose monitoring. # Abdominal wall abscess surgical site: I&D of parastomal abscess, wound vac placement, colostomy revision and rigid stomoscopy on 01/27/2017. Improving clinically, WBC trending down, continuing antibiotics. Surgery following # Postoperative ileus: resolved, started on clear liquid diet 01/28, tolerating well. Patient remains on TPN. Will d/c as tolerated if agreeable with surgery # Hyperkalemia: resolved # Diabetes mellitus type II with complications: blood glucose remains elevated. Increase the dose of Levemir to 30 units BID, continue high-dose sliding scale insulin. # Acute respiratory failure: in setting of sepsis, which is currently improved, imaging negative for any evidence of pneumonia. Continued incentive spirometry. Out of bed to chair as tolerated. On Lasix 20 mg PO daily # Depression: continue Prozac # DVT prophylaxis: On Sub Q heparin - Time Spent With Patient 25 - 35 minutes - Subjective Interval history: Pt seen and examined at bedside. She sitting up in share this morning, reports that abdominal pain is better. No abdominal distention. Afebrile. Labs reviewed , WBC trending down. - Constitutional Vitals: Temp Pulse Resp BP Pulse Ox 98.4 F 78 16 101/57 99 01/31/17 08:00 01/31/17 08:00 01/31/17 08:00 01/31/17 08:00 01/31/17 08:00 General appearance: Present: A&O X 3, answers questions appropriately - Head Head exam: Present: atraumatic, normocephalic - Eye Eye exam: Present: PERRL, conjuntiva pink, sclera anicteric Pupils: Present: PERRL - Neck Neck exam general surgery: Present: supple, trachea midline. Absent: lymphadenopathy - Respiratory Respiratory exam: Present: CTAB. Absent: accessory muscle use, rales, rhonchi, wheezes - Cardiovascular Cardiovascular exam: Present: RRR, +S1, +S2. Absent: diastolic murmur, gallop, rubs, systolic murmur - GI/Abdominal GI/Abdominal exam: Present: normal bowel sounds, soft, no peritoneal signs. Absent: distended (surgical site appers clean), tenderness - Extremities Exam Extremities exam: Present: warm, radial pulses palpable and symetrical. Absent : calf tenderness, cyanotic, pedal edema - Neurological Exam Neurological exam: Present: CN II-XII intact, oriented X3, no focal deficits. Absent: pronater drift, facial droop, speech deficit - Skin Skin exam: Present: dry, intact Internal Medicine: Result - Labs CBC & Chem 7: 01/31/17 04:38 01/31/17 04:38 Labs: Short CBC 01/31/17 Range/Units 04:38 WBC 9.5 (4.3-11.1) K/mcL Hgb 8.7 L (11.5-15.4) g/dL Hct 27.1 L (35.3-44.9) % Plt Count 339 (140-400) K/mcL Neutrophils # 6.9 (1.6-8.9) K/mcL BMP 01/31/17 04:38 Sodium 138 Potassium 4.1 Chloride 104 Carbon Dioxide 27 BUN 14 Creatinine 0.61 Glucose 84 Calcium 8.4 L - ABG Interpretation ABG results: ABG ABG pH 7.48 pH Units (7.32-7.45) H 01/20/17 09:08 ABG pCO2 44 mmHg (35-45) 01/20/17 09:08 ABG pO2 78 mmHg (85-104) L 01/20/17 09:08 ABG O2 Saturation 96 % (95-98) 01/20/17 09:08 PT/INR, D-dimer PT 17.7 Seconds (9.4-12.1) H 01/17/17 01:29 - Impressions Impressions Abdomen/Pelvis CT 01/30/17 17:45 IMPRESSION: Status post incision and drainage of abdominal wall abscess or hematoma. Small amount of soft tissue gas remains. No focal drainable fluid collection remains Tiny nonobstructing right renal stone Cholelithiasis Hazy ground-glass opacities at the lung bases, either atelectasis or pneumonia Tiny amount of gas in the bladder. Recommend correlation with urinalysis to exclude infection D/ / Clayton Gamble MD / Clayton Gamble MD Interpreting Provider: Clayton Gamble MD - VTE Documentation of Mechanical Device: Intermittent pneumatic compression device Consult Discharge Plan - Plan Referrals: Afshin Salazar MD [Primary Care Provider] - Aashish Salazar MD [Partnered Physician] - 02/04/17 11:30 am ()
[2017-01-31] MEDS: *HR* HYDROmorphone (PF) 1 MG/ML SYRINGE IVP PRN (08:51)
--- NOTE | 2017-01-31 09:31 | General Surgery Progress Note ---
Date of Encounter: 01/31/17 Time of Encounter: 09:00 - Assessment and Plan (1) Diverticulitis of colon with perforation Current Visit: Yes Status: Acute POD #14 Exploratory celiotomy, Sigmoid resection, sigmoid colostomy, Abdominal wash out. Advance to soft diet with protein supplements Supportive care/pain control- dilaudid and percocet prn Continue TPN discontiniued 01/30/17 IV antibiotics- Zosyn WBC 24.1>18.4>9.3>9.5>9.5 Out of bed to chair today Incentive Spirometer every 1 hour while awake Wound vac change every MWF PT/OT Repeat am labs May transfer to telemetry (2) Abdominal wall abscess at site of surgical wound Current Visit: Yes Status: Acute POD #4 Incision and drainage midline abdominal wound, incision and drainage parastomal abscess, wound vac placement, colostomy revision, rigid sigmoidoscope of colostomy (rigid stomoscopy) Daily dressing changes per surgery team ONLY IV antibiotics- Zosyn Supportive care/pain control CT scan complete 01/30/17 shows no evidence of residual fluid collections (3) Acute respiratory failure Current Visit: Yes Status: Resolved Improving Continue IS every 1 hour while awake Qualifiers: Respiratory failure complication: hypoxia and hypercapnia Qualified Code(s) : J96.01 - Acute respiratory failure with hypoxia; J96.02 - Acute respiratory failure with hypercapnia (4) DM (diabetes mellitus), type 2 Current Visit: Yes Status: Chronic Hyperglycemia noted- improving Continue sliding scale insulin coverage to every 4 hours and levemir BID Will continue to monitor and adjust as necessary per medicine team Qualifiers: Diabetes mellitus complication status: with hyperglycemia Diabetes mellitus nursing home insulin use: without nursing home use Qualified Code(s): E11.65 - Type 2 diabetes mellitus with hyperglycemia (5) Sepsis Current Visit: Yes Status: Resolved secondary to perforated diverticulitis and fecal contamination Continue IV antibiotics- Zosyn Qualifiers: Sepsis type: sepsis due to unspecified organism Qualified Code(s): A41.9 - Sepsis, unspecified organism (6) Severe protein-calorie malnutrition Current Visit: Yes Status: Acute Resolving TPN discontinued 01/30/17 Advance to soft diet with protein supplements today (7) DVT prophylaxis Current Visit: Yes Status: Acute Continue heparin 5,000 units SQ twice daily for DVT prophylaxis Subjective Patient reports: no new complaints, feels better, still having pain, tolerating liquids well (full liquids), voiding w/o difficulty, flatus, bowel movement ( via colostomy), afebrile Objective Vital Signs - Last 8 Hours Temp Pulse Resp BP Pulse Ox 01/31/17 08:00 98.4 F 78 16 101/57 99 01/31/17 07:58 18 99 01/31/17 04:22 98.3 F 84 16 97/50 100 01/31/17 04:00 80 01/31/17 03:50 17 92 L Intake and Output 01/30/17 01/31/17 01/31/17 23:59 07:59 15:59 Intake Total 1214 / 1214 300 / 300 Output Total 330 / 330 5 / 5 Balance 884 / 884 295 / 295 Intake: IV Fluids 1214 / 1214 300 / 300 Clinimix E 5%-15% 1214 / 1214 SOLUTION 2,000 ML @ 50 mls/hr IVC .Q24H JACE with M.v.i. Adult 10 ml Rx#: [id number] Unasyn 3,000 MG In 0.9 % 300 / 300 Sodium Chloride (Mini-Bag +) 100 ML @ 200 mls/hr IVPB Q6HR JACE Rx#: [id number] Output: Urine 300 / 300 Stool 0 / 0 Wound Drainage 30 / 30 5 / 5 Abdomen 25 / 25 Right Lower Abdomen 5 / 5 5 / 5 Other: Meal Dinner Percent of Meal Consumed 30% Weight 86.3 kg Blood Glucose* 85 86 110 Patient Weight 01/31/17 23:59 Weight 86.3 kg - General physical appearance well developed, well nourished, no distress - Eyes normal ocular movement - ENT normal mucosa, atraumatic, normocephalic - Neck Neck exam: trachea midline - Respiratory normal respiratory effort, clear to auscultation - Cardiovascular Cardiovascular exam: Present: RRR - Abdomen Abdomen: Present: bowel sounds present, soft, tender (expected post-operative tenderness), wound (Midline with wound vac with moderate amount of serousang. drainage noted; AURELIO with scant amount of serous drainage (removed); Colostomy pink and moist with flatus and liquid stool; LLQ with packing with small amount of serous drainage noted) - Incision Incision: Present: open (Midline with wound vac with moderate amount of serousang. drainage noted; AURELIO with scant amount of serous drainage (removed); Colostomy pink and moist with flatus and liquid stool; LLQ with packing with small amount of serous drainage noted) - Neurologic CN 2-12 grossly intact - Musculoskeletal other (moderate deconditioning) - Psychiatric oriented to time, oriented to person, oriented to place, speech is normal, memory intact - Labs 01/31/17 04:38 01/31/17 04:38 Diabetes panel 01/31/17 Range/Units 04:38 Sodium 138 (136-145) mEq/L Potassium 4.1 (3.5-4.5) mEq/L Chloride 104 (98-109) mEq/L Carbon Dioxide 27 (19-29) mEq/L BUN 14 (7-20) mg/dL Creatinine 0.61 (0.57-1.11) mg/dL Glucose 84 (70-99) mg/dL Calcium 8.4 L (8.6-10.8) mg/dL Calcium panel 01/31/17 Range/Units 04:38 Calcium 8.4 L (8.6-10.8) mg/dL Pituitary panel 01/31/17 Range/Units 04:38 Sodium 138 (136-145) mEq/L Potassium 4.1 (3.5-4.5) mEq/L Chloride 104 (98-109) mEq/L Carbon Dioxide 27 (19-29) mEq/L BUN 14 (7-20) mg/dL Creatinine 0.61 (0.57-1.11) mg/dL Glucose 84 (70-99) mg/dL Calcium 8.4 L (8.6-10.8) mg/dL Adrenal panel 01/31/17 Range/Units 04:38 Sodium 138 (136-145) mEq/L Potassium 4.1 (3.5-4.5) mEq/L Chloride 104 (98-109) mEq/L Carbon Dioxide 27 (19-29) mEq/L BUN 14 (7-20) mg/dL Creatinine 0.61 (0.57-1.11) mg/dL Glucose 84 (70-99) mg/dL Calcium 8.4 L (8.6-10.8) mg/dL - VTE Documentation of Mechanical Device: Intermittent pneumatic compression device Consult Discharge Plan - Plan Referrals: Afshin Salazar MD [Primary Care Provider] - Aashish Salazar MD [Partnered Physician] - 02/04/17 11:30 am () - Attending Attestation I examined this patient and my medical decision-making was reviewed with the WHIPPED TOPPING FINISHER/PA/Advanced Practice Nurse/Resident Physician. I agree with the documented findings, disposition and treatment plan as described except to the extent set forth below. Patient's wound VAC has been changed as well as the packing for the ostomy fluid collection/abscess. Redness on the left flank is significantly improved. The patient is now on soft foods and appears to be tolerating this well. We will likely have her TPN DC'd later today. To follow closely.
[2017-01-31] MEDS: Furosemide 20 MG TABLET PO SCH (10:07)
[2017-01-31] MEDS: FLUoxetine 20 MG CAPSULE PO SCH ×2 (10:07→19:35)
[2017-01-31] MEDS: Metoprolol XL (24 HR) Succ 50 MG TAB.ER.24H PO SCH (10:07)
[2017-01-31] MEDS: Insulin DETEMIR 100 UNIT/ML X5UNITS SQ SCH (10:08)
[2017-01-31] MEDS: *HR* OxyCODONE/APAP 10/325 TABLET PO PRN ×2 (12:15→19:39)
[2017-01-31] MEDS: Fluconazole 100 MG/50 ML 100 MG/50 ML BAG IVPB SCH (15:04)
[2017-01-31] MEDS: Chloraseptic Spray 177 ML BOTTLE MM PRN (18:43)
[2017-02-01] MEDS: Ipratropium/Albuterol Neb 3 ML IH SCH ×7 (00:11→23:32)
[2017-02-01 03:59] LABS: Basophils % 0.5 %; Eosinophils # 0.1 K/mcL (0.0-0.6); Eosinophils % 1.8 %; Hematocrit 28.6 % (35.3-44.9); Hemoglobin 8.8 g/dL (11.5-15.4); Immature Granulocytes % 0.7 % (0-4); Lymphocytes # 1.8 K/mcL (0.6-4.6); Lymphocytes % 23.9 %; Mean Corpuscular HGB Conc 30.8 g/dL (31.6-35.5); Mean Corpuscular Hemoglobin 28.9 pg (28.0-33.3); Mean Corpuscular Volume 93.8 fL (83.0-100.0); Mean Platelet Volume 9.6 fL (9.4-12.4); Monocytes # 0.8 K/mcL (0.0-1.3); Monocytes % 10.2 %; Neutrophils # 4.8 K/mcL (1.6-8.9); Platelet Count 348 K/mcL (140-400); Red Blood Count 3.05 M/mcL (3.82-4.97); Red Cell Distribution Width 16.1 % (11.5-14.5); Segmented Neutrophils % 62.9 %
[2017-02-01 04:11] LABS: BUN/Creatinine Ratio 20 (6-26); Blood Urea Nitrogen 12 mg/dL (7-20); Calcium 8.3 mg/dL (8.6-10.8); Carbon Dioxide 26 mEq/L (19-29); Chloride 105 mEq/L (98-109); Glucose 147 mg/dL (70-99); Osmolality,Calculated 286 (280-300); Potassium 4.4 mEq/L (3.5-4.5); Sodium 137 mEq/L (136-145); eGFR For African Americans > 60 (> 60); eGFR For Non-African Americans > 60 (> 60)
[2017-02-01 04:22] LABS: Anisocytosis 1+ (Not Present); Platelet Estimate Normal (Normal)
[2017-02-01] MEDS: Ampicillin/Sulbactam 3,000 MG in 0.9 % Sodium Chloride Mini Bag 100 ML IVPB SCH ×2 (05:57→11:37)
[2017-02-01] MEDS: *HR* Heparin 5,000 UNIT/ML VIAL SQ SCH ×2 (05:57→18:27)
[2017-02-01] MEDS: *HR* OxyCODONE/APAP 10/325 TABLET PO PRN ×3 (06:04→16:19)
[2017-02-01] MEDS: FLUoxetine 20 MG CAPSULE PO SCH ×2 (08:34→19:43)
[2017-02-01] MEDS: Furosemide 20 MG TABLET PO SCH (08:35)
[2017-02-01] MEDS: Metoprolol XL (24 HR) Succ 50 MG TAB.ER.24H PO SCH (08:35)
[2017-02-01] MEDS: Insulin LISPRO 300 UNITS/3 ML VIAL SQ SCH ×4 (08:44→19:40)
[2017-02-01] MEDS: *HR* HYDROmorphone (PF) 1 MG/ML SYRINGE IVP PRN ×3 (08:46→19:43)
[2017-02-01] MEDS: Insulin DETEMIR 100 UNIT/ML X5UNITS SQ SCH ×2 (10:32→19:40)
--- NOTE | 2017-02-01 13:16 | General Surgery Progress Note ---
Date of Encounter: 02/01/17 Time of Encounter: 08:13 - Assessment and Plan (1) Diverticulitis of colon with perforation Current Visit: Yes Status: Acute POD #15 Exploratory celiotomy, Sigmoid resection, sigmoid colostomy, Abdominal wash out. Tolerating Soft food diet. WBC wnl. Continue OOB to chair and IS while awake. Wound vac to be changed on 02/03/17. (2) Abdominal wall abscess at site of surgical wound Current Visit: Yes Status: Acute POD #5 Incision and drainage midline abdominal wound, incision and drainage parastomal abscess, wound vac placement, colostomy revision, rigid sigmoidoscope of colostomy (rigid stomoscopy) Daily dressing changes per surgery team ONLY Continue with IV antibiotics- Zosyn (3) DM (diabetes mellitus), type 2 Current Visit: Yes Status: Chronic Hyperglycemia noted- improving Continue sliding scale insulin coverage to every 4 hours and levemir BID Will continue to monitor and adjust as necessary per medicine team Qualifiers: Diabetes mellitus complication status: with hyperglycemia Diabetes mellitus custodial insulin use: without intermediate school teacher use Qualified Code(s): E11.65 - Type 2 diabetes mellitus with hyperglycemia (4) Sepsis Current Visit: Yes Status: Resolved secondary to perforated diverticulitis and fecal contamination Continue IV antibiotics- Zosyn Qualifiers: Sepsis type: sepsis due to unspecified organism Qualified Code(s): A41.9 - Sepsis, unspecified organism (5) Severe protein-calorie malnutrition Current Visit: Yes Status: Acute Resolving TPN discontinued 01/30/17 Advance to soft diet with protein supplements today (6) DVT prophylaxis Current Visit: Yes Status: Acute Continue heparin 5,000 units SQ twice daily for DVT prophylaxis Subjective Patient reports: other (the patient states that she does feel better. No nausea or vomiting. Was OOB in a chair. Tolerating PO/soft diet. ) Objective Vital Signs - Last 8 Hours Temp Pulse Resp BP Pulse Ox 02/01/17 11:47 97.6 F 76 16 92/52 94 L 02/01/17 11:23 73 02/01/17 11:20 16 92/52 92 L 02/01/17 08:55 78 02/01/17 08:41 97.6 F 78 16 96 02/01/17 07:49 72 18 112/67 94 L 02/01/17 07:47 16 112/67 94 L Intake and Output 01/31/17 02/01/17 02/01/17 23:59 07:59 15:59 Intake Total 387 / 387 200 / 200 100 / 100 Output Total 325 / 325 400 / 400 Balance / -200 / -200 100 / 100 Intake: IV Fluids 150 / 150 200 / 200 100 / 100 Unasyn 3,000 MG In 0.9 % 100 / 100 200 / 200 100 / 100 Sodium Chloride (Mini-Bag +) 100 ML @ 200 mls/hr IVPB Q6HR JACE Rx#: [id number] Diflucan 100 MG/50 ML 100 50 / 50 mg In 50 ml @ 50 mls/hr IVPB DAILY@1400 JACE Rx#: [id number] Oral 237 / 237 0 / 0 Output: Urine 300 / 300 400 / 400 Wound Drainage Abdomen Other: Meal Dinner Breakfast Percent of Meal Consumed 50% 25% Blood Glucose* 166 154 146 - General physical appearance well nourished, no distress - Cardiovascular Cardiovascular exam: Present: RRR, no murmurs/rubs/gallops - Abdomen Abdomen: Present: bowel sounds present, soft (Midline wound vac in place. No drainge or leak. Left ostomy functioning. Packing adjacent to ostomy) - Labs 02/02/17 05:49 02/02/17 05:49 Diabetes panel 02/01/17 Range/Units Unknown Sodium 137 (136-145) mEq/L Potassium 4.4 (3.5-4.5) mEq/L Chloride 105 (98-109) mEq/L Carbon Dioxide 26 (19-29) mEq/L BUN 12 (7-20) mg/dL Creatinine 0.60 (0.57-1.11) mg/dL Glucose 147 H (70-99) mg/dL Calcium 8.3 L (8.6-10.8) mg/dL Calcium panel 02/01/17 Range/Units Unknown Calcium 8.3 L (8.6-10.8) mg/dL Pituitary panel 02/01/17 Range/Units Unknown Sodium 137 (136-145) mEq/L Potassium 4.4 (3.5-4.5) mEq/L Chloride 105 (98-109) mEq/L Carbon Dioxide 26 (19-29) mEq/L BUN 12 (7-20) mg/dL Creatinine 0.60 (0.57-1.11) mg/dL Glucose 147 H (70-99) mg/dL Calcium 8.3 L (8.6-10.8) mg/dL Adrenal panel 02/01/17 Range/Units Unknown Sodium 137 (136-145) mEq/L Potassium 4.4 (3.5-4.5) mEq/L Chloride 105 (98-109) mEq/L Carbon Dioxide 26 (19-29) mEq/L BUN 12 (7-20) mg/dL Creatinine 0.60 (0.57-1.11) mg/dL Glucose 147 H (70-99) mg/dL Calcium 8.3 L (8.6-10.8) mg/dL - VTE Documentation of Mechanical Device: Intermittent pneumatic compression device Consult Discharge Plan - Plan Referrals: Afshin Salazar MD [Primary Care Provider] - Aashish Salazar MD [Partnered Physician] - 02/04/17 11:30 am ()
[2017-02-01] MEDS: Fluconazole 100 MG/50 ML 100 MG/50 ML BAG IVPB SCH (14:44)
--- NOTE | 2017-02-01 15:35 | Internal Med Progress Note ---
Date of Encounter: 02/01/17 Time of Encounter: 15:33 - Assessment and plan (1) Diverticulitis of colon with perforation Current Visit: Yes Status: Acute (2) Sepsis associated hypotension Current Visit: Yes Status: Acute (3) Hypomagnesemia Current Visit: Yes Status: Acute (4) Acute respiratory failure Current Visit: Yes Status: Resolved Qualifiers: Respiratory failure complication: hypoxia and hypercapnia Qualified Code(s) : J96.01 - Acute respiratory failure with hypoxia; J96.02 - Acute respiratory failure with hypercapnia (5) DM (diabetes mellitus), type 2 Current Visit: Yes Status: Chronic Qualifiers: Diabetes mellitus complication status: with hyperglycemia Diabetes mellitus adjunct faculty for medical terminology insulin use: without nursing home use Qualified Code(s): E11.65 - Type 2 diabetes mellitus with hyperglycemia (6) COPD (chronic obstructive pulmonary disease) Current Visit: Yes Status: Chronic Qualifiers: COPD type: unspecified COPD Qualified Code(s): J44.9 - Chronic obstructive pulmonary disease, unspecified (7) DVT prophylaxis Current Visit: Yes Status: Acute (8) Ileus, postoperative Current Visit: Yes Status: Resolved (9) Abdominal wall abscess at site of surgical wound Current Visit: Yes Status: Acute Assessment and plan: 56-year-old female with past medical history of hypertension, diabetes, COPD, admitted to the hospital of diverticulitis with perforation, compensated by septic shock and acute respiratory failure in setting of sepsis. Patient underwent exploratory celiotomy, sigmoid resection and sigmoid colostomy on 08/2017. She was noticed to have severe abdominal pain with continued abdominal distention, worsening leukocytosis. Patient was diagnosed to have peristomal abscess, for which she underwent incision and drainage of the midline abdominal wound, I&D of parastomal abscess, wound vac placement, colostomy revision and rigid stomoscopy on 01/27/2017. # Diverticulitis of Colon with perforation: status post exploratory surgery on with revision on 01/27/2017. Started on clear liquids per surgery team. WBC trending down. On IV zosyn. Pain control with IV Dilaudid and Percocet with high risk of complications including requiring lose monitoring. # Abdominal wall abscess surgical site: I&D of parastomal abscess, wound vac placement, colostomy revision and rigid stomoscopy on 01/27/2017. Improving clinically, WBC trending down, continuing antibiotics. Surgery following # Postoperative ileus: resolved, started on clear liquid diet 01/28, tolerating well. # Hyperkalemia: resolved # Diabetes mellitus type II with complications: blood glucose remains elevated. Levemir to 30 units BID, on sliding scale insulin. # Acute respiratory failure: resolved, imaging negative for any evidence of pneumonia. Continued incentive spirometry. Out of bed to chair as tolerated. On Lasix 20 mg PO daily # Depression: continue Prozac # DVT prophylaxis: On Sub Q heparin - Time Spent With Patient 25 - 35 minutes - Subjective Interval history: Pt seen and examined at bedside. She sitting up in share this morning, reports that abdominal pain is better. No abdominal distention. Afebrile. Labs reviewed , WBC trending down. On protein supplements and liquid diet which she is tolerating well - Constitutional Vitals: Temp Pulse Resp BP Pulse Ox 97.6 F 76 16 92/52 94 L 02/01/17 11:47 02/01/17 11:47 02/01/17 11:47 02/01/17 11:47 02/01/17 11:47 General appearance: Present: A&O X 3, answers questions appropriately - Head Head exam: Present: atraumatic, normocephalic - Eye Eye exam: Present: PERRL, conjuntiva pink, sclera anicteric Pupils: Present: PERRL - Neck Neck exam general surgery: Present: supple, trachea midline. Absent: lymphadenopathy - Respiratory Respiratory exam: Present: CTAB. Absent: accessory muscle use, rales, rhonchi, wheezes - Cardiovascular Cardiovascular exam: Present: RRR, +S1, +S2. Absent: diastolic murmur, gallop, rubs, systolic murmur - GI/Abdominal GI/Abdominal exam: Present: normal bowel sounds, soft, no peritoneal signs ( surgical site clean. ). Absent: distended, tenderness - Extremities Exam Extremities exam: Present: warm, radial pulses palpable and symetrical. Absent : calf tenderness, cyanotic, pedal edema - Neurological Exam Neurological exam: Present: CN II-XII intact, oriented X3, no focal deficits. Absent: pronater drift, facial droop, speech deficit - Skin Skin exam: Present: dry, intact Internal Medicine: Result - Labs CBC & Chem 7: 02/01/17 Unknown 02/01/17 Unknown Labs: Short CBC 02/01/17 Range/Units Unknown WBC 7.6 (4.3-11.1) K/mcL Hgb 8.8 L (11.5-15.4) g/dL Hct 28.6 L (35.3-44.9) % Plt Count 348 (140-400) K/mcL Neutrophils # 4.8 (1.6-8.9) K/mcL BMP 02/01/17 Unknown Sodium 137 Potassium 4.4 Chloride 105 Carbon Dioxide 26 BUN 12 Creatinine 0.60 Glucose 147 H Calcium 8.3 L - ABG Interpretation ABG results: ABG ABG pH 7.48 pH Units (7.32-7.45) H 01/20/17 09:08 ABG pCO2 44 mmHg (35-45) 01/20/17 09:08 ABG pO2 78 mmHg (85-104) L 01/20/17 09:08 ABG O2 Saturation 96 % (95-98) 01/20/17 09:08 PT/INR, D-dimer PT 17.7 Seconds (9.4-12.1) H 01/17/17 01:29 - VTE Documentation of Mechanical Device: Intermittent pneumatic compression device Consult Discharge Plan - Plan Referrals: Afshin Salazar MD [Primary Care Provider] - Aashish Salazar MD [Partnered Physician] - 02/04/17 11:30 am ()
[2017-02-01] MEDS: Piperacillin/Tazobactam 3.375 GM in D5% in Water (Mini-Bag+) 100 ML IVPB SCH (16:18)
[2017-02-02] MEDS: Piperacillin/Tazobactam 3.375 GM in D5% in Water (Mini-Bag+) 100 ML IVPB SCH ×4 (00:20→23:43)
[2017-02-02] MEDS: Ipratropium/Albuterol Neb 3 ML IH SCH ×6 (03:33→23:06)
[2017-02-02] MEDS: *HR* Heparin 5,000 UNIT/ML VIAL SQ SCH ×2 (04:34→18:06)
[2017-02-02 06:06] LABS: Basophils % 0.6 %; Eosinophils # 0.2 K/mcL (0.0-0.6); Eosinophils % 2.6 %; Hematocrit 29.4 % (35.3-44.9); Immature Granulocytes % 1.1 % (0-4); Lymphocytes # 1.1 K/mcL (0.6-4.6); Lymphocytes % 17.4 %; Mean Corpuscular HGB Conc 30.6 g/dL (31.6-35.5); Mean Corpuscular Hemoglobin 29.1 pg (28.0-33.3); Mean Corpuscular Volume 95.1 fL (83.0-100.0); Monocytes # 0.7 K/mcL (0.0-1.3); Monocytes % 11.5 %; Neutrophils # 4.2 K/mcL (1.6-8.9); Platelet Count 328 K/mcL (140-400); Red Blood Count 3.09 M/mcL (3.82-4.97); Red Cell Distribution Width 15.9 % (11.5-14.5); Segmented Neutrophils % 66.8 %
[2017-02-02 06:19] LABS: Blood Urea Nitrogen 12 mg/dL (7-20); Carbon Dioxide 25 mEq/L (19-29); Chloride 104 mEq/L (98-109); Potassium 4.4 mEq/L (3.5-4.5); Sodium 137 mEq/L (136-145)
[2017-02-02 06:20] LABS: BUN/Creatinine Ratio 17 (6-26); Calcium 8.4 mg/dL (8.6-10.8); Glucose 155 mg/dL (70-99); Osmolality,Calculated 287 (280-300); eGFR For African Americans > 60 (> 60); eGFR For Non-African Americans > 60 (> 60)
[2017-02-02] MEDS: Insulin LISPRO 300 UNITS/3 ML VIAL SQ SCH ×4 (08:33→20:41)
[2017-02-02] MEDS: Insulin DETEMIR 100 UNIT/ML X5UNITS SQ SCH ×2 (08:37→20:40)
[2017-02-02] MEDS: FLUoxetine 20 MG CAPSULE PO SCH ×2 (08:38→20:40)
[2017-02-02] MEDS: Furosemide 20 MG TABLET PO SCH (08:38)
[2017-02-02] MEDS: *HR* OxyCODONE/APAP 10/325 TABLET PO PRN ×2 (08:42→20:40)
[2017-02-02] MEDS: Metoprolol XL (24 HR) Succ 50 MG TAB.ER.24H PO SCH (08:48)
--- NOTE | 2017-02-02 13:38 | Internal Med Progress Note ---
Date of Encounter: 02/02/17 Time of Encounter: 13:35 - Assessment and plan (1) Diverticulitis of colon with perforation Current Visit: Yes Status: Acute (2) Sepsis associated hypotension Current Visit: Yes Status: Acute (3) Hypomagnesemia Current Visit: Yes Status: Acute (4) Acute respiratory failure Current Visit: Yes Status: Resolved Qualifiers: Respiratory failure complication: hypoxia and hypercapnia Qualified Code(s) : J96.01 - Acute respiratory failure with hypoxia; J96.02 - Acute respiratory failure with hypercapnia (5) DM (diabetes mellitus), type 2 Current Visit: Yes Status: Chronic Qualifiers: Diabetes mellitus complication status: with hyperglycemia 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: without longterm use Qualified Code(s): E11.65 - Type 2 diabetes mellitus with hyperglycemia (6) COPD (chronic obstructive pulmonary disease) Current Visit: Yes Status: Chronic Qualifiers: COPD type: unspecified COPD Qualified Code(s): J44.9 - Chronic obstructive pulmonary disease, unspecified (7) DVT prophylaxis Current Visit: Yes Status: Acute (8) Ileus, postoperative Current Visit: Yes Status: Resolved (9) Abdominal wall abscess at site of surgical wound Current Visit: Yes Status: Acute Assessment and plan: 56-year-old female with past medical history of hypertension, diabetes, COPD, admitted to the hospital of diverticulitis with perforation, compensated by septic shock and acute respiratory failure in setting of sepsis. Patient underwent exploratory celiotomy, sigmoid resection and sigmoid colostomy on 08/2017. She was noticed to have severe abdominal pain with continued abdominal distention, worsening leukocytosis. Patient was diagnosed to have peristomal abscess, for which she underwent incision and drainage of the midline abdominal wound, I&D of parastomal abscess, wound vac placement, colostomy revision and rigid stomoscopy on 01/27/2017. # Diverticulitis of Colon with perforation: status post exploratory surgery on with revision on 01/27/2017. On soft diet, tolerating well. WBC trending down. On IV zosyn. Pain control with IV Dilaudid and Percocet with high risk of complications requiring lose monitoring. # Abdominal wall abscess surgical site: I&D of parastomal abscess, wound vac placement, colostomy revision and rigid stomoscopy on 01/27/2017. Improving clinically, WBC trending down, continuing antibiotics. Surgery following # Postoperative illeus: resolved, on soft diet, tolerating well. # Hyperkalemia: resolved # Diabetes mellitus type II with complications: blood glucose better controlled. Levemir to 30 units BID, on sliding scale insulin. # Acute respiratory failure: resolved, imaging negative for any evidence of pneumonia. Continued incentive spirometry. Out of bed to chair as tolerated. On Lasix 20 mg PO daily # Depression: continue Prozac # DVT prophylaxis: On Sub Q heparin - Time Spent With Patient 25 - 35 minutes - Subjective Interval history: Pt seen and examined at bedside. She sitting up in a chair this morning, reports that abdominal pain is better. No abdominal distention. Afebrile. Labs reviewed, WBC trending down. On protein supplements and liquid diet which she is tolerating well - Constitutional Vitals: Temp Pulse Resp BP Pulse Ox 97.6 F 77 18 110/64 94 L 02/02/17 10:00 02/02/17 12:00 02/02/17 12:00 02/02/17 12:00 02/02/17 12:00 General appearance: Present: A&O X 3, answers questions appropriately - Head Head exam: Present: atraumatic, normocephalic - Eye Eye exam: Present: PERRL, conjuntiva pink, sclera anicteric Pupils: Present: PERRL - Neck Neck exam general surgery: Present: supple, trachea midline. Absent: lymphadenopathy - Respiratory Respiratory exam: Present: CTAB. Absent: accessory muscle use, rales, rhonchi, wheezes - Cardiovascular Cardiovascular exam: Present: RRR, +S1, +S2. Absent: diastolic murmur, gallop, rubs, systolic murmur - GI/Abdominal GI/Abdominal exam: Present: normal bowel sounds, soft, no peritoneal signs ( surgical site clean). Absent: distended, tenderness - Extremities Exam Extremities exam: Present: warm, radial pulses palpable and symetrical. Absent : calf tenderness, cyanotic, pedal edema - Neurological Exam Neurological exam: Present: CN II-XII intact, oriented X3, no focal deficits. Absent: pronater drift, facial droop, speech deficit - Skin Skin exam: Present: dry, intact Internal Medicine: Result - Labs CBC & Chem 7: 02/02/17 05:49 02/02/17 05:49 Labs: Short CBC 02/02/17 Range/Units 05:49 WBC 6.3 (4.3-11.1) K/mcL Hgb 9.0 L (11.5-15.4) g/dL Hct 29.4 L (35.3-44.9) % Plt Count 328 (140-400) K/mcL Neutrophils # 4.2 (1.6-8.9) K/mcL BMP 02/02/17 05:49 Sodium 137 Potassium 4.4 Chloride 104 Carbon Dioxide 25 BUN 12 Creatinine 0.72 Glucose 155 H Calcium 8.4 L - ABG Interpretation ABG results: ABG ABG pH 7.48 pH Units (7.32-7.45) H 01/20/17 09:08 ABG pCO2 44 mmHg (35-45) 01/20/17 09:08 ABG pO2 78 mmHg (85-104) L 01/20/17 09:08 ABG O2 Saturation 96 % (95-98) 01/20/17 09:08 PT/INR, D-dimer PT 17.7 Seconds (9.4-12.1) H 01/17/17 01:29 - VTE Documentation of Mechanical Device: Intermittent pneumatic compression device Consult Discharge Plan - Plan Referrals: Afshin Salazar MD [Primary Care Provider] - Aashish Salazar MD [Partnered Physician] - 02/04/17 11:30 am ()
[2017-02-02] MEDS: *HR* HYDROmorphone (PF) 1 MG/ML SYRINGE IVP PRN ×2 (15:17→23:42)
[2017-02-02] MEDS: Fluconazole 100 MG/50 ML 100 MG/50 ML BAG IVPB SCH (15:26)
--- NOTE | 2017-02-02 16:16 | General Surgery Progress Note ---
Date of Encounter: 02/02/17 Time of Encounter: 16:09 - Assessment and Plan (1) Diverticulitis of colon with perforation Current Visit: Yes Status: Acute POD #16 Exploratory celiotomy, Sigmoid resection, sigmoid colostomy, Abdominal wash out. Tolerating Soft food diet. Continue OOB to chair and IS while awake. Wound vac to be changed on 02/03/17. Otherwise, continue current management. (2) Abdominal wall abscess at site of surgical wound Current Visit: Yes Status: Acute POD #6 Incision and drainage midline abdominal wound, incision and drainage parastomal abscess, wound vac placement, colostomy revision, rigid sigmoidoscope of colostomy (rigid stomoscopy) Daily dressing changes per surgery team. Continue with IV antibiotics- Zosyn (3) DM (diabetes mellitus), type 2 Current Visit: Yes Status: Chronic Hyperglycemia noted- improving Continue sliding scale insulin coverage to every 4 hours and levemir BID Will continue to monitor and adjust as necessary per medicine team Qualifiers: Diabetes mellitus complication status: with hyperglycemia Diabetes mellitus terminal operator insulin use: without nursing home use Qualified Code(s): E11.65 - Type 2 diabetes mellitus with hyperglycemia (4) DVT prophylaxis Current Visit: Yes Status: Acute Continue heparin 5,000 units SQ twice daily for DVT prophylaxis Subjective Patient reports: feels better (States feels a little better. Pain controlled. No nausea. Tolerating PO) Objective Vital Signs - Last 8 Hours Temp Pulse Resp BP Pulse Ox 02/02/17 15:59 18 92 L 02/02/17 15:54 97.9 F 78 18 103/64 92 L 02/02/17 12:00 77 18 110/64 94 L 02/02/17 11:25 20 96 02/02/17 10:00 97.6 F 76 20 110/64 96 Intake and Output 02/02/17 02/02/17 02/02/17 07:59 15:59 23:59 Intake Total 100 / 100 Output Total 0 / 0 1300 / 1300 Balance 0 / 0 -1200 / -1200 Intake: IV Fluids 100 / 100 Zosyn 3.375 GM In 100 / 100 Dextrose 5% (Minibag+) 100 ML 100 ML @ 25 mls/hr IVPB Q8HR [facility] Rx#: [id number] Oral 0 / 0 Output: Urine 0 / 0 1300 / 1300 Other: Meal Lunch Percent of Meal Consumed 50% Weight 87.9 kg Blood Glucose* 88 Patient Weight 02/02/17 23:59 Weight 87.9 kg - General physical appearance well developed, no distress - Respiratory normal expansion, normal respiratory effort - Abdomen Abdomen: Present: bowel sounds present, soft (Incision covered with wound vac. LLQ ostomy functioning. Dressing repacked-noted exudate on dressing.) - Labs 02/02/17 05:49 02/02/17 05:49 Diabetes panel 02/02/17 Range/Units 05:49 Sodium 137 (136-145) mEq/L Potassium 4.4 (3.5-4.5) mEq/L Chloride 104 (98-109) mEq/L Carbon Dioxide 25 (19-29) mEq/L BUN 12 (7-20) mg/dL Creatinine 0.72 (0.57-1.11) mg/dL Glucose 155 H (70-99) mg/dL Calcium 8.4 L (8.6-10.8) mg/dL Calcium panel 02/02/17 Range/Units 05:49 Calcium 8.4 L (8.6-10.8) mg/dL Pituitary panel 02/02/17 Range/Units 05:49 Sodium 137 (136-145) mEq/L Potassium 4.4 (3.5-4.5) mEq/L Chloride 104 (98-109) mEq/L Carbon Dioxide 25 (19-29) mEq/L BUN 12 (7-20) mg/dL Creatinine 0.72 (0.57-1.11) mg/dL Glucose 155 H (70-99) mg/dL Calcium 8.4 L (8.6-10.8) mg/dL Adrenal panel 02/02/17 Range/Units 05:49 Sodium 137 (136-145) mEq/L Potassium 4.4 (3.5-4.5) mEq/L Chloride 104 (98-109) mEq/L Carbon Dioxide 25 (19-29) mEq/L BUN 12 (7-20) mg/dL Creatinine 0.72 (0.57-1.11) mg/dL Glucose 155 H (70-99) mg/dL Calcium 8.4 L (8.6-10.8) mg/dL - VTE Documentation of Mechanical Device: Intermittent pneumatic compression device Consult Discharge Plan - Plan Referrals: Afshin Salazar MD [Primary Care Provider] - Aashish Salazar MD [Partnered Physician] - 02/04/17 11:30 am ()
[2017-02-03] MEDS: Ipratropium/Albuterol Neb 3 ML IH SCH ×6 (03:34→23:55)
[2017-02-03 04:57] LABS: BUN/Creatinine Ratio 15 (6-26); Blood Urea Nitrogen 10 mg/dL (7-20); Calcium 8.7 mg/dL (8.6-10.8); Carbon Dioxide 23 mEq/L (19-29); Chloride 104 mEq/L (98-109); Glucose 62 mg/dL (70-99); Magnesium 1.7 mg/dL (1.6-2.6); Osmolality,Calculated 281 (280-300); Potassium 3.7 mEq/L (3.5-4.5); Sodium 137 mEq/L (136-145); eGFR For African Americans > 60 (> 60); eGFR For Non-African Americans > 60 (> 60)
[2017-02-03] MEDS: *HR* Heparin 5,000 UNIT/ML VIAL SQ SCH ×2 (05:37→18:27)
[2017-02-03] MEDS: *HR* HYDROmorphone (PF) 1 MG/ML SYRINGE IVP PRN ×2 (05:42→12:30)
[2017-02-03 05:43] LABS: Basophils # 0.1 K/mcL (0.0-0.2); Basophils % 0.7 %; Eosinophils # 0.2 K/mcL (0.0-0.6); Eosinophils % 2.2 %; Hematocrit 29.9 % (35.3-44.9); Hemoglobin 9.5 g/dL (11.5-15.4); Immature Granulocytes % 0.9 % (0-4); Lymphocytes % 14.9 %; Mean Corpuscular HGB Conc 31.8 g/dL (31.6-35.5); Mean Corpuscular Hemoglobin 29.4 pg (28.0-33.3); Mean Corpuscular Volume 92.6 fL (83.0-100.0); Mean Platelet Volume 9.6 fL (9.4-12.4); Monocytes # 0.8 K/mcL (0.0-1.3); Monocytes % 11.5 %; Neutrophils # 4.8 K/mcL (1.6-8.9); Platelet Count 347 K/mcL (140-400); Red Blood Count 3.23 M/mcL (3.82-4.97); Red Cell Distribution Width 15.8 % (11.5-14.5); Segmented Neutrophils % 69.8 %
[2017-02-03] MEDS: Metoprolol XL (24 HR) Succ 50 MG TAB.ER.24H PO SCH (09:05)
[2017-02-03] MEDS: Piperacillin/Tazobactam 3.375 GM in D5% in Water (Mini-Bag+) 100 ML IVPB SCH ×2 (09:05→18:27)
[2017-02-03] MEDS: Insulin DETEMIR 100 UNIT/ML X5UNITS SQ SCH ×2 (09:06→20:03)
[2017-02-03] MEDS: FLUoxetine 20 MG CAPSULE PO SCH ×2 (09:06→20:01)
[2017-02-03] MEDS: Furosemide 20 MG TABLET PO SCH (09:06)
[2017-02-03] MEDS: *HR* OxyCODONE/APAP 10/325 TABLET PO PRN ×2 (09:10→20:01)
[2017-02-03] MEDS: Insulin LISPRO 300 UNITS/3 ML VIAL SQ SCH ×3 (12:18→20:03)
--- NOTE | 2017-02-03 14:38 | Internal Med Progress Note ---
Date of Encounter: 02/03/17 Time of Encounter: 14:36 - Assessment and plan (1) Diverticulitis of colon with perforation Current Visit: Yes Status: Acute (2) Sepsis associated hypotension Current Visit: Yes Status: Acute (3) Hypomagnesemia Current Visit: Yes Status: Acute (4) Acute respiratory failure Current Visit: Yes Status: Resolved Qualifiers: Respiratory failure complication: hypoxia and hypercapnia Qualified Code(s) : J96.01 - Acute respiratory failure with hypoxia; J96.02 - Acute respiratory failure with hypercapnia (5) DM (diabetes mellitus), type 2 Current Visit: Yes Status: Chronic Qualifiers: Diabetes mellitus complication status: with hyperglycemia 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: without [facility] use Qualified Code(s): E11.65 - Type 2 diabetes mellitus with hyperglycemia (6) COPD (chronic obstructive pulmonary disease) Current Visit: Yes Status: Chronic Qualifiers: COPD type: unspecified COPD Qualified Code(s): J44.9 - Chronic obstructive pulmonary disease, unspecified (7) DVT prophylaxis Current Visit: Yes Status: Acute (8) Ileus, postoperative Current Visit: Yes Status: Resolved (9) Abdominal wall abscess at site of surgical wound Current Visit: Yes Status: Acute Assessment and plan: 56-year-old female with past medical history of hypertension, diabetes, COPD, admitted to the hospital of diverticulitis with perforation, compensated by septic shock and acute respiratory failure in setting of sepsis. Patient underwent exploratory celiotomy, sigmoid resection and sigmoid colostomy on 08/2017. She was noticed to have severe abdominal pain with continued abdominal distention, worsening leukocytosis. Patient was diagnosed to have peristomal abscess, for which she underwent incision and drainage of the midline abdominal wound, I&D of parastomal abscess, wound vac placement, colostomy revision and rigid stomoscopy on 01/27/2017. # Diverticulitis of Colon with perforation: status post exploratory surgery on with revision on 01/27/2017. On soft diet, tolerating well. WBC trending down. On IV zosyn per surgery. Pain control with IV Dilaudid and Percocet with high risk of complications requiring close monitoring. # Abdominal wall abscess surgical site: I&D of parastomal abscess, wound vac placement, colostomy revision and rigid stomoscopy on 01/27/2017. Improving clinically, WBC trending down, continuing antibiotics. Surgery following # Postoperative illeus: resolved, on soft diet, tolerating well. # Diabetes mellitus type II with complications: blood glucose better controlled. Levemir decreased as low BG readings noted. # Acute respiratory failure: resolved, imaging negative for any evidence of pneumonia. Continued incentive spirometry. Out of bed to chair as tolerated. On Lasix 20 mg PO daily # Depression: continue Prozac # DVT prophylaxis: On Sub Q heparin - Time Spent With Patient 25 - 35 minutes - Subjective Interval history: Pt seen and examined at bedside. She sitting up in a chair this morning, reports that abdominal pain is better. No abdominal distention. Afebrile. Labs reviewed, WBC trending down. On soft diet tolerating well. - Constitutional Vitals: Temp Pulse Resp BP Pulse Ox 97.5 F L 75 16 111/66 94 L 02/03/17 11:56 02/03/17 11:56 02/03/17 11:56 02/03/17 07:00 02/03/17 11:56 General appearance: Present: A&O X 3, answers questions appropriately - Head Head exam: Present: atraumatic, normocephalic - Eye Eye exam: Present: PERRL, conjuntiva pink, sclera anicteric Pupils: Present: PERRL - Neck Neck exam general surgery: Present: supple, trachea midline. Absent: lymphadenopathy - Respiratory Respiratory exam: Present: CTAB. Absent: accessory muscle use, rales, rhonchi, wheezes - Cardiovascular Cardiovascular exam: Present: RRR, +S1, +S2. Absent: diastolic murmur, gallop, rubs, systolic murmur - GI/Abdominal GI/Abdominal exam: Present: normal bowel sounds, soft, no peritoneal signs ( surgical site clean). Absent: distended, tenderness - Extremities Exam Extremities exam: Present: warm, radial pulses palpable and symetrical. Absent : calf tenderness, cyanotic, pedal edema - Neurological Exam Neurological exam: Present: CN II-XII intact, oriented X3, no focal deficits. Absent: pronater drift, facial droop, speech deficit - Skin Skin exam: Present: dry, intact Internal Medicine: Result - Labs CBC & Chem 7: 02/03/17 05:32 02/03/17 04:17 Labs: Short CBC 02/03/17 Range/Units 05:32 WBC 6.8 (4.3-11.1) K/mcL Hgb 9.5 L (11.5-15.4) g/dL Hct 29.9 L (35.3-44.9) % Plt Count 347 (140-400) K/mcL Neutrophils # 4.8 (1.6-8.9) K/mcL BMP 02/03/17 04:17 Sodium 137 Potassium 3.7 Chloride 104 Carbon Dioxide 23 BUN 10 Creatinine 0.67 Glucose 62 L Calcium 8.7 - ABG Interpretation ABG results: ABG ABG pH 7.48 pH Units (7.32-7.45) H 01/20/17 09:08 ABG pCO2 44 mmHg (35-45) 01/20/17 09:08 ABG pO2 78 mmHg (85-104) L 01/20/17 09:08 ABG O2 Saturation 96 % (95-98) 01/20/17 09:08 PT/INR, D-dimer PT 17.7 Seconds (9.4-12.1) H 01/17/17 01:29 - VTE Documentation of Mechanical Device: Intermittent pneumatic compression device Consult Discharge Plan - Plan Referrals: Afshin Salazar MD [Primary Care Provider] - Aashish Salazar MD [Partnered Physician] - (PATIENT IS GOING TO ECF, NO PCP APPOINTMENT NEEDED)
--- NOTE | 2017-02-03 15:03 | General Surgery Progress Note ---
Date of Encounter: 02/03/17 Time of Encounter: 13:00 - Assessment and Plan (1) Diverticulitis of colon with perforation Current Visit: Yes Status: Acute POD #17 Exploratory celiotomy, Sigmoid resection, sigmoid colostomy, Abdominal wash out. Continue soft diet with protein supplements Supportive care/pain control- dilaudid and percocet prn IV antibiotics- Zosyn WBC normal Out of bed to chair TID Incentive Spirometer every 1 hour while awake Wound vac change every MWF PT/OT Repeat am labs D/C telemetry May shower (2) Abdominal wall abscess at site of surgical wound Current Visit: Yes Status: Acute POD #7 Incision and drainage midline abdominal wound, incision and drainage parastomal abscess, wound vac placement, colostomy revision, rigid sigmoidoscope of colostomy (rigid stomoscopy) Wound vac every MWF- White foam within the wound and then cover with black foam (bridge midline and LLQ together) IV antibiotics- Zosyn Supportive care/pain control (3) DM (diabetes mellitus), type 2 Current Visit: Yes Status: Chronic Stable Continue sliding scale insulin coverage to every 4 hours and levemir BID Will continue to monitor and adjust as necessary per medicine team Qualifiers: Diabetes mellitus complication status: with hyperglycemia Diabetes mellitus [facility] insulin use: without salvage determiner use Qualified Code(s): E11.65 - Type 2 diabetes mellitus with hyperglycemia (4) Severe protein-calorie malnutrition Current Visit: Yes Status: Acute Resolving TPN discontinued 01/30/17 Continue soft diet with protein supplements (5) DVT prophylaxis Current Visit: Yes Status: Acute Continue heparin 5,000 units SQ twice daily for DVT prophylaxis Subjective Patient reports: no new complaints, feels better, still having pain, pain is less, tolerating a regular diet, voiding w/o difficulty, flatus, bowel movement (via colostomy), afebrile Objective Vital Signs - Last 8 Hours Temp Pulse Resp Pulse Ox 02/03/17 11:56 97.5 F L 75 16 94 L 02/03/17 08:00 80 02/03/17 07:42 16 94 L Intake and Output 02/02/17 02/03/17 02/03/17 23:59 07:59 15:59 Intake Total 400 / 400 200 / 200 240 / 240 Output Total 400 / 400 400 / 400 Balance 0 / 0 -200 / -200 240 / 240 Intake: IV Fluids 150 / 150 100 / 100 Diflucan 100 MG/50 ML 100 50 / 50 mg In 50 ml @ 50 mls/hr IVPB DAILY@1400 [facility] Rx#: [id number] Zosyn 3.375 GM In 100 / 100 100 / 100 Dextrose 5% (Minibag+) 100 ML 100 ML @ 25 mls/hr IVPB Q8HR [facility] Rx#: [id number] Oral 250 / 250 100 / 100 240 / 240 Output: Urine 400 / 400 400 / 400 Other: Meal Dinner Breakfast Percent of Meal Consumed 10% 90% # Voids 0 Weight 82.6 kg Blood Glucose* 62 99 135 Patient Weight 02/03/17 23:59 Weight 82.6 kg - General physical appearance well developed, no distress - Eyes normal ocular movement - ENT normal mucosa, atraumatic, normocephalic - Neck Neck exam: trachea midline - Respiratory normal respiratory effort, clear to auscultation - Cardiovascular Cardiovascular exam: Present: RRR - Abdomen Abdomen: Present: bowel sounds present, soft, tender (expected post-operative tenderness), wound (Midline with wound vac intact with serous drainage noted; Colostomy pink and moist with liquid stool noted) - Incision Incision: Present: open (Midline with wound vac intact with serous drainage noted; Colostomy pink and moist with liquid stool noted; LLQ with packing with purulent, foul smelling drainage noted (moderate amount), no surrounding erythema or induration.) - Integumentary no rash - Neurologic CN 2-12 grossly intact - Musculoskeletal other (moderate deconditioning) - Psychiatric oriented to time, oriented to person, oriented to place, speech is normal, memory intact - Labs 02/03/17 05:32 02/03/17 04:17 Diabetes panel 02/03/17 Range/Units 04:17 Sodium 137 (136-145) mEq/L Potassium 3.7 (3.5-4.5) mEq/L Chloride 104 (98-109) mEq/L Carbon Dioxide 23 (19-29) mEq/L BUN 10 (7-20) mg/dL Creatinine 0.67 (0.57-1.11) mg/dL Glucose 62 L (70-99) mg/dL Calcium 8.7 (8.6-10.8) mg/dL Calcium panel 02/03/17 Range/Units 04:17 Calcium 8.7 (8.6-10.8) mg/dL Pituitary panel 02/03/17 Range/Units 04:17 Sodium 137 (136-145) mEq/L Potassium 3.7 (3.5-4.5) mEq/L Chloride 104 (98-109) mEq/L Carbon Dioxide 23 (19-29) mEq/L BUN 10 (7-20) mg/dL Creatinine 0.67 (0.57-1.11) mg/dL Glucose 62 L (70-99) mg/dL Calcium 8.7 (8.6-10.8) mg/dL Adrenal panel 02/03/17 Range/Units 04:17 Sodium 137 (136-145) mEq/L Potassium 3.7 (3.5-4.5) mEq/L Chloride 104 (98-109) mEq/L Carbon Dioxide 23 (19-29) mEq/L BUN 10 (7-20) mg/dL Creatinine 0.67 (0.57-1.11) mg/dL Glucose 62 L (70-99) mg/dL Calcium 8.7 (8.6-10.8) mg/dL - VTE Documentation of Mechanical Device: Intermittent pneumatic compression device Consult Discharge Plan - Plan Referrals: Afshin Salazar MD [Primary Care Provider] - Aashish Salazar MD [Partnered Physician] - (PATIENT IS GOING TO ECF, NO PCP APPOINTMENT NEEDED) - Attending Attestation I examined this patient and my medical decision-making was reviewed with the COMPUGRAPH OPERATOR/PA/Advanced Practice Nurse/Resident Physician. I agree with the documented findings, disposition and treatment plan as described except to the extent set forth below.
[2017-02-03] MEDS: Fluconazole 100 MG/50 ML 100 MG/50 ML BAG IVPB SCH (15:20)
[2017-02-04] MEDS: *HR* OxyCODONE/APAP 10/325 TABLET PO PRN (00:06)
[2017-02-04] MEDS: Piperacillin/Tazobactam 3.375 GM in D5% in Water (Mini-Bag+) 100 ML IVPB SCH ×3 (02:44→19:29)
[2017-02-04] MEDS: Ipratropium/Albuterol Neb 3 ML IH SCH ×6 (03:56→23:19)
[2017-02-04] MEDS: *HR* Heparin 5,000 UNIT/ML VIAL SQ SCH ×2 (06:28→18:07)
[2017-02-04] MEDS: Insulin LISPRO 300 UNITS/3 ML VIAL SQ SCH ×4 (07:42→21:13)
[2017-02-04] MEDS: Metoprolol XL (24 HR) Succ 50 MG TAB.ER.24H PO SCH (09:51)
[2017-02-04] MEDS: Furosemide 20 MG TABLET PO SCH (09:51)
[2017-02-04] MEDS: FLUoxetine 20 MG CAPSULE PO SCH ×2 (09:51→21:01)
[2017-02-04] MEDS: Insulin DETEMIR 100 UNIT/ML X5UNITS SQ SCH ×2 (09:52→21:01)
--- NOTE | 2017-02-04 12:54 | Internal Med Progress Note ---
Date of Encounter: 02/04/17 Time of Encounter: 16:49 - Assessment and plan (1) Diverticulitis of colon with perforation Current Visit: Yes Status: Acute (2) Sepsis associated hypotension Current Visit: Yes Status: Acute (3) Hypomagnesemia Current Visit: Yes Status: Acute (4) Acute respiratory failure Current Visit: Yes Status: Resolved Qualifiers: Respiratory failure complication: hypoxia and hypercapnia Qualified Code(s) : J96.01 - Acute respiratory failure with hypoxia; J96.02 - Acute respiratory failure with hypercapnia (5) DM (diabetes mellitus), type 2 Current Visit: Yes Status: Chronic Qualifiers: Diabetes mellitus complication status: with hyperglycemia Diabetes mellitus adjunct faculty for medical terminology insulin use: without alf use Qualified Code(s): E11.65 - Type 2 diabetes mellitus with hyperglycemia (6) COPD (chronic obstructive pulmonary disease) Current Visit: Yes Status: Chronic Qualifiers: COPD type: unspecified COPD Qualified Code(s): J44.9 - Chronic obstructive pulmonary disease, unspecified (7) DVT prophylaxis Current Visit: Yes Status: Acute (8) Ileus, postoperative Current Visit: Yes Status: Resolved (9) Abdominal wall abscess at site of surgical wound Current Visit: Yes Status: Acute Assessment and plan: 56-year-old female with past medical history of hypertension, diabetes, COPD, admitted to the hospital of diverticulitis with perforation, compensated by septic shock and acute respiratory failure in setting of sepsis. Patient underwent exploratory celiotomy, sigmoid resection and sigmoid colostomy on 08/2017. She was noticed to have severe abdominal pain with continued abdominal distention, worsening leukocytosis. Patient was diagnosed to have peristomal abscess, for which she underwent incision and drainage of the midline abdominal wound, I&D of parastomal abscess, wound vac placement, colostomy revision and rigid stomoscopy on 01/27/2017. # Diverticulitis of Colon with perforation: status post exploratory surgery on with revision on 01/27/2017. On soft diet, tolerating well. WBC trended down. On IV zosyn per surgery. Pain control with IV Dilaudid and Percocet with high risk of complications requiring close monitoring. # Abdominal wall abscess surgical site: I&D of parastomal abscess, wound vac placement, colostomy revision and rigid stomoscopy on 01/27/2017. Improving clinically, WBC trending down, continuing antibiotics. Surgery following # Postoperative illeus: resolved, on soft diet, tolerating well. # Diabetes mellitus type II with complications: blood glucose better controlled. Levemir decreased as low BG readings noted. # Acute respiratory failure: resolved, imaging negative for any evidence of pneumonia. Continued incentive spirometry. Out of bed to chair as tolerated. On Lasix 20 mg PO daily # Depression: continue Prozac # DVT prophylaxis: On Sub Q heparin - Time Spent With Patient 25 - 35 minutes - Subjective Interval history: Pt seen and examined at bedside. She sitting up in a chair this morning, reports that abdominal pain is better. No abdominal distention. Afebrile. Labs reviewed, WBC trending down. On soft diet tolerating well. - Constitutional Vitals: Temp Pulse Resp BP Pulse Ox 98.8 F 78 18 99/62 93 L 02/04/17 11:53 02/04/17 11:53 02/04/17 11:53 02/04/17 11:53 02/04/17 11:53 General appearance: Present: A&O X 3, answers questions appropriately - Head Head exam: Present: atraumatic, normocephalic - Eye Eye exam: Present: PERRL, conjuntiva pink, sclera anicteric Pupils: Present: PERRL - Neck Neck exam general surgery: Present: supple, trachea midline. Absent: lymphadenopathy - Respiratory Respiratory exam: Present: CTAB. Absent: accessory muscle use, rales, rhonchi, wheezes - Cardiovascular Cardiovascular exam: Present: RRR, +S1, +S2. Absent: diastolic murmur, gallop, rubs, systolic murmur - GI/Abdominal GI/Abdominal exam: Present: normal bowel sounds, soft, no peritoneal signs ( surgical site clean). Absent: distended, tenderness - Extremities Exam Extremities exam: Present: warm, radial pulses palpable and symetrical. Absent : calf tenderness, cyanotic, pedal edema - Neurological Exam Neurological exam: Present: CN II-XII intact, oriented X3, no focal deficits. Absent: pronater drift, facial droop, speech deficit - Skin Skin exam: Present: dry, intact Internal Medicine: Result - Labs CBC & Chem 7: 02/03/17 05:32 02/03/17 04:17 - ABG Interpretation ABG results: ABG ABG pH 7.48 pH Units (7.32-7.45) H 01/20/17 09:08 ABG pCO2 44 mmHg (35-45) 01/20/17 09:08 ABG pO2 78 mmHg (85-104) L 01/20/17 09:08 ABG O2 Saturation 96 % (95-98) 01/20/17 09:08 PT/INR, D-dimer PT 17.7 Seconds (9.4-12.1) H 01/17/17 01:29 - VTE Documentation of Mechanical Device: Intermittent pneumatic compression device Consult Discharge Plan - Plan Referrals: Afshin Salazar MD [Primary Care Provider] - Aashish Salazar MD [Partnered Physician] - (PATIENT IS GOING TO [facility], NO PCP APPOINTMENT NEEDED)
--- NOTE | 2017-02-04 13:05 | General Surgery Progress Note ---
Date of Encounter: 02/04/17 Time of Encounter: 13:00 - Assessment and Plan (1) Diverticulitis of colon with perforation Current Visit: Yes Status: Acute POD #18 Exploratory celiotomy, Sigmoid resection, sigmoid colostomy, Abdominal wash out. Continue soft diet with protein supplements Supportive care/pain control- dilaudid and percocet prn IV antibiotics- Zosyn WBC normal Out of bed to chair TID Incentive Spirometer every 1 hour while awake Wound vac change every MWF PT/OT Repeat am labs D/C telemetry May shower Discharge planning- inpatient rehab (2) Abdominal wall abscess at site of surgical wound Current Visit: Yes Status: Acute POD #8 Incision and drainage midline abdominal wound, incision and drainage parastomal abscess, wound vac placement, colostomy revision, rigid sigmoidoscope of colostomy (rigid stomoscopy) Wound vac every MWF- White foam within the wound and then cover with black foam (bridge midline and LLQ together) IV antibiotics- Zosyn Supportive care/pain control (3) DM (diabetes mellitus), type 2 Current Visit: Yes Status: Chronic Stable Continue sliding scale insulin coverage to every 4 hours and levemir BID Will continue to monitor and adjust as necessary per medicine team Qualifiers: Diabetes mellitus complication status: with hyperglycemia Diabetes mellitus exterminator helper insulin use: without exterminator helper use Qualified Code(s): E11.65 - Type 2 diabetes mellitus with hyperglycemia (4) Severe protein-calorie malnutrition Current Visit: Yes Status: Acute Resolving TPN discontinued 01/30/17 Continue soft diet with protein supplements (5) DVT prophylaxis Current Visit: Yes Status: Acute Continue heparin 5,000 units SQ twice daily for DVT prophylaxis Subjective Patient reports: no new complaints, feels better, still having pain, pain is less, tolerating a regular diet, voiding w/o difficulty, flatus, bowel movement (via colostomy), afebrile Objective Vital Signs - Last 8 Hours Temp Pulse Resp BP Pulse Ox 02/04/17 11:53 98.8 F 78 18 99/62 93 L 02/04/17 11:44 16 97 02/04/17 07:45 16 94 L 02/04/17 07:34 97.8 F 70 18 104/70 92 L Intake and Output 02/03/17 02/04/17 02/04/17 23:59 07:59 15:59 Intake Total 650 / 650 200 / 200 0 / 0 Output Total 0 / 0 600 / 600 Balance 650 / 650 -400 / -400 0 / 0 Intake: IV Fluids 50 / 50 200 / 200 Diflucan 100 MG/50 ML 100 50 / 50 mg In 50 ml @ 50 mls/hr IVPB DAILY@1400 [facility] Rx#: [id number] Zosyn 3.375 GM In 200 / 200 Dextrose 5% (Minibag+) 100 ML 100 ML @ 25 mls/hr IVPB Q8H [facility] Rx#: [id number] Oral 600 / 600 0 / 0 0 / 0 Output: Urine 0 / 0 600 / 600 Stool 0 / 0 Other: Meal Dinner Percent of Meal Consumed 5% # Voids 1 Blood Glucose* 79 119 149 - General physical appearance well developed, well nourished, no distress - Eyes normal ocular movement - ENT normal mucosa, atraumatic, normocephalic - Neck Neck exam: trachea midline - Respiratory normal respiratory effort, clear to auscultation - Cardiovascular Cardiovascular exam: Present: RRR - Abdomen Abdomen: Present: bowel sounds present, soft, tender (expected post-operative tenderness), wound (Midline and LLQ with wound vac intact with serous drainage noted; Colostomy pink and moist with flatus noted) - Incision Incision: Present: open (Midline and LLQ with wound vac intact with serous drainage noted; Colostomy pink and moist with flatus noted) - Integumentary no rash - Neurologic CN 2-12 grossly intact - Psychiatric oriented to time, oriented to person, oriented to place, speech is normal, memory intact - Labs 02/03/17 05:32 02/03/17 04:17 - VTE Documentation of Mechanical Device: Intermittent pneumatic compression device Consult Discharge Plan - Plan Referrals: Afshin Salazar MD [Primary Care Provider] - Aashish Salazar MD [Partnered Physician] - (PATIENT IS GOING TO [facility], [facility], NO PCP APPOINTMENT NEEDED) - Attending Attestation I examined this patient and my medical decision-making was reviewed with the ALLERGY AND IMMUNOLOGY CHIEF/PA/Advanced Practice Nurse/Resident Physician. I agree with the documented findings, disposition and treatment plan as described except to the extent set forth below. Wound VAC in place around the midline incision and the left ostomy site. Patient continues to improve daily. Tolerating by mouth fluids. Will start the change antibiotics to by mouth. Consider discharge planning within the next 24 hours.
[2017-02-04] MEDS: Fluconazole 100 MG/50 ML 100 MG/50 ML BAG IVPB SCH (14:34)
[2017-02-04] MEDS: *HR* HYDROmorphone (PF) 1 MG/ML SYRINGE IVP PRN (21:02)
[2017-02-05] MEDS: Piperacillin/Tazobactam 3.375 GM in D5% in Water (Mini-Bag+) 100 ML IVPB SCH ×3 (03:09→17:55)
[2017-02-05] MEDS: Ipratropium/Albuterol Neb 3 ML IH SCH ×3 (03:48→11:38)
[2017-02-05 04:48] LABS: Basophils # 0.1 K/mcL (0.0-0.2); Basophils % 0.8 %; Eosinophils # 0.2 K/mcL (0.0-0.6); Eosinophils % 2.5 %; Hematocrit 31.7 % (35.3-44.9); Hemoglobin 9.9 g/dL (11.5-15.4); Immature Granulocytes % 0.9 % (0-4); Lymphocytes # 1.6 K/mcL (0.6-4.6); Lymphocytes % 21.2 %; Mean Corpuscular HGB Conc 31.2 g/dL (31.6-35.5); Mean Corpuscular Hemoglobin 29.2 pg (28.0-33.3); Mean Corpuscular Volume 93.5 fL (83.0-100.0); Mean Platelet Volume 10.3 fL (9.4-12.4); Monocytes # 0.7 K/mcL (0.0-1.3); Monocytes % 9.2 %; Platelet Count 299 K/mcL (140-400); Red Blood Count 3.39 M/mcL (3.82-4.97); Segmented Neutrophils % 65.4 %
[2017-02-05 05:04] LABS: BUN/Creatinine Ratio 16 (6-26); Blood Urea Nitrogen 11 mg/dL (7-20); Calcium 8.9 mg/dL (8.6-10.8); Carbon Dioxide 27 mEq/L (19-29); Chloride 104 mEq/L (98-109); Glucose 63 mg/dL (70-99); Magnesium 1.5 mg/dL (1.6-2.6); Osmolality,Calculated 287 (280-300); Potassium 3.2 mEq/L (3.5-4.5); Sodium 140 mEq/L (136-145); eGFR For African Americans > 60 (> 60); eGFR For Non-African Americans > 60 (> 60)
[2017-02-05] MEDS: *HR* Heparin 5,000 UNIT/ML VIAL SQ SCH ×2 (06:04→17:44)
[2017-02-05] MEDS: FLUoxetine 20 MG CAPSULE PO SCH ×2 (09:19→20:47)
[2017-02-05] MEDS: Insulin DETEMIR 100 UNIT/ML X5UNITS SQ SCH (09:20)
[2017-02-05] MEDS: Furosemide 20 MG TABLET PO SCH (09:20)
[2017-02-05] MEDS: Insulin LISPRO 300 UNITS/3 ML VIAL SQ SCH ×4 (09:20→20:54)
[2017-02-05] MEDS: Metoprolol XL (24 HR) Succ 50 MG TAB.ER.24H PO SCH (09:21)
[2017-02-05] MEDS ORDERED: Ipratropium/Albuterol Neb 3 ML IH PRN (11:40)
--- NOTE | 2017-02-05 13:27 | General Surgery Progress Note ---
Date of Encounter: 02/05/17 Time of Encounter: 13:25 - Assessment and Plan (1) Diverticulitis of colon with perforation Current Visit: Yes Status: Acute POD #19 Exploratory celiotomy, Sigmoid resection, sigmoid colostomy, Abdominal wash out. Continue soft diet with protein supplements Supportive care/pain control- dilaudid and percocet prn Transition to augmentin WBC normal Out of bed to chair TID Incentive Spirometer every 1 hour while awake Wound vac change every MWF PT/OT Repeat am labs D/C telemetry May shower Discharge planning- inpatient rehab (2) Abdominal wall abscess at site of surgical wound Current Visit: Yes Status: Acute POD #9 Incision and drainage midline abdominal wound, incision and drainage parastomal abscess, wound vac placement, colostomy revision, rigid sigmoidoscope of colostomy (rigid stomoscopy) Wound vac every MWF- White foam within the wound and then cover with black foam (bridge midline and LLQ together) transition to augmentin Supportive care/pain control (3) DM (diabetes mellitus), type 2 Current Visit: Yes Status: Chronic Stable Continue sliding scale insulin coverage to every 4 hours and levemir BID Will continue to monitor and adjust as necessary per medicine team Qualifiers: Diabetes mellitus complication status: with hyperglycemia Diabetes mellitus halfway insulin use: without halfway use Qualified Code(s): E11.65 - Type 2 diabetes mellitus with hyperglycemia (4) Severe protein-calorie malnutrition Current Visit: Yes Status: Acute Resolving TPN discontinued 01/30/17 Continue soft diet with protein supplements (5) DVT prophylaxis Current Visit: Yes Status: Acute Continue heparin 5,000 units SQ twice daily for DVT prophylaxis Subjective Patient reports: no new complaints, tolerating a regular diet, voiding w/o difficulty, flatus, bowel movement (via colostomy), afebrile Objective Vital Signs - Last 8 Hours Temp Pulse Resp BP Pulse Ox 02/05/17 11:57 98.3 F 75 14 100/68 97 02/05/17 08:15 98.2 F 69 14 101/68 94 L 02/05/17 07:46 16 98 Intake and Output 02/04/17 02/05/17 02/05/17 23:59 07:59 15:59 Intake Total 200 / 200 100 / 100 0 / 0 Output Total 350 / 350 300 / 300 700 / 700 Balance -150 / -150 -200 / -200 -700 / -700 Intake: IV Fluids 200 / 200 100 / 100 Zosyn 3.375 GM In 200 / 200 100 / 100 Dextrose 5% (Minibag+) 100 ML 100 ML @ 25 mls/hr IVPB Q8H [facility] Rx#: [id number] Oral 0 / 0 0 / 0 0 / 0 Output: Urine 350 / 350 0 / 0 700 / 700 Wound Drainage 300 / 300 Abdomen 300 / 300 Other: Weight 88.2 kg Blood Glucose* 72 88 199 Patient Weight 02/05/17 23:59 Weight 88.2 kg - General physical appearance well developed, well nourished, no distress - Eyes normal ocular movement - ENT normal mucosa, atraumatic, normocephalic - Neck Neck exam: trachea midline - Respiratory normal respiratory effort, clear to auscultation - Abdomen Abdomen: Present: bowel sounds present, soft, tender (expected post-operative tenderness), wound (Midline and LLQ with wound vac intact, serous drainage noted ; Colostomy pink and moist with flatus and stool noted) - Incision Incision: Present: open (Midline and LLQ with wound vac intact) - Integumentary no rash - Neurologic CN 2-12 grossly intact - Psychiatric oriented to time, oriented to person, oriented to place, speech is normal, memory intact - Labs 02/05/17 04:14 02/05/17 04:14 Diabetes panel 02/05/17 Range/Units 04:14 Sodium 140 (136-145) mEq/L Potassium 3.2 L (3.5-4.5) mEq/L Chloride 104 (98-109) mEq/L Carbon Dioxide 27 (19-29) mEq/L BUN 11 (7-20) mg/dL Creatinine 0.68 (0.57-1.11) mg/dL Glucose 63 L (70-99) mg/dL Calcium 8.9 (8.6-10.8) mg/dL Calcium panel 02/05/17 Range/Units 04:14 Calcium 8.9 (8.6-10.8) mg/dL Pituitary panel 02/05/17 Range/Units 04:14 Sodium 140 (136-145) mEq/L Potassium 3.2 L (3.5-4.5) mEq/L Chloride 104 (98-109) mEq/L Carbon Dioxide 27 (19-29) mEq/L BUN 11 (7-20) mg/dL Creatinine 0.68 (0.57-1.11) mg/dL Glucose 63 L (70-99) mg/dL Calcium 8.9 (8.6-10.8) mg/dL Adrenal panel 02/05/17 Range/Units 04:14 Sodium 140 (136-145) mEq/L Potassium 3.2 L (3.5-4.5) mEq/L Chloride 104 (98-109) mEq/L Carbon Dioxide 27 (19-29) mEq/L BUN 11 (7-20) mg/dL Creatinine 0.68 (0.57-1.11) mg/dL Glucose 63 L (70-99) mg/dL Calcium 8.9 (8.6-10.8) mg/dL - VTE Documentation of Mechanical Device: Intermittent pneumatic compression device Consult Discharge Plan - Plan Additional Instructions: Surgical discharge instructions: #1 May shower, no tub bath #2 Wash around wounds with soap and water and pat dry with dressing changes #3 No lifting/pushing/pulling greater than 15 lb. for 8 weeks from the date of surgery #4 May climb stairs #5 Midline wound- large black foam with, 125mmHG continuous suction, change every MWF (may shower on these days) #6 LLQ- white foam within the wound with black foam on top, 125mmHG continuous suction, bridge to midline, change every MWF #7 Colostomy care daily- change appliance with every wound vac change Referrals: Afshin Salazar MD [Primary Care Provider] - Lis Thornton CNP [Advanced Practice Nurse] - 02/20/17 8:30 am (surgery follow-up) Prescriptions: OxyCODONE/APAP 10/325 [Percocet 10/325 MG] 1 each PO Q4HR PRN #30 tablet PRN Reason: Moderate to Severe Pain Amoxicillin/Clavulanate [Augmentin] 875 mg PO BIDWM #28 tablet Fluconazole [Diflucan] 100 mg PO DAILY #5 tablet - Attending Attestation I examined this patient and my medical decision-making was reviewed with the SUPERINTENDENT TESTS/PA/Advanced Practice Nurse/Resident Physician. I agree with the documented findings, disposition and treatment plan as described except to the extent set forth below.
--- NOTE | 2017-02-05 13:40 | Physician Discharge Referral ---
ExtendedCare Referral Info Transfer To: [facility] Provider in Charge: Dr. Christiano Catherine; Hospitalist Provider in Charge after Transfer: PCP Institutional Level of Care: Skilled - Diagnosis (1) Diverticulitis of colon with perforation Priority: Primary Status: Resolved (2) Abdominal wall abscess at site of surgical wound Priority: Secondary Status: Resolved (3) DM (diabetes mellitus), type 2 Priority: Secondary Status: Chronic (4) Severe protein-calorie malnutrition Priority: Secondary Status: Resolved (5) DVT prophylaxis Priority: Secondary Status: Acute Expected Duration of Placement: less than 30 days Prognosis: Good Aware of Diagnosis: Patient Aware of Prognosis: Patient - Transfer Medications Prescriptions: OxyCODONE/APAP 10/325 [Percocet 10/325 MG] 1 each PO Q4HR PRN #30 tablet PRN Reason: Moderate to Severe Pain Amoxicillin/Clavulanate [Augmentin] 875 mg PO BIDWM #28 tablet Fluconazole [Diflucan] 100 mg PO DAILY #5 tablet Home Medications: Meloxicam [Mobic] 15 mg PO DAILY PRN 04/28/16 [History] Albuterol Sulfate [Albuterol Inhaler] 2 puff IH Q4H PRN 01/16/17 [History] Biotin 1 mg PO DAILY 01/16/17 [History] Cholecalciferol (D-3) [Vitamin D] 1,000 unit PO DAILY 01/16/17 [History] Diazepam [Valium] 5 mg PO TID PRN 01/16/17 [History] Esomeprazole Magnesium [Nexium] 40 mg PO DAILY 01/16/17 [History] FLUoxetine HCl [Fluoxetine HCl] 40 mg PO BID 01/16/17 [History] Isosorbide DInitrate [Isosorbide Dinitrate] 10 mg PO BID 01/16/17 [History] Lisinopril [Zestril] 10 mg PO DAILY 01/16/17 [History] Lovastatin 80 mg PO HS 01/16/17 [History] Lurasidone [Latuda] 40 mg PO HS 01/16/17 [History] Metoprolol XL (24 HR) Succ [Toprol Xl] 50 mg PO DAILY 01/16/17 [History] Vitamin B Complex 1 each PO DAILY 01/16/17 [History] Amoxicillin/Clavulanate [Augmentin] 875 mg PO BIDWM #28 tablet 02/05/17 [Rx] Fluconazole [Diflucan] 100 mg PO DAILY #5 tablet 02/05/17 [Rx] OxyCODONE/APAP 10/325 [Percocet 10/325 MG] 1 each PO Q4HR PRN #30 tablet [Rx] Allergies/Adverse Reactions: Allergies No Known Allergies Allergy (Verified 04/28/16 19:57) - Respiratory Orders Other (CPAP as neede while sleeping) Smoking Cessation: Smoking cessation has been advised. For more information, call the [place] Tobacco Quit Line at 7-089-UTGT-NOW. - Ancillary Orders May use pressure relief devices daily prn, May go on SARAH w/family/respon green party w /meds at nurse discretion PRN, May consult with Dentist, Cardiographer, Assistant Sales Director PRN - Advance Directives Code Status: Full Code - Mobility Orders Chair, Ambulate - Rehabiliation Orders Rehab Potential: Good Rehab Orders: ROM Exercises, Evaluation for Physical Therapy, Evaluation for Occupational Therapy - Treatments Skin tear care topically daily PRN per policy List/Other: Surgical discharge instructions: #1 May shower, no tub bath #2 Wash around wounds with soap and water and pat dry with dressing changes #3 No lifting/pushing/pulling greater than 15 lb. for 8 weeks from the date of surgery #4 May climb stairs #5 Midline wound- large black foam with, 125mmHG continuous suction, change every MWF (may shower on these days) #6 LLQ- white foam within the wound with black foam on top, 125mmHG continuous suction, bridge to midline, change every MWF #7 Colostomy care daily- change appliance with every wound vac change - Diet Orders Regular (diabetic modifications) House Supplement per Dietary: Ensure TID with meals CERTIFICATION: I certify that the transfer of the above named patient to an Extended Care Facility is necessary for the continuing treatment of the diagnosis listed. The above information is true and accurate reflection of patient's current condition. Confidential - Redisclosure prohibited without a patient's written consent.
[2017-02-05] MEDS ORDERED: Fluconazole 100 MG TABLET PO SCH (14:00)
[2017-02-05] MEDS: *HR* OxyCODONE/APAP 10/325 TABLET PO PRN ×2 (14:10→20:47)
--- NOTE | 2017-02-05 14:32 | Discharge Summary ---
Date of Encounter: 02/05/17 Time of Encounter: 14:30 - Discharge Diagnosis (1) Diverticulitis of colon with perforation Priority: Primary Status: Resolved (2) Sepsis associated hypotension Priority: Secondary Status: Acute (3) Hypokalemia Priority: Secondary Status: Acute (4) COPD (chronic obstructive pulmonary disease) Priority: Secondary Status: Chronic Qualifiers: COPD type: chronic bronchitis Chronic bronchitis type: unspecified Qualified Code(s): J42 - Unspecified chronic bronchitis (5) Hypomagnesemia Priority: Secondary Status: Acute (6) DM (diabetes mellitus), type 2 Priority: Secondary Status: Chronic Qualifiers: Diabetes mellitus complication status: with hyperglycemia Diabetes mellitus custodial insulin use: without adjunct faculty for medical terminology use Qualified Code(s): E11.65 - Type 2 diabetes mellitus with hyperglycemia (7) Ileus, postoperative Priority: Secondary Status: Resolved (8) Severe protein-calorie malnutrition Priority: Secondary Status: Resolved (9) Abdominal wall abscess at site of surgical wound Priority: Secondary Status: Resolved - Discharge Medications Prescriptions: OxyCODONE/APAP 10/325 [Percocet 10/325 MG] 1 each PO Q4HR PRN #30 tablet PRN Reason: Moderate to Severe Pain Amoxicillin/Clavulanate [Augmentin] 875 mg PO BIDWM #28 tablet Fluconazole [Diflucan] 100 mg PO DAILY #5 tablet Potassium Chloride [K-Tab ER] 8 meq PO DAILY #14 tablet.er Home Medications: Meloxicam [Mobic] 15 mg PO DAILY PRN 04/28/16 [History] Albuterol Sulfate [Albuterol Inhaler] 2 puff IH Q4H PRN 01/16/17 [History] Biotin 1 mg PO DAILY 01/16/17 [History] Cholecalciferol (D-3) [Vitamin D] 1,000 unit PO DAILY 01/16/17 [History] Diazepam [Valium] 5 mg PO TID PRN 01/16/17 [History] Esomeprazole Magnesium [Nexium] 40 mg PO DAILY 01/16/17 [History] FLUoxetine HCl [Fluoxetine HCl] 40 mg PO BID 01/16/17 [History] Isosorbide DInitrate [Isosorbide Dinitrate] 10 mg PO BID 01/16/17 [History] Lovastatin 80 mg PO HS 01/16/17 [History] Lurasidone [Latuda] 40 mg PO HS 01/16/17 [History] Vitamin B Complex 1 each PO DAILY 01/16/17 [History] Amoxicillin/Clavulanate [Augmentin] 875 mg PO BIDWM #28 tablet 02/05/17 [Rx] Fluconazole [Diflucan] 100 mg PO DAILY #5 tablet 02/05/17 [Rx] Lisinopril [Zestril] 2.5 mg PO DAILY tablet 02/05/17 [Rx] Metoprolol XL (24 HR) Succ [Toprol Xl] 25 mg PO DAILY tab.er.24h 02/05/17 [Rx] OxyCODONE/APAP 10/325 [Percocet 10/325 MG] 1 each PO Q4HR PRN #30 tablet [Rx] Potassium Chloride [K-Tab ER] 8 meq PO DAILY #14 tablet.er 02/05/17 [Rx] Allergies/Adverse Reactions: Allergies No Known Allergies Allergy (Verified 04/28/16 19:57) Date of admission: 01/17/17 03:38 Primary care physician: Afshin Salazar MD Consults: 01/17/17 04:53 Consult to Critical Care [CONS] Routine Consulting Provider: [facility] [place] Reason for Consult: Patient in ICU for perforated diverticulitis and hypotension. Consult for critical care management. Call Completed: No Consult to Surgery [CONS] Routine Consulting Provider: Surgery [facility] Reason for Consult: Patient with perforated diverticulitis Call Completed: Yes 01/20/17 14:32 Consult to Wound Care [CONS] Routine Reason for Consult: New colostomy Time Notified: 14:33 Call Completed: No 01/21/17 09:28 consult to online content coordinator [Consult to Nutrition] [CONS] Routine Comment: May decrease TPN to 50ml/hour today Consulting Provider: NUTRITION Reason for Dietary Consult: TPN Start and Manage 01/24/17 11:52 Consult to Occupational Therapy [CONS] Routine Comment: Evaluate, develop and implement POC Consult to Physical Therapy [CONS] Routine Comment: Evaluate, develop and implement POC Discharging clinician: Rose Seo Anticipated date of discharge: 02/05/17 - Patient Status Disposition: Transfer SNF Condition: Fair Functional capacity at discharge: uses cane/walker Overall status at discharge: patient is not back to baseline - Discharge Instructions Instructions: Diverticulitis (DC), Diabetes Mellitus Type 2 in Adults (DC), Chronic Obstructive Pulmonary Disease (DC) Follow Up With: Afshin Salazar MD [Primary Care Provider] - Lis Thornton CNP [Advanced Practice Nurse] - 02/20/17 8:30 am (surgery follow-up) Additional Instructions: Surgical discharge instructions: #1 May shower, no tub bath #2 Wash around wounds with soap and water and pat dry with dressing changes #3 No lifting/pushing/pulling greater than 15 lb. for 8 weeks from the date of surgery #4 May climb stairs #5 Midline wound- large black foam with, 125mmHG continuous suction, change every MWF (may shower on these days) #6 LLQ- white foam within the wound with black foam on top, 125mmHG continuous suction, bridge to midline, change every MWF #7 Colostomy care daily- change appliance with every wound vac change - Diet and Activity Activity: as per physical therapy Diet: diabetic diet, other (Ensure 3 times a day with meals) Hospital course: Ms. Pierce is a 56 year old female with history of type 2 diabetes mellitus, hypertension, COPD, hyperlipidemia, obstructive sleep apnea and depression was admitted here with acute diverticulitis of the colon with perforation. She was started on IV antibiotics and surgery was consulted. Patient was also hypokalemic on presentation. She was evaluated by surgery and then recommended exploratory celiotomy. This procedure was done on 01/17/17 and the patient underwent sigmoid resection and sigmoid colostomy with abdominal washout. She was then transferred to ICU after surgery with hypotension and sepsis and ARDS and acute respiratory failure with hypoxia. She continued to receive IV antibiotics and also required vasopressors. She was not intubated but required BiPAP. She was transferred out of the ICU on 01/24/17. She then developed parastomal abscess which was incised and drained on 01/27/17. She was on TPN on through the course since his surgery. She was started on clear liquid diet on . She has slowly been recovering since then. She is now tolerating regular diet with improvement in her diet, nutritional status. She was evaluated by physical therapy and placement to skilled rehabilitation. At this time, patient has been accepted to a skilled rehabilitation and she will be discharged there today. She will complete antibiotic course with Augmentin and an antifungal course with Diflucan as per surgery recommendations. She will also see wound care per instructions from surgery. The patient's blood pressure has been on the lower side and so I have decreased her metoprolol and lisinopril dosage. She also received Lasix in the days prior to her discharge. For now Lasix will be stopped. She is also hypokalemic and I have placed her on oral potassium supplements. She will have her BMP checked on Friday for follow-up. Patient received insulin for her high blood sugars here. However over the past few days she has been hypoglycemic. Her insulin regimen will be stopped at this time. For her diabetes she will be on a diabetic diet only. As can be managed further per her doctor at the intermediate and by her primary care provider after discharge - Time Spent with Patient Total time spent providing and/or coordinating discharge services: Greater than 30 minutes (50 min) - Constitutional Vitals: Temp Pulse Resp BP Pulse Ox 98.3 F 75 14 100/68 97 02/05/17 11:57 02/05/17 11:57 02/05/17 11:57 02/05/17 11:57 02/05/17 11:57 General appearance: Present: cooperative, mild distress, A&O X 3, answers questions appropriately - Respiratory Respiratory exam: Present: CTAB. Absent: accessory muscle use, rales, rhonchi, wheezes - Cardiovascular Cardiovascular exam: Present: RRR, +S1, +S2. Absent: diastolic murmur, gallop, rubs, systolic murmur - GI/Abdominal GI/Abdominal exam: Present: normal bowel sounds, soft, tenderness (Mid abdomen) , no peritoneal signs. Absent: distended Additional comments: Wound VAC in place - Extremities Exam Extremities exam: Present: warm, radial pulses palpable and symetrical. Absent : calf tenderness, cyanotic, pedal edema - Neurological Exam Neurological exam: Present: alert, oriented X3, no focal deficits. Absent: facial droop, speech deficit - Skin Skin exam: Present: dry, intact - VTE Documentation of Mechanical Device: Intermittent pneumatic compression device - Attending Attestation This document has been at least partially created by TickPick recognition technology by Dr. Seo. Errors in grammar, wording or other phrases may exist. If errors are found after the documentation is signed, they will be addressed individually in the addendum section of this document when appropriate.
[2017-02-06] MEDS: Piperacillin/Tazobactam 3.375 GM in D5% in Water (Mini-Bag+) 100 ML IVPB SCH ×2 (02:19→11:37)
[2017-02-06] MEDS: *HR* OxyCODONE/APAP 10/325 TABLET PO PRN ×2 (02:28→08:14)
[2017-02-06] MEDS: *HR* Heparin 5,000 UNIT/ML VIAL SQ SCH (05:36)
[2017-02-06] MEDS: Insulin LISPRO 300 UNITS/3 ML VIAL SQ SCH ×2 (08:07→11:38)
[2017-02-06] MEDS: FLUoxetine 20 MG CAPSULE PO SCH (08:12)
[2017-02-06] MEDS: Furosemide 20 MG TABLET PO SCH (08:12)
[2017-02-06] MEDS ORDERED: Metoprolol XL (24 HR) Succ 25 MG TAB.ER.24H PO SCH (09:00)
[2017-02-06 10:52] VITALS: BP 110/70
== END 2017-02-06 15:12 | DRG 853 ==
LOC: 3ANU 19:38 → EMEROO 19:38 → 3ANU 23:40 → ICNU 01-17 02:11 → SUATTDRO 01-17 03:38 → 2NNU 01-24 19:09 → 3ANU 02-03 12:41
PROVIDERS: ADMIT Hospitalist; ATTEND Internal Medicine

== ENCOUNTER 2017-04-22 06:06 | Inpatient (IN) ==
[2017-04-22] MEDS ORDERED: Dexamethasone 4 MG/ML VIAL ONE (06:25)
[2017-04-22] MEDS ORDERED: *HR* Midazolam HCl 2 MG/2 ML VIAL ONE (06:25)
[2017-04-22] MEDS ORDERED: Albuterol 2.5 MG/3 ML NEBULIZER ONE (06:25)
[2017-04-22] MEDS ORDERED: *HR* Propofol 200 MG/20 ML VIAL IVP ONE (06:25)
[2017-04-22] MEDS ORDERED: Ondansetron 4 MG/2 ML VIAL ONE (06:25)
[2017-04-22] MEDS ORDERED: *HR* Succinylcholine 200 MG/10 ML VIAL IVP ONE (06:25)
[2017-04-22] MEDS ORDERED: *HR* FentaNYL (PF) 100 MCG/2 ML VIAL ONE (06:25)
[2017-04-22] MEDS ORDERED: Lidocaine -MPF 2% 2 ML VIAL ONE (06:25)
[2017-04-22] MEDS ORDERED: Albuterol 2.5 MG/3 ML NEBULIZER IH ONE (06:26)
[2017-04-22] MEDS ORDERED: Levofloxacin 500 MG/100 ML 500 MG/100 ML BAG IVPB ONE (06:26)
[2017-04-22] MEDS ORDERED: MetroNIDAZOLE 500 MG/100 ML 500 MG/100 ML BAG IVPB ONE (06:27)
[2017-04-22] MEDS ORDERED: Ringers Solution, Lactated 1,000 ML IVC SCH (06:30)
[2017-04-22] MEDS ORDERED: *HR* Rocuronium Bromide 50 MG/5 ML VIAL ONE (06:34)
--- NOTE | 2017-04-22 06:57 | History & Physical Report ---
Date of Encounter: 04/22/17 Time of Encounter: 06:57 24 Hour HP Update - Instructions Instructions: If the History and Physical is less than 30 days old and was completed prior to A.M. admission and or procedure and has NOT been updated on calendar day of procedure please complete this update prior to performing procedure. - Update Patient reports changes in Medical Condition: No Changes in examination, assessment, or condition: No Changes in Medication: No Preop tests/diagnostics Reviewed: Yes Pre-Op MRSA Screen: Negative Surgery Remains Indicated: Yes Consent for Planned Operative Procedure(s) Verified: Yes - Pre-Operative Checklist Preoperative Checklist Indicated: No Prophylactic Antibiotic Ordered: Yes Home Medications Include Beta Myrtle: No Beta Myrtle Taken Today (Day of Surgery): No Beta Myrtle Taken Yesterday (Day Prior to Surgery): No Is VTE Prophylaxis Indicated?: NO
--- NOTE | 2017-04-22 07:00 | Anesthesia Evaluation PreOp ---
Date of Encounter: 04/22/17 Time of Encounter: 06:50 - Past History Planned Operation: colostomy reversal Cardiac History: CHF, HTN, Hyperlipidemia (Had an remote episode of CHF, has been on isosorbide and metoprolol since. Most recent ECHO reveals some dilated left atrium with EF of 70%.) Pulmonary History: Smoker, COPD, ERI Dx (Noncompliant with smoking cessation and CPAP therapy.) HAND I BLOCKER History: Other (early Parkinsons, anxiety, depression, bipolar) Other Medical History: GERD Anesthesia History: Past Anesthesia, Problems (Reports that she is slow to wake up.) Alcohol Use: none Drug use: none Medications and Allergies Meloxicam [Mobic] 15 mg PO DAILY PRN 04/28/16 [History] Albuterol Sulfate [Albuterol Inhaler] 2 puff IH Q4H PRN 01/16/17 [History] Biotin 1 mg PO DAILY 01/16/17 [History] Cholecalciferol (D-3) [Vitamin D] 1,000 unit PO DAILY 01/16/17 [History] Esomeprazole Magnesium [Nexium] 40 mg PO DAILY 01/16/17 [History] FLUoxetine HCl [Fluoxetine HCl] 40 mg PO BID 01/16/17 [History] Isosorbide DInitrate [Isosorbide Dinitrate] 10 mg PO BID 01/16/17 [History] Lovastatin 80 mg PO HS 01/16/17 [History] Lurasidone [Latuda] 40 mg PO HS 01/16/17 [History] Vitamin B Complex 1 each PO DAILY 01/16/17 [History] diazePAM [Valium] 5 mg PO TID PRN 01/16/17 [History] Amoxicillin/Clavulanate [Augmentin] 875 mg PO BIDWM #28 tablet 02/05/17 [Rx] Fluconazole [Diflucan] 100 mg PO DAILY #5 tablet 02/05/17 [Rx] Lisinopril [Zestril] 2.5 mg PO DAILY tablet 02/05/17 [Rx] Metoprolol XL (24 HR) Succ [Toprol Xl] 25 mg PO DAILY tab.er.24h 02/05/17 [Rx] OxyCODONE/APAP 10/325 [Percocet 10/325 MG] 1 each PO Q4HR PRN #30 tablet [Rx] Potassium Chloride [K-Tab ER] 8 meq PO DAILY #14 tablet.er 02/05/17 [Rx] Allergies aspirin Allergy (Verified 02/24/17 15:57) Heartburn sulfamethoxazole [From Bactrim] Allergy (Verified 02/24/17 15:58) Gastrointestinal Upset trimethoprim [From Bactrim] Allergy (Verified 02/24/17 15:58) Gastrointestinal Upset - Meds/Allergy Pre-op Review Medications Reviewed: Yes Allergies Reviewed: Yes Beta Blockers on Current Med List: Yes (last dose at 212904/21/17) Anesthesia Results - Labs Laboratory Tests 04/14/17 04/14/17 10:25 10:25 Hgb 11.4 L Hct 36.2 Plt Count 205 Sodium 137 Potassium 4.5 Chloride 105 Carbon Dioxide 24 BUN 15 Creatinine 0.73 - Imaging EKG: report reviewed Anesthesia Exam Selected Entries 04/22/17 06:33 Temperature 99.4 F Pulse Rate 64 Respiratory Rate 18 Blood Pressure 119/76 O2 Sat by Pulse Oximetry 97 Weight: 84 kg NPO (# of Hours): over 8 hours - HEENT Pupil (Motor): Pupils equal Mallampati: II Teeth: Normal Oral Opening: Greater than 3 - Cardiac Rhythm: Regular - Pulmonary Breath Sounds: bilateral Clear Anesthesia Assess/Plan ASA Score: 3 Modified Reanna Scale for Level of Consciousness: Cooperative, oriented, and tranquil Anesthetic Plan: General Monitoring Plan: Standard Monitors Recovery Plan: PACU (Discussed GA, risks, agreed to proceed.)
[2017-04-22] MEDS ORDERED: Ondansetron 4 MG/2 ML VIAL IVP ONE (07:07)
[2017-04-22] MEDS ORDERED: *HR* HYDROmorphone (PF) 1 MG/ML SYRINGE IVP PRN (07:07)
[2017-04-22] MEDS ORDERED: *HR* Midazolam HCl 2 MG/2 ML VIAL IVP PRN (07:07)
[2017-04-22] MEDS ORDERED: *HR* Metoprolol 5 MG/5 ML VIAL IVP PRN (07:07)
[2017-04-22] MEDS ORDERED: CefOXitin 1,000 MG VIAL ONE ×2 (07:22→09:55)
[2017-04-22] MEDS ORDERED: *HR* HYDROmorphone 2 MG/ML SYRINGE ONE (10:07)
--- NOTE | 2017-04-22 10:45 | Operative Note ---
Date of procedure: 04/22/17 Pre-op diagnosis: History perforated diverticulitis; end of life colostomy Post-op diagnosis: same Procedure: Colostomy takedown with colo-rectal anastamosis. Anesthesia: CHARLEY Surgeon: Christiano Catherine Supervisor Front: Ivonne Melo Estimated blood loss (cc): 150 Specimen: colostomy stump, anastomotic rings Condition: stable Disposition: PACU Procedure in Detail: Date of surgery: 04/22/17 After properly identifying the patient, the patient was brought to the operating room and placed in the supine position. After proper IV sedation was achieved followed by general endotracheal intubation, the patient was placed in the low lithotomy position and the left lower quadrant ostomy was closed using a 2-0 nylon suture and a locking running fashion. The abdomen and perineum were then prepped and draped in a normal sterile fashion. A timeout was performed noting the patient's name and type of procedure to be performed. An oval incision inclusive of the ostomy was then performed with a 10 blade scalpel. The ostomy was dissected away from the surrounding subcutaneous tissue with Bovie cauterization. The ostomy was also dissected away from the abdominal wall fascia in a similar fashion. The distal stump of the ostomy was then transected with a HYACINTH stapler and submitted to pathology. The the colonic stump was then placed back through the abdominal wall fascia into the abdomen and sponges were then placed in the subcutaneous tissue. A 10 blade scalpel was then used to make an incision along the midline and dissection was carried down through the scar tissue and abdominal wall fascia to the abdomen was entered along the course of the midline incision. Adhesions along the abdominal wall were taken down with Bovie cauterization and blunt dissection. A Bookwalter was brought onto the operative field and used to retract the abdominal wall fascia laterally. The small bowel was retracted superiorly to allow for visualization of the rectal stump and the Prolene suture that was used to "tag" the rectal stump staple line. The rectal stump was then dissected away from the presacral space with Bovie cauterization and blunt dissection. The descending colon was then examined and the staple line was opened with Bovie cauterization. A 2-0 Prolene is pursestring was placed along the opening and sizers were then placed within the lumen to test the appropriate diameter for anastomosis. While placing a 29-Azerbaijani sizer through the colon a serosal tear was noted. The decision was made to go ahead and resect this portion of the colonic stump with a HYACINTH stapler and redo the opening of the colon and pursestring placement with a 2-0 willing suture. Sizers were then once again used and the decision was made to bring a 29-Azerbaijani EEA stapler onto the operative field. The anvil was then a placed through the opening and the pursestring was tied at the level of the descending colon. The EEA stapler was then placed through the anus and the male end was extruded just anterior to the staple line. The anvil was connected and the EEA stapler and then was retracted and then stapled. Visualization showed 2 intact anastomotic rings. The pelvis was filled with normal saline solution containing Mefoxin above the level of the staple line. Air was introduced through the anus and the descending colon was clamped which showed no evidence of bubbling or signs of a leak. The fluid was removed and the pelvis was reirrigated with normal saline solution containing Mefoxin. Hemostasis was maintained and the decision was made to first close the colostomy defect by reapproximating the posterior fascia with a running #1 PDS suture. The anterior fascia was closed with a running 0 Vicryl suture. Seprafilm was placed within the abdomen and the midline incision was closed with a #1 looped PDS suture. The subcutaneous tissue was reapproximated with interrupted 2-0 Vicryl sutures and the midline incision was closed with pako. The colostomy was closed partially with pako while the midportion was left open for packing with 1 inch plain Nu Gauze. Both incisions were covered with 4 x 4 gauze. Needle, sponge, and instrument counts were correct 2 and the patient was aroused from IV sedation, extubated in the operating room without complication, and transported to the recovery room in stable condition.
--- NOTE | 2017-04-22 11:25 | Anesthesia Evaluation Post Op ---
Date of Encounter: 04/22/17 Time of Encounter: 11:25 - Vital Signs Vital Signs: Last Vital Signs Temp 97.7 F 04/22/17 10:48 Pulse 77 04/22/17 11:08 Resp 16 04/22/17 11:08 BP 138/73 04/22/17 11:08 Pulse Ox 92 04/22/17 11:08 - Lungs Lungs: Clear Ascult./Percussion - Airway Airway: Non-obstructed - Cardiovascular Regular Rate - Mental Status Mental Status: Alert & Oriented, Answers Appropriately - Pain Pain Scale: 3 - Nausea Vomiting Nausea Vomiting: Not Present - Hydration Hydration: NPO - Discharge PostOp Status: Transfer Patient to floor
[2017-04-22] MEDS ORDERED: Naloxone 0.4 MG/ML INJ IVP PRN (11:38)
[2017-04-22] MEDS ORDERED: Ketorolac 30 MG/ML VIAL IM SCH (12:00)
[2017-04-22] MEDS: *HR* Metoprolol 5 MG/5 ML VIAL IVP SCH ×3 (12:08→23:50)
[2017-04-22] MEDS: *HR* HYDROmorphone (PF) 1 MG/ML SYRINGE IVP PRN ×2 (12:08→21:05)
[2017-04-22] MEDS: 0.9 % Sodium Chloride 1,000 ML IVC SCH (12:08)
[2017-04-22] MEDS: MetroNIDAZOLE 500 MG/100 ML 500 MG/100 ML BAG IVPB SCH ×2 (16:58→23:50)
[2017-04-22] MEDS: Ketorolac 30 MG/ML VIAL IVP SCH ×2 (18:15→23:50)
[2017-04-23] MEDS: *HR* Metoprolol 5 MG/5 ML VIAL IVP SCH ×2 (05:21→13:20)
[2017-04-23 05:25] LABS: Basophils % 0.1 %; Hematocrit 29.8 % (35.3-44.9); Hemoglobin 9.3 g/dL (11.5-15.4); Immature Granulocytes % 0.4 % (0-4); Lymphocytes # 1.1 K/mcL (0.6-4.6); Lymphocytes % 13.3 %; Mean Corpuscular HGB Conc 31.2 g/dL (31.6-35.5); Mean Corpuscular Hemoglobin 26.9 pg (28.0-33.3); Mean Corpuscular Volume 86.1 fL (83.0-100.0); Mean Platelet Volume 10.6 fL (9.4-12.4); Monocytes # 0.5 K/mcL (0.0-1.3); Monocytes % 5.9 %; Neutrophils # 6.3 K/mcL (1.6-8.9); Platelet Count 150 K/mcL (140-400); Red Blood Count 3.46 M/mcL (3.82-4.97); Red Cell Distribution Width 14.1 % (11.5-14.5); Segmented Neutrophils % 80.3 %
[2017-04-23] MEDS: Ketorolac 30 MG/ML VIAL IVP SCH ×4 (05:41→23:40)
[2017-04-23 05:46] LABS: BUN/Creatinine Ratio 20 (6-26); Blood Urea Nitrogen 13 mg/dL (7-20); Calcium 8.1 mg/dL (8.6-10.8); Carbon Dioxide 22 mEq/L (19-29); Chloride 109 mEq/L (98-109); Glucose 101 mg/dL (70-99); Osmolality,Calculated 290 (280-300); Potassium 3.5 mEq/L (3.5-4.5); Sodium 140 mEq/L (136-145); eGFR For African Americans > 60 (> 60); eGFR For Non-African Americans > 60 (> 60)
[2017-04-23] MEDS ORDERED: Pantoprazole 40 MG VIAL IVP SCH (09:00)
[2017-04-23] MEDS: MetroNIDAZOLE 500 MG/100 ML 500 MG/100 ML BAG IVPB SCH (09:03)
[2017-04-23] MEDS: 0.9 % Sodium Chloride 1,000 ML IVC SCH ×2 (09:04→23:37)
[2017-04-23] MEDS: Levofloxacin 500 MG/100 ML 500 MG/100 ML BAG IVPB SCH (09:05)
[2017-04-23] MEDS: *HR* HYDROmorphone (PF) 1 MG/ML SYRINGE IVP PRN ×3 (09:15→21:44)
--- NOTE | 2017-04-23 14:26 | General Surgery Progress Note ---
<HillaryLis Stephanie - Last Filed: 04/23/17 14:23> Date of Encounter: 04/23/17 Time of Encounter: 14:00 - Assessment and Plan (1) Status post colostomy takedown Current Visit: Yes Status: Acute Postop day #1 Colostomy takedown with colo-rectal anastamosis with Dr. Catherine May have sips of clear liquids- 300 mL's per shift IV fluids Supportive care and pain control Daily wound care ordered Increase activity as tolerated and ambulate and hallways 3 times a day Incentive spirometer every 1 hour while awake PPI daily Repeat am labs (2) DVT prophylaxis Current Visit: No Status: Acute EPCDs to bilateral lower extremities for DVT prophylaxis Heparin 5000 units subcutaneous twice daily for DVT prophylaxis Ambulate hallways 3 times a day Subjective Patient reports: feels better, still having pain, no flatus, no bowel movement, afebrile Objective Vital Signs - Last 8 Hours Temp Pulse Resp BP Pulse Ox 04/23/17 10:33 98.8 F 73 16 96/64 94 04/23/17 06:56 98.6 F 70 20 98/62 93 Intake and Output 04/22/17 04/23/17 04/23/17 23:59 07:59 15:59 Intake Total 100 / 100 1090 / 1090 Output Total 375 / 375 200 / 200 Balance -275 / -275 890 / 890 Intake: IV Fluids 100 / 100 1090 / 1090 0.9 % Sodium Chloride 1, 990 / 990 000 ML @ 80 mls/hr IVC . [id number] JACE Rx#: [id number] Flagyl Premix 500 MG/100 100 / 100 100 / 100 ML 500 mg In 100 ml @ 100 mls/hr IVPB Q8HR JACE Rx# :[id number] Output: Catheter 375 / 375 200 / 200 Other: Weight 84.141 kg Blood Glucose* 143 105 114 - General physical appearance well developed, well nourished, no distress - Eyes normal ocular movement - ENT normal mucosa, atraumatic, normocephalic - Neck Neck exam: trachea midline - Respiratory normal respiratory effort, clear to auscultation - Cardiovascular Cardiovascular exam: Present: RRR - Abdomen Abdomen: Present: soft, tender (Expected postoperative tenderness), wound ( Small amount of serous drainage noted from old ostomy site) - Incision Incision: Present: clean and dry (Midline), intact, serous (Small amount noted from ostomy site) - Genitourinary other ([place] catheter to straight drain with clear, yellow urine) - Integumentary no rash, no growths - Neurologic CN 2-12 grossly intact - Psychiatric oriented to time, oriented to person, oriented to place, speech is normal, memory intact - Labs 04/23/17 05:04 04/23/17 05:04 Diabetes panel 04/23/17 Range/Units 05:04 Sodium 140 (136-145) mEq/L Potassium 3.5 (3.5-4.5) mEq/L Chloride 109 (98-109) mEq/L Carbon Dioxide 22 (19-29) mEq/L BUN 13 (7-20) mg/dL Creatinine 0.65 (0.57-1.11) mg/dL Glucose 101 H (70-99) mg/dL Calcium 8.1 L (8.6-10.8) mg/dL Calcium panel 04/23/17 Range/Units 05:04 Calcium 8.1 L (8.6-10.8) mg/dL Pituitary panel 04/23/17 Range/Units 05:04 Sodium 140 (136-145) mEq/L Potassium 3.5 (3.5-4.5) mEq/L Chloride 109 (98-109) mEq/L Carbon Dioxide 22 (19-29) mEq/L BUN 13 (7-20) mg/dL Creatinine 0.65 (0.57-1.11) mg/dL Glucose 101 H (70-99) mg/dL Calcium 8.1 L (8.6-10.8) mg/dL Adrenal panel 04/23/17 Range/Units 05:04 Sodium 140 (136-145) mEq/L Potassium 3.5 (3.5-4.5) mEq/L Chloride 109 (98-109) mEq/L Carbon Dioxide 22 (19-29) mEq/L BUN 13 (7-20) mg/dL Creatinine 0.65 (0.57-1.11) mg/dL Glucose 101 H (70-99) mg/dL Calcium 8.1 L (8.6-10.8) mg/dL - VTE Documentation of Mechanical Device: Intermittent pneumatic compression device Consult Discharge Plan - Plan Referrals: Christiano Catherine MD [Partnered Physician] - 05/07/17 11:00 am Aashish Salazar MD [Primary Care Provider] - - Attending Attestation I examined this patient and my medical decision-making was reviewed with the ACTUARIAL CONSULTANT/PA/Advanced Practice Nurse/Resident Physician. I agree with the documented findings, disposition and treatment plan as described except to the extent set forth below. <Christiano Catherine - Last Filed: 04/24/17 08:40> Date of Encounter: 04/24/17 Objective Vital Signs - Last 8 Hours Temp Pulse Resp BP Pulse Ox 04/24/17 07:09 99.1 F 80 17 143/83 93 04/24/17 05:36 100 F H 86 18 127/75 90 Intake and Output 04/23/17 04/24/17 04/24/17 23:59 07:59 15:59 Intake Total 1000 / 1000 0 / 0 Output Total 250 / 250 200 / 200 Balance 750 / 750 -200 / -200 Intake: IV Fluids 1000 / 1000 0.9 % Sodium Chloride 1, 1000 / 1000 000 ML @ 80 mls/hr IVC . [id number] [facility] Rx#: [id number] Oral 0 / 0 Output: Catheter 250 / 250 200 / 200 Other: Weight 84.83 kg Blood Glucose* 92 101 Patient Weight 04/24/17 23:59 Weight 84.83 kg - Labs 04/24/17 05:04 04/24/17 05:04 Diabetes panel 04/24/17 Range/Units 05:04 Sodium 140 (136-145) mEq/L Potassium 3.2 L (3.5-4.5) mEq/L Chloride 110 H (98-109) mEq/L Carbon Dioxide 22 (19-29) mEq/L BUN 13 (7-20) mg/dL Creatinine 0.60 (0.57-1.11) mg/dL Glucose 97 (70-99) mg/dL Calcium 8.0 L (8.6-10.8) mg/dL Calcium panel 04/24/17 Range/Units 05:04 Calcium 8.0 L (8.6-10.8) mg/dL Pituitary panel 04/24/17 Range/Units 05:04 Sodium 140 (136-145) mEq/L Potassium 3.2 L (3.5-4.5) mEq/L Chloride 110 H (98-109) mEq/L Carbon Dioxide 22 (19-29) mEq/L BUN 13 (7-20) mg/dL Creatinine 0.60 (0.57-1.11) mg/dL Glucose 97 (70-99) mg/dL Calcium 8.0 L (8.6-10.8) mg/dL Adrenal panel 04/24/17 Range/Units 05:04 Sodium 140 (136-145) mEq/L Potassium 3.2 L (3.5-4.5) mEq/L Chloride 110 H (98-109) mEq/L Carbon Dioxide 22 (19-29) mEq/L BUN 13 (7-20) mg/dL Creatinine 0.60 (0.57-1.11) mg/dL Glucose 97 (70-99) mg/dL Calcium 8.0 L (8.6-10.8) mg/dL - Attending Attestation I reviewed with the above evaluation and assessment and agree with the above plan. Continue with Sexton placement for accurate I's and O's. Will consider removal within the next 24 hours. Will start packing the colostomy wound with dressing changes today and will start clears today.
[2017-04-23] MEDS ORDERED: diazePAM 5 MG TABLET PO PRN (15:03)
[2017-04-23] MEDS: *HR* Heparin 5,000 UNIT/ML VIAL SQ SCH ×2 (18:12→22:33)
[2017-04-23] MEDS: Metoprolol XL (24 HR) Succ 50 MG TAB.ER.24H PO SCH (22:31)
[2017-04-23] MEDS: FLUoxetine 20 MG CAPSULE PO SCH (22:31)
[2017-04-24 05:49] LABS: Basophils % 0.2 %; Eosinophils % 0.2 %; Hematocrit 28.9 % (35.3-44.9); Hemoglobin 8.9 g/dL (11.5-15.4); Immature Granulocytes % 0.5 % (0-4); Lymphocytes # 0.8 K/mcL (0.6-4.6); Lymphocytes % 9.8 %; Mean Corpuscular HGB Conc 30.8 g/dL (31.6-35.5); Mean Corpuscular Hemoglobin 27.1 pg (28.0-33.3); Mean Corpuscular Volume 87.8 fL (83.0-100.0); Mean Platelet Volume 11.4 fL (9.4-12.4); Monocytes # 0.7 K/mcL (0.0-1.3); Monocytes % 7.8 %; Neutrophils # 6.9 K/mcL (1.6-8.9); Platelet Count 138 K/mcL (140-400); Red Blood Count 3.29 M/mcL (3.82-4.97); Red Cell Distribution Width 14.4 % (11.5-14.5); Segmented Neutrophils % 81.5 %
[2017-04-24] MEDS: *HR* Heparin 5,000 UNIT/ML VIAL SQ SCH ×2 (05:53→18:30)
[2017-04-24] MEDS: Ketorolac 30 MG/ML VIAL IVP SCH ×3 (05:54→15:05)
[2017-04-24 06:04] LABS: BUN/Creatinine Ratio 22 (6-26); Blood Urea Nitrogen 13 mg/dL (7-20); Carbon Dioxide 22 mEq/L (19-29); Chloride 110 mEq/L (98-109); Glucose 97 mg/dL (70-99); Osmolality,Calculated 290 (280-300); Potassium 3.2 mEq/L (3.5-4.5); Sodium 140 mEq/L (136-145); eGFR For African Americans > 60 (> 60); eGFR For Non-African Americans > 60 (> 60)
[2017-04-24] MEDS: Levofloxacin 500 MG/100 ML 500 MG/100 ML BAG IVPB SCH (10:07)
[2017-04-24] MEDS: FLUoxetine 20 MG CAPSULE PO SCH ×2 (10:09→20:32)
[2017-04-24] MEDS: *HR* HYDROmorphone (PF) 1 MG/ML SYRINGE IVP PRN ×3 (10:56→18:31)
[2017-04-24] MEDS: 0.9 % Sodium Chloride 1,000 ML IVC SCH (12:01)
[2017-04-24] MEDS ORDERED: Acetaminophen 325 MG TABLET PO PRN (13:53)
--- NOTE | 2017-04-24 14:00 | General Surgery Progress Note ---
<Lis Thornton Stephanie - Last Filed: 04/24/17 13:58> Date of Encounter: 04/24/17 Time of Encounter: 13:45 - Assessment and Plan (1) Status post colostomy takedown Current Visit: Yes Status: Acute Postop day #2 Colostomy takedown with colo-rectal anastamosis with Dr. Catherine Advanced to full liquid Saline lock IV fluids Supportive care and pain control Daily wound care Increase activity as tolerated and ambulate and hallways 3 times a day Incentive spirometer every 1 hour while awake PPI daily Repeat am labs Discontinue Sexton catheter today (2) DVT prophylaxis Current Visit: No Status: Acute EPCDs to bilateral lower extremities for DVT prophylaxis Heparin 5000 units subcutaneous twice daily for DVT prophylaxis Ambulate hallways 3 times a day (3) Hypokalemia Current Visit: No Status: Acute Replace potassium Repeat a.m. labs Subjective Patient reports: no new complaints, feels better, still having pain, pain is less, tolerating liquids well, flatus, bowel movement, blood in stool, fever ( Low grade fever Tmax 100), other (Out of bed to chair this morning) Objective Vital Signs - Last 8 Hours Temp Pulse Resp BP Pulse Ox 04/24/17 11:21 92 04/24/17 10:37 99.1 F 82 18 115/77 91 04/24/17 07:09 99.1 F 80 17 143/83 93 Intake and Output 04/23/17 04/24/17 04/24/17 23:59 07:59 15:59 Intake Total 1000 / 1000 0 / 0 1000 / 1000 Output Total 250 / 250 200 / 200 150 / 150 Balance 750 / 750 -200 / -200 850 / 850 Intake: IV Fluids 1000 / 1000 1000 / 1000 0.9 % Sodium Chloride 1, 1000 / 1000 900 / 900 000 ML @ 80 mls/hr IVC . [id number] JACE Rx#: [id number] Levaquin Premix 500mg/ 100 / 100 100mL 500 mg In 100 ml @ 100 mls/hr IVPB DAILY JACE Rx#:[id number] Oral 0 / 0 0 / 0 Output: Catheter 250 / 250 200 / 200 150 / 150 Other: Meal NPO Percent of Meal Consumed 0% Weight 84.83 kg Blood Glucose* 92 101 128 Patient Weight 04/24/17 23:59 Weight 84.83 kg - General physical appearance well developed, well nourished, no distress - Eyes normal ocular movement - ENT normal mucosa, atraumatic, normocephalic - Neck Neck exam: trachea midline - Respiratory normal respiratory effort, clear to auscultation - Cardiovascular Cardiovascular exam: Present: RRR - Abdomen Abdomen: Present: bowel sounds present, soft, tender (Expected postoperative tenderness), wound (Old ostomy site with small amount of serous drainage noted) - Incision Incision: Present: clean and dry (Midline), intact, open (Old ostomy site with packing noted, small amount of serous drainage noted. No surrounding erythema or induration) - Genitourinary other ([place] catheter to straight drain with clear, yellow urine) - Integumentary no rash, no growths - Neurologic CN 2-12 grossly intact - Psychiatric oriented to time, oriented to person, oriented to place, speech is normal, memory intact - Labs 04/24/17 05:04 04/24/17 05:04 Diabetes panel 04/24/17 Range/Units 05:04 Sodium 140 (136-145) mEq/L Potassium 3.2 L (3.5-4.5) mEq/L Chloride 110 H (98-109) mEq/L Carbon Dioxide 22 (19-29) mEq/L BUN 13 (7-20) mg/dL Creatinine 0.60 (0.57-1.11) mg/dL Glucose 97 (70-99) mg/dL Calcium 8.0 L (8.6-10.8) mg/dL Calcium panel 04/24/17 Range/Units 05:04 Calcium 8.0 L (8.6-10.8) mg/dL Pituitary panel 04/24/17 Range/Units 05:04 Sodium 140 (136-145) mEq/L Potassium 3.2 L (3.5-4.5) mEq/L Chloride 110 H (98-109) mEq/L Carbon Dioxide 22 (19-29) mEq/L BUN 13 (7-20) mg/dL Creatinine 0.60 (0.57-1.11) mg/dL Glucose 97 (70-99) mg/dL Calcium 8.0 L (8.6-10.8) mg/dL Adrenal panel 04/24/17 Range/Units 05:04 Sodium 140 (136-145) mEq/L Potassium 3.2 L (3.5-4.5) mEq/L Chloride 110 H (98-109) mEq/L Carbon Dioxide 22 (19-29) mEq/L BUN 13 (7-20) mg/dL Creatinine 0.60 (0.57-1.11) mg/dL Glucose 97 (70-99) mg/dL Calcium 8.0 L (8.6-10.8) mg/dL - VTE Documentation of Mechanical Device: Graduated compression elastic hosiery Consult Discharge Plan - Plan Referrals: Christiano Catherine MD [Partnered Physician] - 05/07/17 11:00 am Aashish Salazar MD [Primary Care Provider] - - Attending Attestation I examined this patient and my medical decision-making was reviewed with the DIRECTOR OF STRATEGIC PARTNERSHIPS/PA/Advanced Practice Nurse/Resident Physician. I agree with the documented findings, disposition and treatment plan as described except to the extent set forth below. <Christiano Catherine - Last Filed: 04/24/17 18:03> Date of Encounter: 04/24/17 Objective Vital Signs - Last 8 Hours Temp Pulse Resp BP Pulse Ox 04/24/17 14:57 98.7 F 76 16 112/74 95 04/24/17 11:21 92 04/24/17 10:37 99.1 F 82 18 115/77 91 Intake and Output 04/24/17 04/24/17 04/24/17 07:59 15:59 23:59 Intake Total 0 / 0 1000 / 1000 Output Total 200 / 200 275 / 275 Balance -200 / -200 725 / 725 Intake: IV Fluids 1000 / 1000 0.9 % Sodium Chloride 1, 900 / 900 000 ML @ 80 mls/hr IVC . [id number] JACE Rx#: [id number] Levaquin Premix 500mg/ 100 / 100 100mL 500 mg In 100 ml @ 100 mls/hr IVPB DAILY JACE Rx#:[id number] Oral 0 / 0 0 / 0 Output: Urine 0 / 0 Catheter 200 / 200 275 / 275 Other: Meal NPO Percent of Meal Consumed 0% Weight 84.83 kg Blood Glucose* 101 128 Patient Weight 04/24/17 23:59 Weight 84.83 kg - Labs 04/24/17 05:04 04/24/17 05:04 Diabetes panel 04/24/17 Range/Units 05:04 Sodium 140 (136-145) mEq/L Potassium 3.2 L (3.5-4.5) mEq/L Chloride 110 H (98-109) mEq/L Carbon Dioxide 22 (19-29) mEq/L BUN 13 (7-20) mg/dL Creatinine 0.60 (0.57-1.11) mg/dL Glucose 97 (70-99) mg/dL Calcium 8.0 L (8.6-10.8) mg/dL Calcium panel 04/24/17 Range/Units 05:04 Calcium 8.0 L (8.6-10.8) mg/dL Pituitary panel 04/24/17 Range/Units 05:04 Sodium 140 (136-145) mEq/L Potassium 3.2 L (3.5-4.5) mEq/L Chloride 110 H (98-109) mEq/L Carbon Dioxide 22 (19-29) mEq/L BUN 13 (7-20) mg/dL Creatinine 0.60 (0.57-1.11) mg/dL Glucose 97 (70-99) mg/dL Calcium 8.0 L (8.6-10.8) mg/dL Adrenal panel 04/24/17 Range/Units 05:04 Sodium 140 (136-145) mEq/L Potassium 3.2 L (3.5-4.5) mEq/L Chloride 110 H (98-109) mEq/L Carbon Dioxide 22 (19-29) mEq/L BUN 13 (7-20) mg/dL Creatinine 0.60 (0.57-1.11) mg/dL Glucose 97 (70-99) mg/dL Calcium 8.0 L (8.6-10.8) mg/dL - Attending Attestation I reviewed above assessment and evaluation agree with the above plan.
[2017-04-24] MEDS: Metoprolol XL (24 HR) Succ 50 MG TAB.ER.24H PO SCH (20:32)
[2017-04-24] MEDS: *HR* OxyCODONE/APAP 10/325 TABLET PO PRN (20:35)
[2017-04-25] MEDS: Ketorolac 30 MG/ML VIAL IVP SCH ×3 (01:31→13:49)
[2017-04-25] MEDS: *HR* OxyCODONE/APAP 10/325 TABLET PO PRN (03:49)
[2017-04-25] MEDS: *HR* Heparin 5,000 UNIT/ML VIAL SQ SCH (05:55)
[2017-04-25 06:52] LABS: Basophils % 0.3 %; Eosinophils % 0.4 %; Hematocrit 27.7 % (35.3-44.9); Hemoglobin 8.7 g/dL (11.5-15.4); Immature Granulocytes % 0.4 % (0-4); Lymphocytes % 10.5 %; Mean Corpuscular HGB Conc 31.4 g/dL (31.6-35.5); Mean Corpuscular Hemoglobin 27.4 pg (28.0-33.3); Mean Corpuscular Volume 87.4 fL (83.0-100.0); Mean Platelet Volume 11.2 fL (9.4-12.4); Monocytes # 0.6 K/mcL (0.0-1.3); Monocytes % 7.1 %; Neutrophils # 7.3 K/mcL (1.6-8.9); Platelet Count 158 K/mcL (140-400); Red Blood Count 3.17 M/mcL (3.82-4.97); Red Cell Distribution Width 14.4 % (11.5-14.5); Segmented Neutrophils % 81.3 %
[2017-04-25 07:10] LABS: BUN/Creatinine Ratio 20 (6-26); Blood Urea Nitrogen 12 mg/dL (7-20); Calcium 8.2 mg/dL (8.6-10.8); Carbon Dioxide 23 mEq/L (19-29); Chloride 109 mEq/L (98-109); Glucose 145 mg/dL (70-99); Osmolality,Calculated 290 (280-300); Potassium 3.5 mEq/L (3.5-4.5); Sodium 139 mEq/L (136-145); eGFR For African Americans > 60 (> 60); eGFR For Non-African Americans > 60 (> 60)
[2017-04-25] MEDS: FLUoxetine 20 MG CAPSULE PO SCH (09:22)
--- NOTE | 2017-04-25 09:45 | Discharge Summary ---
Date of Encounter: 04/25/17 Time of Encounter: 09:44 - Discharge Diagnosis (1) Status post colostomy takedown Priority: Primary Status: Acute (2) Hypokalemia Priority: Secondary Status: Resolved - Discharge Medications Prescriptions: OxyCODONE/APAP 10/325 [Percocet 10/325 MG] 1 each PO Q4HR PRN #30 tablet PRN Reason: Moderate Pain Docusate [Colace] 100 mg PO BID #30 capsule Home Medications: Meloxicam [Mobic] 15 mg PO DAILY PRN 04/28/16 [History] Biotin 1 mg PO DAILY 01/16/17 [History] Cholecalciferol (D-3) [Vitamin D] 1,000 unit PO DAILY 01/16/17 [History] Esomeprazole Magnesium [Nexium] 40 mg PO DAILY 01/16/17 [History] FLUoxetine HCl [Fluoxetine HCl] 40 mg PO BID 01/16/17 [History] Isosorbide DInitrate [Isosorbide Dinitrate] 10 mg PO BID 01/16/17 [History] Lovastatin 40 mg PO HS 01/16/17 [History] Lurasidone [Latuda] 40 mg PO HS 01/16/17 [History] Vitamin B Complex 1 each PO DAILY 01/16/17 [History] diazePAM [Valium] 5 mg PO TID PRN 01/16/17 [History] OxyCODONE/APAP 10/325 [Percocet 10/325 MG] 1 each PO Q4HR PRN #30 tablet [Rx] Lisinopril [Zestril] 2.5 mg PO HS 04/22/17 [History] Metoprolol XL (24 HR) Succ [Toprol Xl] 50 mg PO HS 04/22/17 [History] Docusate [Colace] 100 mg PO BID #30 capsule 04/25/17 [Rx] OxyCODONE/APAP 10/325 [Percocet 10/325 MG] 1 each PO Q4HR PRN #30 tablet [Rx] Allergies/Adverse Reactions: Allergies aspirin Adverse Reaction (Verified 04/22/17 08:02) See Comments PATIENT STATES CAUSED BLEEDING Penicillins [PCN] Adverse Reaction (Verified 04/22/17 08:02) Itching sulfamethoxazole [From Bactrim] Adverse Reaction (Verified 04/22/17 08:02) Gastrointestinal Upset trimethoprim [From Bactrim] Adverse Reaction (Verified 04/22/17 08:02) Gastrointestinal Upset General Surgery Exam Initial Vital Signs Temp Pulse Resp BP Pulse Ox 99.4 F 64 18 119/76 97 04/22/17 06:33 04/22/17 06:33 04/22/17 06:33 04/22/17 06:33 04/22/17 06:33 - General physical appearance well developed, well nourished, no distress - Eyes normal ocular movement - ENT normal mucosa, atraumatic, normocephalic - Neck trachea midline - Respiratory normal respiratory effort, clear to auscultation - Cardiovascular Cardiovascular exam: Present: RRR - Abdomen Abdomen general surgery: Present: bowel sounds present, soft, tender (Expected postoperative tenderness) - Incision Incision: Present: clean and dry (Midline), intact, serous (Minimal), open (Old ostomy site) - Integumentary Integumentary general surgery: Present: warm and dry - Neurologic Present: CN 2-12 grossly intact - Musculoskeletal Present: normal gait, normal posture - Psychiatric Psychiatric general surgery: Present: appropriate, oriented to person, oriented to place, oriented to time, speech is normal, memory intact Date of admission: 04/22/17 11:21 Primary care physician: Aashish Salazar MD Consults: 04/22/17 11:54 Consult to Nutrition [CONS] Routine Comment: recent weight loss , decreased appetite Consulting Provider: NUTRITION Reason for Dietary Consult: Other Discharging clinician: [facility]) Anticipated date of discharge: 04/25/17 - Patient Status Disposition: Home, Self-Care Condition: Good Functional capacity at discharge: independent ambulation Overall status at discharge: patient is progressing back to baseline - Discharge Instructions Follow Up With: Christiano Catherine MD [Partnered Physician] - 05/07/17 11:00 am Aashish Salazar MD [Primary Care Provider] - Additional Instructions: #1 may shower, no tub bath for 2 weeks #2 wash incisions with soap and water and pat dry daily #3 no lifting, pushing, pulling more than 15 pounds for the next 6 weeks #4 no driving until off narcotics for 24 hours and able to safely react in the car #5 may climb stairs Wound care- cleanse wound with soap and water in the shower, Pack with half- inch plain gauze, cover with dry dressing, tape to secure daily - Diet and Activity Activity: other (See instructions above) Diet: regular diet - Hospital Course Hospital course: Ms. Pierce is a 56 year old female admitted to the hospital after undergoing ongoing a colostomy reversal with Dr. Catherine. She remained on bowel rest while awaiting return of bowel function. With return of bowel function, she was started on a liquid diet. She tolerated this without difficulty. She has been advanced to a soft diet and currently tolerating this without any difficulty. Vital signs are stable and she is afebrile. Pain is well- controlled. She is voiding and ambulating without difficulty. We will begin discharge 0.1 plan for outpatient follow-up in the next 1-2 weeks. - Time Spent with Patient Total time spent providing and/or coordinating discharge services: Less than 30 minutes Labs on day of discharge: Labs from last 24 hours 04/25/17 04/25/17 04/24/17 06:31 06:31 11:23 WBC 9.0 RBC 3.17 L Hgb 8.7 L Hct 27.7 L MCV 87.4 MCH 27.4 L MCHC 31.4 L RDW 14.4 Plt Count 158 MPV 11.2 Immature Gran % 0.4 Seg Neutrophils % 81.3 Lymphocytes % 10.5 Monocytes % 7.1 Eosinophils % 0.4 Basophils % 0.3 Neutrophils # 7.3 Lymphocytes # 1.0 Monocytes # 0.6 Eosinophils # 0.0 Basophils # 0.0 Sodium 139 Potassium 3.5 Chloride 109 Carbon Dioxide 23 BUN 12 Creatinine 0.60 Est GFR ( Amer) > 60 Est GFR (Non-Af Amer) > 60 BUN/Creatinine Ratio 20 Glucose 145 H POC Glucose 128 H Calculated Osmolality 290 Calcium 8.2 L - Attending Attestation I examined this patient and my medical decision-making was reviewed with the CADDY PACKER/PA/Advanced Practice Nurse/Resident Physician. I agree with the documented findings, disposition and treatment plan as described except to the extent set forth below.
[2017-04-25 10:41] VITALS: BP 100/65
[2017-04-25] MEDS: *HR* HYDROmorphone (PF) 1 MG/ML SYRINGE IVP PRN (13:49)
== END 2017-04-25 16:00 | disposition home or self-care (01) | DRG 331 ==
LOC: SAMDAY 06:06 → 3ANU 11:21
PROVIDERS: ADMIT Surgery; ATTEND Surgery